=== PATIENT | male | born 1945 | race Caucasian/White ===

== ENCOUNTER → 2016-05-17 | Outpatient (CLI) | payer BC ==
[~2016-05-17] MED LIST: ADVIN25/60 INH; ALBUAER19 INH; ATOR10TA88 PO; COQ10 PO; FRS/40 PO; GLIM1TAB PO; METO1TAB69 PO; MODA1TAB PO; MOME50SP5; MULT-506 PO; OMEG10007 PO; PRD75 PO; PRLSR20 PO; SILO8CAP PO; SPIR50TA PO; VITA400C15 PO; VSC/10 PO
[2016-05-17 11:01] LABS: BASO % 0.3 %; BASO ABS # 0.02 K/uL (0-0.2); COMPLETE YES; EOS % 2.2 %; HEMATOCRIT 42.5 % (42-52); IG% 0.2 %; LYMPH ABS # 1.31 K/uL (1.2-3.4); MEAN CELL VOLUME 91.2 fL (80-100); MEAN CORPUSCULAR HEMOGLOBIN 31.1 pg (25-34); MEAN CORPUSCULAR HGB CONC 34.1 g/dl (32-36); MEAN PLATELET VOLUME 10.8 fL (7.4-10.4); NEUT % 67.3 %; PLATELET COUNT 212 K/uL (130-400); RED BLOOD COUNT 4.66 M/uL (4.7-6.1); WHITE BLOOD COUNT 6.25 K/uL (4.8-10.8)
[2016-05-17 11:17] LABS: ESTIMATED AVERAGE GLUCOSE 117 mg/dl; HA1C FLAG Normal (Normal)
[2016-05-17 11:18] LABS: BLOOD UREA NITROGEN 26 mg/dl (7-18); BUN/CREATININE RATIO 18.4 (10-20); CALCIUM 9.1 mg/dl (8.5-10.1); CARBON DIOXIDE 30 mmol/L (21-32); CHLORIDE 99 mmol/L (98-107); CHOLESTEROL 124 mg/dl (0-200); GLUCOSE 102 mg/dl (70-99); POTASSIUM 3.6 mmol/L (3.5-5.1); SODIUM 138 mmol/L (136-145)
[2016-05-17 11:24] LABS: CHOLESTEROL/HDL RATIO 3.5; HDL CHOLESTEROL 35 mg/dl; LDL CHOLESTEROL CALCULATED 73 mg/dl; TRIGLYCERIDES 82 mg/dl (0-150); VERY LOW DENSITY LIPOPROT CALC 16 mg/dl
== END | disposition home or self-care (01) ==
LOC: C.LABBC 09:05
PROVIDERS: ATTEND Family Medicine
DX: E11.40 Type 2 diabetes mellitus with diabetic neuropathy, unspecified (principal); E78.5 Hyperlipidemia, unspecified; D64.9 Anemia, unspecified; E11.22 Type 2 diabetes mellitus with diabetic chronic kidney disease; N18.3 Chronic kidney disease, stage 3 (moderate); Z11.59 Encounter for screening for other viral diseases

== ENCOUNTER → 2016-12-13 | Outpatient (CLI) | payer BC ==
[2016-12-13 10:22] LABS: URINE PROTIEN/CREAT RATIO 0.2 (0-0.2); URINE TOTAL PROTEIN 13.4 mg/dl (0-11.9)
[2016-12-13 10:29] LABS: ALT/SGPT 25 U/L (12-78); BLOOD UREA NITROGEN 32 mg/dl (7-18); BUN/CREATININE RATIO 24.3 (10-20); CALCIUM 9.1 mg/dl (8.5-10.1); CARBON DIOXIDE 32 mmol/L (21-32); CHLORIDE 102 mmol/L (98-107); CHOLESTEROL 97 mg/dl (0-200); GLUCOSE 83 mg/dl (70-99); POTASSIUM 3.4 mmol/L (3.5-5.1); SODIUM 139 mmol/L (136-145)
[2016-12-13 10:32] LABS: ALKALINE PHOSPHATASE 82 U/L (45-117); AST/SGOT 24 U/L (15-37); CHOLESTEROL/HDL RATIO 2.8; HDL CHOLESTEROL 35 mg/dl; LDL CHOLESTEROL CALCULATED 48 mg/dl; TRIGLYCERIDES 71 mg/dl (0-150); VERY LOW DENSITY LIPOPROT CALC 14 mg/dl
[2016-12-13 10:38] LABS: ESTIMATED AVERAGE GLUCOSE 114 mg/dl; HA1C FLAG Normal (Normal)
== END | disposition home or self-care (01) ==
LOC: C.LAB 09:09
PROVIDERS: ATTEND Physician Assistant Medical
DX: Z00.00 Encounter for general adult medical examination without abnormal findings (principal); E11.40 Type 2 diabetes mellitus with diabetic neuropathy, unspecified; E11.21 Type 2 diabetes mellitus with diabetic nephropathy

== ENCOUNTER → 2017-01-12 | Outpatient (CLI) | payer BC ==
[~2017-01-12] MED LIST changes: +ATOR10TA82 PO; -ATOR10TA88 PO; +METO100T44 PO; -METO1TAB69 PO
--- NOTE | 2017-01-13 10:13 | PAP/PSG TECHNICIAN REPORT ---
[facility] Hyster Driver Polysomnogram Report Study name: None Report date: 01/13/2017 Study date: 01/12/2017 Referring Physician: Marcial Goodwin M.D. Name: ESTHER MCDONNELL Interpreting Physician: Marcial Goodwin M.D. Date of : 1945 Hyster Driver: Aranza Elizondo RPSGT. Sex: Male Age: 71 StudyType: PSG PAP Weight: 293 lbs Height: 71 years, Height 6' 4.5" Neck Circum: 19 inches BMI: 35.2 Medications: Atorvastatin 20 mg, CoQ10 200 mg, Furosemide 40 mg, Glimepiride 2 mg, Metoprolol 100 mg, Modafinil 200 mg, MultiVitamins, Mytbetriq 50 mg, [place] 3-6-9 oral, Pantoprazole 40 mg, Potassium [id number] MEQ, Pradaxa 150 mg, Ranitidine 300 mg, Rapaflo 4 mg, Spironolactone-HCTZ 25-25 mg, Ventolin HFA 108 ( 90 Base) Patient History 71 yr. old male here tonight for an updated Bi-PAP titration study. Patient is sleeping in a recliner. Patient is complaining of morning headaches. Parameters Monitored NPSG: E1-M2, E2-M1, Fp1-M2, Fp2-M1, F3-M2, F4-M2, F4-M1, C3-M2, C4-M2, C4-M1, O1-M2, O2-M2, O2-M1, T3-M2, T4-M1, P3-M2, P4-M1, CHIN1, CHIN2, HR, EKG, Legs, PFLOW, SNOR, FLOW, CFLOW, Tidal Volume, THOR, ABDO, SpO2, PLTH, CPRESS, ETCO2 Wave, ETCO2, pH Sleep Architecture Sleep Stages Time at Lights Off 10:57:13 PM STAGES Time (min.) TST (%) Time at Lights On 5:02:43 AM Wake 105.5 -- Total Recording Time (TRT) 353.50 min. N1 25.0 10 Total Sleep Period (TSP) 277.5 min. N2 177.0 71 Total Sleep Time (TST) 248.0min. N3 17.5 7 Awake Time 105.5 min. REM 28.5 11 Wake after Sleep Onset 100.0 min. Sleep Efficiency (SE) 70 % Sleep Onset Latency (STEPHAN) 17.5 min. Number of Stage 1 Shifts None Awakenings 14 Stage Changes 82 Number of REM periods 10 REM 28.5 11 REM Latency 89.5 min. NREM 219.5 89 Body Position Analysis Supine Right Left Side Prone Vertical Total Sleep Time (min.) 0.0 0.0 0.0 0.00 0.0 353.5 Total Sleep Time (%) 0% 0% 0% 0 0% 100% Total Sleep Time REM (min.) 0.0 0.0 0.0 None 0.0 28.5 Total Sleep Time NREM (min.) 0.0 0.0 0.0 None 0.0 219.5 Intermittent Wake (min.) 0.0 0.0 0.0 None 0.0 105.5 Total Sleep Period (%) 0% None None None None None Arousals Myoclonus (PLM) * Events Count Index Events Count Index Spontaneous 5 1 Events Awake (PLMW) 139 79.1 Respiratory 10 4.4 Events Asleep w/ Arousal (PLMA) 13 3.1 PLM 13 3 Events Asleep w/o Arousal (PLMS) 194 46.9 Snoring 4 1 Total Asleep 207 50.1 Total 32 8 Total 346 59 Respiratory Analysis * CA OA MA CH H RERA Total Count 13 6 5 0 69 0 93 Index 3.1 1.5 1.2 0 16.7 0 22.5 Mean Duration 19.8 30.1 72.8 0.00 38.4 0.0 37.1 Longest Duration 40.3 48.1 84.9 0.00 84.9 0.0 116.8 Respiratory Event Summary Total Supine ~Supine Right Left Prone REM NREM Apneas Count 24 N/A 24 N/A N/A N/A 11 13 Index 5.8 N/A 6 N/A N/A N/A 23 4 Hypopneas (4% Desat) Count 69 N/A 69 N/A N/A N/A 9 60 Index 16.7 N/A 17 N/A N/A N/A 18.9 16.4 Apneas & All Hypopneas Count 93 N/A 93 N/A N/A N/A 20 73 Index 22.5 N/A 23 N/A N/A N/A 42.1 20.0 Respiratory Events (Bulb Planter+All Hyp+RERA) Count 93 N/A 93 N/A N/A N/A 20 73 Index 22.5 N/A 23 N/A N/A N/A 42.1 20.0 Respiratory Related Arousal Count 10 N/A 18 N/A N/A N/A 7 11 Index 4.4 N/A 4 N/A N/A N/A 15 3 Snoring Analysis Supine Right Left Prone REM NREM Total Snore duration 3.5 min Snores count N/A N/A N/A N/A 9 127 136 Snore mean duration 1.5 Sec Snores index N/A N/A N/A N/A 18.9 34.7 32.9 TST with snoring (%) 1.4% Desaturation Event Summary: Minimum %SpO2 Event Count Mean/Min/Max Duration(sec.) Desaturation Index % Time In Bed > 90 67 38.3 / 16.5 / 59.8 12.5 92.3 86 - 90 3 37.9 / 34.5 / 42.3 9.9 5.2 81 - 85 2 25.5 / 19.3 / 31.8 22.3 1.6 76 - 80 0 N/A 0.0 0.8 71 - 75 0 N/A 0.0 0.1 66 - 70 0 N/A 0.0 0.0 61 - 65 0 N/A 0.0 0.0 56 - 60 0 N/A 0.0 0.0 51 - 55 0 N/A 0.0 0.0 < 50 0 N/A 0.0 0.0 Total REM NREM Awake <50% 0.0 min. 0.0 min. 0.0 min. 0.0 min. 51 - 60% 0.0 min. 0.0 min. 0.0 min. 0.0 min. 61 - 70% 0.0 min. 0.0 min. 0.0 min. 0.0 min. 71 - 80% 3.3 min. 1.2 min. 0.9 min. 1.1 min. 81 - 90% 23.5 min. 4.9 min. 16.5 min. 2.2 min. 91 - 100% 320.4 min. 22.4 min. 201.9 min. 96.1 min. Average 94 93 93 95 Minimum SpO2 72 76 74 72 Desaturation Event Index 11.7 21.1 12.8 6.8 # Desat. Events below 89% 23 6 12 5 Time(%) with Saturation below 89% 4.6 1.3 2.6 0.7 Time(min.) with Saturation below 89% 15.8 4.4 9.0 2.4 Time (mins) REM (mins) NREM (mins) % of TST SpO2 Below 90% 31 7 N24 6.8 SpO2 Below 88% 13 0 0 4 Heart Rate Analysis Min (bpm) Max (bpm) Average (bpm) Awake 47 79 61 NREM 43 84 60 REM 48 83 60 Overall 43 84 60 Supplemental O2 Values Minimum O2 level: None Value Start Time End Time Hyster Driver Comments slept upright in the recline, at 2:50 am he reclined back more than he was first half of the study. Frequent cardiac arrhythmia noted. PLMs noted. No bruxism noted. PAP initiated at an IPAP of +8 CMH2O and an EPAP of +4 CMH2O up-titrated to a level of: IPAP +16 CMH2O, EPAP 8 CMH20 BiFlex with a rate of 11BPM, which nearly eliminated all respiratory events and snoring. Patient brought his own medium Quattro air full face mask, however the leak was high and a medium Simplus was used during titration. awoke to use the restroom once during the night. stated, that was a normal night, he was belching more than normal and was cold. Therapy Event: Therapy (cm H20) 10/045 5 /5 13/5 14/5 15/6 15/7 16/8 Total Time at Pressure (min.) 27.2 15.5 46.9 51.7 68.5 43.1 11.4 17.5 20.5 51.2 TST at Pressure (min.) 9.8 15.0 46.4 43.2 68.0 26.6 10.4 16.5 12.2 0.0 # Periods 1 1 1 1 1 1 1 1 1 1 Sleep Onset (min.) 17.4 0.0 0.0 0.0 0.0 0.0 0.0 0.0 0.0 N/A REM Onset (min.) N/A N/A N/A 17.3 N/A N/A N/A 9.6 0.2 N/A Sleep Efficiency % 36 96 98 83 99 61 91 94 59 0 Wakefulness (%) 63.9 3.2 1.1 16.4 0.7 38.3 8.8 5.7 40.5 100.0 Wakefulness (min.) 17.4 0.5 0.5 8.5 0.5 16.5 1.0 1.0 8.3 51.2 NREM 1 (%) 9.2 9.7 2.6 11.1 3.7 11.6 13.2 10.5 15.5 0.0 NREM 1 (min.) 2.5 1.5 1.2 5.7 2.5 5.0 1.5 1.8 3.2 0.0 NREM 2 (%) 26.9 87.1 59.0 45.4 95.6 50.1 78.0 52.3 0.0 0.0 NREM 2 (min.) 7.3 13.5 27.7 23.5 65.4 21.6 8.9 9.1 0.0 0.0 NREM 3 (%) 0.0 0.0 37.3 0.0 0.0 0.0 0.0 0.0 0.0 0.0 NREM 3 (min.) 0.0 0.0 17.5 0.0 0.0 0.0 0.0 0.0 0.0 0.0 REM (%) 0.0 0.0 0.0 27.1 0.0 0.0 0.0 31.5 44.0 0.0 REM (min.) 0.0 0.0 0.0 14.0 0.0 0.0 0.0 5.5 9.0 0.0 # Arousals 0 2 4 9 8 2 0 2 5 N/A Arousal Index 0.0 8.0 5.2 12.5 7.1 4.5 0.0 7.3 24.7 N/A # Snore 3 5 6 17 19 49 4 29 4 N/A Snore Index 18.3 20.0 7.8 23.6 16.8 110.7 23.1 105.6 19.7 N/A AHI 24.4 32.0 9.1 41.6 8.8 18.1 46.3 40.1 34.5 N/A AHI Supine N/A N/A N/A N/A N/A N/A N/A N/A N/A N/A AHI Non-Supine 24.4 32.0 9.1 41.6 8.8 18.1 46.3 40.1 34.5 N/A NREM AHI 24.4 32.0 9.1 39.0 8.8 18.1 46.3 38.3 37.9 N/A REM AHI N/A N/A N/A 47.1 N/A N/A N/A 43.6 33.3 N/A RDI 24.4 32.0 9.1 41.6 8.8 18.1 46.3 40.1 34.5 N/A # Obstructive 2 1 1 1 0 0 0 1 0 N/A # Central Ap 0 0 0 10 0 0 0 3 0 N/A # Mixed 0 0 0 0 0 0 0 1 4 N/A # Hypopneas 2 7 6 19 10 8 8 6 3 N/A RERAS 0 0 0 0 0 0 0 0 0 N/A Total Respiratory Events 4 8 7 30 10 8 8 11 7 N/A Time Below SpO2 89.00% (min.) 0.2 1.0 2.0 3.1 2.5 0.0 0.1 2.6 2.0 0.0 Mean NREM SpO2 (%) 93 92 93 93 93 94 95 94 91 N/A Mean REM SpO2 (%) N/A N/A N/A 92 N/A N/A N/A 92 95 N/A Mean Sleep SpO2 (%) 93 92 93 93 93 94 95 93 94 N/A Min NREM SpO2 (%) 88 81 78 84 80 89 87 74 77 N/A Min REM SpO2 (%) N/A N/A N/A 76 N/A N/A N/A 76 79 N/A Position Supine (min.) 0.0 0.0 0.0 0.0 0.0 0.0 0.0 0.0 0.0 0.0 Position Non-supine (min.) 9.8 15.0 46.4 43.2 68.0 26.6 10.4 16.5 12.2 0.0 LM Index Sleep 110.0 60.0 80.2 52.7 52.1 22.6 5.8 0.0 19.7 N/A LM Index NREM 110.0 60.0 80.2 71.9 52.1 22.6 5.8 0.0 19.0 N/A LM Index REM N/A N/A N/A 12.9 N/A N/A N/A 0.0 20.0 N/A Mean Heart Rate (bpm) 64 65 62 61 58 58 58 58 58 N/A Min Heart Rate (bpm) 50 48 47 47 43 45 44 48 48 N/A
--- NOTE | 2017-01-17 13:38 | POLYSOMNOGRAPH REPORT ---
CLINICAL DATA: A 71-year-old male with BMI of 35.2 referred by myself for an updated BiPAP titration study. The patient has morning headaches and fatigue. SLEEP ARCHITECTURE: Total recording time was 353.5 minutes. Total sleep period was 277.5 minutes. Total sleep time was 248 minutes divided between 219.5 minutes of non-REM sleep and 28.5 minutes of REM sleep. Sleep onset latency was 17.5 minutes. REM latency was 89.5 minutes. Sleep efficiency was 70%. Wake after sleep onset was 100 minutes. Sleep consisted of stage N1 10%, stage N2 71%, stage N3 7%, and REM 11%. AROUSAL DATA: Thirty-two arousals were recorded for an index of 8 per hour. PLM DATA: Moderate PLMD was seen. There were 207 limb movements during sleep noted for an index of 50.1 per hour with arousal index of 3.1 per hour. RESPIRATORY DATA: The AHI was 22.5. There were 13 central, 6 obstructive and 5 mixed apneic episodes. The longest apneic episode was 84.9 seconds. There were 16 hypopneic episodes,with a mean duration of 38.4 seconds. OXIMETRY DATA: Nocturnal hypoxemia was seen. Oxygen isabel of 74% during non-REM sleep. The mean saturation was 94%. Time below 88% was 13 minutes. HEART RATE DATA: Heart rates ranged from 43-84 beats per minute. Atrial fibrillation was seen intermittently throughout the night. MANUFACTURING SCHEDULER'S COMMENTS: The patient slept upright in the recliner for the beginning of the study and then at 2:50 a.m. reclined back more than he was during the first half of the study. BiPAP was started at 8/4 and was titrated up to a final pressure setting of 15/7 with a backup rate 11 breaths per minute. At that pressure setting, he had an AHI of 34.5. At 16/8 with a Bi-Flex level of 2 and rate of 11 breaths per minute, the patient had an AHI of 0, but did not sleep at all during that time. IMPRESSION: Complex sleep apnea with incomplete BiPAP titration study. The final pressure setting of 16/8 with backup rate of 11 appeared to be effective, although the patient did not sleep at all with that pressure setting. At 15/7 with a backup rate of 11, the patient had an AHI of 34.5. IMPRESSION: Severe sleep apnea/hypopnea complex in nature with incomplete BiPAP titration study. RECOMMENDATIONS: The patient could be started on BiPAP 16/8 with a backup rate of 11. However, he may eventually need ASV titration to correct his complex sleep apnea. Clinical correlation is needed. MTDD
== END | disposition home or self-care (01) ==
LOC: C.NEUR 21:00
PROVIDERS: ATTEND Internal Medicine Pulmonary Disease
DX: G47.33 Obstructive sleep apnea (adult) (pediatric) (principal)

== ENCOUNTER → 2017-03-31 | Outpatient (CLI) | payer BC ==
[2017-03-31 14:26] LABS: BLOOD UREA NITROGEN 32 mg/dl (7-18); CALCIUM 9.4 mg/dl (8.5-10.1); CARBON DIOXIDE 32 mmol/L (21-32); CREATININE 1.31 mg/dl (0.60-1.40); GLUCOSE 93 mg/dl (70-99); POTASSIUM 3.7 mmol/L (3.5-5.1); SODIUM 137 mmol/L (136-145)
== END | disposition home or self-care (01) ==
LOC: C.LABBC 10:27
PROVIDERS: ATTEND Physician Assistant Medical
DX: R60.9 Edema, unspecified (principal)

== ENCOUNTER 2017-06-17 06:11 | Inpatient (IN) | payer BC, OTHER ==
[2017-05-21 08:30] VITALS: BMI 35.0
--- NOTE | 2017-05-21 09:07 | PAT Medication Instructions ---
Service Date May 21, 2017. Current Home Medication List Albuterol Sulfate (Proair Respiclick), 2 PUFFS INH PRN Atorvastatin (Lipitor), 20 MG PO QPM Dabigatran Etexilate Mesylate (Pradaxa), 150 MG PO BID Fish Oil ([place]-3), 1 CAP PO QPM Fluticasone Prop/Salmeterol (Advair Diskus 250/50 60 Dose), 1 PUFF INH BID PRN for PRN Furosemide (Lasix), 40 MG PO NOON Glimepiride (Amaryl), 2 MG PO QAM Hctz/Spironolactone 25MG/25MG (Aldactazide 25MG/25MG), 1 TAB PO QAM Metoprolol Succ (Toprol Xl) (Toprol-Xl ), 100 MG PO QPM Mirabegron (Myrbetriq Er), 50 MG PO QAM Modafinil (Provigil), 200 MG PO QAM Multivitamin (Multivitamin), 1 TAB PO QAM Pantoprazole (Protonix), 40 MG PO QPM Potassium Ext Rel (Klor-Con), 20 MEQ PO QAM Ranitidine (Zantac), 300 MG PO QPM Silodosin (Rapaflo), 4 MG PO HS [Coq10], 1 TAB PO QAM [Nasonex], 2 SPRAYS INTNAS QPM Medication Instructions For Your Scheduled Surgery -Contact your analyst food and beverage for instructions for: Dabigatran Etexilate Mesylate (Pradaxa), 150 MG PO BID - Hold the following medications 2 weeks prior to surgery: Fish Oil ([place]-3), 1 CAP PO QPM [Coq10], 1 TAB PO QAM - Hold the following medications 24 hours prior to surgery: Furosemide (Lasix), 40 MG PO NOON - Hold the following medications the morning of surgery: Glimepiride (Amaryl), 2 MG PO QAM Hctz/Spironolactone 25MG/25MG (Aldactazide 25MG/25MG), 1 TAB PO QAM Mirabegron (Myrbetriq Er), 50 MG PO QAM Modafinil (Provigil), 200 MG PO QAM Multivitamin (Multivitamin), 1 TAB PO QAM Potassium Ext Rel (Klor-Con), 20 MEQ PO QAM - Take the following medications the morning of surgery: Albuterol Sulfate (Proair Respiclick), 2 PUFFS INH PRN (if needed, and bring it with you to the hospital) Fluticasone Prop/Salmeterol (Advair Diskus 250/50 60 Dose), 1 PUFF INH BID PRN for PRN (if needed) - Take the following medications as scheduled the night before surgery: Albuterol Sulfate (Proair Respiclick), 2 PUFFS INH PRN (if needed) Atorvastatin (Lipitor), 20 MG PO QPM Fluticasone Prop/Salmeterol (Advair Diskus 250/50 60 Dose), 1 PUFF INH BID PRN for PRN (if needed) Metoprolol Succ (Toprol Xl) (Toprol-Xl ), 100 MG PO QPM Pantoprazole (Protonix), 40 MG PO QPM Ranitidine (Zantac), 300 MG PO QPM Silodosin (Rapaflo), 4 MG PO HS [Nasonex], 2 SPRAYS INTNAS QPM If you have any questions please call us at [phone] or [phone] or [phone]
--- NOTE | 2017-05-21 09:54 | DIAGNOSTIC IMAGING REPORT ---
CHEST 2 VIEWS ROUTINE CLINICAL HISTORY: PAT preoperative evaluation COMPARISON STUDY: No previous studies for comparison. FINDINGS: The bones soft tissues and hemidiaphragms are normal. The cardiomediastinal silhouette is normal. The lungs are clear. The pulmonary vasculature is normal. IMPRESSION: Negative chest. The above report was generated using voice recognition software. It may contain grammatical, syntax or spelling errors. Electronically signed by: Luciano Arrieta M.D. 05/21/2017 9:53 AM Dictated Date/Time: 05/21/2017 9:52 AM
[2017-05-21 10:21] LABS: BASO % 0.2 %; BASO ABS # 0.01 K/uL (0-0.2); EOS % 2.4 %; EOS ABS # 0.15 K/uL (0-0.5); HEMATOCRIT 40.7 % (42-52); HEMOGLOBIN 13.4 g/dL (14.0-18.0); IG# 0.01 K/uL (0.00-0.02); LYMPH % 16.9 %; LYMPH ABS # 1.06 K/uL (1.2-3.4); MEAN CELL VOLUME 90.8 fL (80-100); MEAN CORPUSCULAR HEMOGLOBIN 29.9 pg (25-34); MEAN CORPUSCULAR HGB CONC 32.9 g/dl (32-36); MEAN PLATELET VOLUME 10.7 fL (7.4-10.4); MONO ABS # 0.75 K/uL (0.11-0.59); NEUT % 68.3 %; NEUT ABS # 4.28 K/uL (1.4-6.5); PLATELET COUNT 167 K/uL (130-400); RED CELL DISTRIBUTION WIDTH CV 13.3 % (11.5-14.5); RED CELL DISTRIBUTION WIDTH SD 44.2 fL (36.4-46.3); WHITE BLOOD COUNT 6.26 K/uL (4.8-10.8)
[2017-05-21 11:07] LABS: HEMOGLOBIN A1C 5.7 % (4.5-5.6)
[2017-05-21 11:32] LABS: CALCIUM 9.4 mg/dl (8.5-10.1); CREATININE 1.29 mg/dl (0.60-1.40)
[2017-06-17] VITALS (15 sets, daily range): BP systolic 102–137; BP diastolic 63–85; PULSE 62–144; TEMP 36.3–36.5; O2SAT 95–98; Ht 193 cm; Wt 134.0 kg
[~2017-06-17] VITALS: Ht 193 cm; Wt 134.0 kg
[~2017-06-17 06:11] MED LIST changes: +ACETAMINOPHEN 500 MG TAB PO SCH; +ALBU18002 INH; -ALBUAER19 INH; +CEFAZOLIN 3000MG IV PUSH 22.5 ML IV SCH; +CeleBREX 200 MG CAP PO SCH; +DABI150C PO; +GABAPENTIN 300 MG CAP PO SCH; +LACTATED RINGER'S 1000ML 1,000 ML IV SCH; +MIRA1TAB3 PO; -MOME50SP5; +NASONEX INTNAS; +PANT40TA PO; +POTA-639 PO; -PRD75 PO; -PRLSR20 PO; +RANI150T85 PO; -VITA400C15 PO; -VSC/10 PO
[2017-06-17] MEDS ORDERED: FENTANYL CITRATE INJ 50 MCG/1 ML 2 ML VIAL ONE ×3 (06:39→09:36)
[2017-06-17] MEDS ORDERED: MIDAZOLAM HCL 1 MG/ML 2ML VIAL ONE (06:39)
[2017-06-17] MEDS ORDERED: FLUT0.15 NAE (06:41)
[2017-06-17] MEDS ORDERED: COEN75CA PO (06:41)
[2017-06-17] MEDS ORDERED: BACITRACIN 50000 UNIT VIAL ONE (06:56)
[2017-06-17] MEDS ORDERED: ATROPINE SULFATE 0.1 MG/ML 5ML SYR IV PRN (07:15)
[2017-06-17] MEDS ORDERED: LABETALOL HCL IV 5 MG/ML 20ML IV PRN (07:15)
[2017-06-17] MEDS ORDERED: ONDANSETRON INJ 2 MG/ML 2 ML VIAL IV PRN ×2 (07:15→10:00)
--- NOTE | 2017-06-17 07:22 | History & Physical Bridge Note ---
H&P Re-Evaluation Bridge Note: I have examined the patient, reviewed the History & Physical and in the interval since the performance of the History & Physical I have noted the following changes of clinical significance: No changes noted
--- NOTE | 2017-06-17 07:24 | History and Physical ---
History & Physical Date Jun 17, 2017. Chief Complaint Neck and arm pain History of Present Illness The patient is a 72 year old male with complaints of neck and arm pain Additional History Hepatic Disease: No Endocrine Disorder: No Kidney Disease: No Hypertension: Yes Heart Disease: No Bleeding Tendencies: No Infectious Diseases: No Other: Diabetes Allergies Coded Allergies: Clindamycin (Verified Allergy, Unknown, RASH, 06/17/17) Iodine (Verified Allergy, Unknown, TOPICAL IODINE SWELLING AT SITE-SOB, ) Home Medications Scheduled Albuterol Sulfate (Proair Respiclick), 2 PUFFS INH PRN Atorvastatin (Lipitor), 20 MG PO QPM Coenzyme Q10 (Ubidecarenone) (Co Q-10), 1 CAP PO DAILY Dabigatran Etexilate Mesylate (Pradaxa), 150 MG PO BID Fish Oil ([place]-3), 1 CAP PO QPM Fluticasone Propionate (Nasal) (Flonase Allergy Relief), 2 SPRAY [place] DAILY Furosemide (Lasix), 40 MG PO NOON Glimepiride (Amaryl), 2 MG PO QAM Hctz/Spironolactone 25MG/25MG (Aldactazide 25MG/25MG), 1 TAB PO QAM Metoprolol Succ (Toprol Xl) (Toprol-Xl ), 100 MG PO QPM Mirabegron (Myrbetriq Er), 50 MG PO QAM Modafinil (Provigil), 200 MG PO QAM Multivitamin (Multivitamin), 1 TAB PO QAM Pantoprazole (Protonix), 40 MG PO QPM Potassium Ext Rel (Klor-Con), 20 MEQ PO QAM Ranitidine (Zantac), 300 MG PO QPM Silodosin (Rapaflo), 4 MG PO HS Scheduled PRN Fluticasone Prop/Salmeterol (Advair Diskus 250/50 60 Dose), 1 PUFF INH BID PRN for PRN Physical Examination Skin: warm/dry, no rash Eyes: normal inspection, EOMI, sclerae normal ENT: normal ENT inspection, pharynx normal Head: normocephalic, atraumatic Neck: supple, no adenopathy, trachea midline Respiratory/Chest: lungs clear, normal breath sounds, no respiratory distress Cardiovascular: regular rate, rhythm, no edema, no murmur Abdomen / GI: normal bowel sounds, non tender Back: normal inspection Extremities: normal inspection, normal range of motion Neurologic/Psych: no motor/sensory deficits, alert, normal reflexes, oriented x 3 Diagnosis Cervical spinal stenosis Plan of Treatment Hardware removal C4-C6 ACDF C3-4 and C6-7 with re-instrumentation
[2017-06-17] MEDS ORDERED: HYDROmorphone INJ 2 MG/ML SYR/VIAL ONE ×2 (08:08→09:52)
[2017-06-17] MEDS ORDERED: EpHEDrine SULFATE 50MG/5ML SYR ONE (09:39)
[2017-06-17] MEDS ORDERED: ONDANSETRON INJ 2 MG/ML 2 ML VIAL ONE ×2 (09:39→09:57)
[2017-06-17] MEDS ORDERED: LIDOCAINE HCL 2% 2 ML VIAL (20MG/ML) ONE (09:39)
[2017-06-17] MEDS ORDERED: ROCURONIUM BROMIDE 10 MG/ML 5 ML VIAL IV ONE (09:39)
[2017-06-17] MEDS ORDERED: DEXAMETHASONE SOD INJ 4 MG/ML VIAL ONE (09:39)
[2017-06-17] MEDS ORDERED: PROPOFOL IV EMULSION 10 MG/ML 20 ML VIAL IV ONE (09:39)
[2017-06-17] MEDS ORDERED: FLOSEAL HEMOSTATIC MATRIX 10ML TOP ONE (09:50)
[2017-06-17] MEDS ORDERED: GLYCOPYRROLATE INJ 0.2 MG/ML VIAL ONE (09:57)
[2017-06-17] MEDS ORDERED: NEOSTIGMINE METHYLSULFATE 1 MG/ML 10ML VIAL ONE (09:57)
[2017-06-17] MEDS ORDERED: FLUTICASONE/SALMETEROL 250/50 (ADVAIR) 14 PUFF/1 INHALER INH PRN (10:00)
[2017-06-17] MEDS ORDERED: LORAZEPAM 0.5 MG TAB PO PRN (10:00)
[2017-06-17] MEDS ORDERED: DO NOT ADMINISTER FLU VACCINE PRN (10:00)
[2017-06-17] MEDS ORDERED: ACETAMINOPHEN IV 1,000 MG in EMPTY BAG 0 ML IV PRN (10:00)
[2017-06-17] MEDS ORDERED: OXYCODONE HCL IR 5 MG TAB (IMMEDIATE RELEASE) PO PRN (10:00)
[2017-06-17] MEDS ORDERED: HYDROmorphone INJ 0.5 MG/0.5 ML SYR IV PRN (10:00)
[2017-06-17] MEDS ORDERED: NALOXONE HCL 0.4 MG/1 ML VIAL/CARP IV PRN (10:00)
[2017-06-17] MEDS ORDERED: LORAZEPAM INJ 0.5 MG in SYRINGE 0.75 ML IV PRN (10:00)
[2017-06-17] MEDS ORDERED: RACEPINEPHRINE 2.25% NEBU SOLN 0.5 ML VIAL INH PRN (10:00)
[2017-06-17] MEDS ORDERED: MAGNESIUM HYDROXIDE SUSP 30 ML UDC PO PRN (10:00)
[2017-06-17] MEDS ORDERED: DO NOT ADMINISTER PNEUMOCOCCAL VACCINE PRN (10:00)
[2017-06-17] MEDS ORDERED: DEXAMETHASONE INJ 8 MG in SYRINGE 0 ML IV PRN (10:00)
[2017-06-17] MEDS ORDERED: DiphenhydrAMINE HCL 50 MG/ML VIAL IV PRN (10:00)
--- NOTE | 2017-06-17 10:00 | [facility] Operative Report ---
Operative Report Operative Date Jun 17, 2017. Pre-Operative Diagnosis Cervical spinal stenosis Post-Operative Diagnosis Cervical spinal stenosis Procedure(s) Performed 1. Removal instrumentation C4-5 C5-6. #2 expiration of fusion C4-5 C5-6. #3 anterior cervical discectomy bilateral foraminotomies C3-4 C6-7. #4 anterior cervical arthrodesis C3 Serge. #5 placement of 9 mm cortical allograft filled with DBM at C3-4 and a 10 mm allograft at C6-7. #6 application of 5 complete and screws from C3 to see 7. Surgeon Dr. Elgin Baxter Green Feed Attendant Surgeon(s) Johana Lui PA-C Estimated Blood Loss 20 mL Specimens Permanent specimens A: Explanted hardware; cervical spine Anesthesia Type General Description of Procedure Patient was met with preoperatively case discussed all questions addressed. The point patient was taken back to the operative suite underwent intubation and placed in supine position the Ray table to head Henning headholder. All bony prominences were well-padded eyes inspected to ensure no external pressure placed upon the. This point the anterior cervical spine was prepped and draped in normal sterile fashion. I placed a longitudinal incision along the right anterior aspect of the cervical spine sharp dissection with the assistance of bipolar electrocautery was performed down to and exposing the anterior cervical spine from C3-C7 exposing the anterior instrumentation. I then proceeded remove the hardware at C4-C5 and C6 I explored the fusion mass noted to be intact. Then performed a complete discectomy of C3-4 out to the uncovertebral joints bilaterally. Ada distracting pins were utilized to assist in visualization. I removed all posterior annular fibers performed bilateral foraminotomies. Endplates burred to subcortical bleeding bone and a 9 mm cortical allograft filled with DBM tapped in position. Distracting apparatus was removed and I proceeded to C6-7. Again a complete discectomy was performed up to the uncovertebral joints bilaterally. All posterior annular fibers and longitudinal ligament removed bilateral foraminotomies performed. Endplates burred to subcortical bleeding bone and a 10 mm cortical allograft filled DBM tapped in position. Distracting apparatus was removed all anterior osteophytes burred to a smooth cortical surface and a cline plate and screws applied from C3-C7 with the assistance of fluoroscopy. Incision was copiously irrigated explored to ensure there is no damage to surrounding structures or remaining bleeding and a 10 round FAHEEM drain inserted. Was then closed with 2 Vicryl in a fashion of 4 Monocryl for fashion closure Steri-Strips sterile dressings placed. Patient will continue to PACU stable condition. Please note Johana Lui participate in patient positioning complex portions of the surgery and final skin closure. I attest to the content of the Intraoperative Record and any orders documented therein. Any exceptions are noted below.
--- NOTE | 2017-06-17 10:15 | DIAGNOSTIC IMAGING REPORT ---
CERVICAL 2 OR 3 VIEWS CLINICAL HISTORY: 72 years-old Male presenting with REMOVAL OF HARDWARE C4-C6 C3-C4 DECOMP/ACDF C3-C7. TECHNIQUE: 3 fluoroscopic image(s) recorded as part of an intraoperative procedure. COMPARISON: None. FINDINGS/IMPRESSION: Anterior cervical discectomy and fusion from C3 through C7 with interbody spacers. Grossly normal anatomic alignment. An endotracheal tube is noted. Please see surgical report for further details. Fluoroscopy dosage (mGy): 2.8. Fluoroscopy time: 17.9 seconds. Number of fluoroscopic spot images: 0. Electronically signed by: Hitesh Ash M.D. 06/17/2017 10:14 AM Dictated Date/Time: 06/17/2017 10:13 AM
[2017-06-17] MEDS: HYDROmorphone INJ 2 MG/ML SYR/VIAL IV PRN ×3 (10:45→10:58)
--- NOTE | 2017-06-17 10:52 | Anesthesiology Progress Note ---
Anesthesia Post Op Note Date & Time Jun 17, 2017 at 10:52 Vital Signs Pain Intensity: 4.0 Vital Signs Past 12 Hours Date Time Temp Pulse Resp B/P (MAP) Pulse Ox O2 Delivery O2 Flow Rate FiO2 06/17/17 10:40 63 12 114/58 96 Nasal Cannula 4 06/17/17 10:30 62 10 113/63 99 Oxymask 10 06/17/17 10:20 63 11 109/60 98 Oxymask 10 06/17/17 10:13 36.2 67 16 111/56 100 Oxymask 10 06/17/17 06:45 36.5 65 20 121/71 97 Room Air Notes Mental Status: alert / awake / arousable, participated in evaluation Pt Amnestic to Procedure: Yes Nausea / Vomiting: adequately controlled Pain: adequately controlled Airway Patency, RR, SpO2: stable & adequate BP & HR: stable & adequate Hydration State: stable & adequate Anesthetic Complications: no major complications apparent
[2017-06-17] MEDS ORDERED: SODIUM CHLORIDE 0.9% 500ML 500 ML IV SCH (12:15)
[2017-06-17] MEDS ORDERED: ENALAPRILAT IV 2.5 MG in DEXTROSE 5% 25ML 25 ML IV ONE (12:22)
[2017-06-17] MEDS ORDERED: FUROSEMIDE 40 MG TAB PO ONE (12:33)
[2017-06-17] MEDS ORDERED: SODIUM CHLORIDE 0.9% 500ML 250 ML IV ONE (12:45)
[2017-06-17 12:50] LABS: HEMATOCRIT 38.5 % (42-52); HEMOGLOBIN 13.1 g/dL (14.0-18.0); MEAN CELL VOLUME 89.1 fL (80-100); MEAN CORPUSCULAR HEMOGLOBIN 30.3 pg (25-34); MEAN PLATELET VOLUME 10.3 fL (7.4-10.4); PLATELET COUNT 164 K/uL (130-400); RED CELL DISTRIBUTION WIDTH CV 13.1 % (11.5-14.5); RED CELL DISTRIBUTION WIDTH SD 42.9 fL (36.4-46.3); WHITE BLOOD COUNT 7.36 K/uL (4.8-10.8)
[2017-06-17] MEDS ORDERED: SCOPOLAMINE 1.5 MG TDSY TD SCH (13:00)
[2017-06-17 13:08] LABS: BLOOD UREA NITROGEN 32 mg/dl (7-18); CARBON DIOXIDE 29 mmol/L (21-32); CREATININE 1.42 mg/dl (0.60-1.40); GLUCOSE 120 mg/dl (70-99); POTASSIUM 3.5 mmol/L (3.5-5.1); SODIUM 137 mmol/L (136-145)
[2017-06-17] MEDS ORDERED: RXC5 PO (13:28)
--- NOTE | 2017-06-17 13:28 | Discharge Instructions ---
Discharge Instructions Date of Service Jun 17, 2017. Admission Reason for Admission: Spinal Stenosis Discharge Discharge Diagnosis / Problem: cervical stenosis Discharge Goals Goal(s): Improve function Activity Recommendations Activity Limitations: per Instructions/Follow-up section . Instructions / Follow-Up Instructions / Follow-Up ACTIVITY RECOMMENDATIONS: SELF CARE INSTRUCTIONS AFTER CERVICAL FUSIONS 1. No smoking. Smoking drastically decreases the chance of a solid fusion. 2. No bending, lifting more than 5 pounds, or twisting (roll like a log when turning in bed). 3. You may shower 3 days after surgery. Thoroughly dry wound. Do not soak in the tub. 4. Cervical collar: Must be worn at all times including sleeping. You may remove the brace only to bath, eat and if you are sitting in a recliner. 5. Please walk as much as you can for exercise. Gradually increase the distance that you walk as your endurance increases. SPECIAL CARE INSTRUCTIONS: VERY IMPORTANT TO READ AND REVIEW A. Do not take any anti-inflammatory medications (i.e. Indocin, Advil, Aspirin, Naprosyn, Aleve, Motrin, etc.) as these may inhibit the chance of a solid fusion. Tylenol is okay to take. B. Your surgical incision has been closed with a cosmetic suture under the skin that will dissolve in about 6 weeks. In 14 days, you can use a pair of clean scissors and cut the suture that is left outside of the skin at the ends of your incision. C. Complications are uncommon, but please contact us if you have any signs or symptoms of: 1. wound infection (fever higher than 102.5 degrees F, redness, separation of wound, drainage, or increasing pain from the incision) 2. blood clots in legs (pain, swelling, redness and warmth in legs) 3. urinary tract infection (fever higher than 102.5 degrees, burning upon urination or increased frequency of urination) 4. nerve problems (inability to walk on your toes or heels, numbness, loss of bowel or bladder control) 5. any other symptoms that concern you. D. Please call the office at if you have any concerns or questions about your operation or recovery. MANAGING PAIN AFTER SPINAL SURGERY 1. Narcotic medication is intended for short-term use and will be provided for surgical pain. Surgical pain usually lasts for a period of 4-6 weeks. Narcotic medication includes Percocet, Vicodin, Darvocet, Tylenol #3 or Lortab. 2. Longer-term pain is more appropriately treated with non-narcotic medication such as Tylenol ES. 3. Muscle spasm is not appropriately treated with narcotics. Muscle relaxers such as Soma, Flexeril or Skelaxin can be used along with Tylenol ES. 4. Remember that we all live with some "aches and pains". This is not unusual or uncommon after an injury or as we get older. 5. We will provide appropriate medication within the normal guidelines of their prescribed use. We will also be very cautious and aware of potential abuse and extended duration of patients' medication needs. 6. Please allow 2-3 days to process refills. Prescriptions will not be mailed but must be picked up at the office. FOLLOW UP VISIT: Keep your scheduled follow-up appointment. Any questions, please call the office at . Current Hospital Diet Patient's current hospital diet: Clear Liquid Diet, Diabetes Type 2 Diet Discharge Diet Recommended Diet: Regular Diet Procedures Procedures Performed: 1. Removal instrumentation C4-5 C5-6. #2 expiration of fusion C4-5 C5-6. #3 anterior cervical discectomy bilateral foraminotomies C3-4 C6-7. #4 anterior cervical arthrodesis C3 Serge. #5 placement of 9 mm cortical allograft filled with DBM at C3-4 and a 10 mm allograft at C6-7. #6 application of 5 complete and screws from C3 to see 7. Pending Studies Studies pending at discharge: no Laboratory Results Hemoglobin A1c Test 05/21/17 09:20 Range/Units Estimated Average Glucose 117 mg/dl Hemoglobin A1c 5.7 H 4.5-5.6 % Medical Emergencies . Who to Call and When: Medical Emergencies: If at any time you feel your situation is an emergency, please call 911 immediately. . Non-Emergent Contact Non-Emergency issues call your: Primary Care Provider . "Provider Documentation" section prepared by Elgin Baxter. .
--- NOTE | 2017-06-17 13:37 | Medical Consult ---
Consultation Date of Consultation: Jun 17, 2017. Attending Physician: Elgin Baxter D.O. Reason for Consultation: Medical management History of Present Illness 72 y/o M who was admitted on 06/17 s/p cervical hardware and replacement with Dr. Baxter. Pt was doing well post-op initially, however after being situated on the floor he had sudden onset of chest pain and it was noted that his HR was in the 200s. He was not SOB and his O2 sats were stable. BP was stable. I was called by nursing when this happened, however this issue was resolved upon arrival to the pt. HR was in the 90s. He states that initially his chest pain was substernal , however now it is more in his L axillary area and by the time his EKG was done , it had resolved. Pt takes metoprolol HS and did get this dose last night. He also took his DM meds this AM. He takes pradaxa, but this was on hold for the procedure. He has not been given food yet, but he has been tolerating water without issue. Pt denies current fever, SOB, chest pain, abd pain, n/v/c/d, LE swelling. Past Medical/Surgical History DM Hyperlipidemia HTN GERD COPD Afib JERAD, compliant with CPAP Narcolepsy CKD III Hx of cath 2002 that showed some narrowing, but nothing that required stents at that time Social History Smoking Status: Never Smoker Alcohol Use: none Drug Use: none Allergies Coded Allergies: Clindamycin (Verified Allergy, Unknown, RASH, 06/17/17) Iodine (Verified Allergy, Unknown, TOPICAL IODINE SWELLING AT SITE-SOB, ) Current Inpatient Medications Current Inpatient Medications Medications (Trade) Dose Ordered Sig/Svitlana Route Start Time Stop Time Status Last Admin Dose Admin Cefazolin Sodium 22.5 ml @ 4.5 mls/min PREOP IV 06/17/17 06:00 06/17/17 18:00 06/17/17 07:39 4.5 MLS/MIN Acetaminophen (Tylenol Tab) 1,000 mg PREOP PO 06/17/17 06:00 06/17/17 18:00 06/17/17 07:04 1,000 MG Celecoxib (CeleBREX CAP) 200 mg PREOP PO 06/17/17 06:00 06/17/17 18:00 06/17/17 07:04 200 MG Gabapentin (Neurontin Cap) 300 mg PREOP PO 06/17/17 06:00 06/17/17 18:00 06/17/17 07:04 300 MG Lactated Ringer's 1,000 ml @ 15 mls/hr Q24H IV 06/17/17 06:00 06/18/17 05:59 06/17/17 07:04 15 MLS/HR Racepinephrine (Raccemic Epinephrine 2.25% 0.5ML Neb) 0.5 ml ONE PRN INH 06/17/17 10:00 Acetaminophen 1000 mg/Empty Bag 100 ml @ 400 mls/hr Q8H PRN IV 06/17/17 10:00 07/17/17 09:59 Hydromorphone HCl (Dilaudid Inj) 0.5mg IV for moder... Q3H PRN IV 06/17/17 10:00 07/01/17 09:59 Magnesium Hydroxide (Milk Of Magnesia Susp) 30 ml DAILY PRN PO 06/17/17 10:00 07/17/17 09:59 Docusate Sodium (coLACE CAP) 100 mg BID PO 06/17/17 21:00 07/17/17 20:59 Ondansetron HCl (Zofran Inj) 4 mg Q6 PRN IV 06/17/17 10:00 07/17/17 09:59 Scopolamine (Transderm-Scop Patch) 1.5 mg Q72H TD 06/17/17 13:00 07/17/17 12:59 06/17/17 12:56 1.5 MG Cefazolin Sodium 2000 mg/Syringe 15 ml @ 3.75 mls/ min Q8H IV 06/17/17 16:00 06/18/17 15:59 Lorazepam (Ativan Tab) 0.5 mg Q8H PRN PO 06/17/17 10:00 07/17/17 09:59 Lorazepam 0.5 mg/ Syringe 1 ml @ 1 mls/min Q8H PRN IV 06/17/17 10:00 07/17/17 09:59 Diphenhydramine HCl (Benadryl Inj) 25 mg Q6H PRN IV 06/17/17 10:00 07/17/17 09:59 Pneumococcal Polysaccharide Vaccine 1 ea PRN PRN N/A 06/17/17 10:00 07/17/17 09:59 Influenza Virus Vacc Triv Types A&B 1 ea PRN PRN N/A 06/17/17 10:00 07/17/17 09:59 Sodium Chloride 1,000 ml @ 80 mls/hr [id number] IV 06/17/17 12:00 06/18/17 11:59 Oxycodone HCl (Roxicodone Immediate Rel Tab) 5mg for pain scale 4-6 1... Q4H PRN PO 06/17/17 10:00 07/01/17 09:59 Polyethylene (Miralax Powder Packet) 17 gm DAILY PO 06/20/17 09:00 07/20/17 08:59 Bisacodyl (Dulcolax Tab) 5 mg DAILY PRN PO 06/19/17 06:00 07/19/17 05:59 Bisacodyl (Dulcolax Supp) 10 mg DAILY PRN [place] 06/19/17 06:00 07/19/17 05:59 Dexamethasone Sodium Phosphate 8 mg/Syringe 2 ml @ 1 mls/min ONE PRN IV 06/17/17 10:00 Naloxone HCl (Narcan Inj) 0.1 mg Q5M PRN IV 06/17/17 10:00 07/17/17 09:59 Miscellaneous (Remove Transderm-Scop Patch) 1 ea Q72H N/A 06/20/17 13:00 07/20/17 12:59 Miscellaneous Information (Check Scopolamine Patch Placement) 1 ea QS N/A 06/17/17 16:00 07/17/17 15:59 Atorvastatin Calcium (Lipitor Tab) 20 mg QPM PO 06/17/17 21:00 07/17/17 20:59 Salmeterol Xinafoate/ Fluticasone (Advair Diskus 250/50 Inh) 1 puff BID PRN INH 06/17/17 10:00 07/17/17 09:59 Furosemide (Lasix Tab) 40 mg DAILY PO 06/18/17 09:00 07/18/17 08:59 Glimepiride (Amaryl Tab) 2 mg QDB PO 06/18/17 08:30 07/18/17 08:29 HCTZ/ Spironolactone (Aldactazide 25/ 25 Tab) 1 tab QAM PO 06/18/17 09:00 07/18/17 08:59 Metoprolol Succinate (Toprol Xl Tab) 100 mg QPM PO 06/17/17 21:00 07/17/17 20:59 Mirabegron (Myrbetriq Er) 50 mg QAM PO 06/18/17 09:00 07/18/17 08:59 Modafinil (proVIGIL TAB) 200 mg QAM PO 06/18/17 09:00 07/18/17 08:59 Pantoprazole Sodium (Protonix Tab) 40 mg QPM PO 06/17/17 21:00 07/17/17 20:59 Potassium Chloride (Klor-Con Tab) 20 meq QAM PO 06/18/17 09:00 07/18/17 08:59 Ranitidine HCl (zANTac TAB) 300 mg QPM PO 06/17/17 21:00 07/17/17 20:59 Miscellaneous Information (Order Awaiting Action) 1 ea QS N/A 06/17/17 16:00 07/17/17 15:59 Review of Systems Pertinent positives and negatives reviewed in HPI--all others negative Physical Exam Date Time Temp Pulse Resp B/P (MAP) Pulse Ox O2 Delivery O2 Flow Rate FiO2 06/17/17 12:40 36.4 73 16 112/73 97 Nasal Cannula 4.0 Humidified Oxygen 06/17/17 12:10 36.4 144 16 111/67 96 Nasal Cannula 4.0 Humidified Oxygen 06/17/17 12:10 62 06/17/17 11:55 66 16 97 Nasal Cannula 4.0 06/17/17 11:40 97 Nasal Cannula 4.0 Humidified Oxygen 06/17/17 11:40 36.4 62 16 123/70 97 Nasal Cannula 4.0 Humidified Oxygen 06/17/17 11:20 36.0 61 16 119/53 97 Nasal Cannula 4 06/17/17 11:10 60 14 120/59 96 Nasal Cannula 4 06/17/17 11:00 56 16 108/66 98 Nasal Cannula 4 06/17/17 10:50 64 13 117/62 98 Nasal Cannula 4 06/17/17 10:40 63 12 114/58 96 Nasal Cannula 4 06/17/17 10:30 62 10 113/63 99 Oxymask 10 06/17/17 10:20 63 11 109/60 98 Oxymask 10 06/17/17 10:13 36.2 67 16 111/56 100 Oxymask 10 06/17/17 06:45 36.5 65 20 121/71 97 Room Air General Appearance: WD/WN, no apparent distress Head: normocephalic, atraumatic Eyes: normal inspection, sclerae normal Respiratory/Chest: normal breath sounds, no respiratory distress Cardiovascular: regular rate, rhythm, no edema Abdomen/GI: non tender, soft Extremities/Musculoskelatal: no calf tenderness, no pedal edema Neurologic/Psych: alert, oriented x 3 Skin: normal color, warm/dry Laboratory Results Last 24 Hours Test 06/17/17 06:36 06/17/17 10:23 06/17/17 12:05 06/17/17 12:30 Bedside Glucose 102 mg/dl 104 mg/dl 123 mg/dl White Blood Count 7.36 K/uL Red Blood Count 4.32 M/uL Hemoglobin 13.1 g/dL Hematocrit 38.5 % Mean Corpuscular Volume 89.1 fL Mean Corpuscular Hemoglobin 30.3 pg Mean Corpuscular Hemoglobin Concent 34.0 g/dl RDW Standard Deviation 42.9 fL RDW Coefficient of Variation 13.1 % Platelet Count 164 K/uL Mean Platelet Volume 10.3 fL Assessment & Plan 72 y/o M who was admitted on 06/17 s/p cervical hardware and replacement removal with Dr. Baxter. Tachycardia/chest pain: uncertain etiology but resolved quickly and spontaneously Reported that pt had no issues on the monitor during or after surgery Will give NS bolus 250 with usual mid-day lasix dose and monitor CBC WNL PRP neg for electrolyte issues Trop neg x1, will repeat x1 EKG with afib and undetermined rhythm and normal rate BS taken just prior to floor was WNL T/C transfer to tele if recurrence CKD III: cr is 1.4 today and was 1.3 pre-op Baseline is 1.3-1.5 Monitor with IVF neck pain: s/p fusion DVT proph and diet as per ortho Pre-op Hb HTN/afib: stable. continue home meds Resume pradaxa at discretion of ortho Continue lasix DM: continue home meds Pre-op A1c 5.7 COPD: continue home meds JERAD: has home BIPAP and can use Narcolepsy: continue home meds
[2017-06-17] MEDS ORDERED: NURSING DECISION MEDICATION ORDER SCH (15:15)
[2017-06-17] MEDS ORDERED: COUGH DROP (SUGAR FREE) LOZ 24 LOZ/1 BOX LOZ PRN (15:30)
[2017-06-17] MEDS: [UNRECOGNIZED DRUG - REMARK] SCH ×2 (15:32→23:58)
[2017-06-17] MEDS: CHECK SCOPOLAMINE PATCH PLACEMENT SCH ×2 (15:32→23:58)
[2017-06-17] MEDS: CEFAZOLIN IV 2,000 MG in SYRINGE 0 ML IV SCH ×2 (15:35→23:57)
[2017-06-17] MEDS ORDERED: NURSING VERBAL MED ORDER ONE ×2 (16:00→21:00)
[2017-06-17] MEDS: HYDROCODONE/ACETAMIN 5/325MG TAB PO PRN (16:09)
[2017-06-17] MEDS: SODIUM CHLORIDE 0.9% 1000ML 1,000 ML IV SCH (20:48)
[2017-06-17] MEDS: DOCUSATE SODIUM 100 MG CAP PO SCH (20:49)
[2017-06-17] MEDS ORDERED: PANTOprazole SOD 40 MG TAB PO SCH (21:00)
[2017-06-17] MEDS ORDERED: METOPROLOL SUCC 50MG EXT REL TAB PO SCH (21:00)
[2017-06-17] MEDS ORDERED: RANITIDINE HCL 150 MG TAB PO SCH (21:00)
[2017-06-17] MEDS ORDERED: ATORVASTATIN 20 MG TAB PO SCH (21:00)
[2017-06-18] VITALS (9 sets, daily range): BP systolic 104–147; BP diastolic 68–85; PULSE 63–75; TEMP 36.2–36.4; O2SAT 94–98
[2017-06-18] MEDS: HYDROCODONE/ACETAMIN 5/325MG TAB PO PRN ×2 (00:13→10:31)
[2017-06-18 07:26] LABS: CALCIUM 9.2 mg/dl (8.5-10.1); CREATININE 1.39 mg/dl (0.60-1.40); POTASSIUM 3.7 mmol/L (3.5-5.1)
[2017-06-18] MEDS: [UNRECOGNIZED DRUG - REMARK] SCH (08:00)
[2017-06-18] MEDS: CEFAZOLIN IV 2,000 MG in SYRINGE 0 ML IV SCH (08:28)
[2017-06-18] MEDS: CHECK SCOPOLAMINE PATCH PLACEMENT SCH (08:28)
[2017-06-18] MEDS: DOCUSATE SODIUM 100 MG CAP PO SCH (08:29)
[2017-06-18] MEDS ORDERED: GLIMEPIRIDE 2 MG TAB PO SCH (08:30)
[2017-06-18] MEDS: SODIUM CHLORIDE 0.9% 1000ML 1,000 ML IV SCH (08:30)
[2017-06-18] MEDS ORDERED: FUROSEMIDE 40 MG TAB PO SCH (09:00)
[2017-06-18] MEDS: MODAFINIL 100 MG TAB PO SCH ×2 (09:00→10:30)
[2017-06-18] MEDS ORDERED: POTASSIUM CHLORIDE 20 MEQ TABCR PO SCH (09:00)
[2017-06-18] MEDS ORDERED: MIRABEGRON ER 25 MG TAB PO SCH (09:00)
[2017-06-18] MEDS ORDERED: SPIRONOLACTONE/HCTZ 25-25 PO SCH (09:00)
--- NOTE | 2017-06-18 09:25 | Hospitalist Progress Note ---
Hospitalist Progress Note Date of Service Jun 18, 2017. Subjective Pt evaluation today including: conversation w/ patient, physical exam, lab review, review of studies, review of inpatient medication list Voiding: no voiding problems Patient resting in bed. Feeling well this AM. No more episodes of tachycardia/chest pain. On liquid diet, tolerating well. Pain is well controlled- currently at 5/10. +flatus postop. No BM. Patient denies any fever, chills, sweats, lightheadedness, dizziness, vision changes, CP, palpitations, edema, SOB, wheezing, cough, abdominal pain, nausea, vomiting, diarrhea, urinary symptoms, melena, numbness/tingling, weakness, anxiety/depression, active bleeding, or new skin discoloration/changes. Medications Current Inpatient Medications Medications (Trade) Dose Ordered Sig/Svitlana Route Start Time Stop Time Status Last Admin Dose Admin Racepinephrine (Raccemic Epinephrine 2.25% 0.5ML Neb) 0.5 ml ONE PRN INH 06/17/17 10:00 Acetaminophen 1000 mg/Empty Bag 100 ml @ 400 mls/hr Q8H PRN IV 06/17/17 10:00 07/17/17 09:59 Hydromorphone HCl (Dilaudid Inj) 0.5mg IV for moder... Q3H PRN IV 06/17/17 10:00 07/01/17 09:59 Magnesium Hydroxide (Milk Of Magnesia Susp) 30 ml DAILY PRN PO 06/17/17 10:00 07/17/17 09:59 Docusate Sodium (coLACE CAP) 100 mg BID PO 06/17/17 21:00 07/17/17 20:59 06/18/17 08:29 100 MG Ondansetron HCl (Zofran Inj) 4 mg Q6 PRN IV 06/17/17 10:00 07/17/17 09:59 Scopolamine (Transderm-Scop Patch) 1.5 mg Q72H TD 06/17/17 13:00 07/17/17 12:59 06/17/17 12:56 1.5 MG Cefazolin Sodium 2000 mg/Syringe 15 ml @ 3.75 mls/ min Q8H IV 06/17/17 16:00 06/18/17 15:59 06/18/17 08:28 3.75 MLS/MIN Lorazepam (Ativan Tab) 0.5 mg Q8H PRN PO 06/17/17 10:00 07/17/17 09:59 Lorazepam 0.5 mg/ Syringe 1 ml @ 1 mls/min Q8H PRN IV 06/17/17 10:00 07/17/17 09:59 Diphenhydramine HCl (Benadryl Inj) 25 mg Q6H PRN IV 06/17/17 10:00 07/17/17 09:59 Pneumococcal Polysaccharide Vaccine 1 ea PRN PRN N/A 06/17/17 10:00 07/17/17 09:59 Influenza Virus Vacc Triv Types A&B 1 ea PRN PRN N/A 06/17/17 10:00 07/17/17 09:59 Sodium Chloride 1,000 ml @ 80 mls/hr [id number] IV 06/17/17 12:00 06/18/17 11:59 06/17/17 20:48 80 MLS/HR Oxycodone HCl (Roxicodone Immediate Rel Tab) 5mg for pain scale 4-6 1... Q4H PRN PO 06/17/17 10:00 07/01/17 09:59 Polyethylene (Miralax Powder Packet) 17 gm DAILY PO 06/20/17 09:00 07/20/17 08:59 Bisacodyl (Dulcolax Tab) 5 mg DAILY PRN PO 06/19/17 06:00 07/19/17 05:59 Bisacodyl (Dulcolax Supp) 10 mg DAILY PRN [place] 06/19/17 06:00 07/19/17 05:59 Dexamethasone Sodium Phosphate 8 mg/Syringe 2 ml @ 1 mls/min ONE PRN IV 06/17/17 10:00 Naloxone HCl (Narcan Inj) 0.1 mg Q5M PRN IV 06/17/17 10:00 07/17/17 09:59 Miscellaneous (Remove Transderm-Scop Patch) 1 ea Q72H N/A 06/20/17 13:00 07/20/17 12:59 Miscellaneous Information (Check Scopolamine Patch Placement) 1 ea QS N/A 06/17/17 16:00 07/17/17 15:59 06/18/17 08:28 1 EA Atorvastatin Calcium (Lipitor Tab) 20 mg QPM PO 06/17/17 21:00 07/17/17 20:59 06/17/17 20:49 20 MG Salmeterol Xinafoate/ Fluticasone (Advair Diskus 250/50 Inh) 1 puff BID PRN INH 06/17/17 10:00 07/17/17 09:59 Furosemide (Lasix Tab) 40 mg DAILY PO 06/18/17 09:00 07/18/17 08:59 06/18/17 08:30 40 MG Glimepiride (Amaryl Tab) 2 mg QDB PO 06/18/17 08:30 07/18/17 08:29 06/18/17 08:29 2 MG HCTZ/ Spironolactone (Aldactazide 25/ 25 Tab) 1 tab QAM PO 06/18/17 09:00 07/18/17 08:59 06/18/17 08:46 1 TAB Metoprolol Succinate (Toprol Xl Tab) 100 mg QPM PO 06/17/17 21:00 07/17/17 20:59 06/17/17 20:49 100 MG Mirabegron (Myrbetriq Er) 50 mg QAM PO 06/18/17 09:00 07/18/17 08:59 06/18/17 08:31 50 MG Modafinil (proVIGIL TAB) 200 mg QAM PO 06/18/17 09:00 07/18/17 08:59 Pantoprazole Sodium (Protonix Tab) 40 mg QPM PO 06/17/17 21:00 07/17/17 20:59 06/17/17 20:49 40 MG Potassium Chloride (Klor-Con Tab) 20 meq QAM PO 06/18/17 09:00 07/18/17 08:59 06/18/17 08:30 20 MEQ Ranitidine HCl (zANTac TAB) 300 mg QPM PO 06/17/17 21:00 07/17/17 20:59 06/17/17 20:49 300 MG Miscellaneous Information (Order Awaiting Action) 1 ea QS N/A 06/17/17 16:00 07/17/17 15:59 Menthol (Nice Danae) 1 danae PRN PRN DANAE 06/17/17 15:30 07/17/17 15:29 4/17/18 15:35 1 DANAE Acetaminophen/ Hydrocodone Bitart ([place] 5/325 Tab) 1 tab for pain 4-6, 2 tabs ... Q4H PRN PO 06/17/17 16:15 07/01/17 16:14 06/18/17 00:13 2 TAB Objective Vital Signs Date Time Temp Pulse Resp B/P (MAP) Pulse Ox O2 Delivery O2 Flow Rate FiO2 06/18/17 08:40 36.2 71 16 113/68 96 Room Air 06/18/17 07:02 66 16 96 Room Air 06/18/17 06:46 36.4 63 17 126/76 (93) 97 Humidified Oxygen 2.0 06/18/17 06:35 36.3 65 16 111/72 98 Nasal Cannula 2.0 Humidified Oxygen 06/18/17 04:40 36.4 64 16 104/70 95 Room Air 06/18/17 03:41 64 16 95 Room Air 06/18/17 02:40 36.3 75 20 121/74 94 Room Air 06/18/17 00:40 36.3 73 20 147/85 96 Room Air 06/18/17 00:05 Room Air 06/17/17 23:29 74 16 95 Room Air 06/17/17 22:40 36.3 65 15 131/81 95 Room Air 06/17/17 22:40 36.3 65 15 131/81 (98) 95 Room Air 06/17/17 20:40 36.5 80 15 137/85 (102) 95 Room Air 06/17/17 20:40 36.5 80 15 137/85 95 Room Air 06/17/17 19:35 76 18 97 Nasal Cannula 4.0 06/17/17 18:40 36.3 75 15 115/63 96 Nasal Cannula 2.0 Humidified Oxygen 06/17/17 18:40 36.3 75 15 115/63 (80) 96 Nasal Cannula 2.0 Humidified Oxygen 06/17/17 16:40 64 15 114/74 (87) 97 Nasal Cannula 2.0 Humidified Oxygen 06/17/17 16:40 64 15 114/74 97 Nasal Cannula 2.0 Humidified Oxygen 06/17/17 15:54 65 16 97 Nasal Cannula 4.0 06/17/17 15:40 97 Nasal Cannula 4.0 Humidified Oxygen 06/17/17 14:40 36.3 71 18 102/63 97 Nasal Cannula 4.0 Humidified Oxygen 06/17/17 13:40 76 18 113/69 98 Nasal Cannula 4.0 Humidified Oxygen 06/17/17 12:40 36.4 73 16 112/73 97 Nasal Cannula 4.0 Humidified Oxygen 06/17/17 12:10 36.4 144 16 111/67 96 Nasal Cannula 4.0 Humidified Oxygen 06/17/17 12:10 62 06/17/17 11:55 66 16 97 Nasal Cannula 4.0 06/17/17 11:40 97 Nasal Cannula 4.0 Humidified Oxygen 06/17/17 11:40 Nasal Cannula 4.0 Humidified Oxygen 06/17/17 11:40 36.4 62 16 123/70 97 Nasal Cannula 4.0 Humidified Oxygen 06/17/17 11:20 36.0 61 16 119/53 97 Nasal Cannula 4 06/17/17 11:10 60 14 120/59 96 Nasal Cannula 4 06/17/17 11:00 56 16 108/66 98 Nasal Cannula 4 06/17/17 10:50 64 13 117/62 98 Nasal Cannula 4 06/17/17 10:40 63 12 114/58 96 Nasal Cannula 4 06/17/17 10:30 62 10 113/63 99 Oxymask 10 06/17/17 10:20 63 11 109/60 98 Oxymask 10 06/17/17 10:13 36.2 67 16 111/56 100 Oxymask 10 Physical Exam General Appearance: no apparent distress Eyes: normal inspection, PERRL ENT: hearing grossly normal Neck: supple, + pertinent finding (FAHEEM drain with serosanguineous drainage ) Respiratory/Chest: lungs clear, no respiratory distress, no accessory muscle use Cardiovascular: + irregularly irregular (rate controlled ) Abdomen: normal bowel sounds, non tender, soft Extremities: no pedal edema, no calf tenderness, + pertinent finding (SCDs on ) Neurologic/Psychiatric: alert, normal mood/affect, oriented x 3 Skin: normal color, warm/dry, no rash Laboratory Results Last 24 Hours Test 06/17/17 10:23 06/17/17 12:05 06/17/17 12:30 06/17/17 18:25 Bedside Glucose 104 mg/dl 123 mg/dl White Blood Count 7.36 K/uL Red Blood Count 4.32 M/uL Hemoglobin 13.1 g/dL Hematocrit 38.5 % Mean Corpuscular Volume 89.1 fL Mean Corpuscular Hemoglobin 30.3 pg Mean Corpuscular Hemoglobin Concent 34.0 g/dl RDW Standard Deviation 42.9 fL RDW Coefficient of Variation 13.1 % Platelet Count 164 K/uL Mean Platelet Volume 10.3 fL Sodium Level 137 mmol/L Potassium Level 3.5 mmol/L Chloride Level 102 mmol/L Carbon Dioxide Level 29 mmol/L Anion Gap 7.0 mmol/L Blood Urea Nitrogen 32 mg/dl Creatinine 1.42 mg/dl Est Creatinine Clear Calc Drug Dose 71.3 ml/min Estimated GFR () 57.2 Estimated GFR (Non- 49.3 BUN/Creatinine Ratio 22.3 Random Glucose 120 mg/dl Calcium Level 9.0 mg/dl Troponin I < 0.015 ng/ml < 0.015 ng/ml Test 06/18/17 06:26 Sodium Level 136 mmol/L Potassium Level 3.7 mmol/L Chloride Level 101 mmol/L Carbon Dioxide Level 30 mmol/L Anion Gap 5.0 mmol/L Blood Urea Nitrogen 31 mg/dl Creatinine 1.39 mg/dl Est Creatinine Clear Calc Drug Dose 72.8 ml/min Estimated GFR () 58.7 Estimated GFR (Non- 50.6 BUN/Creatinine Ratio 22.2 Random Glucose 116 mg/dl Calcium Level 9.2 mg/dl Assessment and Plan 72 y/o M who was admitted on 06/17 s/p cervical hardware and replacement removal with Dr. Baxter. s/p cervical hardware replacement by Dr. Baxter on 06/17 - Surgical management, pain management, PT/OT, and DVT prophylaxis as per surgery - Bowel regimen ordered - Encourage incentive spirometer - Advance diet as per surgical team- currently on liquid diet, tolerating well - Postop CBC and PRP- STABLE Tachycardia, chest pain postop- RESOLVED: - EKG w/out acute ischemic changes - Cardiac enzymes negative x2 - IV NSS 250 ml bolus x1 - PRP and CBC- STABLE HTN, a. 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
--- NOTE | 2017-06-18 11:14 | Discharge Summary ---
Orthopedic Discharge Summary Admission Date/Reason Jun 17, 2017 at 07:30 Spinal Stenosis. Discharge Date/Disposition Jun 18, 2017 Home Diagnosis Principal Diagnosis: Cervical spinal stenosis Admission Physical Exam As per Admitting History & Physical. Hospital Course Patient underwent anterior cervical discectomy and fusion tolerated as well as taken to the orthopedic floor postoperatively. Postop day #1 arm symptoms were improved. He was swallowing without difficulty. No hoarseness. Neurologically intact. Subsequently was discharged home. Discharge orders and instructions can be found on the chart for further review. Discharge Instructions Please refer to the electronic Patient Visit Report (Discharge Instructions) for additional information.
[2017-06-19] MEDS ORDERED: BISACODYL 5 MG TABEC PO PRN (06:00)
[2017-06-19] MEDS ORDERED: BISACODYL 10 MG SUPP PR PRN (06:00)
[2017-06-20] MEDS ORDERED: POLYETHYLENE (MIRALAX) 17 GM PACK PO SCH (09:00)
== END 2017-06-18 10:59 | disposition home or self-care (01) | DRG 473 ==
LOC: C.ACU 06:11 → C.3E 07:30 → ENRESERV 10:55
PROVIDERS: ADMIT Orthopaedic Surgery Orthopaedic Surgery of the Spine; ATTEND Orthopaedic Surgery Orthopaedic Surgery of the Spine
PROC: 0RG20A0 Fusion of 2 or more Cervical Vertebral Joints with Interbody Fusion Device, Anterior Approach, Anterior Column, Open Approach (ICD-10-PCS; principal; 2017-06-17 07:45)
PROC: 0RP104Z Removal of Internal Fixation Device from Cervical Vertebral Joint, Open Approach (ICD-10-PCS; principal; 2017-06-17 07:45)
PROC: 0RT30ZZ Resection of Cervical Vertebral Disc, Open Approach (ICD-10-PCS; principal; 2017-06-17 07:45)
DX: M48.02 Spinal stenosis, cervical region (principal); R00.0 Tachycardia, unspecified; R07.9 Chest pain, unspecified; I48.2 Chronic atrial fibrillation; I25.10 Atherosclerotic heart disease of native coronary artery without angina pectoris; J44.9 Chronic obstructive pulmonary disease, unspecified; I12.9 Hypertensive chronic kidney disease with stage 1 through stage 4 chronic kidney disease, or unspecified chronic kidney disease; E11.22 Type 2 diabetes mellitus with diabetic chronic kidney disease; N18.3 Chronic kidney disease, stage 3 (moderate); E11.42 Type 2 diabetes mellitus with diabetic polyneuropathy; K21.9 Gastro-esophageal reflux disease without esophagitis; E78.5 Hyperlipidemia, unspecified; G47.419 Narcolepsy without cataplexy; G47.33 Obstructive sleep apnea (adult) (pediatric); E66.9 Obesity, unspecified; Z68.35 Body mass index [BMI] 35.0-35.9, adult; Z99.89 Dependence on other enabling machines and devices; Z98.1 Arthrodesis status; Z79.01 Long term (current) use of anticoagulants; Z79.84 Long term (current) use of oral hypoglycemic drugs; Z79.899 Other long term (current) drug therapy; Z88.1 Allergy status to other antibiotic agents; Z91.041 Radiographic dye allergy status

== ENCOUNTER → 2017-09-22 | Outpatient (CLI) | payer BC ==
[~2017-09-22] MED LIST changes: -ACETAMINOPHEN 500 MG TAB PO SCH; -CEFAZOLIN 3000MG IV PUSH 22.5 ML IV SCH; +COEN75CA PO; -COQ10 PO; -CeleBREX 200 MG CAP PO SCH; +FLUT0.15 NAE; -GABAPENTIN 300 MG CAP PO SCH; -LACTATED RINGER'S 1000ML 1,000 ML IV SCH; -NASONEX INTNAS; +RXC5 PO
[2017-09-22 12:53] LABS: BLOOD UREA NITROGEN 38 mg/dl (7-18); CARBON DIOXIDE 33 mmol/L (21-32); CREATININE 1.27 mg/dl (0.60-1.40); GLUCOSE 90 mg/dl (70-99); POTASSIUM 3.9 mmol/L (3.5-5.1); SODIUM 139 mmol/L (136-145)
== END | disposition home or self-care (01) ==
LOC: C.LAB 09:53
PROVIDERS: ATTEND Nurse Practitioner Adult Health
DX: N40.1 Benign prostatic hyperplasia with lower urinary tract symptoms (principal); E78.5 Hyperlipidemia, unspecified; E11.40 Type 2 diabetes mellitus with diabetic neuropathy, unspecified; E11.21 Type 2 diabetes mellitus with diabetic nephropathy

== ENCOUNTER 2020-08-22 06:43 | Inpatient (IN) ==
[2020-08-22] MEDS ORDERED: CEFEPIME 2,000 MG/20 ML VIAL IV STA (07:05)
[2020-08-22] MEDS ORDERED: SODIUM CHLORIDE 0.9% 1000ML 1,000 ML IV SCH (07:15)
[2020-08-22] MEDS ORDERED: KETOCONAZOLE 2% CR 15 GM TUBE EXT STA (07:22)
--- NOTE | 2020-08-22 07:33 | Emergency Department Note ---
History of Present Illness General Chief complaint: Back Injury/Pain Stated complaint: FEVER,SHAKING,WEAKNESS - CAN'T STAND VERY LONG Time Seen by Provider: 08/22/20 07:04 Source: patient Mode of arrival: ambulatory Limitations: no limitations History of Present Illness Provider complaint: Generalized weakness/fever Maximum Pain Intensity: 5 This is a 75-year-old male who presents to the ED with a chief complaint of generalized weakness and fever. The patient's symptoms started yesterday. The states that he seemed to be weak and shaky yesterday. He was having some subjective fevers and chills and sweats this morning. He was unable to stand on his own this morning. He normally ambulates without assistance. The patient does report some low back pain but states this is constant and chronic in nature. He states that seems to be a little worse than usual. The patient did have to urinate this morning but the states that he could not. He does have a history of A. fib and diabetes. He is chronically on Eliquis. Denies any upper respiratory symptoms. Denies any shortness of breath. No history of COPD. Does not report any abdominal pain but does have right lower quadrant abdominal tenderness on exam. He does have a rash in his right groin. This is likely intertrigo. Home Medications Medication Instructions Recorded Confirmed Type omega 3,6,9 combination no.7 92 mg 92 mg PO QPM tab 11/14/17 08/22/20 History (43 mg-22 [id number]) chew tablet fluticasone propionate 50 1 sprays INTNAS BID gm 10/06/19 08/22/20 History mcg/actuation nasal spray,suspension pantoprazole [Protonix] 40 mg PO BID 11/18/19 08/22/20 History modafinil 200 mg tablet 400 mg PO QAM #180 tab 02/15/20 08/22/20 Rx apixaban 5 mg tablet 5 mg PO BID #180 tab 03/30/20 08/22/20 Rx silodosin 4 mg capsule 4 mg PO HS #90 cap 04/10/20 08/22/20 Rx albuterol sulfate 90 mcg/actuation 2 puff INH Q4H PRN #3 inhaler 05/08/20 08/22/20 Rx aerosol inhaler mirabegron 50 mg tablet,extended 50 mg PO QAM #90 tab 07/10/20 08/22/20 Rx release 24 hr B6 0.85 mg-folic 200 1 tab PO QAM tab 07/17/20 08/22/20 History [id number] oral chewable tablet coenzyme Q10 100 mg capsule 100 mg PO QAM 07/17/20 08/22/20 History ketoconazole 2 % topical cream 1 applic TOPICAL BID PRN g 07/17/20 08/22/20 History fluocinonide 0.05 % topical cream 1 applic TOPICAL BID #120 g 08/02/20 08/22/20 Rx glimepiride 2 mg tablet 1 mg PO QAM #45 tab 08/03/20 08/22/20 Rx potassium chloride 20 mEq 20 meq PO BID #180 tab 08/03/20 08/22/20 Rx tablet,extended release(part/cryst) atorvastatin 20 mg tablet 20 mg PO HS #90 tab 08/04/20 08/22/20 Rx metoprolol succinate 100 mg 100 mg PO HS #90 tab 08/04/20 08/22/20 Rx tablet,extended release 24 hr spironolactone 25 1 tab PO QAM #90 tab 08/04/20 08/22/20 Rx mg-hydrochlorothiazide 25 mg tablet furosemide [Lasix] 40 mg PO DAILY@1200 08/22/20 08/22/20 History levothyroxine [Synthroid] 25 mcg PO DAILYBB 08/22/20 08/22/20 History multivitamin 1 tab PO QAM 08/22/20 08/22/20 History Allergies Allergy/AdvReac Type Severity Reaction Status Date / Time clindamycin Allergy Intermediate rash Verified 08/22/20 08:13 iodine Allergy Intermediate topical Verified 08/22/20 08:13 iodine- swelling at site trospium AdvReac Intermediate "sick"/head Verified 08/22/20 08:13 ache Past Med/Surg History Medical History (Updated 08/22/20 @ 10:11 by Augustine Keyes MD) Acid reflux disease controlled Arteriosclerotic coronary artery disease Asthma stable Atrial fibrillation Bilateral leg edema BPH with obstruction/lower urinary tract symptoms Cervical radiculopathy Cervical stenosis of spinal canal CKD (chronic kidney disease) stage 3, GFR 30-59 ml/min Cognitive impairment 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 Diverticular disease Dyslipidemia HTN (hypertension) Hypothyroidism Narcolepsy Obesity Obstructive sleep apnea treated with BiPAP Secondary hyperparathyroidism Sensorineural hearing loss of both ears Unable to read or write Urinary incontinence Venous insufficiency Surgical History History of cervical spinal surgery ACDF C3-C7 + hardware removal: 06/17/17: Grade view 1, MAC#3, ETT 8.0 at [facility] History of colonoscopy History of esophagogastroduodenoscopy (EGD) Hx of cervical spine surgery S/P hernia repair S/P knee surgery Family History Mother Coronary heart disease Myocardial infarction Brother Diabetes Other No family history of bleeding disorder Denies family history of Ovarian cancer Prostate cancer Breast cancer Lung cancer Colorectal cancer Social History Smoking Status: Current every day smoker Second Hand Exposure: No; Hx Alcohol Use: Yes Alcohol type: wine Alcohol Intake Frequency: Monthly or Less Hx Substance Use: No Preferred Language: Tanzanian Communication Ability: Impaired Visual Impairment: Limited Hearing Ability: Use of Hearing Aid Philosophy Professor Required: No Beliefs That Will Affect Care: None marital status: Current Living Situation: Spouse current occupational status: retired How many Children do You have: 2 Feels Safe at Home: Yes Childhood Exposure to Second-Hand Smoke: No caffeine: Yes (drinks coffee daily 1 cup) during the past year weight has: decreased > 10 lbs Dental Care, Regularly: No Physical Activity Frequency: Does not Exercise Physical Activity Frequency Comment: does outside work however Seatbelt Use: always Sunscreen Use: No Assistive Devices: Denture - Upper, Denture - Lower, Glasses and Hearing Aid - Bilateral Review of Systems A total of 10 systems reviewed and were otherwise negative Physical Exam Vital Signs Vital Signs - 24 hr 08/22/20 06:49 08/22/20 07:02 08/22/20 07:05 Temperature 37.1 C 38.4 C H Temperature Source Oral Oral Pulse Rate 87 Pulse Rate from SpO2 Sensor Respiratory Rate 20 Respiratory Effort / Characteristics Non-Labored Blood Pressure 130/68 Blood Pressure Mean 88 Pulse Oximetry 91 Oxygen Delivery Method Room Air Room Air Sepsis Recent Fever Within 48 Hours Yes Sepsis New/Unexplained Change in Mental Status N/A Sepsis Action Taken by Nursing No Action Required 08/22/20 07:27 08/22/20 07:31 08/22/20 07:50 Temperature Temperature Source Pulse Rate 86 Pulse Rate from SpO2 Sensor Respiratory Rate Respiratory Effort / Characteristics Blood Pressure 130/67 139/69 Blood Pressure Mean 88 92 Pulse Oximetry Oxygen Delivery Method Sepsis Recent Fever Within 48 Hours Sepsis New/Unexplained Change in Mental Status Sepsis Action Taken by Nursing 08/22/20 08:00 08/22/20 08:01 08/22/20 08:30 Temperature Temperature Source Pulse Rate 94 H 87 86 Pulse Rate from SpO2 Sensor Respiratory Rate 24 Respiratory Effort / Characteristics Blood Pressure 127/54 L 102/49 L Blood Pressure Mean 78 66 Pulse Oximetry Oxygen Delivery Method Sepsis Recent Fever Within 48 Hours Sepsis New/Unexplained Change in Mental Status Sepsis Action Taken by Nursing 08/22/20 09:00 Temperature Temperature Source Pulse Rate 85 Pulse Rate from SpO2 Sensor 88 Respiratory Rate 26 H Respiratory Effort / Characteristics Blood Pressure 131/72 Blood Pressure Mean 91 Pulse Oximetry 97 Oxygen Delivery Method Sepsis Recent Fever Within 48 Hours Sepsis New/Unexplained Change in Mental Status Sepsis Action Taken by Nursing CONSTITUTIONAL/VITAL SIGNS: Reviewed / noted above. GENERAL: Non-toxic in appearance. INTEGUMENTARY: Warm, dry, and [place]. HEAD: Normocephalic. EYES: without scleral icterus or trauma. ENT/OROPHARYNX: clear and moist. LYMPHADENOPATHY/NECK: Is supple without lymphadenopathy or meningismus. RESPIRATORY: Lungs clear and equal. CARDIOVASCULAR: Regular rate and rhythm. GI/ABDOMEN: Soft and tender in the right lower quadrant. No organomegaly or pulsatile mass. No rebound or guarding. Normal bowel sounds. EXTREMITIES: Warm and well perfused. Right groin intertrigo. BACK: No CVA tenderness. NEUROLOGICAL: Intact without focal deficits. PSYCHIATRIC: normal affect. MUSCULOSKELETAL: Normally developed with good muscle tone. TRIAGE NURSING DOCUMENTATION REVIEWED. Course Administered Medications Discontinued Medications Diphenhydramine HCl (Diphenhydramine 50 Mg/Ml Vial) 50 mg IV NOW STA Stop: 08/22/20 08:46 Last Admin: 08/22/20 08:50 Dose: 50 mg Documented by: [id number] Sodium Chloride (Nss 1000ml) 1,000 mls @ 999 mls/hr IV .Q1H1M JOSE A Stop: 08/22/20 08:06 Last Infusion: 08/22/20 08:51 Dose: 0 mls/hr Documented by: [id number] Admin: 08/22/20 07:47 Dose: 999 mls/hr Documented by: [id number] Cefepime HCl (Maxipime) 2,000 mg in 20 mls @ 5 mls/min IV NOW STA; Protocol Stop: 08/22/20 07:08 Last Admin: 08/22/20 07:47 Dose: 5 mls/min Documented by: [id number] Ioversol (Optiray 320 125ml) 120 ml IV ONCE ONE Stop: 08/22/20 08:50 Last Admin: 08/22/20 08:49 Dose: 120 ml Documented by: [id number] Ketoconazole (Ketoconazole 2% Cr 15 Gm Tube) 1 appln EXT NOW STA Stop: 08/22/20 07:23 Last Admin: 08/22/20 07:47 Dose: 1 appln Documented by: [id number] Medical Decision Making Differential Diagnosis Differential includes viral illness, influenza, streptococcal pharyngitis, meningitis, pneumonia, sinusitis, UTI, pyelonephritis, otitis media. Medical Records Attestation: I reviewed the patient's medical records. Home Medications Current Medication List: was personally reviewed by me Laboratory Data Attestation: I reviewed the patient's lab results. Result diagrams: 08/22/20 07:30 08/22/20 07:30 Lab Results 08/22/20 08/22/20 08/22/20 Range/Units 07:30 07:30 07:30 WBC 4.86 (4.8-10.8) K/uL RBC 4.53 L (4.7-6.1) M/uL Hgb 14.0 (14.0-18.0) g/dL Hct 41.9 L (42-52) % MCV 92.5 (80-100) fL MCH 30.9 (25-34) pg MCHC 33.4 (32-36) g/dL RDW Std Deviation 46.8 H (36.4-46.3) fL RDW Coeff of Magan 13.8 (11.5-14.5) % Plt Count 125 L (130-400) K/uL MPV 10.3 (7.4-10.4) fL Immature Gran % (Auto) 0.2 % Neut % (Auto) 91.0 % Lymph % (Auto) 4.7 % [place] % (Auto) 3.9 % Eos % (Auto) 0.0 % Baso % (Auto) 0.2 % Neut # (Auto) 4.42 (1.4-6.5) K/uL Lymph # (Auto) 0.23 L (1.2-3.4) K/uL [place] # (Auto) 0.19 (0.11-0.59) K/uL Eos # (Auto) 0.00 (0-0.5) K/uL Baso # (Auto) 0.01 (0-0.2) K/uL Immature Gran # (Auto) 0.01 (0.00-0.02) K/uL PT 13.0 H (9.0-12.0) Seconds INR 1.3 H (0.9-1.1) APTT 38.7 H (21.0-31.0) Seconds PTT Ratio 1.5 Sodium 135 L (136-145) mmol/L Potassium 3.4 L (3.5-5.1) mmol/L Chloride 99 (98-107) mmol/L Carbon Dioxide 30 (21-32) mmol/L Anion Gap 6.0 (3-11) BUN 35 H (7-18) mg/dl Creatinine 1.86 H (0.6-1.4) mg/dl Est Cr Clr Drug Dosing 52.5 ml/min Est GFR ( Amer) 40.4 ml/min Est GFR (Non-Af Amer) 34.9 ml/min BUN/Creatinine Ratio 19.0 (10-20) Glucose 93 (70-99) mg/dl Lactate (0.4-2.0) mmol/L Calcium 9.1 (8.5-10.1) mg/dl Magnesium 2.3 (1.8-2.4) mg/dl Total Bilirubin 1.3 H (0.2-1) mg/dl AST 39 H (15-37) U/L ALT 24 (12-78) U/L Alkaline Phosphatase 89 (45-117) U/L Troponin I 0.032 (0-0.045) ng/ml Total Protein 8.0 (6.4-8.2) gm/dl Albumin 3.8 (3.4-5.0) gm/dl Globulin 4.2 H (2.5-4.0) gm/dl Albumin/Globulin Ratio 0.9 (0.9-2) Procalcitonin (0-0.5) ng/ml Urine Color Urine Appearance (Clear) Urine pH (4.5-7.5) Ur Specific [place] (1.000-1.030) Urine Protein (Negative) Urine Glucose (UA) (Negative) Urine Ketones (Negative) Urine Blood (Negative) Urine Nitrite (Negative) Urine Bilirubin (Negative) Urine Urobilinogen (Negative) Ur Leukocyte Esterase (Negative) Urine WBC (Auto) (0-5) /hpf Urine RBC (Auto) (0-4) /hpf U Hyaline Cast (Auto) (0-5) /lpf U Epithel Cells (Auto) (0-5) /lpf Urine Bacteria (Auto) (Negative) COVID-19 Eval Order SARS-CoV-2 (PCR) (Negative) 08/22/20 08/22/20 08/22/20 Range/Units 07:30 07:30 07:35 WBC (4.8-10.8) K/uL RBC (4.7-6.1) M/uL Hgb (14.0-18.0) g/dL Hct (42-52) % MCV (80-100) fL MCH (25-34) pg MCHC (32-36) g/dL RDW Std Deviation (36.4-46.3) fL RDW Coeff of Magan (11.5-14.5) % Plt Count (130-400) K/uL MPV (7.4-10.4) fL Immature Gran % (Auto) % Neut % (Auto) % Lymph % (Auto) % [place] % (Auto) % Eos % (Auto) % Baso % (Auto) % Neut # (Auto) (1.4-6.5) K/uL Lymph # (Auto) (1.2-3.4) K/uL [place] # (Auto) (0.11-0.59) K/uL Eos # (Auto) (0-0.5) K/uL Baso # (Auto) (0-0.2) K/uL Immature Gran # (Auto) (0.00-0.02) K/uL PT (9.0-12.0) Seconds INR (0.9-1.1) APTT (21.0-31.0) Seconds PTT Ratio Sodium (136-145) mmol/L Potassium (3.5-5.1) mmol/L Chloride (98-107) mmol/L Carbon Dioxide (21-32) mmol/L Anion Gap (3-11) BUN (7-18) mg/dl Creatinine (0.6-1.4) mg/dl Est Cr Clr Drug Dosing ml/min Est GFR ( Amer) ml/min Est GFR (Non-Af Amer) ml/min BUN/Creatinine Ratio (10-20) Glucose (70-99) mg/dl Lactate 1.3 (0.4-2.0) mmol/L Calcium (8.5-10.1) mg/dl Magnesium (1.8-2.4) mg/dl Total Bilirubin (0.2-1) mg/dl AST (15-37) U/L ALT (12-78) U/L Alkaline Phosphatase (45-117) U/L Troponin I (0-0.045) ng/ml Total Protein (6.4-8.2) gm/dl Albumin (3.4-5.0) gm/dl Globulin (2.5-4.0) gm/dl Albumin/Globulin Ratio (0.9-2) Procalcitonin 1.37 H (0-0.5) ng/ml Urine Color Urine Appearance (Clear) Urine pH (4.5-7.5) Ur Specific [place] (1.000-1.030) Urine Protein (Negative) Urine Glucose (UA) (Negative) Urine Ketones (Negative) Urine Blood (Negative) Urine Nitrite (Negative) Urine Bilirubin (Negative) Urine Urobilinogen (Negative) Ur Leukocyte Esterase (Negative) Urine WBC (Auto) (0-5) /hpf Urine RBC (Auto) (0-4) /hpf U Hyaline Cast (Auto) (0-5) /lpf U Epithel Cells (Auto) (0-5) /lpf Urine Bacteria (Auto) (Negative) COVID-19 Eval Order Covid19 at [facility] SARS-CoV-2 (PCR) (Negative) 08/22/20 08/22/20 Range/Units 07:35 09:15 WBC (4.8-10.8) K/uL RBC (4.7-6.1) M/uL Hgb (14.0-18.0) g/dL Hct (42-52) % MCV (80-100) fL MCH (25-34) pg MCHC (32-36) g/dL RDW Std Deviation (36.4-46.3) fL RDW Coeff of Magan (11.5-14.5) % Plt Count (130-400) K/uL MPV (7.4-10.4) fL Immature Gran % (Auto) % Neut % (Auto) % Lymph % (Auto) % [place] % (Auto) % Eos % (Auto) % Baso % (Auto) % Neut # (Auto) (1.4-6.5) K/uL Lymph # (Auto) (1.2-3.4) K/uL [place] # (Auto) (0.11-0.59) K/uL Eos # (Auto) (0-0.5) K/uL Baso # (Auto) (0-0.2) K/uL Immature Gran # (Auto) (0.00-0.02) K/uL PT (9.0-12.0) Seconds INR (0.9-1.1) APTT (21.0-31.0) Seconds PTT Ratio Sodium (136-145) mmol/L Potassium (3.5-5.1) mmol/L Chloride (98-107) mmol/L Carbon Dioxide (21-32) mmol/L Anion Gap (3-11) BUN (7-18) mg/dl Creatinine (0.6-1.4) mg/dl Est Cr Clr Drug Dosing ml/min Est GFR ( Amer) ml/min Est GFR (Non-Af Amer) ml/min BUN/Creatinine Ratio (10-20) Glucose (70-99) mg/dl Lactate (0.4-2.0) mmol/L Calcium (8.5-10.1) mg/dl Magnesium (1.8-2.4) mg/dl Total Bilirubin (0.2-1) mg/dl AST (15-37) U/L ALT (12-78) U/L Alkaline Phosphatase (45-117) U/L Troponin I (0-0.045) ng/ml Total Protein (6.4-8.2) gm/dl Albumin (3.4-5.0) gm/dl Globulin (2.5-4.0) gm/dl Albumin/Globulin Ratio (0.9-2) Procalcitonin (0-0.5) ng/ml Urine Color Dark Yellow Urine Appearance Clear (Clear) Urine pH 5.0 (4.5-7.5) Ur Specific [place] 1.030 (1.000-1.030) Urine Protein Trace H (Negative) Urine Glucose (UA) Negative (Negative) Urine Ketones Negative (Negative) Urine Blood 1+ H (Negative) Urine Nitrite Negative (Negative) Urine Bilirubin Negative (Negative) Urine Urobilinogen Negative (Negative) Ur Leukocyte Esterase Negative (Negative) Urine WBC (Auto) 1-5 (0-5) /hpf Urine RBC (Auto) 0-4 (0-4) /hpf U Hyaline Cast (Auto) 1-5 (0-5) /lpf U Epithel Cells (Auto) 5-10 H (0-5) /lpf Urine Bacteria (Auto) Negative (Negative) COVID-19 Eval Order SARS-CoV-2 (PCR) NEGATIVE (Negative) Imaging Data Radiologist's Impression: Chest X-Ray 08/22/20 07:05 XR chest 1V portable CLINICAL HISTORY: SEPSIS COMPARISON STUDY: November 11, 2019 FINDINGS: No pneumothorax. No pleural effusion. No large infiltrates or consolidative lesions are seen. Mild reticular nodular prominence of pulmonary interstitium is seen at bilateral bases, slightly worsened since prior. Cardiac silhouette is mildly enlarged. No significant pulmonary vascular congestion.. Osseous structures: Degenerative changes of the spine. Partially visualized or thopedic hardware is seen projecting to the lower cervical spine region. IMPRESSION: 1. Mild cardiomegaly associated with slightly worsened reticular nodular prominence of pulmonary interstitium which might represent pulmonary edema; infectious process such as pneumonia could also be included in differential diagnosis. ACT 112: Negative or not required by law. The above report was generated using voice recognition software. It may contain grammatical, syntax or spelling errors. Electronically signed by: Diann Youssef DO 08/22/2020 9:54 AM Abdomen/Pelvis CT 08/22/20 07:24 CT SCAN OF THE ABDOMEN AND PELVIS WITH IV CONTRAST CLINICAL HISTORY: Right lower quadrant abdominal pain. Fever. Generalized weakness. COMPARISON STUDY: Abdominal CT dated 03/06/2020. TECHNIQUE: Following the IV administration of 120 cc of Optiray 320, CT scan of the abdomen and pelvis is performed from the lung bases to the proximal femora. Images are reviewed in the axial, sagittal, and coronal planes. IV contrast was administered without complication. A dose lowering technique was utilized adhering to the principles of ALARA. CT DOSE: 1738.28 mGy.cm FINDINGS: Lung bases: The heart is mildly enlarged and without pericardial effusion. The lung bases are clear noting bibasilar scarring/atelectasis. There is a small hiatal hernia. Liver: The contrast-enhanced liver is normal in size, contour, and attenuation. There is no intrahepatic biliary ductal dilatation. The hepatic veins and portal veins are patent. Gallbladder: Unremarkable. Spleen: Normal in size and attenuation. There are scattered calcified splenic granulomas. Pancreas: Moderately atrophic and grossly unremarkable. Adrenal glands: Unremarkable. Kidneys: The contrast enhanced kidneys are normal in size and without hydronephrosis. The kidneys enhance symmetrically. Abdominal vasculature: The abdominal aorta is normal in course and caliber noting mild atherosclerotic calcification. Bowel: There is mild colonic diverticulosis without CT evidence of acute diverticulitis. No bowel obstruction is seen. There is a tiny duodenal diverticulum. The appendix is well-visualized and normal. Peritoneum: There is no intraperitoneal free air or abdominal ascites. Lymphadenopathy: None. Pelvic viscera: The prostate gland is diminutive and heterogeneous. The bladder is normal as visualized. Skeletal structures: The skeletal structures are osteopenic. There is mild lumbosacral spondylosis. No lytic or blastic lesions are seen. IMPRESSION: 1. There are no acute infectious or inflammatory findings in the abdomen or pelvis. 2. Mild colonic diverticulosis without CT evidence of acute diverticulitis. 3. Mild cardiomegaly. 4. Additional findings as above. ACT 112: Negative or not required by law. Electronically signed by: Robles Diez M.D. 08/22/2020 9:04 AM MDM Narrative Patient presents today with fever and weakness. Exam reveals right lower quadr ant tenderness. He still has his appendix and gallbladder. His temperature today was 38.4. Room air oxygen saturations was 91%. Denies upper respiratory symptoms. Does have history of A. fib is on Eliquis. Also diabetes. The patient's chest x-ray may show a small pneumonia. A CT scan of the abdomen pelvis did not show acute process. The patient's EKG shows chronic A. fib at a rate of 80 without acute injury. CBC is normal. INR is 1.3. BUN is 35 and creatinine is 1.8. Baseline is around 1.6. Procalcitonin is 1.3. Urine did not show obvious infection. Covid test was negative. The patient's temperature is 38.4 and his oxygen saturations were 91% on room air. He has no history of COPD. Pneumonia is a possibility as a cause for the patient's symptoms. The patient is very weak and unable to ambulate. He will be seen by the hospitalist for further inpatient evaluation and care. The patient was treated with IV cefepime. He was given IV Benadryl for his CT scan with contrast. He was given some ketoconazole for the rash in his right groin. He was also given IV fluids. Impression & Plan Fever, Pneumonia, Generalized weakness, Intertrigo Discharge Plan Visit Data Chief Complaint: Back Injury/Pain Stated Complaint: FEVER,SHAKING,WEAKNESS - CAN'T STAND VERY LONG ED Provider: Andre Blake Discharge Problem: Fever, Pneumonia, Generalized weakness, Intertrigo Patient Disposition: Being Evaluated by Hospitalist Forms Stand Alone Forms: [facility] Prescriptions Prescriptions: No Action [place] DHA 92 mg (43 mg-22 [id number]) tablet,chewable 92 mg PO QPM RF: 0 fluticasone propionate 50 mcg/actuation spray,suspension 1 sprays INTNAS BID RF: 0 modafinil [Provigil] 200 mg tablet 400 mg PO QAM Qty: 180 RF: 3 silodosin [Rapaflo] 4 mg capsule 4 mg PO HS Qty: 90 RF: 3 Myrbetriq 50 mg tablet extended release 24 hr 50 mg PO QAM Qty: 90 RF: 3 atorvastatin 20 mg tablet 20 mg PO HS Qty: 90 RF: 3 metoprolol succinate [Toprol XL] 100 mg tablet extended release 24 hr 100 mg PO HS Qty: 90 RF: 3 spironolacton-hydrochlorothiaz [Aldactazide] 25-25 mg tablet 1 tab PO QAM Qty: 90 RF: 3 apixaban 5 mg tablet 5 mg PO BID Qty: 180 RF: 3 albuterol sulfate [Ventolin HFA] 90 mcg/actuation HFA aerosol inhaler 2 puff INH Q4H PRN (Reason: shortness of breath) Qty: 3 RF: 3 fluocinonide 0.05 % cream 1 applic topical BID Qty: 120 RF: 0 ketoconazole 2 % cream 1 applic topical BID PRN (Reason: .) RF: 0 Neuriva Plus 0.85 mg-200 mcg-1.2 mcg tablet,chewable 1 tab PO QAM RF: 0 coenzyme Q10 [CoQ-10] 100 mg capsule 100 mg PO QAM RF: 0 glimepiride 2 mg tablet 1 mg PO QAM Qty: 45 RF: 1 potassium chloride 20 mEq tablet,ER particles/crystals 20 meq PO BID Qty: 180 RF: 3 pantoprazole [Protonix] 40 mg tablet,delayed release (DR/EC) 40 mg PO BID RF: 0 multivitamin Tablet 1 tab PO QAM RF: 0 levothyroxine [Synthroid] 25 mcg tablet 25 mcg PO DAILYBB RF: 0 furosemide [Lasix] 40 mg tablet 40 mg PO DAILY@1200 RF: 0 Referrals Referrals: Ervin Bobby DO [Primary Care Provider] -
[2020-08-22 07:51] LABS: Basophils # (auto) 0.01 K/uL (0-0.2); Basophils % (auto) 0.2 %; Hematocrit (blood only) 41.9 % (42-52); Immature Granulocytes # (auto) 0.01 K/uL (0.00-0.02); Immature Granulocytes % (auto) 0.2 %; Lymphocytes # (auto) 0.23 K/uL (1.2-3.4); Lymphocytes % (auto) 4.7 %; Mean Corpuscular Hemoglobin 30.9 pg (25-34); Mean Corpuscular Hgb Conc 33.4 g/dL (32-36); Mean Corpuscular Volume 92.5 fL (80-100); Mean Platelet Volume 10.3 fL (7.4-10.4); Monocytes # (auto) 0.19 K/uL (0.11-0.59); Monocytes % (auto) 3.9 %; Neutrophils # (auto) 4.42 K/uL (1.4-6.5); Platelet Count 125 K/uL (130-400); RDW Coefficient of Variation 13.8 % (11.5-14.5); RDW Standard Deviation 46.8 fL (36.4-46.3); Red Blood Count 4.53 M/uL (4.7-6.1); White Blood Count 4.86 K/uL (4.8-10.8)
[2020-08-22 08:00] LABS: INR 1.3 (0.9-1.1); Partial Thromboplastin Ratio 1.5; Partial Thromboplastin Time 38.7 Seconds (21.0-31.0)
[2020-08-22 08:07] LABS: Albumin Level 3.8 gm/dl (3.4-5.0); Calcium 9.1 mg/dl (8.5-10.1); Creatinine Clr Calc Pharmacy 52.5 ml/min; Est GFR (African American) 40.4 ml/min; Est GFR (Non-African American) 34.9 ml/min; Magnesium 2.3 mg/dl (1.8-2.4); Potassium 3.4 mmol/L (3.5-5.1)
[2020-08-22 08:12] LABS: Albumin Globulin Ratio 0.9 (0.9-2); Bilirubin,Total 1.3 mg/dl (0.2-1); Globulin 4.2 gm/dl (2.5-4.0); Troponin I 0.032 ng/ml (0-0.045)
[2020-08-22] MEDS ORDERED: diphenhydrAMINE 50 MG/ML VIAL IV STA (08:45)
[2020-08-22] MEDS ORDERED: OPTIRAY 320 125ml IV ONE (08:49)
--- NOTE | 2020-08-22 09:05 | CT Scan Report ---
CT SCAN OF THE ABDOMEN AND PELVIS WITH IV CONTRAST CLINICAL HISTORY: Right lower quadrant abdominal pain. Fever. Generalized weakness. COMPARISON STUDY: Abdominal CT dated 03/06/2020. TECHNIQUE: Following the IV administration of 120 cc of Optiray 320, CT scan of the abdomen and pelv is is performed from the lung bases to the proximal femora. Images are reviewed in the axial, sagitta l, and coronal planes. IV contrast was administered without complication. A dose lowering technique w as utilized adhering to the principles of ALARA. CT DOSE: 1738.28 mGy.cm FINDINGS: Lung bases: The heart is mildly enlarged and without pericardial effusion. The lung bases are clear n oting bibasilar scarring/atelectasis. There is a small hiatal hernia. Liver: The contrast-enhanced liver is normal in size, contour, and attenuation. There is no intrahepa tic biliary ductal dilatation. The hepatic veins and portal veins are patent. Gallbladder: Unremarkable. Spleen: Normal in size and attenuation. There are scattered calcified splenic granulomas. Pancreas: Moderately atrophic and grossly unremarkable. Adrenal glands: Unremarkable. Kidneys: The contrast enhanced kidneys are normal in size and without hydronephrosis. The kidneys enh ance symmetrically. Abdominal vasculature: The abdominal aorta is normal in course and caliber noting mild atheroscleroti c calcification. Bowel: There is mild colonic diverticulosis without CT evidence of acute diverticulitis. No bowel obs truction is seen. There is a tiny duodenal diverticulum. The appendix is well-visualized and normal. Peritoneum: There is no intraperitoneal free air or abdominal ascites. Lymphadenopathy: None. Pelvic viscera: The prostate gland is diminutive and heterogeneous. The bladder is normal as visualiz ed. Skeletal structures: The skeletal structures are osteopenic. There is mild lumbosacral spondylosis. N o lytic or blastic lesions are seen. IMPRESSION: 1. There are no acute infectious or inflammatory findings in the abdomen or pelvis. 2. Mild colonic diverticulosis without CT evidence of acute diverticulitis. 3. Mild cardiomegaly. 4. Additional findings as above. ACT 112: Negative or not required by law. Electronically signed by: Robles Diez M.D. 08/22/2020 9:04 AM
[2020-08-22 09:28] LABS: Appearance Urine Clear (Clear); Bacteria Urine Automated Negative (Negative); Bilirubin Urine Negative (Negative); Blood Urine 1+ (Negative); Color Urine Dark Yellow; Glucose Urine UA Negative (Negative); Ketones Urine Negative (Negative); Leukocyte Esterase Urine Negative (Negative); Nitrite Urine Negative (Negative); Protein Urine Trace (Negative); RBC Urine Automated 0-4 /hpf (0-4); Urobilinogen Urine Negative (Negative)
--- NOTE | 2020-08-22 09:55 | XRay Report ---
XR chest 1V portable CLINICAL HISTORY: SEPSIS COMPARISON STUDY: November 11, 2019 FINDINGS: No pneumothorax. No pleural effusion. No large infiltrates or consolidative lesions are seen. Mild reticular nodular prominence of pulmonar y interstitium is seen at bilateral bases, slightly worsened since prior. Cardiac silhouette is mildly enlarged. No significant pulmonary vascular congestion.. Osseous structures: Degenerative changes of the spine. Partially visualized orthopedic hardware is s een projecting to the lower cervical spine region. IMPRESSION: 1. Mild cardiomegaly associated with slightly worsened reticular nodular prominence of pulmonary int erstitium which might represent pulmonary edema; infectious process such as pneumonia could also be i ncluded in differential diagnosis. ACT 112: Negative or not required by law. The above report was generated using voice recognition software. It may contain grammatical, syntax o r spelling errors. Electronically signed by: Diann Youssef DO 08/22/2020 9:54 AM
[2020-08-22] MEDS ORDERED: AMPICILLIN/SULBACTAM SOD 3,000 MG in 0.9 % SODIUM CHLORIDE 100 ML IV STA (10:00)
--- NOTE | 2020-08-22 10:11 | History & Physical Report ---
Date of Service August 22, 2020 Assessment & Plan (1) Sepsis: Lactate WNL. Hold off further fluid resuscitation Suspected source PNA +/- sinusitis Lyme and anaplasmosis testing added but less likely diagnosis Follow up blood cultures (2) Pneumonia: Based on CXR. No significant hypoxia. Procalcitonin positive Unasyn + doxycycline (3) Acute sinusitis: Symptom based Switch cefepime to Unasyn Consider adding prednisone if no significant improvement overnight (4) Obstructive sleep apnea treated with BiPAP: BiPAP while napping and sleeping 16/10 outpatient settings (5) Diabetes mellitus with diabetic nephropathy: HbA1C 5.9 in August suggests overtreatment with glimepiride. Hold glimepiride and consult pharmacy for glycemic control while inpatient with insulin as required. (6) Tinea cruris: Miconazole powder to right groin (7) Back pain: Suspect chronic back pain exacerbated by current illness Low suspicion of discitis unless blood cultures are positive or not resolving PT/OT once more stable. (8) CKD (chronic kidney disease) stage 3, GFR 30-59 ml/min: Close to baseline. Monitor with BMP in AM while on diuretics spironolactone + ?furosemide and HCTZ (9) Hypothyroidism: TSH 2.91 in August Continue levothyroxine 25 mcg PO daily (10) HTN (hypertension): BP currently normal. Continue on his usual anti-hypertensives but monitor BP closely as on multiple diuretics. Continue HCTZ 25mg PO daily, spironolactone 25mg PO daily, furosemide 40mg PO daily. (11) Narcolepsy: Continue modafinil 400mg PO QAM (12) Unable to read or write: Noted on history (13) Atrial fibrillation: Chronic. Rate controlled on metoprolol succinate 100mg PO HS, continue this. Anticoagulation with apixaban 5mg PO BID (14) Arteriosclerotic coronary artery disease: Cardiac catheterization 2002 with mild coronary disease. Echocardiography at that time with normal LV systolic function. Continue apixaban, metoprolol, atorvastatin (15) Acid reflux disease: Continue pantoprazole 40mg PO daily (16) DVT prophylaxis: Apixaban as above History of Present Illness Chief Complaint: Fever, generalized weakness Primary Care Provider: Ervin Bobby DO Daniel oLpez is a 75 year old male who presents to the ER with fever and generalized weakness. He reports feeling generally unwell over the last 1-2 days getting progressively worse. Fevers started today. Increased nasal drainage and bilateral frontal sinus pain starting last week. No chest pain, shortness of breath or cough. He also notes significant back pain although pain in this area is not unusual for him and he puts it down to the bed he is currently in as he usually sleeps better in a recliner. Pain does not radiate down legs. Generalized weakness bilateral in all four extremities. No areas of cellulitis but has repeated tinea infections in his groin. No abdominal pain, nausea, vomiting, diarrhea or constipation. [place] get [place] and has had lyme disease in the past which has felt similar to this. In the ER he was treated for a non-specific infection with IV cefepime. CT A/P was unremarkable for acute infectious process. CXR showed possible pulmonary edema vs pneumonia. He was referred to medicine for admission and ongoing management of weakness and fever. Allergies Allergy/AdvReac Type Severity Reaction Status Date / Time clindamycin Allergy Intermediate rash Verified 08/22/20 08:13 iodine Allergy Intermediate topical Verified 08/22/20 08:13 iodine- swelling at site trospium AdvReac Intermediate "sick"/head Verified 08/22/20 08:13 ache Home Medications Medication Instructions Recorded Confirmed Type omega 3,6,9 combination no.7 92 mg 92 mg PO QPM tab 11/14/17 08/22/20 History (43 mg-22 [id number]) chew tablet fluticasone propionate 50 1 sprays INTNAS BID gm 10/06/19 08/22/20 History mcg/actuation nasal spray,suspension pantoprazole [Protonix] 40 mg PO BID 11/18/19 08/22/20 History modafinil 200 mg tablet 400 mg PO QAM #180 tab 02/15/20 08/22/20 Rx apixaban 5 mg tablet 5 mg PO BID #180 tab 03/30/20 08/22/20 Rx silodosin 4 mg capsule 4 mg PO HS #90 cap 04/10/20 08/22/20 Rx albuterol sulfate 90 mcg/actuation 2 puff INH Q4H PRN #3 inhaler 05/08/20 08/22/20 Rx aerosol inhaler mirabegron 50 mg tablet,extended 50 mg PO QAM #90 tab 07/10/20 08/22/20 Rx release 24 hr B6 0.85 mg-folic 200 1 tab PO QAM tab 07/17/20 08/22/20 History [id number] oral chewable tablet coenzyme Q10 100 mg capsule 100 mg PO QAM 07/17/20 08/22/20 History ketoconazole 2 % topical cream 1 applic TOPICAL BID PRN g 07/17/20 08/22/20 History fluocinonide 0.05 % topical cream 1 applic TOPICAL BID #120 g 08/02/20 08/22/20 Rx glimepiride 2 mg tablet 1 mg PO QAM #45 tab 08/03/20 08/22/20 Rx potassium chloride 20 mEq 20 meq PO BID #180 tab 08/03/20 08/22/20 Rx tablet,extended release(part/cryst) atorvastatin 20 mg tablet 20 mg PO HS #90 tab 08/04/20 08/22/20 Rx metoprolol succinate 100 mg 100 mg PO HS #90 tab 08/04/20 08/22/20 Rx tablet,extended release 24 hr spironolactone 25 1 tab PO QAM #90 tab 08/04/20 08/22/20 Rx mg-hydrochlorothiazide 25 mg tablet furosemide [Lasix] 40 mg PO DAILY@1200 08/22/20 08/22/20 History levothyroxine [Synthroid] 25 mcg PO DAILYBB 08/22/20 08/22/20 History multivitamin 1 tab PO QAM 08/22/20 08/22/20 History Past Med/Surg History Medical History (Updated 08/23/20 @ 10:03 by Augustine Keyes MD) Acid reflux disease controlled Arteriosclerotic coronary artery disease Asthma stable Atrial fibrillation Bilateral leg edema BPH with obstruction/lower urinary tract symptoms Cervical radiculopathy Cervical stenosis of spinal canal CKD (chronic kidney disease) stage 3, GFR 30-59 ml/min Cognitive impairment 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 Diverticular disease Dyslipidemia HTN (hypertension) Hypothyroidism Narcolepsy Obesity Obstructive sleep apnea treated with BiPAP Secondary hyperparathyroidism Sensorineural hearing loss of both ears Unable to read or write Urinary incontinence Venous insufficiency Surgical History History of cervical spinal surgery ACDF C3-C7 + hardware removal: 4/17/18: Grade view 1, MAC#3, ETT 8.0 at [facility] History of colonoscopy History of esophagogastroduodenoscopy (EGD) Hx of cervical spine surgery S/P hernia repair S/P knee surgery Family History Mother Coronary heart disease Myocardial infarction Brother Diabetes Other No family history of bleeding disorder Denies family history of Ovarian cancer Prostate cancer Breast cancer Lung cancer Colorectal cancer Social History Smoking Status: Never smoker Second Hand Exposure: No; Hx Alcohol Use: No Hx Substance Use: No Preferred Language: [place]an Communication Ability: Effective Visual Impairment: Limited Hearing Ability: Use of Hearing Aid Continuity Writer Required: No Beliefs That Will Affect Care: None marital status: Current Living Situation: Spouse current occupational status: retired How many Children do You have: 2 Other Information That Helps Us Care for You: No Feels Safe at Home: Yes Childhood Exposure to Second-Hand Smoke: No caffeine: Yes (drinks coffee daily 1 cup) during the past year weight has: decreased > 10 lbs Dental Care, Regularly: No Physical Activity Frequency: Does not Exercise Physical Activity Frequency Comment: does outside work however Seatbelt Use: always Sunscreen Use: No Assistive Devices: Denture - Upper, Denture - Lower, Glasses and Hearing Aid - Bilateral Review of Systems Review of Systems: All systems reviewed & are unremarkable except as noted in HPI & below Physical Exam Constitutional: well developed and + acute distress (back pain); + not well nourished Respiratory: + respiratory distress, + labored breathing, + retractions, + uses accessory muscles and + grunting Auscultation: + diminished lung sounds (bibasal); no rales and no wheezes Cardiovascular: Rate/Rhythm: regular rate and + irregularly irregular Heart Sounds: no murmur Vessels: no JVD (difficult to assess given neck size) Extremities: normal capillary refill and + pedal edema (1+ pre-tibial, equal); no calf tenderness Gastrointestinal (Abdomen): normal bowel sounds, soft, nontender, no hepatosplenomegaly Musculoskeletal: no cyanosis or clubbing, extremities motor strength 5/5 Spine: + lumbar spinal tenderness (central and paraspinal L1-5) Skin: no rashes, warm and dry Varicose veins present on b/l feet Neurologic: moves all extremities and awake; no focal motor deficits and not confused Speech / Cognition: normal speech Motor/Sensory: no tremor and no pronator drift Psychiatric: A+Ox3, euthymic affect Genitourinary: no CVA tenderness Results & Data Results & Data ([facility]) Vital Signs (Past 12 Hours) Vital Signs Temp Pulse Resp BP Pulse Ox 08/22/20 09:00 85 26 H 131/72 97 08/22/20 08:30 86 24 102/49 L 08/22/20 08:01 87 127/54 L 08/22/20 08:00 94 H 08/22/20 07:50 86 08/22/20 07:31 139/69 08/22/20 07:27 130/67 08/22/20 07:02 38.4 C H 08/22/20 06:49 37.1 C 87 20 130/[address] SCAN OF THE ABDOMEN AND PELVIS WITH IV CONTRAST IMPRESSION: 1. There are no acute infectious or inflammatory findings in the abdomen or pelvis. 2. Mild colonic diverticulosis without CT evidence of acute diverticulitis. 3. Mild cardiomegaly. 4. Additional findings as above. Medications Administered ER Medications given: Cefepime 2g IV NSS 1L bolus ECG Indication: other (sepsis) Rate (beats per minute): 81 Rhythm: atrial fibrillation Findings: no acute ischemic change Comparison ECG Date: from (Nov 11, 2019) Change: the following changes noted (TW amptitude decreased in anterior leads) Code Status & VTE Plan Code Status Full VTE Prophylaxis Plan VTE Prophylaxis will be ordered: Yes PG Care Time/CCT Total # of Minutes Spent Total Time Spent with Patient: Total time spent is greater than 50% in coordination of care (as documented) at patient's floor/unit and/or counseling patient: Coding Level of Care Code 63598 Initial Inpt Care Lvl 3 Diagnoses Sepsis A41.9 Sepsis type: sepsis due to unspecified organism Sepsis acute organ dysfunction status: without acute organ dysfunction Pneumonia J18.9 Pneumonia type: due to unspecified organism Acute sinusitis J01.90 Obstructive sleep apnea treated with BiPAP G47.33 Diabetes mellitus with diabetic nephropathy E11.21 Tinea cruris B35.6 Back pain M54.9 CKD (chronic kidney disease) stage 3, GFR 30-59 ml/min N18.3 Hypothyroidism E03.9 HTN (hypertension) I10 Narcolepsy G47.419 Unable to read or write Z55.0 Atrial fibrillation I48.91 Arteriosclerotic coronary artery disease I25.10 Acid reflux disease K21.9 DVT prophylaxis Z29.9 (1) Sepsis Sepsis type: sepsis due to unspecified organism Sepsis acute organ dysfunction status: without acute organ dysfunction Qualified Code(s): A41.9 - Sepsis, unspecified organism (2) Pneumonia Pneumonia type: due to unspecified organism
[2020-08-22 10:48] LABS: Lyme Ab IgG w/WB Rflx Positive (Negative); Lyme Ab IgM w/WB Rflx Positive (Negative)
[2020-08-22] MEDS ORDERED: DOXYCYCLINE HYCLATE 100 MG in DEXTROSE 5% 100 ML IV STA (13:42)
[2020-08-22] MEDS ORDERED: ALBUTEROL HFA 8 GM INHALER INH PRN (14:24)
[2020-08-22] MEDS ORDERED: ONDANSETRON INJ 2 MG/ML 2 ML VIAL IV PRN (14:24)
[2020-08-22] MEDS ORDERED: POLYETHYLENE (MIRALAX) 17 GM PACK PO PRN (14:24)
[2020-08-22] MEDS ORDERED: ALUMINUM/MAGNESIUM SUSP 30 ML UDC PO PRN (14:24)
[2020-08-22] MEDS ORDERED: PHARMACY GLYCEMIC MGMT CONSULT PRN (14:50)
[2020-08-22] MEDS ORDERED: DEXTROSE 50% 50 ML SYRINGE IV PRN (15:00)
[2020-08-22] MEDS ORDERED: GLUCAGON FOR INJ 1 MG VIAL IM PRN (15:00)
[2020-08-22] MEDS ORDERED: FUROSEMIDE 40 MG TAB PO SCH (15:00)
[2020-08-22] MEDS ORDERED: GLUCOSE 40% GEL 15 GM TUBE PO PRN (15:00)
[2020-08-22] MEDS ORDERED: GLUCOSE 10 TABS/TUBE PO PRN (15:00)
[2020-08-22] MEDS ORDERED: CARBOHYDRATES FOR HYPOGLYCEMIA PO PRN (15:00)
--- NOTE | 2020-08-22 15:01 | Pharmacy Report ---
Pharmacy Glycemic Short Note 2 - Date of Service August 22, 2020 - Glycemic Short BSG Results (Last 24 hours): 08/22/20 08/22/20 07:30 14:51 Glucose 93 POC Glucose 85 OUTPATIENT ANTIDIABETIC REGIMEN: * glimepiride 1mg PO qam * A1c: 5.9% 08/03/20 ASSESSMENT: * BSGs today 93 mg/dL this morning and 85 mg/dL this afternoon. * No steroids ordered, but patient is ordered a diet, likely will not eat until dinner. * Will proceed with a conservative NovoLog scale only. PLAN FOR INPATIENT GLYCEMIC CONTROL: * Hold outpatient oral diabetes medications * Basal insulin * Hold at this time * Bolus insulin * NovoLog per scale ACHS or Q6hrs while NPO + additional overnight checks * Goal Range: Low 120 mg/dL - High 150 mg/dL * Correction Factor: 25 mg/dL/unit * Nutritional / Prandial insulin per carb ratio of 1 unit per 11 grams CHO consumed
--- NOTE | 2020-08-22 15:22 | Electrocardiogram Report ---
Test Reason : Blood Pressure : / mmHG Vent. Rate : 081 BPM Atrial Rate : 079 BPM P-R Int : 000 ms QRS Dur : 102 ms QT Int : 378 ms P-R-T Axes : 000 064 027 degrees QTc Int : 439 ms Atrial fibrillation Abnormal ECG When compared with ECG of 11-NOV-2019 08:43, T wave amplitude has decreased in Anterior leads Confirmed by Mamadou Quiñonez ([id number]) on 08/22/2020 3:22:23 PM Referred By: REFERRED SELF Confirmed By:Mamadou Quiñonez
[2020-08-22] MEDS: AMPICILLIN/SULBACTAM SOD 3,000 MG in 0.9 % SODIUM CHLORIDE 100 ML IV SCH ×2 (17:29→21:09)
[2020-08-22] MEDS: INSULIN ASPART 100 UNITS/ML 3 ML PEN SC SCH ×2 (18:05→21:47)
[2020-08-22] MEDS ORDERED: MICONAZOLE NITRATE POWDER 43 GM EXT PRN (18:17)
[2020-08-22] MEDS: FLUOCINONIDE 0.05% CR 15 GM TUBE EXT SCH (21:00)
[2020-08-22] MEDS ORDERED: POTASSIUM CHLORIDE CRTAB 20 MEQ TABCR PO SCH (21:00)
[2020-08-22] MEDS: METOPROLOL SUCC 50MG EXT REL TAB PO SCH (21:01)
[2020-08-22] MEDS: ATORVASTATIN 20 MG TAB PO SCH (21:01)
[2020-08-22] MEDS: APIXABAN 5 MG TABLET PO SCH (21:01)
[2020-08-22] MEDS: OMEGA-3 (PURIFIED FISH OIL) 1 GM CAP PO SCH (21:02)
[2020-08-22] MEDS: PANTOprazole 40 MG TAB PO SCH (21:02)
[2020-08-22] MEDS: FLUTICASONE PROPIONATE NA SPR 16 GM BTL NAE SCH (21:02)
[2020-08-23] MEDS: INSULIN ASPART 100 UNITS/ML 3 ML PEN SC SCH ×6 (00:16→20:15)
[2020-08-23] MEDS: ACETAMINOPHEN 325 MG TAB PO PRN ×2 (02:16→13:54)
[2020-08-23] MEDS: AMPICILLIN/SULBACTAM SOD 3,000 MG in 0.9 % SODIUM CHLORIDE 100 ML IV SCH ×4 (03:33→21:33)
[2020-08-23] MEDS: LEVOTHYROXINE SODIUM 25 MCG TABLET PO SCH (05:55)
[2020-08-23] MEDS: DOXYCYCLINE HYCLATE 100 MG in DEXTROSE 5% 100 ML IV SCH ×2 (05:55→18:21)
[2020-08-23 07:39] LABS: Hematocrit (blood only) 42.5 % (42-52); Hemoglobin 14.3 g/dL (14.0-18.0); Mean Corpuscular Hemoglobin 30.8 pg (25-34); Mean Corpuscular Hgb Conc 33.6 g/dL (32-36); Mean Corpuscular Volume 91.4 fL (80-100); RDW Standard Deviation 46.7 fL (36.4-46.3); Red Blood Count 4.65 M/uL (4.7-6.1)
[2020-08-23 07:59] LABS: Immature Granulocytes # (auto) 0.01 K/uL (0.00-0.02); Immature Granulocytes % (auto) 0.3 %; Lymphocytes # (auto) 0.44 K/uL (1.2-3.4); Lymphocytes % (auto) 14.2 %; Mean Platelet Volume 10.7 fL (7.4-10.4); Monocytes # (auto) 0.15 K/uL (0.11-0.59); Monocytes % (auto) 4.8 %; Neutrophils % (auto) 80.7 %; Platelet Count 83 K/uL (130-400); Platelet Estimate Decreased (Normal)
[2020-08-23 08:13] LABS: Albumin Level 3.3 gm/dl (3.4-5.0); BUN Creatinine Ratio 18.4 (10-20); Calcium 9.1 mg/dl (8.5-10.1); Creatinine Clr Calc Pharmacy 54.4 ml/min; Est GFR (Non-African American) 36.3 ml/min; Potassium 2.8 mmol/L (3.5-5.1)
[2020-08-23 08:26] LABS: Albumin Globulin Ratio 0.7 (0.9-2); Bilirubin,Total 1.4 mg/dl (0.2-1); Globulin 4.5 gm/dl (2.5-4.0); Total Protein 7.8 gm/dl (6.4-8.2)
[2020-08-23] MEDS ORDERED: SPIRONOLACTONE/HCTZ 25-25 PO SCH (09:00)
[2020-08-23] MEDS ORDERED: [UNRECOGNIZED DRUG - OTHER] PO SCH (09:00)
[2020-08-23] MEDS: APIXABAN 5 MG TABLET PO SCH ×2 (09:07→20:14)
[2020-08-23] MEDS: MIRABEGRON ER 25 MG TAB PO SCH (09:07)
[2020-08-23] MEDS: MULTIVITAMIN TAB PO SCH (09:07)
[2020-08-23] MEDS: PANTOprazole 40 MG TAB PO SCH ×2 (09:07→20:13)
[2020-08-23] MEDS: FLUTICASONE PROPIONATE NA SPR 16 GM BTL NAE SCH ×2 (09:07→20:14)
[2020-08-23] MEDS: FLUOCINONIDE 0.05% CR 15 GM TUBE EXT SCH ×2 (09:08→20:15)
[2020-08-23] MEDS: modafiniL 100 MG TAB PO SCH (09:11)
[2020-08-23] MEDS: POTASSIUM CHLORIDE CRTAB 20 MEQ TABCR PO SCH ×2 (10:36→18:26)
[2020-08-23] MEDS: MICONAZOLE NITRATE POWDER 43 GM EXT SCH ×2 (10:37→20:14)
--- NOTE | 2020-08-23 15:57 | Hospitalist Progress Note ---
Date of Service August 23, 2020 Assessment & Plan (1) Sepsis: Lactate WNL. Suspected source PNA +/- sinusitis +/- lyme disease Anaplasmosis smear negative, DNA PCR pending Follow up blood cultures (2) Pneumonia: Based on CXR. No significant hypoxia. Procalcitonin positive Continue Unasyn + doxycycline (3) Acute sinusitis: Symptom based Continue Unasyn No need for prednisone at current time (4) Obstructive sleep apnea treated with BiPAP: BiPAP while napping and sleeping 16/10 outpatient settings (5) Diabetes mellitus with diabetic nephropathy: HbA1C 5.9 in August suggests overtreatment with glimepiride. Hold glimepiride and consult pharmacy for glycemic control while inpatient with insulin as required. (6) Tinea cruris: Miconazole powder to right groin (7) Back pain: Suspect chronic back pain exacerbated by current illness Low suspicion of discitis PT/OT (8) CKD (chronic kidney disease) stage 3, GFR 30-59 ml/min: Close to baseline. Continue to monitor daily while off diuretics. (9) Hypothyroidism: TSH 2.91 in August Continue levothyroxine 25 mcg PO daily (10) HTN (hypertension): BP low normal. Hypokalemia likely from lasix given yesterday. Will hold his diuretics for now including spironolactone, lasix and HCTZ. Continue on metoprolol for rate control. (11) Narcolepsy: Continue modafinil 400mg PO QAM (12) Unable to read or write: Noted on history (13) Atrial fibrillation: Chronic. Rate controlled on metoprolol succinate 100mg PO HS, continue this. Anticoagulation with apixaban 5mg PO BID (14) Arteriosclerotic coronary artery disease: Cardiac catheterization 2002 with mild coronary disease. Echocardiography at that time with normal LV systolic function. Continue apixaban, metoprolol, atorvastatin (15) Acid reflux disease: Continue pantoprazole 40mg PO daily (16) DVT prophylaxis: Apixaban as above Admission and Anticipated Discharge Date Admission Date: August 22, 2020 Subjective Appears much improved today. More alert. Low grade fever 37.9 @ 4am with associated chills. Not yet out of bed today therefore unknown about his weakness but reports his back pain has resolved. Condom catheter in place with dark urine. Review of Systems Review of Systems: All systems reviewed & are unremarkable except as noted in HPI & below Physical Exam Constitutional: well developed; + not well nourished and no acute distress Respiratory: normal respiratory effort; no labored breathing, no retractions, does not use accessory muscles and no grunting Auscultation: + diminished lung sounds (bibasal); no rales and no wheezes Cardiovascular: Rate/Rhythm: regular rate and + irregularly irregular Heart Sounds: no murmur Extremities: normal capillary refill and + pedal edema (1+ pre-tibial, equal); no calf tenderness Gastrointestinal (Abdomen): normal bowel sounds, soft, nontender, no hepatosplenomegaly Musculoskeletal: no cyanosis or clubbing, extremities motor strength 5/5 Spine: no lumbar spinal tenderness Skin: no rashes, warm and dry Neurologic: moves all extremities and awake; no focal motor deficits and not confused Psychiatric: A+Ox3, euthymic affect Genitourinary: no CVA tenderness Results & Data Results & Data ([facility]) Vital Signs (Past 12 Hours) Vital Signs Temp Pulse Pulse Pulse Resp BP BP 08/23/20 15:05 36.8 C 85 18 101/64 08/23/20 11:36 37.9 C H 80 16 111/64 08/23/20 08:00 78 08/23/20 07:30 36.9 C 81 20 110/65 08/23/20 04:03 37.9 C H 90 20 117/65 Pulse Ox 08/23/20 15:05 94 08/23/20 11:36 95 08/23/20 08:00 08/23/20 07:30 95 08/23/20 04:03 93 PG Care Time/CCT Total # of Minutes Spent Total Time Spent with Patient: Total time spent is greater than 50% in coordination of care (as documented) at patient's floor/unit and/or counseling patient: Coding Level of Care Code 88627 Subseq Hosp Care Lvl 2 Diagnoses Sepsis A41.9 Sepsis acute organ dysfunction status: without acute organ dysfunction Sepsis type: sepsis due to unspecified organism Pneumonia J18.9 Pneumonia type: due to unspecified organism Acute sinusitis J01.90 Obstructive sleep apnea treated with BiPAP G47.33 Diabetes mellitus with diabetic nephropathy E11.21 Tinea cruris B35.6 Back pain M54.9 CKD (chronic kidney disease) stage 3, GFR 30-59 ml/min N18.3 Hypothyroidism E03.9 HTN (hypertension) I10 Narcolepsy G47.419 Unable to read or write Z55.0 Atrial fibrillation I48.91 Arteriosclerotic coronary artery disease I25.10 Acid reflux disease K21.9 DVT prophylaxis Z29.9 (1) Sepsis Sepsis acute organ dysfunction status: without acute organ dysfunction Sepsis type: sepsis due to unspecified organism Qualified Code(s): A41.9 - Sepsis, unspecified organism (2) Pneumonia Pneumonia type: due to unspecified organism
[2020-08-23] MEDS: METOPROLOL SUCC 50MG EXT REL TAB PO SCH (20:13)
[2020-08-23] MEDS: ATORVASTATIN 20 MG TAB PO SCH (20:14)
[2020-08-23] MEDS: OMEGA-3 (PURIFIED FISH OIL) 1 GM CAP PO SCH (20:14)
[2020-08-24] MEDS: AMPICILLIN/SULBACTAM SOD 3,000 MG in 0.9 % SODIUM CHLORIDE 100 ML IV SCH ×4 (04:20→22:17)
[2020-08-24] MEDS: DOXYCYCLINE HYCLATE 100 MG in DEXTROSE 5% 100 ML IV SCH (05:28)
[2020-08-24] MEDS: LEVOTHYROXINE SODIUM 25 MCG TABLET PO SCH (05:30)
[2020-08-24] MEDS: MULTIVITAMIN TAB PO SCH (07:53)
[2020-08-24] MEDS: PANTOprazole 40 MG TAB PO SCH ×2 (07:53→19:47)
[2020-08-24] MEDS: MICONAZOLE NITRATE POWDER 43 GM EXT SCH ×2 (07:53→19:53)
[2020-08-24] MEDS: FLUTICASONE PROPIONATE NA SPR 16 GM BTL NAE SCH ×2 (07:53→19:52)
[2020-08-24] MEDS: FLUOCINONIDE 0.05% CR 15 GM TUBE EXT SCH ×2 (07:53→19:55)
[2020-08-24] MEDS: MIRABEGRON ER 25 MG TAB PO SCH (07:54)
[2020-08-24] MEDS: POTASSIUM CHLORIDE CRTAB 20 MEQ TABCR PO SCH ×2 (07:54→16:12)
[2020-08-24] MEDS: APIXABAN 5 MG TABLET PO SCH ×2 (07:54→19:50)
[2020-08-24 08:15] LABS: Hematocrit (blood only) 37.2 % (42-52); Hemoglobin 12.5 g/dL (14.0-18.0); Mean Corpuscular Hemoglobin 30.2 pg (25-34); Mean Corpuscular Hgb Conc 33.6 g/dL (32-36); Mean Corpuscular Volume 89.9 fL (80-100); RDW Coefficient of Variation 13.9 % (11.5-14.5); Red Blood Count 4.14 M/uL (4.7-6.1)
[2020-08-24] MEDS: modafiniL 100 MG TAB PO SCH (08:29)
[2020-08-24] MEDS: INSULIN ASPART 100 UNITS/ML 3 ML PEN SC SCH ×4 (08:29→21:35)
[2020-08-24 08:57] LABS: Albumin Globulin Ratio 0.7 (0.9-2); Albumin Level 2.8 gm/dl (3.4-5.0); BUN Creatinine Ratio 21.2 (10-20); Bilirubin,Total 0.9 mg/dl (0.2-1); Calcium 8.3 mg/dl (8.5-10.1); Creatinine Clr Calc Pharmacy 59.3 ml/min; Est GFR (Non-African American) 40.6 ml/min; Potassium 3.4 mmol/L (3.5-5.1); Total Protein 6.8 gm/dl (6.4-8.2)
[2020-08-24 09:06] LABS: Mean Platelet Volume 10.7 fL (7.4-10.4); Platelet Count 71 K/uL (130-400)
[2020-08-24 09:07] LABS: Basophils # (auto) 0.02 K/uL (0-0.2); Lymphocytes # (auto) 0.63 K/uL (1.2-3.4); Lymphocytes % (auto) 31.5 %; Monocytes # (auto) 0.26 K/uL (0.11-0.59); Neutrophils # (auto) 1.09 K/uL (1.4-6.5); Neutrophils % (auto) 54.5 %; RBC Morphology Unremarkable
--- NOTE | 2020-08-24 10:21 | Hospitalist Progress Note ---
Date of Service August 24, 2020 Assessment & Plan (1) Sepsis: Lactate WNL. Suspected source PNA +/- sinusitis +/- lyme disease Anaplasmosis smear negative, DNA PCR pending Follow up blood cultures (2) Lyme disease: Continue on doxycycline (switch IV to PO) (3) Pancytopenia: Makes tick-borne illness more likely especially in setting of relatively non-specific symptoms other than generalized weakness. (4) Pneumonia: Based on CXR. No significant hypoxia. Procalcitonin positive Continue Unasyn + doxycycline (switch IV to PO) (5) Acute sinusitis: Symptom based Continue Unasyn No need for prednisone at current time (6) Obstructive sleep apnea treated with BiPAP: BiPAP while napping and sleeping 16/10 outpatient settings (7) Diabetes mellitus with diabetic nephropathy: HbA1C 5.9 in August suggests overtreatment with glimepiride. Hold glimepiride and consult pharmacy for glycemic control while inpatient with insulin as required. Suspect glimepiride can be discontinued on discharge. (8) Tinea cruris: Miconazole powder to right groin (9) Back pain: Suspect chronic back pain exacerbated by current illness Low suspicion of discitis PT/OT (10) CKD (chronic kidney disease) stage 3, GFR 30-59 ml/min: Close to baseline. Continue to monitor daily while off diuretics. (11) Hypothyroidism: TSH 2.91 in August Continue levothyroxine 25 mcg PO daily (12) HTN (hypertension): BP low normal. Hypokalemia likely from lasix given yesterday. Will hold his diuretics for now including spironolactone, lasix and HCTZ. Continue on metoprolol for rate control. 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 Rate controlled on metoprolol succinate 100mg PO HS, continue this. Anticoagulation with apixaban 5mg PO BID (16) Arteriosclerotic coronary artery disease: Cardiac catheterization 2002 with mild coronary disease. Echocardiography at that time with normal LV systolic function. Continue apixaban, metoprolol, atorvastatin (17) Acid reflux disease: Continue pantoprazole 40mg PO daily (18) DVT prophylaxis: Apixaban as above Awaiting PT/OT evals. Suspect home tomorrow if Plt/WBC trending in the right direction. Continued admission due to pancytopenia however patient can be transferred to med/surg. Admission and Anticipated Discharge Date Admission Date: August 22, 2020 Anticipated date of discharge: 08/25/20 Subjective No acute events overnight. Sinus pain and back pain resolved. No chest pain, shortness of breath or cough. No worsening leg swelling off of diuretics. Review of Systems Review of Systems: All systems reviewed & are unremarkable except as noted in HPI & below Physical Exam Constitutional: well developed; + not well nourished and no acute distress Respiratory: normal respiratory effort; no labored breathing, no retractions, does not use accessory muscles and no grunting Auscultation: lungs clear to auscultation bilaterally; no diminished lung sounds, no rales and no wheezes Cardiovascular: Rate/Rhythm: regular rate and + irregularly irregular Heart Sounds: no murmur Vessels: no JVD (difficult to assess given neck size) Extremities: normal capillary refill and + pedal edema (1+ pre-tibial, equal); no calf tenderness Gastrointestinal (Abdomen): normal bowel sounds, soft, nontender, no hepatosplenomegaly Musculoskeletal: no cyanosis or clubbing, extremities motor strength 5/5 Spine: no lumbar spinal tenderness Skin: no rashes, warm and dry Neurologic: moves all extremities and awake; no focal motor deficits and not confused Speech / Cognition: normal speech Motor/Sensory: no tremor and no pronator drift Psychiatric: A+Ox3, euthymic affect Genitourinary: no CVA tenderness Results & Data Results & Data ([facility]) Vital Signs (Past 12 Hours) Vital Signs Temp Pulse Pulse Resp BP Pulse Ox 08/24/20 07:33 37.0 C 87 20 125/68 97 08/24/20 05:08 37.1 C 89 18 124/72 94 08/23/20 23:51 37.3 C 86 18 128/66 97 08/23/20 22:30 88 16 93 PG Care Time/CCT Total # of Minutes Spent Total Time Spent with Patient: Total time spent is greater than 50% in coordination of care (as documented) at patient's floor/unit and/or counseling patient: Coding Level of Care Code 16006 Subseq Hosp Care Lvl 2 Diagnoses Sepsis A41.9 Sepsis acute organ dysfunction status: without acute organ dysfunction Sepsis type: sepsis due to unspecified organism Lyme disease A69.20 Pancytopenia D61.818 Pneumonia J18.9 Pneumonia type: due to unspecified organism Laterality: bilateral Lung location: unspecified part of lung Acute sinusitis J01.11 Sinusitis location: frontal Recurrence: recurrent Obstructive sleep apnea treated with BiPAP G47.33 Diabetes mellitus with diabetic nephropathy E11.21 Tinea cruris B35.6 Back pain M54.9 CKD (chronic kidney disease) stage 3, GFR 30-59 ml/min N18.3 Hypothyroidism E03.9 HTN (hypertension) I10 Narcolepsy G47.419 Unable to read or write Z55.0 Atrial fibrillation I48.91 Arteriosclerotic coronary artery disease I25.10 Acid reflux disease K21.9 DVT prophylaxis Z29.9 (1) Acute sinusitis Sinusitis location: frontal Recurrence: recurrent Qualified Code(s): J01.11 - Acute recurrent frontal sinusitis (2) Sepsis Sepsis acute organ dysfunction status: without acute organ dysfunction Sepsis type: sepsis due to unspecified organism Qualified Code(s): A41.9 - Sepsis, unspecified organism (3) Pneumonia Pneumonia type: due to unspecified organism Laterality: bilateral Lung location: unspecified part of lung Qualified Code(s): J18.9 - Pneumonia, unspecified organism
[2020-08-24] MEDS: OMEGA-3 (PURIFIED FISH OIL) 1 GM CAP PO SCH (19:48)
[2020-08-24] MEDS: METOPROLOL SUCC 50MG EXT REL TAB PO SCH (19:48)
[2020-08-24] MEDS: DOXYCYCLINE HYCLATE 100 MG CAP PO SCH (19:49)
[2020-08-24] MEDS: ATORVASTATIN 20 MG TAB PO SCH (19:51)
[2020-08-25 00:51] LABS: 18KDIGG Band REACTIVE; 23KDIGG Band REACTIVE; 23KDIGM Band REACTIVE; 28KDIGG Band NON-REACTIVE; 30KDIGG Band NON-REACTIVE; 39KDIGG Band REACTIVE; 39KDIGM Band REACTIVE; 41KDIGG Band NON-REACTIVE; 41KDIGM Band NON-REACTIVE; 45KDIGG Band NON-REACTIVE; 58KDIGG Band NON-REACTIVE; 66KDIGG Band NON-REACTIVE; 93KDIGG Band NON-REACTIVE; Lyme Antibodies, WB IgG NEGATIVE (NEGATIVE); Lyme Antibodies, WB IgM POSITIVE (NEGATIVE)
[2020-08-25] MEDS: AMPICILLIN/SULBACTAM SOD 3,000 MG in 0.9 % SODIUM CHLORIDE 100 ML IV SCH ×2 (04:17→09:17)
[2020-08-25 05:51] LABS: Hematocrit (blood only) 36.4 % (42-52); Hemoglobin 12.2 g/dL (14.0-18.0); Mean Corpuscular Hemoglobin 29.9 pg (25-34); Mean Corpuscular Hgb Conc 33.5 g/dL (32-36); Mean Corpuscular Volume 89.2 fL (80-100); RDW Coefficient of Variation 13.8 % (11.5-14.5); RDW Standard Deviation 45.6 fL (36.4-46.3); Red Blood Count 4.08 M/uL (4.7-6.1); White Blood Count 2.27 K/uL (4.8-10.8)
[2020-08-25] MEDS: LEVOTHYROXINE SODIUM 25 MCG TABLET PO SCH (05:59)
[2020-08-25 06:14] LABS: Mean Platelet Volume 10.9 fL (7.4-10.4); Platelet Count 71 K/uL (130-400)
[2020-08-25 06:19] LABS: Albumin Level 2.8 gm/dl (3.4-5.0); BUN Creatinine Ratio 24.4 (10-20); Calcium 8.5 mg/dl (8.5-10.1); Est GFR (African American) 55.5 ml/min; Est GFR (Non-African American) 47.9 ml/min; Potassium 3.5 mmol/L (3.5-5.1)
[2020-08-25 06:22] LABS: Albumin Globulin Ratio 0.8 (0.9-2); Bilirubin,Total 0.7 mg/dl (0.2-1); Globulin 3.7 gm/dl (2.5-4.0); Total Protein 6.5 gm/dl (6.4-8.2)
[2020-08-25 06:52] LABS: Basophils # (auto) 0.03 K/uL (0-0.2); Basophils % (auto) 1.3 %; Eosinophils # (auto) 0.01 K/uL (0-0.5); Eosinophils % (auto) 0.4 %; Giant Platelets 1+; Immature Granulocytes # (auto) 0.01 K/uL (0.00-0.02); Immature Granulocytes % (auto) 0.4 %; Lymphocytes # (auto) 0.91 K/uL (1.2-3.4); Lymphocytes % (auto) 40.1 %; Monocytes # (auto) 0.29 K/uL (0.11-0.59); Monocytes % (auto) 12.8 %; Neutrophils # (auto) 1.02 K/uL (1.4-6.5)
[2020-08-25] MEDS: APIXABAN 5 MG TABLET PO SCH (08:17)
[2020-08-25] MEDS: FLUOCINONIDE 0.05% CR 15 GM TUBE EXT SCH (08:17)
[2020-08-25] MEDS: DOXYCYCLINE HYCLATE 100 MG CAP PO SCH (08:17)
[2020-08-25] MEDS: FLUTICASONE PROPIONATE NA SPR 16 GM BTL NAE SCH (08:17)
[2020-08-25] MEDS: MULTIVITAMIN TAB PO SCH (08:18)
[2020-08-25] MEDS: MIRABEGRON ER 25 MG TAB PO SCH (08:18)
[2020-08-25] MEDS: MICONAZOLE NITRATE POWDER 43 GM EXT SCH (08:18)
[2020-08-25] MEDS: POTASSIUM CHLORIDE CRTAB 20 MEQ TABCR PO SCH (08:19)
[2020-08-25] MEDS: PANTOprazole 40 MG TAB PO SCH (08:19)
[2020-08-25] MEDS: INSULIN ASPART 100 UNITS/ML 3 ML PEN SC SCH ×2 (08:19→12:44)
[2020-08-25] MEDS: modafiniL 100 MG TAB PO SCH (09:06)
--- NOTE | 2020-08-25 16:54 | Discharge Summary ---
Date of Service August 25, 2020 Admission HPI Per Admitting Provider Daniel Lopez is a 75 year old male who presents to the ER with fever and generalized weakness. He reports feeling generally unwell over the last 1-2 days getting progressively worse. Fevers started today. Increased nasal drainage and bilateral frontal sinus pain starting last week. No chest pain, shortness of breath or cough. He also notes significant back pain although pain in this area is not unusual for him and he puts it down to the bed he is currently in as he usually sleeps better in a recliner. Pain does not radiate down legs. Generalized weakness bilateral in all four extremities. No areas of cellulitis but has repeated tinea infections in his groin. No abdominal pain, nausea, vomiting, diarrhea or constipation. [place] has had lyme disease in the past which has felt similar to this. In the ER he was treated for a non-specific infection with IV cefepime. CT A/P was unremarkable for acute infectious process. CXR showed possible pulmonary edema vs pneumonia. He was referred to medicine for admission and ongoing management of weakness and fever. Principal Diagnosis Lyme disease Sinusitis Discharge Exam Constitutional WD/WN, vitals as above Eyes EOM intact bilaterally; no conjunctival abnormality ENMT external ear and nose normal, oropharynx normal Neck trachea midline, no thyromegaly normal visual inspection Respiratory normal respiratory effort, lungs clear to auscultation no respiratory distress Cardiovascular RRR, no murmur, no edema Gastrointestinal (Abdomen) Inspection/Auscultation: abdomen normal to inspection; abdomen not distended Musculoskeletal no cyanosis or clubbing, extremities motor strength 5/5 Skin no rashes, warm and dry Neurologic moves all extremities and awake Psychiatric Orientation: alert, oriented to person and cooperative Discharge Data Allergies Allergy/AdvReac Type Severity Reaction Status Date / Time clindamycin Allergy Intermediate rash Verified 08/22/20 08:13 iodine Allergy Intermediate topical Verified 08/22/20 08:13 iodine- swelling at site trospium AdvReac Intermediate "sick"/head Verified 08/22/20 08:13 ache Consultations 08/22/20 10:18 ED Decision to Admit Stat Ordered Studies 08/22/20 07:24 CT abd pelvis IV con only Stat Hospital Course (1) Lyme disease: Continue on doxycycline (switch IV to PO) -> Discharged to finish 2 week course. (2) Acute sinusitis: Symptom based Continued Unasyn -> Discharged to finish on Augmentin which will cover pneumonia as well. (3) Pancytopenia: Makes tick-borne illness more likely especially in setting of relatively non-specific symptoms other than generalized weakness. - Stable on discharge. Can get CBC in 1-2 weeks to ensure improvement. (4) Sepsis: Lactate WNL. Suspected source PNA +/- sinusitis +/- lyme disease Anaplasmosis smear negative, DNA PCR pending Follow up blood cultures (5) Pneumonia: Based on CXR. No significant hypoxia. Procalcitonin positive Continue Unasyn + doxycycline (switch IV to PO) (6) Obstructive sleep apnea treated with BiPAP: BiPAP while napping and sleeping 16/10 outpatient settings (7) Diabetes mellitus with diabetic nephropathy: HbA1C 5.9 in August suggests overtreatment with glimepiride. Hold glimepiride and consult pharmacy for glycemic control while inpatient with insulin as required. Suspect glimepiride can be discontinued on discharge. (8) Tinea cruris: Miconazole powder to right groin (9) Back pain: Suspect chronic back pain exacerbated by current illness Low suspicion of discitis PT/OT (10) CKD (chronic kidney disease) stage 3, GFR 30-59 ml/min: Close to baseline. Continue to monitor daily while off diuretics. (11) Hypothyroidism: TSH 2.91 in August Continue levothyroxine 25 mcg PO daily (12) HTN (hypertension): BP low normal. Hypokalemia likely from lasix given yesterday. Will hold his diuretics for now including spironolactone, lasix and HCTZ. Continue on metoprolol for rate control. 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 Rate controlled on metoprolol succinate 100mg PO HS, continue this. Anticoagulation with apixaban 5mg PO BID (16) Arteriosclerotic coronary artery disease: Cardiac catheterization 2002 with mild coronary disease. Echocardiography at that time with normal LV systolic function. Continue apixaban, metoprolol, atorvastatin (17) Acid reflux disease: Continue pantoprazole 40mg PO daily (18) DVT prophylaxis: Apixaban as above Awaiting PT/OT evals. Suspect home tomorrow if Plt/WBC trending in the right direction. Continued admission due to pancytopenia however patient can be transferred to med/surg. Total Time Total Time Spent Total Time Spent (In Minutes): 35 Discharge Plan Discharge Items Patient Disposition: Home - Home Health Services Reason For Visit: sepsis,pna,sinusitis Discharge Diagnosis: Pneumonia, Lyme disease Activity: Resume your previous activity Non-emergency contact: Primary Care Provider Call non-emergency contact if: your symptoms worsen and your temperature is above 101 Follow-up/Referrals: Ervin Bobby, [Primary Care Provider] - 09/04/20 11:30 am Diet: Carb Consistent or DM2 and Heart Healthy Addtl Attending Provider Instructions: Mr. Jonesin, You were admitted to the hospital for pneumonia and Lyme disease. We are sending you out on two antibiotics which should help you feel better. 1) Augmentin - You will take this for one week and it should help your pneumonia and some sinus issues. 2) Doxycycline - This is for the Lyme disease and is taken for two weeks. Take your first dose of both tonight before bedtime. Please see Dr. Bobby next week to check in and be sure you are feeling better. Pending Studies at Discharge: Yes Studies:: One final tick-borne test Stand-Alone Forms: [facility] Listen Edition, Smoking Cessation Medications and DC Order Prescriptions: New doxycycline hyclate 100 mg Capsule 100 mg PO BID Qty: 28 RF: 0 amoxicillin-pot clavulanate [Augmentin] 875-125 mg tablet 1 tab PO BID Qty: 14 RF: 0 Continued [place] DHA 92 mg (43 mg-22 qa-45lb-25rq) tablet,chewable 92 mg PO QPM RF: 0 fluticasone propionate 50 mcg/actuation spray,suspension 1 sprays INTNAS BID RF: 0 modafinil [Provigil] 200 mg tablet 400 mg PO QAM Qty: 180 RF: 3 silodosin [Rapaflo] 4 mg capsule 4 mg PO HS Qty: 90 RF: 3 Myrbetriq 50 mg tablet extended release 24 hr 50 mg PO QAM Qty: 90 RF: 3 atorvastatin 20 mg tablet 20 mg PO HS Qty: 90 RF: 3 metoprolol succinate [Toprol XL] 100 mg tablet extended release 24 hr 100 mg PO HS Qty: 90 RF: 3 spironolacton-hydrochlorothiaz [Aldactazide] 25-25 mg tablet 1 tab PO QAM Qty: 90 RF: 3 apixaban 5 mg tablet 5 mg PO BID Qty: 180 RF: 3 albuterol sulfate [Ventolin HFA] 90 mcg/actuation HFA aerosol inhaler 2 puff INH Q4H PRN (Reason: shortness of breath) Qty: 3 RF: 3 fluocinonide 0.05 % cream 1 applic topical BID Qty: 120 RF: 0 ketoconazole 2 % cream 1 applic topical BID PRN (Reason: .) RF: 0 Neuriva Plus 0.85 mg-200 mcg-1.2 mcg tablet,chewable 1 tab PO QAM RF: 0 coenzyme Q10 [CoQ-10] 100 mg capsule 100 mg PO QAM RF: 0 glimepiride 2 mg tablet 1 mg PO QAM Qty: 45 RF: 1 potassium chloride 20 mEq tablet,ER particles/crystals 20 meq PO BID Qty: 180 RF: 3 pantoprazole [Protonix] 40 mg tablet,delayed release (DR/EC) 40 mg PO BID RF: 0 multivitamin Tablet 1 tab PO QAM RF: 0 levothyroxine [Synthroid] 25 mcg tablet 25 mcg PO DAILYBB RF: 0 furosemide [Lasix] 40 mg tablet 40 mg PO DAILY@1200 RF: 0 Discharge Orders: Discharge Order (Routine); Ordered 08/25/20 Ordered By: Braulio Elias/Other Patient Handouts: Managing Type 2 Diabetes Admission Data Admit Date/Time: 08/22/20 10:09 Attending Provider: Braulio Mishra Admit Provider: Augustine Keyes Primary Care Provider: Ervin Bobby Other Providers: Braulio Mishra ; [facility], [facility],Home Health ; [facility] Other Interventions: Discharge Summary Assessment (RN) Last Done: 08/25/20 12:55 Coding Level of Care Code D/C Day Management >30 mins Diagnoses Lyme disease A69.20 Acute sinusitis J01.11 Sinusitis location: frontal Recurrence: recurrent Pancytopenia D61.818 Sepsis A41.9 Sepsis type: sepsis due to unspecified organism Sepsis acute organ dysfunction status: without acute organ dysfunction Pneumonia J18.9 Pneumonia type: due to unspecified organism Laterality: bilateral Lung location: unspecified part of lung Obstructive sleep apnea treated with BiPAP G47.33 Diabetes mellitus with diabetic nephropathy E11.21 Tinea cruris B35.6 Back pain M54.9 CKD (chronic kidney disease) stage 3, GFR 30-59 ml/min N18.3 Hypothyroidism E03.9 HTN (hypertension) I10 Narcolepsy G47.419 Unable to read or write Z55.0 Atrial fibrillation I48.91 Arteriosclerotic coronary artery disease I25.10 Acid reflux disease K21.9 DVT prophylaxis Z29.9
== END 2020-08-25 13:41 | disposition home health service (06) | DRG 871 ==
LOC: ED 06:43 → 2N 10:09 → SUATTDRO 10:09 → 2N 13:20
DX: A69.20 Lyme disease, unspecified; E11.21 Type 2 diabetes mellitus with diabetic nephropathy; I48.20 Chronic atrial fibrillation, unspecified; G47.419 Narcolepsy without cataplexy; Z82.49 Family history of ischemic heart disease and other diseases of the circulatory system; E03.9 Hypothyroidism, unspecified; N18.30 Chronic kidney disease, stage 3 unspecified; A41.9 Sepsis, unspecified organism; D61.818 Other pancytopenia; I12.9 Hypertensive chronic kidney disease with stage 1 through stage 4 chronic kidney disease, or unspecified chronic kidney disease; G47.33 Obstructive sleep apnea (adult) (pediatric); Z55.0 Illiteracy and low-level literacy; J18.9 Pneumonia, unspecified organism; B35.6 Tinea cruris; J01.90 Acute sinusitis, unspecified; Z79.01 Long term (current) use of anticoagulants; I25.10 Atherosclerotic heart disease of native coronary artery without angina pectoris

== ENCOUNTER 2021-12-17 15:53 | Observation (INO) ==
--- NOTE | 2021-12-17 16:05 | ED Triage Note ---
Date of Service December 17, 2021 History of Present Illness This patient was briefly evaluated while in triage. An abbreviated physical exam was performed. This patient is a 76-year-old Male with past medical history of cervical fusion who presents to the ED for evaluation of head and neck pain after a fall into a ditch. Pt. was outside sawing wood when he stumbled and fell, striking the head. Pt. is on Eliquis. Physical Exam VITALS: Vitals are noted on the nurse's note and reviewed by myself. GENERAL: This is a 76 year old white male, in no acute distress, nondiaphoretic, well-developed well-nourished. SKIN: No obvious rashes, edema, erythema HEAD: Normocephalic atraumatic. EYES: Conjunctivae without injection, sclerae without icterus. NECK: No JVD. LUNGS: No retractions or accessory muscle use. MUSCULOSKELETAL: Normal gait. NEURO: Patient was alert and oriented to person place and time. No focal neurological deficits. Initial orders for labs and / or imaging were placed and patient was placed in the waiting area until a bed is available. Please see further documentation for the full ED course.
[2021-12-17] MEDS ORDERED: DIPHTHERIA/TETANUS/PERTUSSIS 0.5 ML SYR/VIAL IM ONE (16:07)
--- NOTE | 2021-12-17 16:26 | Emergency Department Note ---
ED Visit Note I was consulted by the Advanced Practice Provider Kris Arambula PA-C. I saw the patient personally and performed a substantive portion of the visit. This includes aspects of the HPI, MDM, diagnostic interpretations, and disposition/plan. Patient did have a fall into a ditch. Patient had negative shoulder x-ray and negative CT thoracic spine, facial bones, CT head, and CT cervical spine. .
--- NOTE | 2021-12-17 16:49 | CT Scan Report ---
CT head/brain wo con CLINICAL HISTORY: Fall, head injury, on Eliquis Technique: Contiguous axial CT images of the head were acquired from the base of the skull to the [place] bia without intravenous contrast administration. Images were viewed in brain, subdural and bone windo ws. Automated dose lowering techniques and/or adjustment according to patient size were utilized for this exam. Comparison: Comparison is made to CT head 04/01/2019 Findings: The ventricles, basal cisterns, and cerebral sulci are normal. There is no acute intracranial hemorrh age or evidence of acute territorial infarction. Neither mass effect, shift of the midline structures , nor abnormal extra-axial fluid collections are shown. Imaged portions of the paranasal sinuses and mastoid air cells are clear. The orbits appear normal. There are no acute fractures of the calvaria. Scalp swelling is seen in the right sided soft tissues with some subcutaneous emphysema and a laceration near the vertex. Impression: No acute intracranial hemorrhage or skull fractures. Scalp swelling is seen in the right-sided soft t issues. ACT 112: Negative or not required by law. Electronically signed by: Rajinder Cordero M.D. 12/17/2021 4:47 PM
[2021-12-17] MEDS ORDERED: ONDANSETRON INJ 2 MG/ML 2 ML VIAL IV STA (16:50)
[2021-12-17] MEDS ORDERED: fentaNYL citrate 100 MCG/2 ML VIAL IV STA (16:50)
--- NOTE | 2021-12-17 16:54 | CT Scan Report ---
CT facial bones wo con CLINICAL HISTORY: Fall TECHNIQUE: Multidetector row helical CT of the maxillofacial bones was performed without administrati on of intravenous contrast, and processed with bone and soft tissue algorithms. Coronal and sagittal reformations were obtained. Automated dose lowering techniques and/or adjustment according to patient size were utilized for this exam. Comparison: None available at the time of this dictation. FINDINGS: Nasal bones are normal. The mandible is intact. The temporomandibular joints are anatomically aligned . Pterygoid plates are intact. Zygomatic arches are intact. The globes are normal and symmetric, without proptosis, obvious disruption or lens dislocation. Ther e is no orbital radiopaque foreign body. The orbital cox are intact. The retrobulbar fat is without evidence of disruption. Extraocular muscles are normal and symmetric. Optic nerve sheath complexes are normal in course and caliber. Mucous retention cyst is seen on the right. IMPRESSION: Soft tissue swelling is seen in the right outer. No acute fracture is seen. Sinus disease is noted. ACT 112: Negative or not required by law. Electronically signed by: Rajinder Cordero M.D. 12/17/2021 4:52 PM
--- NOTE | 2021-12-17 16:57 | CT Scan Report ---
CT SCAN OF THE CERVICAL SPINE CLINICAL HISTORY: Fall. Neck pain. COMPARISON STUDY: MRI of the cervical spine dated 05/19/2019. TECHNIQUE: CT scan of the cervical spine is performed from the skull base to the upper thoracic spine . Images are reviewed in the axial, sagittal, and coronal planes. IV contrast was not administered fo r this examination. A dose lowering technique was utilized adhering to the principles of ALARA. FINDINGS: Skeletal structures: The skeletal structures are osteopenic. There is no evidence of fracture or subl uxation involving the cervical spine. Vertebral body height and alignment are maintained. There is po stoperative change from anterior fusion seen from C3-C7. There is straightening of the cervical lordo sis. The odontoid process and lateral masses are intact. The atlantoaxial articulation is preserved n oting mild productive degenerative change. The spinous processes appear intact. Intervertebral discs: There has been discectomy at C4-C5, C5-C6, and C6-C7. There is severe disc spac e narrowing at C3-C4. Central canal: Grossly patent. Soft tissues: The prevertebral and paraspinous soft tissues are within normal limits. Calvarium: The visualized calvarium at the skull base appears intact. Brain parenchyma: Partially visualized brain parenchyma at the skull base is within normal limits. Sinuses and mastoids: The visualized paranasal sinuses are clear. The mastoid air cells are well pneu matized. Lung apices: Clear as visualized. IMPRESSION: 1. There is no evidence of fracture or subluxation involving the cervical spine. 2. Osteopenia with postsurgical and spondylotic change as above. ACT 112: Negative or not required by law. Electronically signed by: Robles Diez M.D. 12/17/2021 4:55 PM
--- NOTE | 2021-12-17 17:17 | XRay Report ---
LEFT SHOULDER 3 VIEWS CLINICAL HISTORY: Fall. Left shoulder pain. FINDINGS: 3 views of the left shoulder are obtained. No prior studies are available for comparison at the time of dictation. The skeletal structures are osteopenic. There is no radiographic evidence of left shoulder fracture or dislocation. Mild degenerative change is seen at the glenohumeral and acrom ioclavicular joints. The overlying soft tissues are within normal limits. Visualized left lung parenc hyma appears clear. Surgical clips project over the lower neck. IMPRESSION: No acute bony abnormality is identified. Electronically signed by: Robles Diez M.D. 12/17/2021 5:15 PM
[2021-12-17 17:19] LABS: Basophils # (auto) 0.03 K/uL (0-0.2); Basophils % (auto) 0.3 %; Eosinophils # (auto) 0.08 K/uL (0-0.50); Eosinophils % (auto) 0.9 %; Hematocrit (blood only) 33.8 % (40.1-51.0); Immature Granulocytes # (auto) 0.04 K/uL (0.00-0.02); Immature Granulocytes % (auto) 0.4 %; Lymphocytes % (auto) 8.8 %; Mean Corpuscular Hemoglobin 31.3 pg (25.0-34.0); Mean Corpuscular Hgb Conc 32.5 g/dL (32.0-36.0); Mean Corpuscular Volume 96.3 fL (80.0-100.0); Mean Platelet Volume 10.3 fL (9.4-12.4); Monocytes # (auto) 0.63 K/uL (0.24-0.82); Monocytes % (auto) 6.9 %; Neutrophils % (auto) 82.7 %; Platelet Count 161 K/uL (130-400); RDW Coefficient of Variation 13.2 % (11.5-14.5); RDW Standard Deviation 46.9 fL (36.4-46.3); Red Blood Count 3.51 M/uL (4.63-6.08); White Blood Count 9.08 K/ul (4.8-10.8)
[2021-12-17 17:35] LABS: INR 1.3 (0.9-1.1); Partial Thromboplastin Ratio 1.3; Partial Thromboplastin Time 36.5 Seconds (21.0-31.0); Prothrombin Time 13.5 Seconds (9.0-12.0)
--- NOTE | 2021-12-17 17:37 | CT Scan Report ---
CT SCAN OF THE THORACIC SPINE WITHOUT IV CONTRAST CLINICAL HISTORY: Fall. Thoracic back pain. COMPARISON STUDY: No priors. TECHNIQUE: CT scan of the thoracic spine is performed from the lower cervical spine to the upper lumb ar spine. Images are reviewed in the axial, sagittal, and coronal planes. IV contrast was not adminis tered for this examination. A dose lowering technique was utilized adhering to the principles of DUSTIN Myers. CT DOSE: 3219.56 mGy.cm FINDINGS: The skeletal structures are osteopenic. There is no evidence of fracture or malalignment in volving the thoracic spine. Vertebral body height and alignment are maintained. Fusion hardware is no [place] in the lower cervical spine. The transverse and spinous processes appear intact. Small anterior o steophytes are seen throughout. There is mild hyperkyphosis of the thoracic spine. No lytic or blasti c lesion is seen. The disc spaces are preserved. The central canal is grossly clear. The paraspinous soft tissues are within normal limits. The visualized posterior ribs appear intact. Imaged lung paren chyma is clear noting foci of parenchymal scarring/atelectasis. Calcified right hilar lymph nodes are incidentally noted. IMPRESSION: There is no evidence of fracture or malalignment involving the thoracic spine. ACT 112: Negative or not required by law. Dictated: 12/17/2021 4:55 PM Transcribed: 12/17/2021 5:22 PM Carola [id number] [email or web address] Electronically signed by: Robles Diez M.D. 12/17/2021 5:36 PM
[2021-12-17 17:40] LABS: Albumin Globulin Ratio 1.6 (0.9-2); Albumin Level 4.4 gm/dl (3.4-5.0); BUN Creatinine Ratio 21.8 (10-20); Calcium 9.3 mg/dl (8.5-10.1); Creatinine Clr Calc Pharmacy 77.3 ml/min; Est GFR (African American) 65.5 ml/min; Est GFR (Non-African American) 56.5 ml/min; Globulin 2.8 gm/dl (2.5-4.0); Potassium 3.6 mmol/L (3.5-5.1); Total Protein 7.2 gm/dl (6.0-8.3)
[2021-12-17] MEDS ORDERED: HYDROmorphone INJ 0.5 MG/0.5 ML SYR IV STA ×3 (18:38→22:17)
--- NOTE | 2021-12-17 22:36 | Emergency Department Note ---
History of Present Illness General Chief complaint: Head Injury, Minor Stated complaint: FALL, POSSIBLE CONCUSSION, NECK PAIN Time Seen by Provider: 12/17/21 16:20 History of Present Illness Maximum Pain Intensity: 9 This is a 76-year-old male that presents to the emergency department via private vehicle accompanied by with complaints of "fall, possible concussion, neck pain". The patient notes that around 2:30 PM today he was outside and tripped on some vegetation causing him to fall. He fell into a ditch like structure which was from a height of about 5 feet. He notes that he struck the right side of the head but also his left shoulder region. He notes pain in the lower neck region. Patient rates his current discomfort as a 9/10. He is unsure of his tetanus status. Patient notes that he is on Eliquis. Patient denies any chest pain or shortness of breath. No abdominal pain. Home Medications Medication Instructions Recorded Confirmed Type omega 3,6,9 combination no.7 92 mg 92 mg PO QAM 11/14/17 12/18/21 History (43 mg-22 [id number]) chew tablet ([place] DHA) fluticasone propionate 50 1 sprays intranasal BID 10/06/19 12/18/21 History mcg/actuation nasal spray,suspension albuterol sulfate 90 mcg/actuation 2 puff inhalation Q4H PRN 05/08/20 12/18/21 Rx aerosol inhaler (Ventolin HFA) shortness of breath #3 Inhalers coenzyme Q10 100 mg capsule 100 mg PO QAM 07/17/20 12/18/21 History (CoQ-10) multivitamin 1 tab PO QAM 08/22/20 12/18/21 History fluocinonide 0.05 % topical cream 1 applic topical BID PRN Rash 09/26/20 12/18/21 History levothyroxine 25 mcg tablet 25 mcg PO DAILYBB #90 tabs 05/03/21 12/18/21 Rx (Synthroid) apixaban 5 mg tablet 5 mg PO BID #180 tabs 05/21/21 12/18/21 Rx modafinil 200 mg tablet (Provigil) 400 mg PO QAM #180 tabs 05/21/21 12/18/21 Rx silodosin 4 mg capsule (Rapaflo) 4 mg PO HS #90 caps 07/18/21 12/18/21 Rx pantoprazole 40 mg tablet,delayed 40 mg PO BID #180 tabs 08/21/21 12/18/21 Rx release (Protonix) metoprolol succinate 100 mg 100 mg PO HS #90 tabs 08/22/21 12/18/21 Rx tablet,extended release 24 hr (Toprol XL) atorvastatin 20 mg tablet 20 mg PO HS #90 tabs 09/18/21 12/18/21 Rx potassium chloride 20 mEq 20 meq PO BID #180 tabs 09/27/21 12/18/21 Rx tablet,extended release(part/cryst) sertraline 50 mg tablet 50 mg PO QAM 10/12/21 12/18/21 History spironolactone 25 mg tablet 25 mg PO QAM 10/12/21 12/18/21 History oxycodone-acetaminophen 5 mg-325 1 - 2 tab PO .Q4h-6h PRN pain #30 10/19/21 12/18/21 Rx mg tablet tabs bumetanide 2 mg tablet 2 mg PO QAM #90 tabs 12/10/21 12/18/21 Rx carboxymethylcellulose sodium 1 % 1 drp OPB DIRECTED PRN Dry Eyes 12/18/21 12/18/21 History eye liquid gel drops Allergies Allergy/AdvReac Type Severity Reaction Status Date / Time clindamycin Allergy Intermediate rash Verified 12/18/21 00:30 iodine Allergy Intermediate topical Verified 12/18/21 00:30 iodine- swelling at site trospium AdvReac Intermediate "sick"/head Verified 12/18/21 00:30 ache Past Med/Surg History Medical History Acid reflux disease controlled Arteriosclerotic coronary artery disease Asthma stable Atrial fibrillation follows with Dr. Atwood; on Eliquis BPH with obstruction/lower urinary tract symptoms Cardiac murmur as a child Cervical radiculopathy Cervical stenosis of spinal canal Chronic rhinitis CKD (chronic kidney disease) stage 3, GFR 30-59 ml/min Cognitive impairment Diabetic peripheral neuropathy associated with type 2 diabetes mellitus Diverticular disease DM type 2 (diabetes mellitus, type 2) Dyslipidemia Dysphagia Hearing deficit HTN (hypertension) Hypothyroidism Narcolepsy Obesity Osteoarthritis Right ventricular systolic dysfunction Rotator cuff arthropathy of left shoulder Secondary hyperparathyroidism Sleep apnea unable to tolerate CPAP Venous insufficiency Venous stasis ulcers of both lower extremities Surgical History History of carpal tunnel release History of cervical spinal surgery ACDF C3-C7 + hardware removal: 06/17/17: Grade view 1, MAC#3, ETT 8.0 at [facility] History of colonoscopy History of esophagogastroduodenoscopy (EGD) S/P hernia repair S/P knee surgery BL Family History Mother Coronary heart disease Myocardial infarction Brother Diabetes Other No family history of adverse response to anesthesia No family history of bleeding disorder Denies family history of Ovarian cancer Prostate cancer Breast cancer Lung cancer Colorectal cancer Social History Smoking Status: Never smoker Second Hand Exposure: No; Hx Alcohol Use: Yes Alcohol type: wine Alcohol Intake Frequency: Monthly or Less Hx Substance Use: No Preferred Language: Monegasque Communication Ability: Effective Visual Impairment: Limited Hearing Ability: Use of Hearing Aid 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 Beliefs That Will Affect Care: None marital status: Current Living Situation: Alone current occupational status: retired How many Children do You have: 2 Feels Safe at Home: Yes Childhood Exposure to Second-Hand Smoke: No caffeine: Yes (drinks coffee daily 1 cup) during the past year weight has: decreased > 10 lbs Dental Care, Regularly: No Physical Activity Frequency: Does not Exercise Physical Activity Frequency Comment: does outside work however Seatbelt Use: always Sunscreen Use: No Do you think of yourself as: straight/heterosexual Gender Identity: Male Assistive Devices: Denture - Upper, Denture - Lower, Glasses and Hearing Aid - Bilateral Review of Systems A total of 10 systems reviewed and were otherwise negative Physical Exam Vital Signs Vital Signs - 24 hr 12/17/21 16:05 12/17/21 17:32 12/17/21 18:35 Temperature 37.1 C Temperature Source Temporal Artery Scan Pulse Rate 66 Pulse Rate [Finger] 67 62 Respiratory Rate 18 18 22 Respiratory Effort / Characteristics Non-Labored Spontaneous Respiratory Depth Normal Respiratory Pattern Regular Blood Pressure 133/72 Blood Pressure [Left Arm] 132/70 155/76 H Blood Pressure Mean 92 Blood Pressure Mean [Left Arm] 90 102 Blood Pressure Position Sitting Pulse Oximetry 96 93 97 Oxygen Delivery Method Room Air Room Air Room Air Sepsis Recent Fever Within 48 Hours No Sepsis New/Unexplained Change in Mental Status N/A Sepsis Action Taken by Nursing No Action Required 12/17/21 22:00 12/17/21 23:21 12/18/21 00:51 Temperature Temperature Source Pulse Rate Pulse Rate [Finger] 62 65 76 Respiratory Rate 18 18 20 Respiratory Effort / Characteristics Respiratory Depth Normal Respiratory Pattern Blood Pressure Blood Pressure [Left Arm] 129/76 138/92 135/68 Blood Pressure Mean Blood Pressure Mean [Left Arm] 93 107 90 Blood Pressure Position Pulse Oximetry 97 96 97 Oxygen Delivery Method Room Air Room Air Room Air Sepsis Recent Fever Within 48 Hours Sepsis New/Unexplained Change in Mental Status Sepsis Action Taken by Nursing VITAL SIGNS - Vital signs and nursing notes were reviewed. Stable and afebrile. GENERAL -76-year-old male appearing his stated age. Communicates well with provider and answers questions appropriately. SKIN - Gross examination of the entire body surface demonstrates superficial laceration to the superior aspect of the scalp with an associated abrasion to the right anterior portion of the scalp superiorly. No repairable lacerations. Left periorbital ecchymosis noted medially. HEAD - Normocephalic, Atraumatic. No Gasca's Sign. No depressed skull fractures palpable. EYES - PERRL with EOMI bilaterally. Left medial subconjunctival hemorrhage noted. No hyphema. Palpebral conjunctiva pink and moist with no injection. EARS - No deformities of external structures noted on gross examination bilaterally. No hemotympanum present. No tympanic perforation noted. Handle of malleus, umbo, cone of light, pars tensa/flaccid all easily visualized. NOSE - Midline and without cyanosis. No epistaxis or clear watery discharge n oted. Septum midline without deviation. No septal hematoma noted. No overlying ecchymosis noted. MOUTH/OROPHARYNX - Without perioral cyanosis. Tongue midline with equal elevation of palate bilaterally. No blood noted in the oropharynx. No tonsillar hypertrophy, erythema, or exudates noted. No dental fractures noted. NECK - Cervical collar in place. There is tenderness to palpation over the inferior cervical spinous processes. No cervical paraspinal muscle tenderness noted. LUNGS - Chest wall symmetric without accessory muscle use, intercostals retractions, or central cyanosis. No flail chest or depressed fractures noted. No paradoxical chest wall movements noted. Normal vesicular breath sounds CTA B/L. No wheezes, rales, or rhonchi appreciated. CARDIAC - RRR ABDOMEN - Abdominal contour normal and without pulsations or visible masses. BS normoactive all four quadrants. No rebound tenderness or guarding noted. Negative Xiang's or Koch Owusu's Signs. No tenderness, palpable masses, h epatosplenomegaly, or ascites noted. EXTREMITIES - No gross deformities noted of the extremities. Left shoulder tenderness noted. FROM with no tremors, fasciculations, or clonus noted on PROM throughout. +5/5 strength noted in UE/LE bilaterally. NEUROLOGIC - Cranial nerves II through XII grossly intact. PSYCH - A&Ox3 and cooperates fully with examiner. Pt is very pleasant and interacts well with examiner. Course Administered Medications Discontinued Medications Diphtheria/Pertussis/Tetanus Vacc (Diphtheria/Tetanus/Pertussis 0.5 Ml Syr/Vial) 0.5 ml IM .ONCE ONE Stop: 12/17/21 16:08 Last Admin: 12/17/21 17:27 Dose: 0.5 ml Documented By: ROHITH Fentanyl Citrate (Fentanyl Citrate 100 Mcg/2 Ml Vial) 50 mcg IV NOW STA Stop: 12/17/21 16:51 Last Admin: 12/17/21 17:28 Dose: 50 mcg Documented By: ROHITH Hydromorphone HCl (Hydromorphone Inj 0.5 Mg/0.5 Ml Syr) 0.5 mg IV NOW STA Stop: 12/17/21 18:39 Last Admin: 12/17/21 18:52 Dose: 0.5 mg Documented By: ROHITH Hydromorphone HCl (Hydromorphone Inj 0.5 Mg/0.5 Ml Syr) 0.5 mg IV NOW STA Stop: 12/17/21 21:07 Last Admin: 12/17/21 21:23 Dose: 0.5 mg Documented By: WESTLEY Hydromorphone HCl (Hydromorphone Inj 0.5 Mg/0.5 Ml Syr) 0.25 mg IV NOW STA Stop: 12/17/21 22:18 Last Admin: 12/17/21 22:34 Dose: 0.25 mg Documented By: WESTLEY Ondansetron HCl (Ondansetron Inj 2 Mg/Ml 2 Ml Vial) 4 mg IV NOW STA Stop: 12/17/21 16:51 Last Admin: 12/17/21 17:28 Dose: 4 mg Documented By: ROHITH Medical Decision Making Laboratory Data Result diagrams: 12/17/21 17:03 12/17/21 17:03 Lab Results 12/17/21 12/17/21 12/17/21 Range/Units 17:03 17:03 17:03 WBC 9.08 (4.8-10.8) K/ul RBC 3.51 L (4.63-6.08) M/uL Hgb 11.0 L (14.0-18.0) g/dl Hct 33.8 L (40.1-51.0) % MCV 96.3 (80.0-100.0) fL MCH 31.3 (25.0-34.0) pg MCHC 32.5 (32.0-36.0) g/dL RDW Std Deviation 46.9 H (36.4-46.3) fL RDW Coeff of Magan 13.2 (11.5-14.5) % Plt Count 161 (130-400) K/uL MPV 10.3 (9.4-12.4) fL Immature Gran % (Auto) 0.4 % Neut % (Auto) 82.7 % Lymph % (Auto) 8.8 % [place] % (Auto) 6.9 % Eos % (Auto) 0.9 % Baso % (Auto) 0.3 % Neut # (Auto) 7.50 H (1.4-6.5) K/uL Lymph # (Auto) 0.80 L (1.2-3.4) K/uL [place] # (Auto) 0.63 (0.24-0.82) K/uL Eos # (Auto) 0.08 (0-0.50) K/uL Baso # (Auto) 0.03 (0-0.2) K/uL Immature Gran # (Auto) 0.04 H (0.00-0.02) K/uL PT 13.5 H (9.0-12.0) Seconds INR 1.3 H (0.9-1.1) APTT 36.5 H (21.0-31.0) Seconds PTT Ratio 1.3 Sodium 139 (136-145) mmol/L Potassium 3.6 (3.5-5.1) mmol/L Chloride 102 (98-107) mmol/L Carbon Dioxide 31 (21-32) mmol/L Anion Gap 6 (3-11) BUN 27 H (6-23) mg/dl Creatinine 1.24 (0.6-1.4) mg/dl Est Cr Clr Drug Dosing 77.3 ml/min Est GFR ( Amer) 65.5 ml/min Est GFR (Non-Af Amer) 56.5 ml/min BUN/Creatinine Ratio 21.8 H (10-20) Glucose 145 H (70-99(Fasting)) mg/dl Calcium 9.3 (8.5-10.1) mg/dl Total Bilirubin 1.0 (0.2-1.0) mg/dl AST 31 (13-39) U/L ALT 17 (7-52) U/L Alkaline Phosphatase 132 H (34-104) U/L Total Protein 7.2 (6.0-8.3) gm/dl Albumin 4.4 (3.4-5.0) gm/dl Globulin 2.8 (2.5-4.0) gm/dl Albumin/Globulin Ratio 1.6 (0.9-2) SARS-CoV-2, RNA, NAAT (NEGATIVE) 12/17/21 Range/Units 22:51 WBC (4.8-10.8) K/ul RBC (4.63-6.08) M/uL Hgb (14.0-18.0) g/dl Hct (40.1-51.0) % MCV (80.0-100.0) fL MCH (25.0-34.0) pg MCHC (32.0-36.0) g/dL RDW Std Deviation (36.4-46.3) fL RDW Coeff of Magan (11.5-14.5) % Plt Count (130-400) K/uL MPV (9.4-12.4) fL Immature Gran % (Auto) % Neut % (Auto) % Lymph % (Auto) % [place] % (Auto) % Eos % (Auto) % Baso % (Auto) % Neut # (Auto) (1.4-6.5) K/uL Lymph # (Auto) (1.2-3.4) K/uL [place] # (Auto) (0.24-0.82) K/uL Eos # (Auto) (0-0.50) K/uL Baso # (Auto) (0-0.2) K/uL Immature Gran # (Auto) (0.00-0.02) K/uL PT (9.0-12.0) Seconds INR (0.9-1.1) APTT (21.0-31.0) Seconds PTT Ratio Sodium (136-145) mmol/L Potassium (3.5-5.1) mmol/L Chloride (98-107) mmol/L Carbon Dioxide (21-32) mmol/L Anion Gap (3-11) BUN (6-23) mg/dl Creatinine (0.6-1.4) mg/dl Est Cr Clr Drug Dosing ml/min Est GFR ( Amer) ml/min Est GFR (Non-Af Amer) ml/min BUN/Creatinine Ratio (10-20) Glucose (70-99(Fasting)) mg/dl Calcium (8.5-10.1) mg/dl Total Bilirubin (0.2-1.0) mg/dl AST (13-39) U/L ALT (7-52) U/L Alkaline Phosphatase (34-104) U/L Total Protein (6.0-8.3) gm/dl Albumin (3.4-5.0) gm/dl Globulin (2.5-4.0) gm/dl Albumin/Globulin Ratio (0.9-2) SARS-CoV-2, RNA, NAAT NEGATIVE (NEGATIVE) Imaging Data Radiologist's Impression: Cervical Spine CT 12/17/21 16:05 CT SCAN OF THE CERVICAL SPINE CLINICAL HISTORY: Fall. Neck pain. COMPARISON STUDY: MRI of the cervical spine dated 05/19/2019. TECHNIQUE: CT scan of the cervical spine is performed from the skull base to the upper thoracic spine. Images are reviewed in the axial, sagittal, and coronal planes. IV contrast was not administered for this examination. A dose lowering technique was utilized adhering to the principles of ALARA. FINDINGS: Skeletal structures: The skeletal structures are osteopenic. There is no ev idence of fracture or subluxation involving the cervical spine. Vertebral body height and alignment are maintained. There is postoperative change from anterior fusion seen from C3-C7. There is straightening of the cervical lordosis. The odontoid process and lateral masses are intact. The atlantoaxial articulation is preserved noting mild productive degenerative change. The spinous processes appear intact. Intervertebral discs: There has been discectomy at C4-C5, C5-C6, and C6-C7. There is severe disc space narrowing at C3-C4. Central canal: Grossly patent. Soft tissues: The prevertebral and paraspinous soft tissues are within normal limits. Calvarium: The visualized calvarium at the skull base appears intact. Brain parenchyma: Partially visualized brain parenchyma at the skull base is within normal limits. Sinuses and mastoids: The visualized paranasal sinuses are clear. The mastoid air cells are well pneumatized. Lung apices: Clear as visualized. IMPRESSION: 1. There is no evidence of fracture or subluxation involving the cervical spine. 2. Osteopenia with postsurgical and spondylotic change as above. ACT 112: Negative or not required by law. Electronically signed by: Robles Diez M.D. 12/17/2021 4:[address] 12/17/21 16:05 CT head/brain wo con CLINICAL HISTORY: Fall, head injury, on Eliquis Technique: Contiguous axial CT images of the head were acquired from the base of the skull to the vertex without intravenous contrast administration. Images were viewed in brain, subdural and bone windows. Automated dose lowering techniques and/or adjustment according to patient size were utilized for this exam. Comparison: Comparison is made to CT head 04/01/2019 Findings: The ventricles, basal cisterns, and cerebral sulci are normal. There is no acute intracranial hemorrhage or evidence of acute territorial infarction. Neither mass effect, shift of the midline structures, nor abnormal extra-axial fluid collections are shown. Imaged portions of the paranasal sinuses and mastoid air cells are clear. The orbits appear normal. There are no acute fractures of the calvaria. Scalp swelling is seen in the right sided soft tissues with some subcutaneous emphysema and a laceration near the vertex. Impression: No acute intracranial hemorrhage or skull fractures. Scalp swelling is seen in the right-sided soft tissues. ACT 112: Negative or not required by law. Electronically signed by: Rajinder Cordero M.D. 12/17/2021 4:[address] 12/17/21 16:21 CT facial bones wo con CLINICAL HISTORY: Fall TECHNIQUE: Multidetector row helical CT of the maxillofacial bones was performed without administration of intravenous contrast, and processed with bone and soft tissue algorithms. Coronal and sagittal reformations were obtained. Automated dose lowering techniques and/or adjustment according to patient size were utilized for this exam. Comparison: None available at the time of this dictation. FINDINGS: Nasal bones are normal. The mandible is intact. The temporomandibular joints are anatomically aligned. Pterygoid plates are intact. Zygomatic arches are intact. The globes are normal and symmetric, without proptosis, obvious disruption or lens dislocation. There is no orbital radiopaque foreign body. The orbital cox are intact. The retrobulbar fat is without evidence of disruption. Extraocular muscles are normal and symmetric. Optic nerve sheath complexes are normal in course and caliber. Mucous retention cyst is seen on the right. IMPRESSION: Soft tissue swelling is seen in the right outer. No acute fracture is seen. Sinus disease is noted. ACT 112: Negative or not required by law. Electronically signed by: Rajinder Cordero M.D. 12/17/2021 4:[address] 12/17/21 16:21 CT SCAN OF THE THORACIC SPINE WITHOUT IV CONTRAST CLINICAL HISTORY: Fall. Thoracic back pain. COMPARISON STUDY: No priors. TECHNIQUE: CT scan of the thoracic spine is performed from the lower cervical spine to the upper lumbar spine. Images are reviewed in the axial, sagittal, and coronal planes. IV contrast was not administered for this examination. A dose lowering technique was utilized adhering to the principles of ALARA. CT DOSE: 3219.56 mGy.cm FINDINGS: The skeletal structures are osteopenic. There is no evidence of fracture or malalignment involving the thoracic spine. Vertebral body height and alignment are maintained. Fusion hardware is noted in the lower cervical spine. The transverse and spinous processes appear intact. Small anterior osteophytes are seen throughout. There is mild hyperkyphosis of the thoracic spine. No lytic or blastic lesion is seen. The disc spaces are preserved. The central canal is grossly clear. The paraspinous soft tissues are within normal limits. The visualized posterior ribs appear intact. Imaged lung parenchyma is clear noting foci of parenchymal scarring/atelectasis. Calcified right hilar lymph nodes are incidentally noted. IMPRESSION: There is no evidence of fracture or malalignment involving the thoracic spine. ACT 112: Negative or not required by law. Dictated: 12/17/2021 4:55 PM Transcribed: 12/17/2021 5:22 PM Carola [id number] [email or web address] Electronically signed by: Robles Diez M.D. 12/17/2021 5:36 PM Shoulder X-Ray 12/17/21 16:50 LEFT SHOULDER 3 VIEWS CLINICAL HISTORY: Fall. Left shoulder pain. FINDINGS: 3 views of the left shoulder are obtained. No prior studies are available for comparison at the time of dictation. The skeletal structures are osteopenic. There is no radiographic evidence of left shoulder fracture or dislocation. Mild degenerative change is seen at the glenohumeral and acromioclavicular joints. The overlying soft tissues are within normal limits. Visualized left lung parenchyma appears clear. Surgical clips project over the lower neck. IMPRESSION: No acute bony abnormality is identified. Electronically signed by: Robles Diez M.D. 12/17/2021 5:15 PM MRI C SPINE : Abnormal bright T2 signal noted involving the anterior aspect of the T1 vertebral body adjacent to the superior endplate (series 11; image 9), consis tent with a subtle compression fracture with no significant loss of height noted. No abnormal signal involving the pedicles or posterior elements of T1 level. No posterior disc protrusion at this level. There is abnormal edema in the dorsal paraspinal musculature. No well-defined hematoma. Anterior fusion noted from C3-C7 levels, as identified on the CT examination performed at 1629 hrs. No epidural hematoma. There is effacement of CSF collar at C2-3 and C3-4 which is presumed related to chronic degenerative changes. The cervical cord demonstrates normal signal characteristics. Radiologist: Ja Gil MD Study ready at 21:47 and initial results transmitted at 22:14 CT CHEST Without Contrast: No acute osseous traumatic injury or significant abnormal alignment. The subtle fracture involving the anterior T1 vertebral body, noted on the CT examination of the cervical spine is not clearly evident by CT evaluation. No significant overlying acute traumatic soft tissue abnormality. Dependent subsegmental changes in the posterior aspect of the lungs. No significant contusive injury. No focal consolidation. No pleural effusion or pneumothorax. The unenhanced thoracic aorta and cardiac chambers are unremarkable. No pericardial effusion. No mediastinal traumatic injury or adenopathy. Radiologist: Ja Gil MD Study ready at 22:56 and initial results transmitted at 23:34 MDM Narrative Patient was seen and evaluated as above in room D04. Review was performed of nursing notes and vital signs. I did review pertinent previous visits and patient history. After obtaining a thorough history and physical examination the above work up was performed. Patient presents to us today for assessment of injury status post fall. He has some abrasions to the scalp region/superficial laceration. He clinically appears well and nontoxic but appears to be in pain. Left medial periorbital ecchymosis noted. Subconjunctival hemorrhage noted medially without hyphema. He has no eye pain. No vision change. He is complaining of inferior neck pain/upper back pain. This seems to be central. Options of care were discussed with the patient. IV access was established. Labs were drawn. Patient was given IV analgesics and IV antiemetic. Tetanus vaccine was also updated here today. CT imaging was obtained of the head, face, C-spine and T-spine. CT images overall negative for any fracture or internal hemorrhage. Patient's pain did not match his negative CT scans and concern was therefore further worked up via MRI of the C-spine. MRI of the C-spine was able to identify the patient's T1 vertebral body subtle compression fracture. This does correlate with the patient's location of discomfort. CT of the chest was also added to rule out any other scapular/similar location injury. Results of this as above. This essentially was negative for any additional fractures beyond the T1 injury. Patient is not have any neurovascular compromise or deficit. With the patient's discomfort level where it is that with movement benefit versus risk of inpatient versus outpatient management discussed. Through shared decision making we elected to proceed with inpatient management. COVID testing was obtained and was negative. Case discussed with hospitalist. This was Dr. Cuellar. Please refer to further documentation regarding his stay. Labs reveal no leukocytosis. Mild anemia noted. INR 1.3. BUN 27. Glucose 145. Case was discussed with the attending physician. GCS: 15 In the evaluation and treatment of this patient the following differential diagnoses were entertained: Fracture, dislocation, subluxation, contusion, sprain, strain, acute hemorrhage, among others. Impression & Plan Fall, Scalp abrasion, Fracture of thoracic spine Discharge Plan Visit Data Chief Complaint: Head Injury, Minor Stated Complaint: FALL, POSSIBLE CONCUSSION, NECK PAIN ED Provider: Negrito Segovia ED Midlevel Provider: Kris Arambula Patient Disposition: Admitted As Inpatient Condition: Good Prescriptions Prescriptions: No Action [place] DHA 92 mg (43 mg-22 [id number]) tablet,chewable 92 mg PO QAM fluticasone propionate 50 mcg/actuation spray,suspension 1 sprays INTNAS BID levothyroxine [Synthroid] 25 mcg tablet 25 mcg PO DAILYBB Qty: 90 3RF apixaban 5 mg tablet 5 mg PO BID Qty: 180 3RF modafinil [Provigil] 200 mg tablet 400 mg PO QAM Qty: 180 3RF pantoprazole [Protonix] 40 mg tablet,delayed release (DR/EC) 40 mg PO BID Qty: 180 3RF metoprolol succinate [Toprol XL] 100 mg tablet extended release 24 hr 100 mg PO HS Qty: 90 3RF atorvastatin 20 mg tablet 20 mg PO HS Qty: 90 3RF potassium chloride 20 mEq tablet,ER particles/crystals 20 meq PO BID Qty: 180 1RF silodosin [Rapaflo] 4 mg capsule 4 mg PO HS Qty: 90 3RF Rx Instructions: Take with food albuterol sulfate [Ventolin HFA] 90 mcg/actuation HFA aerosol inhaler 2 puff INH Q4H PRN (Reason: shortness of breath) Qty: 3 3RF coenzyme Q10 [CoQ-10] 100 mg capsule 100 mg PO QAM bumetanide 2 mg tablet 2 mg PO QAM Qty: 90 3RF fluocinonide 0.05 % cream 1 applic topical BID PRN (Reason: Rash) Rx Instructions: Apply to areas of the trunk and arms twice daily x 2 weeks as directed. multivitamin Tablet 1 tab PO QAM spironolactone 25 mg tablet 25 mg PO QAM sertraline 50 mg tablet 50 mg PO QAM oxycodone-acetaminophen 5-325 mg tablet 1 - 2 tab PO .Q4h-6h MDD 6 PRN (Reason: pain) Qty: 30 0RF Rx Instructions: Ongoing therapy, Dr. Mark supervising carboxymethylcellulose sodium [Refresh] 1 % Drops, Liquid Gel 1 drp OPB DIRECTED PRN (Reason: Dry Eyes)
--- NOTE | 2021-12-18 00:16 | History & Physical Report ---
Date of Service December 18, 2021 Assessment & Plan (1) Fall: Plan: 76yo male with history of atrial fibrillation on apixaban anticoagulation presents after a fall from approximately 4 to 5 foot height with associated head trauma and T1 vertebral compression fracture. Patient is awake alert and oriented x4, GCS = 15. Imaging as above with no acute intracranial process. T1 compression fracture noted on MRI. This corresponds with patient's mid scapular discomfort. Vasculature appears intact on a noncontrast CT image of the chest. No neurological deficits noted. Observation to medical Check total CK We will hold apixaban for now Neurochecks with GCS every 4 hours Pain control with morphine as needed Colace and MiraLAX as needed Zofran as needed Heating pad [facility]ospine consultation appreciated PT/OT evaluation for strength and balance appreciated (2) Head trauma: Plan: Management as above Hold apixaban Neurochecks (3) HTN (hypertension): Plan: Blood pressure adequately controlled. Presently 135/68 Continue metoprolol 100 mg p.o. nightly Continue Bumex and spironolactone at home doses Continue to monitor (4) Atrial fibrillation: Plan: Chronic. Rate controlled. Continue metoprolol 100 mg p.o. nightly We will hold apixaban for now given recent trauma (5) CKD (chronic kidney disease) stage 3, GFR 30-59 ml/min: Plan: BUN and creatinine near baseline. Patient follows with nephrology. Baseline creatinine 1.4-1.6. Avoid nephrotoxic agents Repeat chemistry in a.m. (6) Hypothyroidism: Plan: Chronic. Elevated TSH at last check We will check TSH with a.m. labs Continue Synthroid 25 mcg p.o. daily (7) Dyslipidemia: Plan: Chronic. Continue atorvastatin (8) Acid reflux disease: Plan: Chronic. Stable. Continue Protonix 40 mg p.o. 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 Patient on Rapaflo as an outpatient Monitor urine output (10) Obstructive sleep apnea treated with BiPAP: Plan: Chronic. Patient reports compliance with his home BiPAP. No facial fractures noted on imaging. We will order BiPAP nightly (use may be limited due to facial pain) FENHep-Lock, monitor electrolytes, heart healthy/carb consistent diet as tolerated ProphylaxisSCDs Codef[place] per discussion with patient Dispoobservation to medical History of Present Illness Chief Complaint: fall, head trauma Primary Care Provider: Ervin Bobby DO Daniel Lopez is a 76yo male with history of atrial fibrillation on Apixaban anticoagulation presenting after a fall at home. Patient was doing some yard work - he recently had a tree cut down in his yard and he was walking around the area when his feet became tangled in some felisa and he fell into a ditch. The and patient report that the fall was approximately 4-5 feet height. The ditch was packed dirt. Patient struck the right side of his forehead. He denies LOC. Denies chest pain, SOB, palpitations. No focal numbness/tingling or weakness. He did have immediate discomfort in his back between his shoulder blades. He was unable to get up for a while and crawled through the ditch until he could prop himself up using a stick. His was then able to find him and help him. Patient came to the ER for persistent severe pain between his shoulders. No additional complaints at this time. In the ER patient afebrile, HD stable Received multiple rounds of pain medication ER Course: TDap vaccine, Fentanyl 50mcg, Zofran 4mg, Dilaudid 0.5mg x 3 doses Allergies Allergy/AdvReac Type Severity Reaction Status Date / Time clindamycin Allergy Intermediate rash Verified 12/18/21 00:30 iodine Allergy Intermediate topical Verified 12/18/21 00:30 iodine- swelling at site trospium AdvReac Intermediate "sick"/head Verified 12/18/21 00:30 ache Home Medications Medication Instructions Recorded Confirmed Type omega 3,6,9 combination no.7 92 mg 92 mg PO QAM 11/14/17 12/18/21 History (43 mg-22 [id number]) chew tablet ([place] [facility]) fluticasone propionate 50 1 sprays intranasal BID 10/06/19 12/18/21 History mcg/actuation nasal spray,suspension albuterol sulfate 90 mcg/actuation 2 puff inhalation Q4H PRN 05/08/20 12/18/21 Rx aerosol inhaler (Ventolin HFA) shortness of breath #3 Inhalers coenzyme Q10 100 mg capsule 100 mg PO QAM 07/17/20 12/18/21 History (CoQ-10) multivitamin 1 tab PO QAM 08/22/20 12/18/21 History fluocinonide 0.05 % topical cream 1 applic topical BID PRN Rash 09/26/20 12/18/21 History levothyroxine 25 mcg tablet 25 mcg PO DAILYBB #90 tabs 05/03/21 12/18/21 Rx (Synthroid) apixaban 5 mg tablet 5 mg PO BID #180 tabs 05/21/21 12/18/21 Rx modafinil 200 mg tablet (Provigil) 400 mg PO QAM #180 tabs 05/21/21 12/18/21 Rx silodosin 4 mg capsule (Rapaflo) 4 mg PO HS #90 caps 07/18/21 12/18/21 Rx pantoprazole 40 mg tablet,delayed 40 mg PO BID #180 tabs 08/21/21 12/18/21 Rx release (Protonix) metoprolol succinate 100 mg 100 mg PO HS #90 tabs 08/22/21 12/18/21 Rx tablet,extended release 24 hr (Toprol XL) atorvastatin 20 mg tablet 20 mg PO HS #90 tabs 09/18/21 12/18/21 Rx potassium chloride 20 mEq 20 meq PO BID #180 tabs 09/27/21 12/18/21 Rx tablet,extended release(part/cryst) sertraline 50 mg tablet 50 mg PO QAM 10/12/21 12/18/21 History spironolactone 25 mg tablet 25 mg PO QAM 10/12/21 12/18/21 History oxycodone-acetaminophen 5 mg-325 1 - 2 tab PO .Q4h-6h PRN pain #30 10/19/21 12/18/21 Rx mg tablet tabs bumetanide 2 mg tablet 2 mg PO QAM #90 tabs 12/10/21 12/18/21 Rx carboxymethylcellulose sodium 1 % 1 drp OPB DIRECTED PRN Dry Eyes 12/18/21 12/18/21 History eye liquid gel drops Past Med/Surg History Medical History Acid reflux disease Arteriosclerotic coronary artery disease Asthma Atrial fibrillation BPH with obstruction/lower urinary tract symptoms Cardiac murmur Cervical radiculopathy Cervical stenosis of spinal canal Chronic rhinitis CKD (chronic kidney disease) stage 3, GFR 30-59 ml/min Cognitive impairment Diabetic peripheral neuropathy associated with type 2 diabetes mellitus Diverticular disease DM type 2 (diabetes mellitus, type 2) Dyslipidemia Dysphagia Hearing deficit HTN (hypertension) Hypothyroidism Narcolepsy Obesity Osteoarthritis Right ventricular systolic dysfunction Rotator cuff arthropathy of left shoulder Secondary hyperparathyroidism Sleep apnea Venous insufficiency Venous stasis ulcers of both lower extremities Surgical History History of carpal tunnel release History of cervical spinal surgery History of colonoscopy History of esophagogastroduodenoscopy (EGD) S/P hernia repair S/P knee surgery Family History Mother Coronary heart disease Myocardial infarction Brother Diabetes Other No family history of adverse response to anesthesia No family history of bleeding disorder Denies family history of Ovarian cancer Prostate cancer Breast cancer Lung cancer Colorectal cancer Social History Smoking Status: Never smoker Second Hand Exposure: No; Hx Alcohol Use: Yes Alcohol type: wine Alcohol Intake Frequency: Monthly or Less Hx Substance Use: No Preferred Language: Bengali Communication Ability: Effective Visual Impairment: Limited Hearing Ability: Use of Hearing Aid Dog Barber Required: No Beliefs That Will Affect Care: None marital status: Current Living Situation: Alone current occupational status: retired How many Children do You have: 2 Feels Safe at Home: Yes Childhood Exposure to Second-Hand Smoke: No caffeine: Yes (drinks coffee daily 1 cup) during the past year weight has: decreased > 10 lbs Dental Care, Regularly: No Physical Activity Frequency: Does not Exercise Physical Activity Frequency Comment: does outside work however Seatbelt Use: always Sunscreen Use: No Do you think of yourself as: straight/heterosexual Gender Identity: Male Assistive Devices: Denture - Upper, Denture - Lower, Glasses and Hearing Aid - Bilateral Review of Systems Review of Systems: All systems reviewed & are unremarkable except as noted in HPI & below Physical Exam Physical Exam: General: patient in moderate amount of pain, NAD, non-toxic in appearance, AA&O x 4 Skin: abrasion present right frontal bone with significant swelling HEENT: swelling of right frontal bone, swelling of left eye with subconjunctival hemorrhage, PERRL, EOMI, anicteric sclera, external ear normal to inspection and nontender, nares patent, moist mucus membranes, dentition intact, no oropharyngeal lesions, neck supple, trachea midline, no LAD, no thyromegaly, no JVD Heart: +S1/S2, regular, no m/r/g, no bruising Lungs: equal air entry bilaterally, no rales/rhonchi/wheezes Abd: +BS, soft, NT/ND, no masses/organomegaly/ascites, no bruising, swelling or deformity of anterior abdomen or flanks Ext: warm, 2+ pulses in UE/LE bilaterally, no clubbing/cyanosis or edema, joints nontender, no deformity, full ROM of wrists, elbows, shoulders, hips, knees and ankles Neuro: nonfocal, patient AA&O x 4, speech intact, no facial droop, moving all extremities on command with equal strength 5/5 Results & Data Results & Data ([facility]) Vital Signs (Past 12 Hours) Vital Signs Temp Pulse Pulse Resp BP BP Pulse Ox 12/17/21 23:21 65 18 138/92 96 12/17/21 22:00 62 18 129/76 97 12/17/21 18:35 62 22 155/76 H 97 12/17/21 17:32 67 18 132/70 93 12/17/21 16:05 37.1 C 66 18 133/72 96 O2 Del Method 12/17/21 23:21 Room Air 12/17/21 22:00 Room Air 12/17/21 18:35 Room Air 12/17/21 17:32 Room Air 12/17/21 16:05 Room Air Laboratory Results Laboratory Results WBC 9.08 K/ul (4.8-10.8) 12/17/21 17:03 RBC 3.51 M/uL (4.63-6.08) L 12/17/21 17:03 Hgb 11.0 g/dl (14.0-18.0) L 12/17/21 17:03 Hct 33.8 % (40.1-51.0) L 12/17/21 17:03 MCV 96.3 fL (80.0-100.0) 12/17/21 17:03 MCH 31.3 pg (25.0-34.0) 12/17/21 17:03 MCHC 32.5 g/dL (32.0-36.0) 12/17/21 17:03 RDW Std Deviation 46.9 fL (36.4-46.3) H 12/17/21 17:03 RDW Coeff of Magan 13.2 % (11.5-14.5) 12/17/21 17:03 Plt Count 161 K/uL (130-400) 12/17/21 17:03 MPV 10.3 fL (9.4-12.4) 12/17/21 17:03 Immature Gran % (Auto) 0.4 % 12/17/21 17:03 Neut % (Auto) 82.7 % 12/17/21 17:03 Lymph % (Auto) 8.8 % 12/17/21 17:03 [place] % (Auto) 6.9 % 12/17/21 17:03 Eos % (Auto) 0.9 % 12/17/21 17:03 Baso % (Auto) 0.3 % 12/17/21 17: Neut # (Auto) 7.50 K/uL (1.4-6.5) H 12/17/21 17:03 Lymph # (Auto) 0.80 K/uL (1.2-3.4) L 12/17/21 17:03 [place] # (Auto) 0.63 K/uL (0.24-0.82) 12/17/21 17:03 Eos # (Auto) 0.08 K/uL (0-0.50) 12/17/21 17:03 Baso # (Auto) 0.03 K/uL (0-0.2) 12/17/21 17:03 Immature Gran # (Auto) 0.04 K/uL (0.00-0.02) H 12/17/21 17:03 PT 13.5 Seconds (9.0-12.0) H 12/17/21 17:03 INR 1.3 (0.9-1.1) H 12/17/21 17:03 APTT 36.5 Seconds (21.0-31.0) H 12/17/21 17:03 PTT Ratio 1.3 12/17/21 17:03 Sodium 139 mmol/L (136-145) 12/17/21 17:03 Potassium 3.6 mmol/L (3.5-5.1) 12/17/21 17:03 Chloride 102 mmol/L (98-107) 12/17/21 17:03 Carbon Dioxide 31 mmol/L (21-32) 12/17/21 17:03 Anion Gap 6 (3-11) 12/17/21 17:03 BUN 27 mg/dl (6-23) H 12/17/21 17:03 Creatinine 1.24 mg/dl (0.6-1.4) 12/17/21 17:03 Est Cr Clr Drug Dosing 77.3 ml/min 12/17/21 17:03 Est GFR ( Amer) 65.5 ml/min 12/17/21 17:03 Est GFR (Non-Af Amer) 56.5 ml/min 12/17/21 17:03 BUN/Creatinine Ratio 21.8 (10-20) H 12/17/21 17:03 Glucose 145 mg/dl (70-99(Fasting)) H 12/17/21 17:03 Calcium 9.3 mg/dl (8.5-10.1) 12/17/21 17:03 Total Bilirubin 1.0 mg/dl (0.2-1.0) 12/17/21 17:03 AST 31 U/L (13-39) 12/17/21 17:03 ALT 17 U/L (7-52) 12/17/21 17:03 Alkaline Phosphatase 132 U/L (34-104) H 12/17/21 17:03 Total Protein 7.2 gm/dl (6.0-8.3) 12/17/21 17:03 Albumin 4.4 gm/dl (3.4-5.0) 12/17/21 17:03 Globulin 2.8 gm/dl (2.5-4.0) 12/17/21 17:03 Albumin/Globulin Ratio 1.6 (0.9-2) 12/17/21 17:03 SARS-CoV-2, RNA, NAAT NEGATIVE (NEGATIVE) 12/17/21 22:[address] 12/17/21 16:05 CT SCAN OF THE CERVICAL SPINE CLINICAL HISTORY: Fall. Neck pain. COMPARISON STUDY: MRI of the cervical spine dated 05/19/2019. TECHNIQUE: CT scan of the cervical spine is performed from the skull base to the upper thoracic spine. Images are reviewed in the axial, sagittal, and coronal planes. IV contrast was not administered for this examination. A dose lowering technique was utilized adhering to the principles of ALARA. FINDINGS: Skeletal structures: The skeletal structures are osteopenic. There is no evidence of fracture or subluxation involving the cervical spine. Vertebral body height and alignment are maintained. There is postoperative change from anterior fusion seen from C3-C7. There is straightening of the cervical lordosis. The odontoid process and lateral masses are intact. The atlantoaxial articulation is preserved noting mild productive degenerative change. The spinous processes appear intact. Intervertebral discs: There has been discectomy at C4-C5, C5-C6, and C6-C7. There is severe disc space narrowing at C3-C4. Central canal: Grossly patent. Soft tissues: The prevertebral and paraspinous soft tissues are within normal limits. Calvarium: The visualized calvarium at the skull base appears intact. Brain parenchyma: Partially visualized brain parenchyma at the skull base is within normal limits. Sinuses and mastoids: The visualized paranasal sinuses are clear. The mastoid air cells are well pneumatized. Lung apices: Clear as visualized. IMPRESSION: 1. There is no evidence of fracture or subluxation involving the cervical spine. 2. Osteopenia with postsurgical and spondylotic change as above. ACT 112: Negative or not required by law. Electronically signed by: Robles Diez M.D. 12/17/2021 4:[address] 12/17/21 16:05 CT head/brain wo con CLINICAL HISTORY: Fall, head injury, on Eliquis Technique: Contiguous axial CT images of the head were acquired from the base of the skull to the vertex without intravenous contrast administration. Images were viewed in brain, subdural and bone windows. Automated dose lowering techniques and/or adjustment according to patient size were utilized for this exam. Comparison: Comparison is made to CT head 04/01/2019 Findings: The ventricles, basal cisterns, and cerebral sulci are normal. There is no acute intracranial hemorrhage or evidence of acute territorial infarction. Neither mass effect, shift of the midline structures, nor abnormal extra-axial fluid collections are shown. Imaged portions of the paranasal sinuses and mastoid air cells are clear. The orbits appear normal. There are no acute fractures of the calvaria. Scalp swelling is seen in the right sided soft tissues with some subcutaneous emphysema and a laceration near the vertex. Impression: No acute intracranial hemorrhage or skull fractures. Scalp swelling is seen in the right-sided soft tissues. ACT 112: Negative or not required by law. Electronically signed by: Rajinder Cordero M.D. 12/17/2021 4:[address] 12/17/21 16:21 CT facial bones wo con CLINICAL HISTORY: Fall TECHNIQUE: Multidetector row helical CT of the maxillofacial bones was performed without administration of intravenous contrast, and processed with bone and soft tissue algorithms. Coronal and sagittal reformations were obtained. Automated dose lowering techniques and/or adjustment according to patient size were utilized for this exam. Comparison: None available at the time of this dictation. FINDINGS: Nasal bones are normal. The mandible is intact. The temporomandibular joints are anatomically aligned. Pterygoid plates are intact. Zygomatic arches are intact. The globes are normal and symmetric, without proptosis, obvious disruption or lens dislocation. There is no orbital radiopaque foreign body. The orbital cox are intact. The retrobulbar fat is without evidence of disruption. Extraocular muscles are normal and symmetric. Optic nerve sheath complexes are normal in course and caliber. Mucous retention cyst is seen on the right. IMPRESSION: Soft tissue swelling is seen in the right outer. No acute fracture is seen. Sinus disease is noted. ACT 112: Negative or not required by law. Electronically signed by: Rajinder Cordero M.D. 12/17/2021 4:[address] 12/17/21 16:21 CT SCAN OF THE THORACIC SPINE WITHOUT IV CONTRAST CLINICAL HISTORY: Fall. Thoracic back pain. COMPARISON STUDY: No priors. TECHNIQUE: CT scan of the thoracic spine is performed from the lower cervical spine to the upper lumbar spine. Images are reviewed in the axial, sagittal, and coronal planes. IV contrast was not administered for this examination. A dose lowering technique was utilized adhering to the principles of ALARA. CT DOSE: 3219.56 mGy.cm FINDINGS: The skeletal structures are osteopenic. There is no evidence of fracture or malalignment involving the thoracic spine. Vertebral body height and alignment are maintained. Fusion hardware is noted in the lower cervical spine. The transverse and spinous processes appear intact. Small anterior osteophytes are seen throughout. There is mild hyperkyphosis of the thoracic spine. No lytic or blastic lesion is seen. The disc spaces are preserved. The central canal is grossly clear. The paraspinous soft tissues are within normal limits. The visualized posterior ribs appear intact. Imaged lung parenchyma is clear noting foci of parenchymal scarring/atelectasis. Calcified right hilar lymph nodes are incidentally noted. IMPRESSION: There is no evidence of fracture or malalignment involving the thoracic spine. ACT 112: Negative or not required by law. Dictated: 12/17/2021 4:55 PM Transcribed: 12/17/2021 5:22 PM [place] [id number] [facility] Electronically signed by: Robles Diez M.D. 12/17/2021 5:36 PM Shoulder X-Ray 12/17/21 16:50 LEFT SHOULDER 3 VIEWS CLINICAL HISTORY: Fall. Left shoulder pain. FINDINGS: 3 views of the left shoulder are obtained. No prior studies are available for comparison at the time of dictation. The skeletal structures are osteopenic. There is no radiographic evidence of left shoulder fracture or dislocation. Mild degenerative change is seen at the glenohumeral and acromio clavicular joints. The overlying soft tissues are within normal limits. Visualized left lung parenchyma appears clear. Surgical clips project over the lower neck. IMPRESSION: No acute bony abnormality is identified. Electronically signed by: Robles Diez M.D. 12/17/2021 5:15 PM MRI C spine - per STAT rad - Abnormal bright T2 signal noted involving the anterior aspect of the T1 vertebral body adjacent to the superior endplate (series 11; image 9), consistent with subtle compression fracture with no significant loss of height noted. No abnormal single involving the pedicles or posterior elements of T1 level. No posterior disc protrusion at this level. There is abnormal edema of the dorsal paraspinal musculature. No well defined hematoma. Anterior fusion noted from C3-C7 levels as identified on the CT examination performed at 1629 hrs. No epidural hematoma. There is effacement of the CSF collar at C2-3 and C3-4 which is presumed related to chronic degenerative changes. The cervical cord demonstrates normal signal characteristics. CT chest without contrast: Per stat radno acute osseous traumatic injury or significant abnormal alignment. Subtle fracture involving anterior T1 vertebral body, noted on the CT examination of the cervical spine is not clearly evident by CT evaluation. No significant overlying acute traumatic soft tissue abnormality. Dependent subsegmental changes in the posterior aspect of the lungs. No significant contusion injury. No focal consolidation. No pleural effusion or pneumothorax. The unenhanced thoracic aorta and cardiac chambers are unremarkable. No pericardial effusion. No mediastinal traumatic injury or adenopathy. PG Care Time/CCT Total # of Minutes Spent Total Time Spent with Patient: Total time spent is greater than 50% in coordination of care (as documented) at patient's floor/unit and/or counseling patient: Coding Level of Care Code INT OBSERVATION CARE 70M LVL 3 Diagnoses Fall W19.XXXA Head trauma S09.90XA HTN (hypertension) I10 Atrial fibrillation I48.91 CKD (chronic kidney disease) stage 3, GFR 30-59 ml/min N18.3 Hypothyroidism E03.9 Dyslipidemia E78.5 Acid reflux disease K21.9 BPH with obstruction/lower urinary tract symptoms N40.1; N13.8 Obstructive sleep apnea treated with BiPAP G47.33
[2021-12-18] MEDS ORDERED: ALBUTEROL HFA 8 GM INHALER INH PRN (01:39)
[2021-12-18] MEDS ORDERED: DOCUSATE SODIUM 100 MG CAP PO PRN (01:39)
[2021-12-18] MEDS ORDERED: POLYETHYLENE (MIRALAX) 17 GM PACK PO PRN (01:39)
[2021-12-18] MEDS ORDERED: MoRPHine SULFATE 2 MG/ML CARP IV PRN ×2 (01:39)
[2021-12-18] MEDS ORDERED: ONDANSETRON INJ 2 MG/ML 2 ML VIAL IV PRN (01:39)
[2021-12-18] MEDS: oxyCODONE/ACETAMINOPHEN 5mg/325mg TAB PO PRN ×4 (02:38→17:58)
[2021-12-18] MEDS: BUMETANIDE 1 MG TAB PO SCH (05:38)
[2021-12-18] MEDS: LEVOTHYROXINE SODIUM 25 MCG TABLET PO SCH (05:39)
--- NOTE | 2021-12-18 08:00 | CT Scan Report ---
CT chest diagnostic wo con CT DOSE: 1187.05 mGy.cm CLINICAL HISTORY: 76 years-old Male with fall, upper back pain, scapular region pain. Acute chest an d upper back pain status post fall TECHNIQUE: Multiaxial CT images of the chest were performed without contrast. A dose lowering techni que was utilized adhering to the principles of ALARA. COMPARISON: MRI cervical spine and CT thoracic spine studies of same day FINDINGS: Unremarkable thyroid. Mild nonspecific mediastinal lymphadenopathy includes a 1.3 cm paratr acheal lymph node on image 122. Borderline enlarged hilar lymph nodes. Moderate cardiomegaly without pericardial effusion. Mild coronary artery calcifications. No thoracic aortic aneurysm. There is no pneumothorax, or pleural effusion. Intralobular septal thickening with mild dependent bib asilar groundglass opacities. Bronchial wall thickening. There are no suspicious pulmonary nodules or masses identified. Low suspicion 4 mm solid nodule of the lingula, image 167. Central airways are pa tent. Calcific granulomata of the spleen. Edema within the posterior paraspinal soft tissues of the lower c ervical spine is partially imaged. Partially imaged fusion hardware with discectomy changes of the ce rvical spine. Subtle acute superior endplate compression deformity of the T1 vertebral body resulting in less than 20% vertebral body height loss and no retropulsion. Minimal superior endplate compressi on of the T3 and T4 vertebral bodies without retropulsion. 3 mm anterolisthesis C7 on T1. IMPRESSION: 1. Acute T1 superior endplate compression deformity without retropulsion is redemonstrated. Minimal s uperior endplate compression at T3 and T4 without retropulsion are compatible with age-indeterminate fractures. 2. 3 mm anterolisthesis C7 on T1 is suspicious for an associated acute ligamentous injury. This findi ng was called/faxed to the floor at time of dictation. 3. No pneumothorax. 4. Cardiomegaly with mild pulmonary edema and bibasilar atelectasis. 5. Partially imaged paravertebral edema of the lower cervical spine is better appreciated on the MRI cervical spine study of same day. ACT 112: Negative or not required by law. Electronically signed by: Jasmeet Huertas M.D. 12/18/2021 7:59 AM
--- NOTE | 2021-12-18 08:26 | Magnetic Resonance Report ---
CLINICAL HISTORY: Fall, inferior posterior neck pain TECHNIQUE: MRI of the cervical spine is performed utilizing various T1 and T2 sequences in the axial and sagittal planes. IV contrast was not administered for this examination. Comparison: Comparison is made to CT cervical spine 12/17/2021 FINDINGS: Exam is limited by patient motion. Anterior cervical fixation hardware is seen spanning C3-C7. C2-C3: Posterior disc bulge results in moderate bilateral neural foraminal stenosis. There is mild ca nal stenosis. C3-C4: Posterior disc bulge results in moderate bilateral neural foraminal stenosis. No significant c anal stenosis. C4-C5: Posterior disc bulge results in mild bilateral neuroforaminal stenosis. C5-C6: There is up to moderate to severe neuroforaminal stenosis bilaterally. C6-C7: Moderate bilateral neuroforaminal stenosis. C7-T1: Unremarkable. Edema is noted in the posterior ligaments and musculature of the neck and visualized thoracic spine. The spinal cord is normal in signal intensity and there is no evidence of cord edema. There is no heriberto dence of an extradural, intradural, extramedullary or intramedullary lesion. There is edema in the payan perior aspect of the T1 vertebral body. Visualized brain parenchyma is normal. IMPRESSION: 1. Edema throughout the posterior ligaments and musculature of the spine concerning for acute injury . Edema in the superior aspect of T1 is concerning for subtle compression fracture. 2. Degenerative changes of the spine without evidence of acute injury. ACT 112: Negative or not required by law. Electronically signed by: Rajinder Cordero M.D. 12/18/2021 8:24 AM
[2021-12-18] MEDS: ACETAMINOPHEN 500 MG TAB PO SCH ×3 (08:34→22:28)
[2021-12-18] MEDS ORDERED: BUMETANIDE 1 MG TAB PO SCH (09:00)
--- NOTE | 2021-12-18 09:16 | XRay Report ---
XR cervical spine 2 or 3V CLINICAL HISTORY: neck pain TECHNIQUE: 3 images of the cervical spine were obtained. COMPARISON: None available at the time of this dictation. FINDINGS: No fractures or subluxations are identified. Anterior cervical fusion hardware is seen. The alignment is anatomic. Prevertebral soft tissues are within normal limits. IMPRESSION: No evidence for acute fracture or subluxation. ACT 112: Negative or not required by law. Electronically signed by: Rajinder Cordero M.D. 12/18/2021 9:15 AM
--- NOTE | 2021-12-18 09:53 | Consultation ---
Date of Consultation December 18, 2021 Assessment & Plan (1) Thoracic compression fracture: Dr. Baxter has reviewed imaging. Patient has an acute T1 compression fracture status post fall. Treatment is conservative. He recommendation is to wear [place] J collar at all times with the exception of bathing or eating. No lifting greater than 5 pounds. Ambulate ad norma. Continue with pain control. We will follow him up in 2 weeks in our office for x-rays including flexion-extension films. He is orthopedically stable for discharge. History of Present Illness Reason for Consultation: T1 fracture Attending Physician: Augustine Tapia History of Present Illness This is a pleasant 76-year-old gentleman who sustained a fall on 1016. He was out in the yard clearing up some brush and standing in a ditch and one of the branches caught his foot and he stumbled and fell forward with his head hitting side of the embankment. He denies loss of consciousness. He was able to crawl over to a cart and eventually stand up on his own. He presented to the ER due to upper thoracic pain. He has a history of 2 prior cervical fusions by Dr. Baxter. Last was in 2018 with a fusion from C3-C7. He denies any upper or lower extremity radicular pain, paresthesia, numbness or weakness. He has chronic left elbow pain. 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 Typically he ambulates independently at home. Allergies Allergy/AdvReac Type Severity Reaction Status Date / Time clindamycin Allergy Intermediate rash Verified 12/18/21 00:30 iodine Allergy Intermediate topical Verified 12/18/21 00:30 iodine- swelling at site trospium AdvReac Intermediate "sick"/head Verified 12/18/21 00:30 ache Latex, Natural Rubber AdvReac Swelling Verified 12/18/21 03:00 of Lip/Tongue/Throat Home Medications Medication Instructions Recorded Confirmed Type omega 3,6,9 combination no.7 92 mg 92 mg PO QAM 11/14/17 12/18/21 History (43 mg-22 [id number]) chew tablet ([place] DHA) fluticasone propionate 50 1 sprays intranasal BID 10/06/19 12/18/21 History mcg/actuation nasal spray,suspension albuterol sulfate 90 mcg/actuation 2 puff inhalation Q4H PRN 05/08/20 12/18/21 Rx aerosol inhaler (Ventolin HFA) shortness of breath #3 Inhalers coenzyme Q10 100 mg capsule 100 mg PO QAM 07/17/20 12/18/21 History (CoQ-10) multivitamin 1 tab PO QAM 08/22/20 12/18/21 History fluocinonide 0.05 % topical cream 1 applic topical BID PRN Rash 09/26/20 12/18/21 History levothyroxine 25 mcg tablet 25 mcg PO DAILYBB #90 tabs 05/03/21 12/18/21 Rx (Synthroid) apixaban 5 mg tablet 5 mg PO BID #180 tabs 05/21/21 12/18/21 Rx modafinil 200 mg tablet (Provigil) 400 mg PO QAM #180 tabs 05/21/21 12/18/21 Rx silodosin 4 mg capsule (Rapaflo) 4 mg PO HS #90 caps 07/18/21 12/18/21 Rx pantoprazole 40 mg tablet,delayed 40 mg PO BID #180 tabs 08/21/21 12/18/21 Rx release (Protonix) metoprolol succinate 100 mg 100 mg PO HS #90 tabs 08/22/21 12/18/21 Rx tablet,extended release 24 hr (Toprol XL) atorvastatin 20 mg tablet 20 mg PO HS #90 tabs 09/18/21 12/18/21 Rx potassium chloride 20 mEq 20 meq PO BID #180 tabs 09/27/21 12/18/21 Rx tablet,extended release(part/cryst) sertraline 50 mg tablet 50 mg PO QAM 10/12/21 12/18/21 History spironolactone 25 mg tablet 25 mg PO QAM 10/12/21 12/18/21 History oxycodone-acetaminophen 5 mg-325 1 - 2 tab PO .Q4h-6h PRN pain #30 10/19/21 12/18/21 Rx mg tablet tabs bumetanide 2 mg tablet 2 mg PO QAM #90 tabs 12/10/21 12/18/21 Rx carboxymethylcellulose sodium 1 % 1 drp OPB DIRECTED PRN Dry Eyes 12/18/21 12/18/21 History eye liquid gel drops Patient History Medical History Acid reflux disease controlled Arteriosclerotic coronary artery disease Asthma stable Atrial fibrillation follows with Dr. Atwood; on Eliquis BPH with obstruction/lower urinary tract symptoms Cardiac murmur as a child Cervical radiculopathy Cervical stenosis of spinal canal Chronic rhinitis CKD (chronic kidney disease) stage 3, GFR 30-59 ml/min Cognitive impairment Diabetic peripheral neuropathy associated with type 2 diabetes mellitus Diverticular disease DM type 2 (diabetes mellitus, type 2) Dyslipidemia Dysphagia Hearing deficit HTN (hypertension) Hypothyroidism Narcolepsy Obesity Osteoarthritis Right ventricular systolic dysfunction Rotator cuff arthropathy of left shoulder Secondary hyperparathyroidism Sleep apnea unable to tolerate CPAP Venous insufficiency Venous stasis ulcers of both lower extremities Surgical History History of carpal tunnel release History of cervical spinal surgery ACDF C3-C7 + hardware removal: 06/17/17: Grade view 1, MAC#3, ETT 8.0 at [facility] History of colonoscopy History of esophagogastroduodenoscopy (EGD) S/P hernia repair S/P knee surgery BL Family History Mother Coronary heart disease Myocardial infarction Brother Diabetes Other No family history of adverse response to anesthesia No family history of bleeding disorder Denies family history of Ovarian cancer Prostate cancer Breast cancer Lung cancer Colorectal cancer Social History Smoking Status: Never smoker Second Hand Exposure: No; Hx Alcohol Use: Yes Alcohol type: beer Alcohol Intake Frequency: Monthly or Less Hx Substance Use: No Preferred Language: Thai Communication Ability: FLANDREAU Visual Impairment: Limited Hearing Ability: Use of Hearing Aid 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[place] Required: No Beliefs That Will Affect Care: None marital status: Current Living Situation: Spouse current occupational status: retired How many Children do You have: 2 Feels Safe at Home: Yes Childhood Exposure to Second-Hand Smoke: No caffeine: Yes (drinks coffee daily 1 cup) during the past year weight has: decreased > 10 lbs Dental Care, Regularly: No Physical Activity Frequency: Does not Exercise Physical Activity Frequency Comment: does outside work however Seatbelt Use: always Sunscreen Use: No Do you think of yourself as: straight/heterosexual Gender Identity: Male Assistive Devices: CPAP, Denture - Upper, Denture - Lower and Hearing Aid - Bilateral Review of Systems Review of Systems: All systems reviewed & are unremarkable except as noted in HPI & below Physical Exam Physical Exam: Patient seen in bed 311 in no acute distress He is alert and oriented x3 Rigid cervical collar intact 5/5 bilateral finger intrinsics, wrist flexors, wrist sensors, biceps, triceps, deltoid Strength intact bilateral lower extremities as well No evidence of an clinic No evidence of upper motor neuron signs He is tender to palpation over the midline lower cervical and upper thoracic spine to palpation No palpable step-offs in this region. Ecchymosis noted over the left eye as well as lacerations on the top of the scalp Constitutional: well developed Eyes: Ecchymosis medial left eye ENMT: external ear and nose normal, oropharynx normal Neck: + neck tender Respiratory: normal respiratory effort Cardiovascular: Extremities: normal capillary refill Gastrointestinal (Abdomen): Inspection/Auscultation: abdomen normal to inspection Musculoskeletal: Spine: + limited cervical ROM, + cervical spinal tenderness and + cervical collar present Extremities: strength 5/5 throughout Skin: no rashes, warm and dry Neurologic: normal touch/pain/proprioception and moves all extremities Psychiatric: A+Ox3, euthymic affect Eye Contact: good eye contact Speech: normal rate/rhythm/volume of speech Results & Data ([facility]) Vital Signs (Past 12 Hours) Vital Signs Temp Pulse Pulse Resp BP Pulse Ox O2 Del Method 12/18/21 08:32 37.1 C 77 18 164/74 H 95 Room Air 12/18/21 02:00 Room Air 12/18/21 05:39 74 124/69 12/18/21 03:10 63 15 94 12/18/21 01:39 36.7 C 67 16 152/80 H 96 Room Air 12/18/21 00:51 76 20 135/68 97 Room Air 12/17/21 23:21 65 18 138/92 96 Room Air 12/17/21 22:00 62 18 129/76 97 Room Air O2 Flow Rate FiO2 12/18/21 08:32 12/18/21 02:00 12/18/21 05:39 12/18/21 03:10 0 21 12/18/21 01:39 12/18/21 00:51 12/17/21 23:21 12/17/21 22:00 Diagnostic Findings [place], [place] [phone] Magnetic Resonance Report Patient:ESTHER MCDONNELL Admit Date:12/18/21 MR#:[id number] Address1:[address] [place] [address] Acct ID:[id number] Address2: Date:1945 [facility] Zip:[place] [address] Age:76 Location: Sex: Room/Bed:[facility] Att Phy:Augustine Tapia MD Diagnosis:FALL, T1 FRACTURE Dai Phy:Ervin Bobby DO Service Date:12/17/21 Fam Phy: Interpreting Phy:Rajinder Cordero [facility] Phy:Nae Cuellar D.O. Ordering Phy:Kris Arambula PA-C cc: ~ CLINICAL HISTORY: Fall, inferior posterior neck pain TECHNIQUE: MRI of the cervical spine is performed utilizing various T1 and T2 sequences in the axial and sagittal planes. IV contrast was not administered for this examination. Comparison: Comparison is made to CT cervical spine 12/17/2021 FINDINGS: Exam is limited by patient motion. Anterior cervical fixation hardware is seen spanning C3-C7. C2-C3: Posterior disc bulge results in moderate bilateral neural foraminal stenosis. There is mild canal stenosis. C3-C4: Posterior disc bulge results in moderate bilateral neural foraminal stenosis. No significant canal stenosis. C4-C5: Posterior disc bulge results in mild bilateral neuroforaminal stenosis. C5-C6: There is up to moderate to severe neuroforaminal stenosis bilaterally. C6-C7: Moderate bilateral neuroforaminal stenosis. C7-T1: Unremarkable. Edema is noted in the posterior ligaments and musculature of the neck and visua lized thoracic spine. The spinal cord is normal in signal intensity and there is no evidence of cord edema. There is no evidence of an extradural, intradural, extramedullary or intramedullary lesion. There is edema in the superior aspect of the T1 vertebral body. Visualized brain parenchyma is normal. IMPRESSION: 1. Edema throughout the posterior ligaments and musculature of the spine concerning for acute injury. Edema in the superior aspect of T1 is concerning for subtle compression fracture. 2. Degenerative changes of the spine without evidence of acute injury. ACT 112: Negative or not required by law. Electronically signed by: Rajinder Cordero M.D. 12/18/2021 8:24 AM Dictated:12/18/21811 Transcribed: 12/18/21811 [facility], [place] [phone] XRay Report Patient:ESTHER MCDONNELL Admit Date:12/18/21 MR#:[id number] Address1:[address] [place] [address] Acct ID:[id number] Address2: Date:1945 [facility] Zip:[place] [address] Age:76 Location:3E Sex:M Room/Bed:[facility] Att Phy:Augustine Tapia MD Diagnosis:FALL, T1 FRACTURE Dai Phy:Ervin Bobby, DO Service Date:12/18/21 Fam Phy: Interpreting Phy:Rajinder Cordero MDAdmit Phy:Nae Cuellar D.O. Ordering Phy:Elgin Baxter D.O. cc: ~ XR cervical spine 2 or 3V CLINICAL HISTORY: neck pain TECHNIQUE: 3 images of the cervical spine were obtained. COMPARISON: None available at the time of this dictation. FINDINGS: No fractures or subluxations are identified. Anterior cervical fusion hardware is seen. The alignment is anatomic. Prevertebral soft tissues are within normal limits. IMPRESSION: No evidence for acute fracture or subluxation. ACT 112: Negative or not required by law. Electronically signed by: Rajinder Cordero M.D. 12/18/2021 9:15 AM Dictated:12/18/21913 Transcribed: 12/18/21913 [facility], [place] [phone] CT Scan Report Patient:ESTHER MCDONNELL Admit Date:12/17/21 MR#:[id number] Address1:[address] [place] [address] Acct ID:[id number] Address2: Date:1945 [facility] Zip:[place] [address] Age:76 Location:ED Sex:M Room/Bed: Att Phy: Diagnosis:FALL, POSSIBLE CONCUSSION, NECK PAIN Dai Phy:Ervin Bobby, DO Service Date:12/17/21 Fam Phy: Interpreting Phy:Robles Diez MDAdmit Phy: Ordering Phy:Kris Arambula PA-C cc: ~ CT SCAN OF THE THORACIC SPINE WITHOUT IV CONTRAST CLINICAL HISTORY: Fall. Thoracic back pain. COMPARISON STUDY: No priors. TECHNIQUE: CT scan of the thoracic spine is performed from the lower cervical spine to the upper lumbar spine. Images are reviewed in the axial, sagittal, and coronal planes. IV contrast was not administered for this examination. A dose lowering technique was utilized adhering to the principles of ALARA. CT DOSE: 3219.56 mGy.cm FINDINGS: The skeletal structures are osteopenic. There is no evidence of fracture or malalignment involving the thoracic spine. Vertebral body height and alignment are maintained. Fusion hardware is noted in the lower cervical spine. The transverse and spinous processes appear intact. Small anterior osteophytes are seen throughout. There is mild hyperkyphosis of the thoracic spine. No lytic or blastic lesion is seen. The disc spaces are preserved. The central canal is grossly clear. The paraspinous soft tissues are within normal limits. The visualized posterior ribs appear intact. Imaged lung parenchyma is clear noting foci of parenchymal scarring/atelectasis. Calcified right hilar lymph nodes are incidentally noted. IMPRESSION: There is no evidence of fracture or malalignment involving the thoracic spine. ACT 112: Negative or not required by law. Dictated: 12/17/2021 4:55 PM Transcribed: 12/17/2021 5:22 PM [place] [id number] Electronically signed by: Robles Diez M.D. 12/17/2021 5:36 PM Dictated:12/17/21 1655 Transcribed: 12/17/21 1722 [place], [place] [phone] CT Scan Report Patient:ESTHER MCDONNELL Admit Date:12/18/21 MR#:[id number] Address1:[address] [place] [address] Acct ID:[id number] Address2: Date:1945 [facility] Zip:[place] [address] Age:76 Location: Sex: Room/Bed:[facility] Att Phy:Augustine Tapia MD Diagnosis:FALL, T1 FRACTURE Dai Phy:Ervin Bobby DO Service Date:12/17/21 [facility] Phy: Interpreting Phy:Jasmeet HuertasAdmit Phy:Nae Cuellar D.O. Ordering Phy:Kris Arambula PA-C cc: ~ CT chest diagnostic wo con CT DOSE: 1187.05 mGy.cm CLINICAL HISTORY: 76 years-old Male with fall, upper back pain, scapular region pain. Acute chest and upper back pain status post fall TECHNIQUE: Multiaxial CT images of the chest were performed without contrast. A dose lowering technique was utilized adhering to the principles of ALARA. COMPARISON: MRI cervical spine and CT thoracic spine studies of same day FINDINGS: Unremarkable thyroid. Mild nonspecific mediastinal lymphadenopathy includes a 1.3 cm paratracheal lymph node on image 122. Borderline enlarged hilar lymph nodes. Moderate cardiomegaly without pericardial effusion. Mild coronary artery calcifications. No thoracic aortic aneurysm. There is no pneumothorax, or pleural effusion. Intralobular septal thickening with mild dependent bibasilar groundglass opacities. Bronchial wall thickening. There are no suspicious pulmonary nodules or masses identified. Low suspicion 4 mm solid nodule of the lingula, image 167. Central airways are patent. Calcific granulomata of the spleen. Edema within the posterior paraspinal soft tissues of the lower cervical spine is partially imaged. Partially imaged fusion hardware with discectomy changes of the cervical spine. Subtle acute superior endplate compression deformity of the T1 vertebral body resulting in less than 20% vertebral body height loss and no retropulsion. Minimal superior endplate compression of the T3 and T4 vertebral bodies without retropulsion. 3 mm anterolisthesis C7 on T1. IMPRESSION: 1. Acute T1 superior endplate compression deformity without retropulsion is redemonstrated. Minimal superior endplate compression at T3 and T4 without retropulsion are compatible with age-indeterminate fractures. 2. 3 mm anterolisthesis C7 on T1 is suspicious for an associated acute ligamentous injury. This finding was called/faxed to the floor at time of dictation. 3. No pneumothorax. 4. Cardiomegaly with mild pulmonary edema and bibasilar atelectasis. 5. Partially imaged paravertebral edema of the lower cervical spine is better appreciated on the MRI cervical spine study of same day. ACT 112: Negative or not required by law. Electronically signed by: Jasmeet Huertas M.D. 12/18/2021 7:59 AM Dictated:12/18/2147 Transcribed: 12/18/2147
[2021-12-18] MEDS: SPIRONOLACTONE 25 MG TAB PO SCH (10:39)
[2021-12-18] MEDS: PANTOprazole 40 MG TAB PO SCH ×2 (10:39→21:19)
[2021-12-18] MEDS: SERTRALINE HCL 50 MG TABLET PO SCH (10:40)
[2021-12-18] MEDS: FLUTICASONE PROPIONATE NA SPR 16 GM BTL SCH ×2 (10:41→21:18)
[2021-12-18] MEDS: modafiniL 100 MG TAB PO SCH (10:44)
[2021-12-18 11:31] LABS: Hematocrit (blood only) 32.2 % (40.1-51.0); Hemoglobin 10.6 g/dl (14.0-18.0); Mean Corpuscular Hemoglobin 31.2 pg (25.0-34.0); Mean Corpuscular Hgb Conc 32.9 g/dL (32.0-36.0); Mean Corpuscular Volume 94.7 fL (80.0-100.0); Mean Platelet Volume 10.3 fL (9.4-12.4); Platelet Count 142 K/uL (130-400); RDW Coefficient of Variation 13.2 % (11.5-14.5); RDW Standard Deviation 45.8 fL (36.4-46.3); White Blood Count 5.95 K/ul (4.8-10.8)
[2021-12-18 11:54] LABS: BUN Creatinine Ratio 22.7 (10-20); Calcium 9.2 mg/dl (8.5-10.1); Creatinine Clr Calc Pharmacy 85.6 ml/min; Est GFR (African American) 75.7 ml/min; Est GFR (Non-African American) 65.3 ml/min
[2021-12-18] MEDS: POTASSIUM CHLORIDE CRTAB 20 MEQ TABCR PO SCH ×2 (12:34→21:19)
--- NOTE | 2021-12-18 17:55 | Hospitalist Progress Note ---
Date of Service December 18, 2021 Assessment & Plan (1) Fall: Plan: Fall from approximately 4 to 5 foot height with associated head trauma and T1 vertebral compression fracture, C7-T1 ligamentous injury, etc. Continue to hold apixaban. PT, OT evals. Pain meds. Ortho-spine consult appreciated. (2) Neck injury: Plan: 2nd to fall. Acute T1 compression fracture. T3/T4 compression fractures likely old. Has C7-T1 acute ligamentous injury as well. Seen by Dr Baxter, ortho-spine. Cervical collar immobilization advised due to the acute ligamentous injury. [place] J collar to be worn at all times except for meals and dressing/bathing. Otherwise should wear [id number] including sleep. f/u in [facility] office in 2 weeks for recheck. (3) Head trauma: Plan: 2nd to fall -- he fell about [address] head negative Subconjunctival hemorrhage on left - no Rx, reassurance given Bruise/abrasion right scalp Bruising around left eye Symptomatic care (4) Elevated CPK: Plan: 2nd to fall. Minimal elevation (<1000). Minimal rise overnight. Reasonable to cont statin since the CPK is not that high. (5) Thoracic compression fracture: Plan: T1, T3, T4 T1 is acute; T3, T4 may be chronic Most recent 25-OH vit D level 75 in late November. Cont tylenol 1gm TID scheduled. Cont oxycodone prn. Consider lidoderm patches. Consider calcitonin nasal spray. (6) HTN (hypertension): Plan: Controlled. Continue metoprolol succinate 100 mg p.o. nightly Continue Bumex and spironolactone at home doses (7) Atrial fibrillation: Plan: Permanent. Controlled. Continue metoprolol succinate 100mg p.o. nightly. Hold Eliquis for now given his trauma and injuries. (8) CKD (chronic kidney disease) stage 3, GFR 30-59 ml/min: Plan: Patient follows with nephrology. Baseline creatinine 1.4-1.6. Cr today 1.1. Repeat BMP am. (9) Hypothyroidism: Plan: TSH 4.4 Continue Synthroid 25 mcg p.o. daily (10) Dyslipidemia: Plan: CPK is minimally elevated Reasonable to continue statin (11) Acid reflux disease: Plan: Continue Protonix 40 mg p.o. twice daily (12) BPH with obstruction/lower urinary tract symptoms: Plan: No issues at this time (13) Obstructive sleep apnea treated with BiPAP: Plan: BIPAP (14) Anemia: Plan: top-normal MCV check b12/folate check Fe studies to be complete Plan updated at bedside if he has a good night, pain is controlled, and continues to do well with walking/therapy - can likely d/c home tomorrow again f/u Dr Baxter in 2 weeks cont [place] J collar Admission and Anticipated Discharge Date Admission Date: December 18, 2021 Subjective saw patient twice today during AM rounds patient had just seen Dr Baxter & [place] hCairez moving forward he will need [place] J collar for acute ligamentous injury at C7-T1 he can weight bear as tolerated main complaint is that of lower neck pain/mid-back pain appetite fair no other complaints at bedside Review of Systems Review of Systems: cv - no chest pain pulm - no dyspnea or cough GI - no abd pain, nausea, emesis - no LUTs neuro - no arm or leg weakness; no paresthesias of arms Physical Exam Physical Exam: gen - obese, NAD neck - in c-collar mouth - MMM heart - irregular, s1 s2, no murmur lungs - CTA b/l abd - soft NT ND BS+ ext - no edema, pulses 2+ b/l neuro - strength 5/5 x 4 extremities eyes - subjunctival hemorrhage left eye skin - bruising medial aspect of L eye; large bruise/abrasion right scalp region Results & Data Results & Data ([facility]) Vital Signs (Past 12 Hours) Vital Signs Temp Pulse Resp BP Pulse Ox O2 Del Method 12/18/21 08:32 37.1 C 77 18 164/74 H 95 Room Air Laboratory Results Laboratory Results - last 24 hr 12/17/21 12/17/21 12/17/21 17:03 17:03 22:51 WBC RBC Hgb Hct MCV MCH MCHC RDW Std Deviation RDW Coeff of Magan Plt Count MPV Sodium Potassium Chloride Carbon Dioxide Anion Gap BUN Creatinine Est Cr Clr Drug Dosing Est GFR ( Amer) Est GFR (Non-Af Amer) BUN/Creatinine Ratio Glucose Calcium Magnesium Total Creatine Kinase 551 H TSH 4.450 SARS-CoV-2, RNA, NAAT NEGATIVE 10/18/22 10/18/22 11:19 11:19 WBC 5.95 RBC 3.40 L Hgb 10.6 L Hct 32.2 L MCV 94.7 MCH 31.2 MCHC 32.9 RDW Std Deviation 45.8 RDW Coeff of Magan 13.2 Plt Count 142 MPV 10.3 Sodium 139 Potassium 4.0 Chloride 101 Carbon Dioxide 31 Anion Gap 7 BUN 25 H Creatinine 1.10 Est Cr Clr Drug Dosing 85.6 Est GFR ( Amer) 75.7 Est GFR (Non-Af Amer) 65.3 BUN/Creatinine Ratio 22.7 H Glucose 101 H Calcium 9.2 Magnesium 2.0 Total Creatine Kinase 620 H TSH SARS-CoV-2, RNA, NAAT PG Care Time/CCT Total # of Minutes Spent Total Time Spent with Patient: Total time spent is greater than 50% in coordination of care (as documented) at patient's floor/unit and/or counseling patient: Coding Level of Care Code 95599 Subseq Obs Care Lvl 3 Diagnoses Fall W19.XXXA Neck injury S19.9XXA Head trauma S09.90XA Elevated CPK R74.8 Thoracic compression fracture S22.000A HTN (hypertension) I10 Atrial fibrillation I48.91 CKD (chronic kidney disease) stage 3, GFR 30-59 ml/min N18.3 Hypothyroidism E03.9 Dyslipidemia E78.5 Acid reflux disease K21.9 BPH with obstruction/lower urinary tract symptoms N40.1; N13.8 Obstructive sleep apnea treated with BiPAP G47.33 Anemia D64.9
[2021-12-18] MEDS ORDERED: ATORVASTATIN 20 MG TAB PO SCH (21:00)
[2021-12-18] MEDS ORDERED: METOPROLOL SUCC 50MG EXT REL TAB PO SCH (21:00)
[2021-12-19] MEDS: oxyCODONE/ACETAMINOPHEN 5mg/325mg TAB PO PRN ×2 (03:23→08:44)
[2021-12-19] MEDS: LEVOTHYROXINE SODIUM 25 MCG TABLET PO SCH (05:53)
[2021-12-19] MEDS: BUMETANIDE 1 MG TAB PO SCH (05:55)
[2021-12-19 07:09] LABS: Hemoglobin 10.5 g/dl (14.0-18.0); Mean Corpuscular Hemoglobin 31.4 pg (25.0-34.0); Mean Corpuscular Hgb Conc 32.8 g/dL (32.0-36.0); Mean Corpuscular Volume 95.8 fL (80.0-100.0); Mean Platelet Volume 10.7 fL (9.4-12.4); Platelet Count 159 K/uL (130-400); RDW Coefficient of Variation 13.2 % (11.5-14.5); RDW Standard Deviation 46.8 fL (36.4-46.3); Red Blood Count 3.34 M/uL (4.63-6.08); White Blood Count 5.71 K/ul (4.8-10.8)
[2021-12-19 07:36] LABS: BUN Creatinine Ratio 23.5 (10-20); Calcium 9.1 mg/dl (8.5-10.1); Creatinine Clr Calc Pharmacy 81.9 ml/min; Est GFR (African American) 71.7 ml/min; Est GFR (Non-African American) 61.9 ml/min; Potassium 4.2 mmol/L (3.5-5.1)
[2021-12-19 07:45] LABS: Ferritin 128.1 ng/ml (8-388)
[2021-12-19 07:49] LABS: Folate (Folic Acid) 15.84 ng/ml (>5.38)
[2021-12-19] MEDS: POTASSIUM CHLORIDE CRTAB 20 MEQ TABCR PO SCH (08:45)
[2021-12-19] MEDS: ACETAMINOPHEN 500 MG TAB PO SCH ×2 (08:45→14:07)
[2021-12-19] MEDS: PANTOprazole 40 MG TAB PO SCH (08:45)
[2021-12-19] MEDS: SERTRALINE HCL 50 MG TABLET PO SCH (08:45)
[2021-12-19] MEDS: SPIRONOLACTONE 25 MG TAB PO SCH (08:45)
[2021-12-19] MEDS: FLUTICASONE PROPIONATE NA SPR 16 GM BTL SCH (08:46)
--- NOTE | 2021-12-19 08:51 | Hospitalist Progress Note ---
Date of Service December 19, 2021 Assessment & Plan (1) Fall: Plan: Fall from approximately 4 to 5 foot height with associated head trauma and T1 vertebral compression fracture, C7-T1 ligamentous injury, etc. Continue to hold apixaban. PT, OT evals. Pain meds. Ortho-spine consult appreciated. (2) Neck injury: Plan: 2nd to fall. Acute T1 compression fracture. T3/T4 compression fractures likely old. Has C7-T1 acute ligamentous injury as well. Seen by Dr Baxter, ortho-spine. Cervical collar immobilization advised due to the acute ligamentous injury. [place] J collar to be worn at all times except for meals and dressing/bathing. Otherwise should wear [id number] including sleep. f/u in [facility] office in 2 weeks for recheck. (3) Head trauma: Plan: 2nd to fall -- he fell about [address] head negative Subconjunctival hemorrhage on left - no Rx, reassurance given Bruise/abrasion right scalp Bruising around left eye Symptomatic care (4) Elevated CPK: Plan: 2nd to fall. Minimal elevation (<1000). Minimal rise overnight. Reasonable to cont statin since the CPK is not that high. (5) Thoracic compression fracture: Plan: T1, T3, T4 T1 is acute; T3, T4 may be chronic Most recent 25-OH vit D level 75 in late November. Cont tylenol 1gm TID scheduled. Cont oxycodone prn. Consider lidoderm patches. Consider calcitonin nasal spray. (6) HTN (hypertension): Plan: Controlled. Continue metoprolol succinate 100 mg p.o. nightly Continue Bumex and spironolactone at home doses (7) Atrial fibrillation: Plan: Permanent. Controlled. Continue metoprolol succinate 100mg p.o. nightly. Hold Eliquis for now given his trauma and injuries. (8) CKD (chronic kidney disease) stage 3, GFR 30-59 ml/min: Plan: Patient follows with nephrology. Baseline creatinine 1.4-1.6. Cr today 1.1. Repeat BMP am. (9) Hypothyroidism: Plan: TSH 4.4 Continue Synthroid 25 mcg p.o. daily (10) Dyslipidemia: Plan: CPK is minimally elevated Reasonable to continue statin (11) Acid reflux disease: Plan: Continue Protonix 40 mg p.o. twice daily (12) BPH with obstruction/lower urinary tract symptoms: Plan: No issues at this time (13) Obstructive sleep apnea treated with BiPAP: Plan: BIPAP (14) Anemia: Plan: top-normal MCV check b12/folate check Fe studies to be complete Plan updated at bedside if he has a good night, pain is controlled, and continues to do well with walking/therapy - can likely d/c home tomorrow again f/u Dr Baxter in 2 weeks cont [place] J collar Admission and Anticipated Discharge Date Admission Date: December 18, 2021 Subjective Seen this morning with at bedside. Collar uncomfortable due to "not having chin". No increased UE weakness. Chroinc issues RUE due to rotator cuff. No numbness/tingling. Will see about different size collar for comfort but if able to obtain will plan sending home today with pain control and outpatient ortho follow up. at bedside wondering when Dr Baxter will be around. Will message but discussed Dr Baxter may not have planned on stopping by. No issues with swallowing. No CP/SOB, abd pain, nausea or vomiting at this time. Questions/concerns addressed. Review of Systems Review of Systems: All systems reviewed & are unremarkable except as noted in HPI & below Results & Data Results & Data ([place]) Vital Signs (Past 12 Hours) Vital Signs Temp Pulse Pulse Resp BP Pulse Ox O2 Del Method 12/19/21 07:39 36.2 C L 74 18 125/69 95 Room Air 12/18/21 22:38 71 19 95 FiO2 12/19/21 07:39 12/18/21 22:38 21 PG Care Time/CCT Total # of Minutes Spent Total Time Spent with Patient: Total time spent is greater than 50% in coordination of care (as documented) at patient's floor/unit and/or counseling patient: Coding Diagnoses Fall W19.XXXA Neck injury S19.9XXA Head trauma S09.90XA Elevated CPK R74.8 Thoracic compression fracture S22.000A HTN (hypertension) I10 Atrial fibrillation I48.91 CKD (chronic kidney disease) stage 3, GFR 30-59 ml/min N18.3 Hypothyroidism E03.9 Dyslipidemia E78.5 Acid reflux disease K21.9 BPH with obstruction/lower urinary tract symptoms N40.1; N13.8 Obstructive sleep apnea treated with BiPAP G47.33 Anemia D64.9
[2021-12-19] MEDS: modafiniL 100 MG TAB PO SCH (09:34)
--- NOTE | 2021-12-19 13:58 | Discharge Summary ---
Date of Service December 19, 2021 Admission HPI Per Admitting Provider Daniel Lopez is a 76yo male with history of atrial fibrillation on Apixaban anticoagulation presenting after a fall at home. Patient was doing some yard work - he recently had a tree cut down in his yard and he was walking around the area when his feet became tangled in some felisa and he fell into a ditch. The and patient report that the fall was approximately 4-5 feet height. The ditch was packed dirt. Patient struck the right side of his forehead. He denies LOC. Denies chest pain, SOB, palpitations. No focal numbness/tingling or weakness. He did have immediate discomfort in his back between his shoulder blades. He was unable to get up for a while and crawled through the ditch until he could prop himself up using a stick. His was then able to find him and help him. Patient came to the ER for persistent severe pain between his shoulders. No additional complaints at this time. In the ER patient afebrile, HD stable Received multiple rounds of pain medication ER Course: TDap vaccine, Fentanyl 50mcg, Zofran 4mg, Dilaudid 0.5mg x 3 doses Admission Exam Per Admitting Provider General: patient in moderate amount of pain, NAD, non-toxic in appearance, AA&O x 4 Skin: abrasion present right frontal bone with significant swelling HEENT: swelling of right frontal bone, swelling of left eye with subconjunctival hemorrhage, PERRL, EOMI, anicteric sclera, external ear normal to inspection and nontender, nares patent, moist mucus membranes, dentition intact, no oropharyngeal lesions, neck supple, trachea midline, no LAD, no thyromegaly, no JVD Heart: +S1/S2, regular, no m/r/g, no bruising Lungs: equal air entry bilaterally, no rales/rhonchi/wheezes Abd: +BS, soft, NT/ND, no masses/organomegaly/ascites, no bruising, swelling or deformity of anterior abdomen or flanks Ext: warm, 2+ pulses in UE/LE bilaterally, no clubbing/cyanosis or edema, joints nontender, no deformity, full ROM of wrists, elbows, shoulders, hips, knees and ankles Neuro: nonfocal, patient AA&O x 4, speech intact, no facial droop, moving all extremities on command with equal strength 5/5 Principal Diagnosis T1 vertebral compression fracture, Epidural Hematoma Discharge Exam General: WD/WN male laying flat in bed, attempting to reposition himself in bed, at bedside, NAD HEENT: head normocephalic, abraisian R frontal bone, nontender, no significant swelling, medial brusing to L eye thoracic vertebra tender to palpation, no erythema/warmth Resp: CTAB, no w/c, on room air 95%, no stridor CV: irregularly irregular (rate 70bpm), no m/r/g, no edema GI: +BS, soft, nontender : no cooper MSK/Neuro: moves all extremities, strength 5/5 throughout, slight weakness with raising RUE above head (reports chroinc, rotator cuff issues) Psych: alert, oriented x 3, pleasant and cooperative Discharge Data Allergies Allergy/AdvReac Type Severity Reaction Status Date / Time clindamycin Allergy Intermediate rash Verified 12/18/21 00:30 iodine Allergy Intermediate topical Verified 12/18/21 00:30 iodine- swelling at site trospium AdvReac Intermediate "sick"/head Verified 12/18/21 00:30 ache Latex, Natural Rubber AdvReac Swelling Verified 12/18/21 03:00 of Lip/Tongue/Throat Consultations 12/17/21 23:42 ED Decision to Admit Stat 12/18/21 01:39 Consult Orthopedic Surgery Routine Ordered Studies Cervical Spine CT 12/17/21 16:05 CT SCAN OF THE CERVICAL SPINE CLINICAL HISTORY: Fall. Neck pain. COMPARISON STUDY: MRI of the cervical spine dated 05/19/2019. TECHNIQUE: CT scan of the cervical spine is performed from the skull base to the upper thoracic spine. Images are reviewed in the axial, sagittal, and coronal planes. IV contrast was not administered for this examination. A dose lowering technique was utilized adhering to the principles of ALARA. FINDINGS: Skeletal structures: The skeletal structures are osteopenic. There is no evidence of fracture or subluxation involving the cervical spine. Vertebral body height and alignment are maintained. There is postoperative change from anterior fusion seen from C3-C7. There is straightening of the cervical lordosis. The odontoid process and lateral masses are intact. The atlantoaxial articulation is preserved noting mild productive degenerative change. The spinous processes appear intact. Intervertebral discs: There has been discectomy at C4-C5, C5-C6, and C6-C7. There is severe disc space narrowing at C3-C4. Central canal: Grossly patent. Soft tissues: The prevertebral and paraspinous soft tissues are within normal limits. Calvarium: The visualized calvarium at the skull base appears intact. Brain parenchyma: Partially visualized brain parenchyma at the skull base is within normal limits. Sinuses and mastoids: The visualized paranasal sinuses are clear. The mastoid air cells are well pneumatized. Lung apices: Clear as visualized. IMPRESSION: 1. There is no evidence of fracture or subluxation involving the cervical spine. 2. Osteopenia with postsurgical and spondylotic change as above. ACT 112: Negative or not required by law. Electronically signed by: Robles Diez M.D. 12/17/2021 4:[address] 12/17/21 16:05 CT head/brain wo con CLINICAL HISTORY: Fall, head injury, on Eliquis Technique: Contiguous axial CT images of the head were acquired from the base of the skull to the vertex without intravenous contrast administration. Images were viewed in brain, subdural and bone windows. Automated dose lowering techniques and/or adjustment according to patient size were utilized for this exam. Comparison: Comparison is made to CT head 04/01/2019 Findings: The ventricles, basal cisterns, and cerebral sulci are normal. There is no acute intracranial hemorrhage or evidence of acute territorial infarction. Neither mass effect, shift of the midline structures, nor abnormal extra-axial fluid collections are shown. Imaged portions of the paranasal sinuses and mastoid air cells are clear. The orbits appear normal. There are no acute fractures of the calvaria. Scalp swelling is seen in the right sided soft tissues with some subcutaneous emphysema and a laceration near the vertex. Impression: No acute intracranial hemorrhage or skull fractures. Scalp swelling is seen in the right-sided soft tissues. ACT 112: Negative or not required by law. Electronically signed by: Rajinder Cordero M.D. 12/17/2021 4:[address] 12/17/21 16:21 CT facial bones wo con CLINICAL HISTORY: Fall TECHNIQUE: Multidetector row helical CT of the maxillofacial bones was performed without administration of intravenous contrast, and processed with bone and soft tissue algorithms. Coronal and sagittal reformations were obtained. Automated dose lowering techniques and/or adjustment according to patient size were utilized for this exam. Comparison: None available at the time of this dictation. FINDINGS: Nasal bones are normal. The mandible is intact. The temporomandibular joints are anatomically aligned. Pterygoid plates are intact. Zygomatic arches are intact. The globes are normal and symmetric, without proptosis, obvious disruption or lens dislocation. There is no orbital radiopaque foreign body. The orbital cox are intact. The retrobulbar fat is without evidence of disruption. Extraocular muscles are normal and symmetric. Optic nerve sheath complexes are normal in course and caliber. Mucous retention cyst is seen on the right. IMPRESSION: Soft tissue swelling is seen in the right outer. No acute fracture is seen. Sinus disease is noted. ACT 112: Negative or not required by law. Electronically signed by: Rajinder Cordero M.D. 12/17/2021 4:[address] 12/17/21 16:21 CT SCAN OF THE THORACIC SPINE WITHOUT IV CONTRAST CLINICAL HISTORY: Fall. Thoracic back pain. COMPARISON STUDY: No priors. TECHNIQUE: CT scan of the thoracic spine is performed from the lower cervical spine to the upper lumbar spine. Images are reviewed in the axial, sagittal, and coronal planes. IV contrast was not administered for this examination. A dose lowering technique was utilized adhering to the principles of ALARA. CT DOSE: 3219.56 mGy.cm FINDINGS: The skeletal structures are osteopenic. There is no evidence of fracture or malalignment involving the thoracic spine. Vertebral body height and alignment are maintained. Fusion hardware is noted in the lower cervical spine. The transverse and spinous processes appear intact. Small anterior osteophytes are seen throughout. There is mild hyperkyphosis of the thoracic spine. No lytic or blastic lesion is seen. The disc spaces are preserved. The central canal is grossly clear. The paraspinous soft tissues are within normal limits. The visualized posterior ribs appear intact. Imaged lung parenchyma is clear noting foci of parenchymal scarring/atelectasis. Calcified right hilar lymph nodes are incidentally noted. IMPRESSION: There is no evidence of fracture or malalignment involving the thoracic spine. ACT 112: Negative or not required by law. Dictated: 12/17/2021 4:55 PM Transcribed: 12/17/2021 5:22 PM [facility] [id number] Electronically signed by: Robles Diez M.D. 12/17/2021 5:36 PM Shoulder X-Ray 12/17/21 16:50 LEFT SHOULDER 3 VIEWS CLINICAL HISTORY: Fall. Left shoulder pain. FINDINGS: 3 views of the left shoulder are obtained. No prior studies are available for comparison at the time of dictation. The skeletal structures are osteopenic. There is no radiographic evidence of left shoulder fracture or dislocation. Mild degenerative change is seen at the glenohumeral and acromioclavicular joints. The overlying soft tissues are within normal limits. Visualized left lung parenchyma appears clear. Surgical clips project over the lower neck. IMPRESSION: No acute bony abnormality is identified. Electronically signed by: Robles Diez M.D. 12/17/2021 5:15 PM Cervical Spine MRI 12/17/21 18:17 CLINICAL HISTORY: Fall, inferior posterior neck pain TECHNIQUE: MRI of the cervical spine is performed utilizing various T1 and T2 sequences in the axial and sagittal planes. IV contrast was not administered for this examination. Comparison: Comparison is made to CT cervical spine 12/17/2021 FINDINGS: Exam is limited by patient motion. Anterior cervical fixation hardware is seen spanning C3-C7. C2-C3: Posterior disc bulge results in moderate bilateral neural foraminal stenosis. There is mild canal stenosis. C3-C4: Posterior disc bulge results in moderate bilateral neural foraminal stenosis. No significant canal stenosis. C4-C5: Posterior disc bulge results in mild bilateral neuroforaminal stenosis. C5-C6: There is up to moderate to severe neuroforaminal stenosis bilaterally. C6-C7: Moderate bilateral neuroforaminal stenosis. C7-T1: Unremarkable. Edema is noted in the posterior ligaments and musculature of the neck and visualized thoracic spine. The spinal cord is normal in signal intensity and there is no evidence of cord edema. There is no evidence of an extradural, intradural, extramedullary or intramedullary lesion. There is edema in the superior aspect of the T1 vertebral body. Visualized brain parenchyma is normal. IMPRESSION: 1. Edema throughout the posterior ligaments and musculature of the spine concerning for acute injury. Edema in the superior aspect of T1 is concerning for subtle compression fracture. 2. Degenerative changes of the spine without evidence of acute injury. ACT 112: Negative or not required by law. Electronically signed by: Rajinder Cordero M.D. 12/18/2021 8:24 AM ADDENDUM ADDENDUM: In addition to the above findings, there is an epidural hematoma seen posteriorly at C7-T2. This effaces the posterior aspect of the thecal sac and causes mild to moderate effacement of the spinal cord at C7-T1. The minimum AP canal diameter at this level measures 6 mm. There is focal disruption of the posterior longitudinal ligament at C7-T1 as well as the ligamentum flavum at this level. This is best seen on sagittal image #9. There is evidence of interspinous ligament injury at C6-C7 and C7-T1. Findings of epidural hematoma were discussed with Dr. Baxter on 12/19/2021 at 13:30. Electronically signed by: Robles Diez M.D. 12/19/2021 1:35 PM ADDENDUM END Chest CT 12/17/21 21:40 CT chest diagnostic wo con CT DOSE: 1187.05 mGy.cm CLINICAL HISTORY: 76 years-old Male with fall, upper back pain, scapular region pain. Acute chest and upper back pain status post fall TECHNIQUE: Multiaxial CT images of the chest were performed without contrast. A dose lowering technique was utilized adhering to the principles of ALARA. COMPARISON: MRI cervical spine and CT thoracic spine studies of same day FINDINGS: Unremarkable thyroid. Mild nonspecific mediastinal lymphadenopathy includes a 1.3 cm paratracheal lymph node on image 122. Borderline enlarged hilar lymph nodes. Moderate cardiomegaly without pericardial effusion. Mild coronary artery calcifications. No thoracic aortic aneurysm. There is no pneumothorax, or pleural effusion. Intralobular septal thickening with mild dependent bibasilar groundglass opacities. Bronchial wall thickening. There are no suspicious pulmonary nodules or masses identified. Low suspicion 4 mm solid nodule of the lingula, image 167. Central airways are patent. Calcific granulomata of the spleen. Edema within the posterior paraspinal soft tissues of the lower cervical spine is partially imaged. Partially imaged fusion hardware with discectomy changes of the cervical spine. Subtle acute superior endplate compression deformity of the T1 vertebral body resulting in less than 20% vertebral body height loss and no retropulsion. Minimal superior endplate compression of the T3 and T4 vertebral bodies without retropulsion. 3 mm anterolisthesis C7 on T1. IMPRESSION: 1. Acute T1 superior endplate compression deformity without retropulsion is redemonstrated. Minimal superior endplate compression at T3 and T4 without retropulsion are compatible with age-indeterminate fractures. 2. 3 mm anterolisthesis C7 on T1 is suspicious for an associated acute ligamen tous injury. This finding was called/faxed to the floor at time of dictation. 3. No pneumothorax. 4. Cardiomegaly with mild pulmonary edema and bibasilar atelectasis. 5. Partially imaged paravertebral edema of the lower cervical spine is better appreciated on the MRI cervical spine study of same day. ACT 112: Negative or not required by law. Electronically signed by: Jasmeet Huertas M.D. 12/18/2021 7:59 AM Cervical Spine X-Ray 12/18/21 07:50 XR cervical spine 2 or 3V CLINICAL HISTORY: neck pain TECHNIQUE: 3 images of the cervical spine were obtained. COMPARISON: None available at the time of this dictation. FINDINGS: No fractures or subluxations are identified. Anterior cervical fusion hardware is seen. The alignment is anatomic. Prevertebral soft tissues are within normal limits. IMPRESSION: No evidence for acute fracture or subluxation. ACT 112: Negative or not required by law. Electronically signed by: Rajinder Cordero M.D. 12/18/2021 9:15 AM Hospital Course (1) Fall: Fall from approximately 4 to 5 foot height with associated head trauma and T1 vertebral compression fracture, C7-T1 ligamentous injury, etc. after working in his yard/tree cutting [employer] placed on hold on admission CT head negative for bleed PT, OT evals-- 24h care with Pain control Dr Baxter consulted -- conservative, [place] collar, multiple sizes provided for comfort -- comfortable in the small size after medium slightly too big still (large had been up to his nose) F/U Dr Baxter in 2 weeks for repeat imaging/treatment Discussed with ortho and to hold Eliquis for another 48 hours, then can resume Was waiting to hear back from Dr Baxter regarding therapy restrictions for Mr Lopez for his rotator cuff of his RUE and had been following with Dr Flores and doing therapy at [facility] outpatient Prior to discharge, contacted by radiology regarding addendum to prior MRI c ervical spine, which noted epidural hematoma seen posteriorly at C7-T2, effaces posterior aspect of thecal sac and causes mild-moderate effacement of spinal cord at C7-T1. These findings were discussed with Dr Baxter, who was planning to see patient prior to discharge to discuss findings/further recommendations -- Seen and ok with discharge and warning signs discussed with patient to return to ER if occur Would in light of new findings, extend holding his eliquis for a week to ensure improvement and resume after a week. 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 Agreed that only difference inpatient is monitoring for any symptoms of worsening that would require surgery but that they can also monitor at home. agreeable to patient's wishes and discharge being arranged for this evening. (2) Neck injury: 2nd to fall. Acute T1 compression fracture. T3/T4 compression fractures likely old. Has C7-T1 acute ligamentous injury as well. Seen by Dr Baxter, ortho-spine. Cervical collar immobilization advised due to the acute ligamentous injury. [place] J collar to be worn at all times except for meals and dressing/bathing --> multiple sizes tried prior to finding small which was comfortable Otherwise should wear [id number] including sleep f/u in [facility] Ortho office in 2 weeks for recheck (3) Epidural hematoma: 2nd to fall/trauma on anticoagulation eliquis placed on hold -- to continue to hold for 1 week per discussion with Dr Baxter Close f/u and monitoring for any worsening symptoms to return to ER for possible need for surgery (prior had neck surgery with Dr Baxter in past) (4) Head trauma: 2nd to fall -- he fell about [address] head negative Subconjunctival hemorrhage on left - no Rx, reassurance given Bruise/abrasion right scalp Bruising around left eye Symptomatic care (5) Elevated CPK: 2nd to fall. Minimal elevation (<1000). Minimal rise overnight, improved Reasonable to cont statin since the CPK is not that high. (6) Thoracic compression fracture: T1, T3, T4 T1 is acute; T3, T4 may be chronic Most recent 25-OH vit D level 75 in late November. Cont tylenol 1gm TID scheduled. Cont oxycodone prn. Consider lidoderm patches, however reports pain controlled. Can obtain OTC lidocaine patches if needed at d/c Considered calcitonin nasal spray. (7) HTN (hypertension): Controlled. 124/75 Continued metoprolol succinate 100 mg p.o. nightly. Continued bumex, spironolactone (8) Atrial fibrillation: Permanent. Controlled. Continued metoprolol succinate 100mg p.o. nightly. Hold Eliquis for now given his trauma and injuries --> discussed with orthopedics and to hold for 48 hours initially, however now with epidural hematoma and rec'd to hold for ONE WEEK prior to resuming HR well controlled (9) CKD (chronic kidney disease) stage 3, GFR 30-59 ml/min: Patient follows with nephrology. Baseline creatinine 1.4-1.6. Cr remained stable on repeat (10) Hypothyroidism: TSH 4.4 Continued Synthroid 25 mcg p.o. daily (11) Dyslipidemia: CPK is minimally elevated Reasonable to continue statin (12) Acid reflux disease: Continued Protonix 40 mg p.o. twice daily (13) BPH with obstruction/lower urinary tract symptoms: No issues at this time (14) Obstructive sleep apnea treated with BiPAP: BIPAP (15) Anemia: top-normal MCV B12/folate/iron studies unremarkable F/u PCP, possible rec to hematology in outpatient setting. would ensure UTD on screenings Plan updated at bedside, hopeful d/c this afternoon after attempting to find more comfortable fitting collar for discharge. Total Time Total Time Spent Total Time Spent (In Minutes): 70 Discharge Plan Discharge Items Patient Disposition: Home - Self-Care Reason For Visit: FALL, T1 FRACTURE Discharge Diagnosis: Fall, Compression Fracture Condition on Discharge: Good Activity: As commented below Lifting: No more than 5 pounds Non-emergency contact: Primary Care Provider and Surgeon Call non-emergency contact if: you have any medication questions, your symptoms worsen and your pain is concerning for you Follow-up/Referrals: Elgin Baxter DO [Surgeon] - 01/08/22 10:50 am (APPT WITH LILI MONTENEGRO PA-C) iHtesh Flores MD [Surgeon] - (2 weeks) Shunk,Ervin R., DO [Primary Care Provider] - 12/26/21 2:45 pm (APPT WITH CAPRICE CHAUDHARI) Diet: Carb Consistent or DM2 and Heart Healthy Addtl Attending Provider Instructions: You have been hospitalized for a fall and subsequent injury to the neck. Dr Baxter from orthopedic spine was consulted and they are recommending conservative treatment with a [place] J collar to be worn at all times with exception of bathing or eating. You should not lift anything greater than 5 pounds. They would like you to follow up in their office for repeat imaging to ensure healing. Per Orthopedics, they would like you to continue to hold your Eliquis for A WEEK (6 more days) given small amount of bleeding on MRI to area of your spine. Monitor for any increased weakness or pain once resumed. You will be sent home with some oxycodone for breakthrough pain but can continue Tylenol as needed for non-severe pain. As discussed, you can try over the counter pain patches for additional pain relief if needed. You should continue to hold any therapy for your rotator cuff with Dr Flores until repeat imaging with Dr Baxter is completed as an outpatient to prevent any worsening/issues with your fracture to your spine. You should follow up with your primary care provider in the next 7-10 days to monitor your progress after discharge. Please return to the ER with any repeat falls/head trauma, chest pain, shortness of breath, or for any other symptoms concerning for you. Pending Studies at Discharge: No Stand-Alone Forms: My [facility] [place], Smoking Cessation Medications and DC Order Prescriptions: Continued [place] DHA 92 mg (43 mg-22 [id number]) tablet,chewable 92 mg PO QAM fluticasone propionate 50 mcg/actuation spray,suspension 1 sprays INTNAS BID levothyroxine [Synthroid] 25 mcg tablet 25 mcg PO DAILYBB Qty: 90 3RF apixaban 5 mg tablet 5 mg PO BID Qty: 180 3RF modafinil [Provigil] 200 mg tablet 400 mg PO QAM Qty: 180 3RF pantoprazole [Protonix] 40 mg tablet,delayed release (DR/EC) 40 mg PO BID Qty: 180 3RF metoprolol succinate [Toprol XL] 100 mg tablet extended release 24 hr 100 mg PO HS Qty: 90 3RF atorvastatin 20 mg tablet 20 mg PO HS Qty: 90 3RF potassium chloride 20 mEq tablet,ER particles/crystals 20 meq PO BID Qty: 180 1RF silodosin [Rapaflo] 4 mg capsule 4 mg PO HS Qty: 90 3RF Rx Instructions: Take with food albuterol sulfate [Ventolin HFA] 90 mcg/actuation HFA aerosol inhaler 2 puff INH Q4H PRN (Reason: shortness of breath) Qty: 3 3RF coenzyme Q10 [CoQ-10] 100 mg capsule 100 mg PO QAM bumetanide 2 mg tablet 2 mg PO QAM Qty: 90 3RF fluocinonide 0.05 % cream 1 applic topical BID PRN (Reason: Rash) Rx Instructions: Apply to areas of the trunk and arms twice daily x 2 weeks as directed. multivitamin Tablet 1 tab PO QAM spironolactone 25 mg tablet 25 mg PO QAM sertraline 50 mg tablet 50 mg PO QAM carboxymethylcellulose sodium 1 % Drops, Liquid Gel 1 drp OPB DIRECTED PRN (Reason: Dry Eyes) oxycodone-acetaminophen 5-325 mg tablet 1 - 2 tab PO .Q4h-6h MDD 6 PRN (Reason: pain) Qty: 12 0RF Rx Instructions: Ongoing therapy, Dr. Mark supervising Discharge Orders: Discharge Order (Routine); Ordered 12/19/21 Ordered By: Patricia Choi Admission Data Admit Date/Time: 12/18/21 00:07 Attending Provider: Wilfrid Kahn Admit Provider: Nae Cuellar Primary Care Provider: Ervin Bobby Other Providers: Elgin Baxter ; Nae Cuellar Coding Level of Care Code D/C DAY MANAGEMENT >30 MINS Diagnoses Fall W19.XXXA Neck injury S19.9XXA Epidural hematoma S06.4XAA Head trauma S09.90XA Elevated CPK R74.8 Thoracic compression fracture S22.000A HTN (hypertension) I10 Atrial fibrillation I48.91 CKD (chronic kidney disease) stage 3, GFR 30-59 ml/min N18.3 Hypothyroidism E03.9 Dyslipidemia E78.5 Acid reflux disease K21.9 BPH with obstruction/lower urinary tract symptoms N40.1; N13.8 Obstructive sleep apnea treated with BiPAP G47.33 Anemia D64.9
== END 2021-12-19 18:53 | disposition home or self-care (01) ==
LOC: 3E 15:53 → ED 15:53 → SUATTDRO 12-18 00:07 → 3E 12-18 01:20
DX: I12.9 Hypertensive chronic kidney disease with stage 1 through stage 4 chronic kidney disease, or unspecified chronic kidney disease; Z79.890 Hormone replacement therapy; N40.1 Benign prostatic hyperplasia with lower urinary tract symptoms; Z91.041 Radiographic dye allergy status; I48.91 Unspecified atrial fibrillation; S00.01XA Abrasion of scalp, initial encounter; N18.30 Chronic kidney disease, stage 3 unspecified; E03.9 Hypothyroidism, unspecified; E78.5 Hyperlipidemia, unspecified; W17.2XXA Fall into hole, initial encounter; S06.4XAA Epidural hemorrhage with loss of consciousness status unknown, initial encounter; Z79.899 Other long term (current) drug therapy; S22.010A Wedge compression fracture of first thoracic vertebra, initial encounter for closed fracture; Z88.8 Allergy status to other drugs, medicaments and biological substances; S13.8XXA Sprain of joints and ligaments of other parts of neck, initial encounter; Z88.1 Allergy status to other antibiotic agents; K21.9 Gastro-esophageal reflux disease without esophagitis

== ENCOUNTER 2022-06-13 09:31 | Observation (INO) ==
--- NOTE | 2022-05-29 14:05 | PAT Medication Instructions ---
Medication Instructions Date of Service May 29, 2022 Home Medications Medication Instructions Recorded pantoprazole 40 mg tablet,delayed 40 mg PO BID #180 tabs 08/21/21 release (Protonix) metoprolol succinate 100 mg 100 mg PO HS #90 tabs 08/22/21 tablet,extended release 24 hr (Toprol XL) atorvastatin 20 mg tablet 20 mg PO HS #90 tabs 09/18/21 bumetanide 2 mg tablet 2 mg PO QAM #90 tabs 12/10/21 modafinil 200 mg tablet (Provigil) 400 mg PO QAM #180 tabs 12/20/21 silodosin 4 mg capsule (Rapaflo) 4 mg PO HS #90 caps 02/06/22 potassium chloride 20 mEq 20 meq PO BID #180 tabs 03/25/22 tablet,extended release(part/cryst) albuterol sulfate 90 mcg/actuation 2 puff inhalation Q4H PRN 03/26/22 aerosol inhaler (Ventolin HFA) shortness of breath #3 Inhalers fluticasone propionate 50 1 spray intranasal BID #3 Inhalers 03/26/22 mcg/actuation nasal spray,suspension sertraline 50 mg tablet 50 mg PO QAM #90 tabs 04/22/22 apixaban 5 mg tablet 5 mg PO BID #180 tabs 05/20/22 coenzyme Q10 100 mg capsule (CoQ-10) 200 mg PO QAM multivitamin 1 tab PO QAM fluocinonide 0.05 % topical cream 1 applic topical BID PRN pantoprazole 40 mg tablet,delayed release (Protonix) 40 mg PO BID metoprolol succinate 100 mg tablet,extended release 24 hr (Toprol XL) 100 mg PO HS atorvastatin 20 mg tablet 20 mg PO HS spironolactone 25 mg tablet 25 mg PO QAM bumetanide 2 mg tablet 2 mg PO QAM modafinil 200 mg tablet (Provigil) 400 mg PO QAM silodosin 4 mg capsule (Rapaflo) 4 mg PO HS potassium chloride 20 mEq tablet,extended release(part/cryst) 20 meq PO BID albuterol sulfate 90 mcg/actuation aerosol inhaler (Ventolin HFA) 2 puff inhalation Q4H PRN fluticasone propionate 50 mcg/actuation nasal spray,suspension 1 spray intranasal BID sertraline 50 mg tablet 50 mg PO QAM apixaban 5 mg tablet 5 mg PO BID Lactobacillus acidophilus-Bifidobac.animalis 2.5 billion cell capsule (Daily Probiotic) 2 cap PO QAM Prevagen 1 tab PO QAM levothyroxine 25 mcg tablet (Synthroid) 25 mcg PO QAM omega-3 fatty acids 200 mg PO QAM vibegron 75 mg tablet (Gemtesa) 75 mg PO QAM ASK your prescriber and surgeon apixaban 5 mg tablet 5 mg PO BID Prevagen 1 tab PO QAM STOP taking 2 weeks before surgery (or as soon as possible if surgery is within 2 weeks) coenzyme Q10 100 mg capsule (CoQ-10) 200 mg PO QAM omega-3 fatty acids 200 mg PO QAM STOP taking 24 hours before surgery fluocinonide 0.05 % topical cream 1 applic topical BID PRN DO NOT take the morning of surgery multivitamin 1 tab PO QAM spironolactone 25 mg tablet 25 mg PO QAM bumetanide 2 mg tablet 2 mg PO QAM modafinil 200 mg tablet (Provigil) 400 mg PO QAM potassium chloride 20 mEq tablet,extended release(part/cryst) 20 meq PO BID Lactobacillus acidophilus-Bifidobac.animalis 2.5 billion cell capsule (Daily Probiotic) 2 cap PO QAM vibegron 75 mg tablet (Gemtesa) 75 mg PO QAM Take morning of surgery With a small sip of water, OTHERWISE NOTHING TO EAT OR DRINK AFTER MIDNIGHT: pantoprazole 40 mg tablet,delayed release (Protonix) 40 mg PO BID albuterol sulfate 90 mcg/actuation aerosol inhaler (Ventolin HFA) 2 puff inhalation Q4H PRN(use if needed; please bring with you to hospital day of surgery if possible) fluticasone propionate 50 mcg/actuation nasal spray,suspension 1 spray intranasal BID sertraline 50 mg tablet 50 mg PO QAM levothyroxine 25 mcg tablet (Synthroid) 25 mcg PO QAM Take evening before surgery pantoprazole 40 mg tablet,delayed release (Protonix) 40 mg PO BID metoprolol succinate 100 mg tablet,extended release 24 hr (Toprol XL) 100 mg PO HS atorvastatin 20 mg tablet 20 mg PO HS silodosin 4 mg capsule (Rapaflo) 4 mg PO HS potassium chloride 20 mEq tablet,extended release(part/cryst) 20 meq PO BID albuterol sulfate 90 mcg/actuation aerosol inhaler (Ventolin HFA) 2 puff inhalation Q4H PRN(if needed) fluticasone propionate 50 mcg/actuation nasal spray,suspension 1 spray intranasal BID Other Notes If you have any questions please call us at [phone] or [phone] or [phone] or [phone]
--- NOTE | 2022-05-31 10:52 | Anesthesiology Consultation ---
Date of Service May 31, 2022 Assessment & Plan (1) Encounter for pre-operative examination: - COVID screening: Per assessment on 05/31: No known COVID-19 positive contacts or current COVID-19 related symptoms. Travel screen negative. Patient vaccinated. At surgeon discretion if preop Covid testing being done. - Check BSG AM DOS - S/P Right shoulder RCR with [employer], subacromial decompression (10/19/21): Grade view 1, MAC#4, ETT 8 + PNB at [facility] - Outpatient joint assessment: Pt currently scheduled for inpatient pathway. If surgeon requests review for outpatient joint pathway, patient is not recommended candidate for outpatient joint program from anesthesia standpoint. - Cardiology addendum (05/20/22): "This patient is an acceptable cardiac risk to undergo orthopedic surgery. He is on apixaban for his permanent atrial fibrillation. Would recommend stopping it in the 2 days prior to the date of surgery. No dose on day of surgery. Restart 24 hours after surgery if okay from an orthopedic and bleeding standpoint." - PCP visit (05/28/22): "Patient carries the following risks: ASA 3, ASCVD, anticoagulation, pAfib, Obesity, T2DM, HTN and advanced age. I reviewed the risks as outlined in the HPI with patient. He and his family voice understanding that he is above average risk and willing to proceed.. Patient is planned to undergo further evaluation with anesthesia for pre-operative examination. As long as there's no concerns on these diagnostics, from an Internal Medicine perspective, patient is considered ABOVE AVERAGE risk but ACCEPTABLE RISK to proceed with procedure. Case reviewed with Primary Care Physician Dr. Bobby." - Possible difficult intubation: significantly decreased cervical extension, hx ACDF Chart Review Chart Review: Acceptable Risk for Surgery (pending evaluation AM DOS) and Patient seen in Pre Admission Testing Teaching & Discussion Pre-Anesthesia Teaching/Discussion Notes: Instructed NPO after midnight before surgery,except medications with 15 cc of water. Medication instructions provided according to the PAT guidelines. History Surgery Operation Date: 06/13/22 12:10 Proposed Procedures p Right Total Shoulder Arthroplasty Reverse - Marc Mark MD Height/Weight Height: 6 ft 4 in Weight: 137.1 kg Allergies Allergy/AdvReac Type Severity Reaction Status Date / Time clindamycin Allergy Intermediate rash Verified 05/29/22 11:54 iodine Allergy Intermediate topical Verified 05/29/22 11:54 iodine- swelling at site trospium AdvReac Intermediate "sick"/head Verified 05/29/22 11:54 ache Medications Home Medications Medication Instructions Recorded Confirmed Last Taken coenzyme Q10 100 mg capsule 200 mg PO QAM 07/17/20 05/29/22 12/17/21 (CoQ-10) multivitamin 1 tab PO QAM 08/22/20 05/29/22 12/17/21 fluocinonide 0.05 % topical cream 1 applic topical BID PRN Rash 09/26/20 05/29/22 10/16/20 pantoprazole 40 mg tablet,delayed 40 mg PO BID #180 tabs 08/21/21 05/29/22 12/17/21 08:00 release (Protonix) metoprolol succinate 100 mg 100 mg PO HS #90 tabs 08/22/21 05/29/22 12/16/21 tablet,extended release 24 hr (Toprol XL) atorvastatin 20 mg tablet 20 mg PO HS #90 tabs 09/18/21 05/29/22 12/16/21 spironolactone 25 mg tablet 25 mg PO QAM 10/12/21 05/29/22 12/17/21 bumetanide 2 mg tablet 2 mg PO QAM #90 tabs 12/10/21 05/29/22 12/17/21 modafinil 200 mg tablet (Provigil) 400 mg PO QAM #180 tabs 12/20/21 05/29/22 Unknown silodosin 4 mg capsule (Rapaflo) 4 mg PO HS #90 caps 02/06/22 05/29/22 Unknown potassium chloride 20 mEq 20 meq PO BID #180 tabs 03/25/22 05/29/22 Unknown tablet,extended release(part/cryst) albuterol sulfate 90 mcg/actuation 2 puff inhalation Q4H PRN 03/26/22 05/29/22 Unknown aerosol inhaler (Ventolin HFA) shortness of breath #3 Inhalers fluticasone propionate 50 1 spray intranasal BID #3 Inhalers 03/26/22 05/29/22 Unknown mcg/actuation nasal spray,suspension sertraline 50 mg tablet 50 mg PO QAM #90 tabs 04/22/22 05/29/22 Unknown apixaban 5 mg tablet 5 mg PO BID #180 tabs 05/20/22 05/29/22 Unknown Lactobacillus 2 cap PO QAM 05/29/22 05/29/22 Unknown acidophilus-Bifidobac.animalis 2.5 billion cell capsule (Daily Probiotic) Prevagen 1 tab PO QAM 05/29/22 05/29/22 Unknown levothyroxine 25 mcg tablet 25 mcg PO QAM 05/29/22 05/29/22 Unknown (Synthroid) omega-3 fatty acids 200 mg PO QAM 05/29/22 05/29/22 Unknown vibegron 75 mg tablet (Gemtesa) 75 mg PO QAM 05/29/22 05/29/22 Unknown Past Medical History Medical History Acid reflux disease controlled Arteriosclerotic coronary artery disease Asthma Atrial fibrillation Follows with Dr. Atwood/MADONNA Cervical radiculopathy Cervical stenosis of spinal canal Chronic anemia Baseline hgb 10-11 range per chart review Chronic rhinitis CKD (chronic kidney disease) stage 3, GFR 30-59 ml/min Cognitive impairment Diabetic peripheral neuropathy associated with type 2 diabetes mellitus Diverticular disease DM type 2 (diabetes mellitus, type 2) Diet controlled ("no longer on meds") Dyslipidemia Dysphagia Hearing deficit b/l hearing aids HTN (hypertension) Hx of fall 12/2021, hit his head/T1 injury/torn ligaments > wore cervical collar x few months Hypothyroidism Narcolepsy "mild" Obesity Osteoarthritis Right ventricular systolic dysfunction Follows with Dr. Atwood/MADONNA Secondary hyperparathyroidism Sensorineural hearing loss of both ears Sleep apnea BIPAP (compliant) Venous insufficiency uses lymphadema pumps and DANY hose Exercise / Class Metabolic Activity III < 4 Walking/Shop/Light housework Past Family History Family History Mother Coronary heart disease Myocardial infarction Brother Diabetes Other No family history of adverse response to anesthesia No family history of bleeding disorder Denies family history of Ovarian cancer Prostate cancer Breast cancer Lung cancer Colorectal cancer Past Surgical History Surgical History History of carpal tunnel release History of cervical spinal surgery ACDF C3-C7 + hardware removal (06/17/17): Grade view 1, MAC#3, ETT 8.0 at [facility] History of colonoscopy 05/2019 Repeat 5 yrs History of esophagogastroduodenoscopy (EGD) History of repair of right rotator cuff Hx of cardiac catheterization 2002, no stents Hx of fusion of cervical spine x2 Hx of rotator cuff surgery R/L Right shoulder RCR with [employer], subacromial decompression (10/19/21): Grade view 1, MAC#4, ETT 8 + PNB at [facility] S/P knee surgery R/L Past Anesthesia History No Hx of Anesthesia Complications and No Family Hx of Anesthesia Complications History of PONV No Hx of PONV and No Hx of Motion Sickness Social History Smoking Status: Never smoker Do You Dip or Chew Tobacco: No Hx Alcohol Use: Yes Alcohol type: beer alcohol intake frequency: holidays/special occasions only Hx Substance Use: No substance use type: does not use Review of Systems Patient denies chest pain, shortness of breath, fever, chills, cough, wheezing, palpitations. Physical Exam Vital Signs VITALS BP 133/70 P 80 TEMP 97.8 SP02 98%RA RESP 18 PHYSICAL Decreased cervical extension range of motion. Full TMJ range of motion. TMD 3 finger breaths Mallampati Score 1 Dentition: upper/lower full dentures Lungs: clear throughout to auscultation Cardiac: regular rate,irregularly irregular rhythm, no murmurs noted Spine: normal Carotid arteries: negative bruit Extremities: no edema Lab Results Anesthesia Preop Results Results Anesthesia Widget: WBC 5.16 K/ul (4.8-10.8) 05/31/22 Hgb 11.6 g/dl (14.0-18.0) L 05/31/22 Hct 35.0 % (42.0-52.0) L 05/31/22 Plt 164 K/uL (130-400) 05/31/22 Na 139 mmol/L (136-145) 05/31/22 K 3.8 mmol/L (3.5-5.1) 05/31/22 Cl 103 mmol/L (98-107) 05/31/22 CO2 31 mmol/L (21-32) 05/31/22 BUN 29 mg/dl (6-23) H 05/31/22 Creat 1.33 mg/dl (0.6-1.4) 05/31/22 Glucose Level 102 mg/dl (70-99(Fasting)) H 05/31/22 PT 13.6 Seconds (9.0-12.0) H 05/31/22 PTT 40.7 Seconds (21.0-31.0) H 05/31/22 INR 1.3 (0.9-1.1) H 05/31/22 HA1c 5.6 % (4.5-5.6) 05/31/22 Blood Type A Positive 05/31/22 Antibody Screen NEGATIVE 05/31/22 Testing Electrocardiogram Date: 10/11/21 A. fib at 60bpm. iRBBB. Chest X-Ray Date: 05/31/22 FINDINGS: No pneumothorax. No pleural fusions. The correct silhouette remains mildly enlarged. This mild diffuse interstitial thickening, unchanged. This is likely chronic. No new focal lung consolidations identified to suggest a pneumonia. No evidence for pulmonary edema. Cervical spinal fusion hardware is noted. IMPRESSION: Stable mild cardiomegaly and mild chronic interstitial thickening. Otherwise, no acute process within the chest. Echocardiogram Date: 10/09/20 EF 55 to 60%. No regional motion abnormality. Mild concentric LVH. Mild to moderate RVD with mild to moderate right ventricular systolic dysfunction. Biatrial dilatation. Mild mitral and moderate tricuspid regurgitation. Moderately elevated RVSP. Elevated central venous pressure. Stress Test Date: 10/17/21 Type: DSE Negative dobutamine stress echo/ECG for myocardial ischemia 91% MPHR. No dobutamine induced chest pain. Rest echo: LVEF 50%. Mild concentric LVH. Borderline right ventricular dilatation with intact systolic function. Moderate left atrial and mild right atrial dilatation. Moderate TR. Mildly elevated estimated right ventricular systolic pressure. Cervical Spine C-spine CT (03/27/22) FINDINGS: Anterior cervical fixation hardware spans C3-C7. No acute fracture is seen. Chronic fracture of T1 is noted with anterior loss of height. Degenerative changes are seen in the visualized spine. The alignment is normal. Biapical scarring is seen. Surgical clips are noted in the left cervical soft tissues. IMPRESSION: No evidence of acute fracture. Old healed compression deformity of T1 is noted. COVID-19 Risk Screen Screening Information COVID-19 Screen Date: 05/31/22 Exposure 21 Days Family/Household +COVID Last 21 Days: No Exposure 10 Days Any COVID Exposure Last 10 Days: No Symptoms Last 10 Days Experienced COVID Sx Last 10 Days: No + COVID 0-90 Days COVID + in Last 0-90 Days: No
--- NOTE | 2022-06-12 11:03 | History & Physical Report ---
Date of Service June 12, 2022 Assessment & Plan (1) Rotator cuff arthropathy of right shoulder: Plan: Treatment options discussed with the patient. He has failed conservative measures. He would like to proceed with surgical intervention. Risks, benefits and alternatives to surgery including but not limited to infection, DVT, pain, stiffness, need for revision surgery, damage to blood vessels, damage to nerves, PE, , were discussed with the patient and they wish to proceed. Plan for right reverse total shoulder arthroplasty scheduled for June 13 at [facility] with Dr. Mark. All questions answered. Patient will follow-up postop. History of Present Illness Chief Complaint: Right shoulder pain Primary Care Provider: Ervin Bobby, 76yo male with PMHx significant for HTN, high cholesterol, afib, asthma, COPD, DM2, CKD, hypothyroid who presents with ongoing right shoulder pain. Patient u nderwent a previous rotator cuff repair last year. At some point postoperatively he suffered a fall suffering a cervical fracture. His shoulder pain and function significantly decreased. He has significant difficulty lifting his arm and ongoing pain. Postoperative x-rays demonstrate findings consistent with rotator cuff arthropathy. He has failed conservative measures including extensive physical therapy. Patient will require reverse shoulder replacement. Patient denies headaches, sweats, fevers, chills, double vision, blurred vision, cough, sore throat, dysphagia, chest pain, sob, wheezing, n/v/d/c, numbness, tingling, fatigue, urinary symptoms, mood disorders. ROS positive for right shoulder pain and stiffness. Allergies Allergy/AdvReac Type Severity Reaction Status Date / Time clindamycin Allergy Intermediate rash Verified 05/29/22 11:54 iodine Allergy Intermediate topical Verified 05/29/22 11:54 iodine- swelling at site trospium AdvReac Intermediate "sick"/head Verified 05/29/22 11:54 ache Home Medications Medication Instructions Recorded Confirmed Type coenzyme Q10 100 mg capsule 200 mg PO QAM 07/17/20 05/29/22 History (CoQ-10) multivitamin 1 tab PO QAM 08/22/20 05/29/22 History fluocinonide 0.05 % topical cream 1 applic topical BID PRN Rash 09/26/20 05/29/22 History pantoprazole 40 mg tablet,delayed 40 mg PO BID #180 tabs 08/21/21 05/29/22 Rx release (Protonix) metoprolol succinate 100 mg 100 mg PO HS #90 tabs 08/22/21 05/29/22 Rx tablet,extended release 24 hr (Toprol XL) atorvastatin 20 mg tablet 20 mg PO HS #90 tabs 09/18/21 05/29/22 Rx spironolactone 25 mg tablet 25 mg PO QAM 10/12/21 05/29/22 History bumetanide 2 mg tablet 2 mg PO QAM #90 tabs 12/10/21 05/29/22 Rx modafinil 200 mg tablet (Provigil) 400 mg PO QAM #180 tabs 12/20/21 05/29/22 Rx silodosin 4 mg capsule (Rapaflo) 4 mg PO HS #90 caps 02/06/22 05/29/22 Rx potassium chloride 20 mEq 20 meq PO BID #180 tabs 03/25/22 05/29/22 Rx tablet,extended release(part/cryst) albuterol sulfate 90 mcg/actuation 2 puff inhalation Q4H PRN 03/26/22 05/29/22 Rx aerosol inhaler (Ventolin HFA) shortness of breath #3 Inhalers fluticasone propionate 50 1 spray intranasal BID #3 Inhalers 03/26/22 05/29/22 Rx mcg/actuation nasal spray,suspension sertraline 50 mg tablet 50 mg PO QAM #90 tabs 04/22/22 05/29/22 Rx apixaban 5 mg tablet 5 mg PO BID #180 tabs 05/20/22 05/29/22 Rx Lactobacillus 2 cap PO QAM 05/29/22 05/29/22 History acidophilus-Bifidobac.animalis 2.5 billion cell capsule (Daily Probiotic) Prevagen 1 tab PO QAM 05/29/22 05/29/22 History levothyroxine 25 mcg tablet 25 mcg PO QAM 05/29/22 05/29/22 History (Synthroid) omega-3 fatty acids 200 mg PO QAM 05/29/22 05/29/22 History vibegron 75 mg tablet (Gemtesa) 75 mg PO QAM 05/29/22 05/29/22 History Past Med/Surg History Medical History Acid reflux disease Arteriosclerotic coronary artery disease Asthma Atrial fibrillation Cervical radiculopathy Cervical stenosis of spinal canal Chronic anemia Chronic rhinitis CKD (chronic kidney disease) stage 3, GFR 30-59 ml/min Cognitive impairment Diabetic peripheral neuropathy associated with type 2 diabetes mellitus Diverticular disease DM type 2 (diabetes mellitus, type 2) Dyslipidemia Dysphagia Hearing deficit HTN (hypertension) Hx of fall Hypothyroidism Narcolepsy Obesity Osteoarthritis Right ventricular systolic dysfunction Secondary hyperparathyroidism Sensorineural hearing loss of both ears Sleep apnea Venous insufficiency Surgical History History of carpal tunnel release History of cervical spinal surgery History of colonoscopy History of esophagogastroduodenoscopy (EGD) History of repair of right rotator cuff Hx of cardiac catheterization Hx of fusion of cervical spine Hx of rotator cuff surgery S/P knee surgery Family History Mother Coronary heart disease Myocardial infarction Brother Diabetes Other No family history of adverse response to anesthesia No family history of bleeding disorder Denies family history of Ovarian cancer Prostate cancer Breast cancer Lung cancer Colorectal cancer Social History Smoking Status: Never smoker Second Hand Exposure: No; Do You Dip or Chew Tobacco: No; Tobacco Cessation Education Requested by Patient: No Hx Alcohol Use: Yes Alcohol type: beer Alcohol Intake Frequency: Monthly or Less Hx Substance Use: No Preferred Language: Jordanian Communication Ability: Effective Communication Ability Comment: WRITES NAME Visual Impairment: Limited Hearing Ability: Use of Hearing Aid Perioperative Tech Required: No Beliefs That Will Affect Care: None marital status: Current Living Situation: Spouse current occupational status: retired How many Children do You have: 2 Other Information That Helps Us Care for You: No Feels Safe at Home: Yes Safety Concerns: Feels Safe At This Time Childhood Exposure to Second-Hand Smoke: No caffeine: Yes (drinks coffee daily 1 cup) during the past year weight has: decreased > 10 lbs Dental Care, Regularly: No Physical Activity Frequency: Does not Exercise Physical Activity Frequency Comment: does outside work however Seatbelt Use: always Sunscreen Use: No Do you think of yourself as: straight/heterosexual Gender Identity: Male Assistive Devices: BiPap, Denture - Upper, Denture - Lower, Glasses and Hearing Aid - Bilateral Review of Systems All systems reviewed & are unremarkable except as noted in HPI & below Physical Exam Constitutional: well developed and well nourished; no acute distress Eyes: PERRL, conjunctivae normal, anicteric sclerae ENMT: external ear and nose normal, oropharynx normal Neck: trachea midline, no thyromegaly Respiratory: normal respiratory effort, lungs clear to auscultation Cardiovascular: RRR, no murmur, no edema Musculoskeletal: Right shoulder: Subacromial crepitation with range of motion. Painful range of motion in all directions. Tenderness anterolateral region. Well-healed surgical incision. Abduction to 70 degrees, forward flexion is 60 degrees actively. Pain and weakness with strength testing. 2+/5 abduction and forward flexion. 4+/5 external rotation, 5/5 internal rotation Skin: no rashes, warm and dry Neurologic: patellar DTR's 2+ bilat, sensation intact Psychiatric: A+Ox3, euthymic affect Results & Data Diagnostic Findings Right shoulder radiographs demonstrate cystic changes greater tuberosity. There is proximal migration of his humerus with decreased acromiohumeral interval consistent with massive rotator cuff tear.
[~2022-06-13 09:31] MED LIST changes: +ACETAMINOPHEN 500 MG TAB PO SCH; -ADVIN25/60 INH; -ALBU18002 INH; -ATOR10TA82 PO; +BUPIVACAINE 0.5 % 5 MG/1 ML PF 10ML VIAL ONE; -COEN75CA PO; +CeleBREX 200 MG CAP PO SCH; -DABI150C PO; +FAMOTIDINE 20 MG TAB PO SCH; -FLUT0.15 NAE; -FRS/40 PO; +GABAPENTIN 300 MG CAP PO SCH; -GLIM1TAB PO; +LR 500ML BOLUS IV SCH; -METO100T44 PO; +METOCLOPRAMIDE HCL 10 MG TABLET PO SCH; +MIDAZOLAM HCL 1 MG/ML 2ML VIAL ONE; -MIRA1TAB3 PO; -MODA1TAB PO; -MULT-506 PO; -OMEG10007 PO; -PANT40TA PO; -POTA-639 PO; -RANI150T85 PO; -RXC5 PO; -SILO8CAP PO; -SPIR50TA PO; +TRANEXAMIC ACID 1,000 MG **IV Intra-op IV SCH; +TRANEXAMIC ACID 1,000 MG **IV Pre-op IV SCH; +fentaNYL citrate PF 100 MCG/2 ML VIAL ONE
[2022-06-13] MEDS ORDERED: ePHEDrine sulfate 50 MG/ML AMP IV PRN (10:45)
[2022-06-13] MEDS ORDERED: ONDANSETRON INJ 2 MG/ML 2 ML VIAL IV PRN ×2 (10:45→15:48)
[2022-06-13] MEDS ORDERED: fentaNYL citrate PF 100 MCG/2 ML VIAL IV PRN (10:45)
[2022-06-13] MEDS ORDERED: ATROPINE SULFATE 0.1 MG/ML 10ML SYR IV PRN (10:45)
--- NOTE | 2022-06-13 10:59 | History & Physical Bridge Note ---
Date of Service June 13, 2022 History & Physical Bridge Note I have examined the patient, reviewed the History & Physical and in the interval since the performance of the History & Physical I have noted the following changes of clinical significance: no changes noted
[2022-06-13] MEDS ORDERED: PROPOFOL IV EMULSION 10 MG/ML 20 ML VIAL IV ONE (12:34)
[2022-06-13] MEDS ORDERED: GLYCOPYRROLATE 0.2 MG/ML VIAL ONE (12:34)
[2022-06-13] MEDS ORDERED: ROCURONIUM BROMIDE 10 MG/ML 5 ML VIAL IV ONE (12:34)
[2022-06-13] MEDS ORDERED: NEOSTIGMINE METHYLSULFATE 1 MG/ML 10ML VIAL ONE (12:34)
[2022-06-13] MEDS ORDERED: ONDANSETRON INJ 2 MG/ML 2 ML VIAL ONE (12:34)
--- NOTE | 2022-06-13 14:26 | Operative Report ---
Post Operative Report Pre & Post Diagnosis Operation Date: 06/13/22 11:40 Pre-Op Diagnosis: Right Shoulder Rotator Cuff Arthropathy, failed rotator cuff repair posttraumatic, history of arthroscopic subacromial decompression rotator cuff repair of a large complex rotator cuff tear with rotator cuff tendinopathy including biceps tenotomy. Post-Op Diagnosis: Right Shoulder Rotator Cuff Arthropathy, new superior third subscapularis tendon tear with supraspinatus tear healed with scar tissue and tendinopathy and partial tearing of the infraspinatus with rotator cuff tendinopathy. I identified the patient and participated in the time-out.: Yes Procedure Operation Date: 06/13/22 11:40 Actual Procedures p Right Reverse Total Shoulder Arthroplasty with peek suture anchor and Suture Removal Right Shoulder(Right) - Marc Mark MD Surgeon Marc Mark MD Children Teacher Marcial CEDILLO Estimated Blood Loss 150 Findings Consistent with Post-Op Diagnosis Specimens Humeral head Drains 2 Hemovac Anesthesia Type General Regional Complications none Disposition Accompanied Patient To Recovery: No Indications 77-year-old male status post rotator cuff repair right shoulder of a large tear with rotator cuff tendinopathy. During his post operative rehabilitation he fell and injured his shoulder and never regained functional overhead use of his shoulder and cannot raise his arm much above chest level. Radiographs demonstrate proximal migration of the humerus and exam consistent with failure of rotator cuff repair. Multiple options of treatment discussed the patient and decision was made to proceed with reverse shoulder replacement Description of Procedure The patient was taken to the operating room and anesthetized under regional block and general anesthetic. The patient was positioned on the operating table in a 30 beach chair position with a towel roll under the medial border of the right scapula. The arm was draped free to be able to manipulate the shoulder as needed. The right upper extremity was prepped and draped in usual sterile fashion. Exam demonstrated 120 degrees flexion 90 degrees abduction external rotation to 80 degrees. Old healed arthroscopic scars. Patient was a very large man with a heavy arm and moderate obesity with most of his obesity being abdominal.. An anterior deltopectoral approach was performed. A longitudinal incision was made in the deltopectoral interval. The skin was incised sharply. Subcutaneous flaps were elevated off the fascia. The cephalic vein was dissected out and retracted lateral with the deltoid. The clavipectoral fascia was divided at the lateral margin of the conjoined tendon and extended up to the CA ligament. The following findings were noted: The biceps tendon was retracted below the pectoralis insertion. There was a collection of soft tissue from old tendon sheath and chronic inflammation in the bicipital groove area above the pect oralis tendon extending down to the level of the pectoralis tendon. The outer surface of the subscapularis appeared to be intact there was a high-grade upper third tear of the subscapularis tendon with chronic tendinopathy. There is supraspinatus repair appeared to be healed with thin type scar tissue and sutures held and there is no suture rupture and no suture anchor pullout. The infraspinatus has some partial tearing and had some scar tissue appearance to it with some splitting of the tendon but no gely complete rupture noted.. The upper centimeter of the pectoralis was released for inferior exposure. A self-retaining retractor was placed. The biceps sheath inflamed tissue was resect. The subscapular muscle fibers were split longitudinally at the level of the circumflex vessels. The circumflex vessels were identified and tied off with silk ties and divided laterally. A Kitner elevator was used to free up the inferior fibers of the subscapularis off of the capsule. The axillary nerve was identified with a tug test and protected with a blunt Linda retractor between the nerve and the capsule. The subscapularis tendon was then taken down off of the lesser tuberosity subperiosteally, a Vicryl traction suture was placed and a subperiosteal dissection was performed along the neck of the humerus as the arm was gradually externally rotated exposing the humeral head. The humeral head findings demonstrated grade 2 osteoarthritic changes. No osteophytes. A Godfrey elevator was used to assist in releasing the capsule of the neck of the humerus. The capsule was divided with Barber scissors down to the glenoid released off the anterior glenoid and the rotator interval was released to meet the capsular release and a 360 release of the subscapularis was accomplished. A Fukuda retractor was placed into the joint retracting the humeral head posterior. Glenoid findings demonstrated grade 2 and 3 arthritic changes.. The labrum was resected. an anterior-inferior and posterior inferior capsular release were performed with electrocautery and a Godfrey elevator on bone with the axillary nerve protected inferiorly by the retractor. Attention was then taken to the humeral preparation. The cutting guide was placed into the humeral head. It was positioned at 20 of retroversion. Oscillating saw was used to resect the humeral head giving the cut above the level of the posterior rotator cuff insertion site. The humerus was then prepared for the stem. I used the ascend flex stem from [employer]. The centering awl was used. A suture anchor was encountered and a peak Helicoil type suture anchor was removed along with the suture material that was released with a scalpel. Only 1 suture anchor appeared to be impeding the broaching. After removal, the sizing broaches were used followed by trial broaches up to a size 7B long which had the appropriate fit and fill. The appropriate sized cut protector was placed. The humerus was then retracted posterior to the glenoid. The glenoid was sized for a 29. The guide for the baseplate was positioned in a 10 inferior tilt and the central drill hole was made. The reamer for the 29 baseplate was used. The central drill was widened for the peg. The aequalis standard post 29 mm hydroxyapatite-coated baseplate was impacted into position. The base plate was transfixed with superior and inferior locking screws and anterior and posterior compression screws with stable fixation. The fan reamer was used for the 42 millimeter centered glenoid sphere. After irrigation the 42 mm centered glenoid sphere was impacted onto the baseplate and the security screw was tightened. Attention was taken back to the humerus. The cut protector was removed and the +0 high offset humeral tray trial was assembled to the trial stem rotated appropriately to get bony coverage and then screwed in position. A trial reduction was performed. A +6, 42 trial insert demonstrated good stability and no shuck. The trials were removed. 3 drill holes are made into the harder bone in the bicipital groove area and 3 #5 FiberWire sutures were placed transosseously. The canal was irrigated with pulse saline solution. The final component was assembled. The final component was [employer] 7B long PTC stem assembled to the +0 high offset tray with a 42, +6 mm reversed insert. This was then impacted into the humerus with a tight press-fit. It was reduced to the glenoid sphere. Stability was verified. Subscapularis was repaired with the #5 FiberWire sutures using Kam- Wang suture technique. Lateral row soft tissue repair was performed with #2 FiberWire [id number] sutures. The pectoralis was repaired with #2 FiberWire [id number] sutures. The arm was taken through a range of motion which demonstrated 120 degrees forward flexion 90 degrees abduction 60 degrees external rotation without tension on repair. The implant was stable through the range of motion tested. The wound was copiously irrigated. 2 Hemovac drains were placed. The deltopectoral interval was closed with [id number] #1 Vicryl sutures. The subcutaneous tissues were closed with 2-0 Vicryl sutures. The skin was closed with andrea. Sterile dressings were applied and a shoulder immobilizer. Marcial CEDILLO my physician office services assistant acted as welder first class throughout the procedure .He performed functions including patient positioning, arm positioning, prepping and draping, soft tissue retraction, instrument management, suture management and performed the subcutaneous and skin closure and will participate in the postoperative care of the patient. I attest to the content of the Intraoperative Record and any orders documented therein. Any exceptions are noted below.
--- NOTE | 2022-06-13 15:09 | Anesthesiology Progress Note ---
Date of Service June 13, 2022 Anesthesia Post Procedure Vital Signs Vital Signs: Temp Pulse Pulse Resp BP Pulse Ox O2 Del Method 06/13/22 14:55 63 21 140/62 100 Nasal Cannula 06/13/22 14:45 57 L 13 127/70 100 Nasal Cannula 06/13/22 14:35 59 L 14 141/64 H 100 Oxymask 06/13/22 14:25 59 L 14 123/70 100 Oxymask 06/13/22 14:19 97.2 F L 76 12 127/71 99 Oxymask 06/13/22 09:57 98.4 F 62 20 132/74 95 Room Air O2 Flow Rate 06/13/22 14:55 2 06/13/22 14:45 2 06/13/22 14:35 10 06/13/22 14:25 10 06/13/22 14:19 10 06/13/22 09:57 Pain Intensity Right Shoulder: Pain Intensity: 4 Transfer of Care Handoff Completed per policy Notes Mental Status: alert / awake / arousable and participated in evaluation Patient Amnestic to Procedure: Yes Nausea / Vomiting: adequately controlled Pain: adequately controlled Airway Patency, RR, SpO2: stable & adequate BP & HR: stable & adequate Hydration State: stable & adequate Anesthetic Complications: no major complications apparent and Pt Satisfied with anesthetic care
[2022-06-13] MEDS ORDERED: HYDROmorphone INJ 0.5 MG/0.5 ML SYR IV PRN (15:48)
[2022-06-13] MEDS ORDERED: NALOXONE HCL 0.4 MG/1 ML VIAL/CARP IV PRN (15:48)
[2022-06-13] MEDS ORDERED: oxyCODONE HCL IR 5 MG TAB (IMMEDIATE RELEASE) PO PRN (15:48)
[2022-06-13] MEDS ORDERED: bisacodyL 10 MG SUPP PR PRN (15:48)
[2022-06-13] MEDS ORDERED: ALBUTEROL HFA 8 GM INHALER INH PRN (15:48)
[2022-06-13] MEDS ORDERED: MAGNESIUM HYDROXIDE SUSP 30 ML UDC PO PRN (15:48)
[2022-06-13] MEDS ORDERED: METOCLOPRAMIDE HCL INJ 5 MG/ML 2 ML VIAL IV PRN (15:48)
[2022-06-13] MEDS: SODIUM CHLORIDE 0.9% 1000ML 1,000 ML IV SCH (16:29)
--- NOTE | 2022-06-13 18:04 | XRay Report ---
RIGHT SHOULDER 2 VIEWS CLINICAL HISTORY: Postoperative examination. FINDINGS: 2 portable views of the right shoulder are obtained. No prior studies are available for [facility] at the time of dictation. The skeletal structures are osteopenic. A right shoulder arthroplas ty is in near anatomic alignment. No acute fracture is seen. Mild widening is noted at the acromiocla vicular joint. Skin clips, a surgical drain, subcutaneous gas, and soft tissue swelling overlying the right shoulder are expected postoperative changes. The visualized right lung parenchyma is clear not ing dependent atelectasis. IMPRESSION: Expected postoperative findings status post right shoulder arthroplasty. No acute fractur e is seen. Electronically signed by: Robles Diez M.D. 06/13/2022 6:03 PM
[2022-06-13] MEDS: PANTOprazole 40 MG TAB PO SCH (20:52)
[2022-06-13] MEDS: DOCUSATE SODIUM 100 MG CAP PO SCH (20:53)
[2022-06-13] MEDS: FLUTICASONE PROPIONATE NA SPR 16 GM BTL SCH (20:53)
[2022-06-13] MEDS: POTASSIUM CHLORIDE CRTAB 20 MEQ TABCR PO SCH (20:53)
[2022-06-13] MEDS: ceFAZolin 2000MG 2,000 MG/15 ML SYR IV SCH (20:53)
[2022-06-13] MEDS ORDERED: ATORVASTATIN 20 MG TAB PO SCH (21:00)
[2022-06-13] MEDS ORDERED: SENNA 8.6 MG TAB PO SCH (21:00)
[2022-06-13] MEDS ORDERED: METOPROLOL SUCC 50MG EXT REL TAB PO SCH (21:00)
[2022-06-13] MEDS: ACETAMINOPHEN 500 MG TAB PO SCH (21:01)
[2022-06-14] MEDS: SODIUM CHLORIDE 0.9% 1000ML 1,000 ML IV SCH (02:16)
[2022-06-14] MEDS: ACETAMINOPHEN 500 MG TAB PO SCH ×2 (05:15→05:17)
[2022-06-14] MEDS: ceFAZolin 2000MG 2,000 MG/15 ML SYR IV SCH (05:15)
[2022-06-14] MEDS ORDERED: LEVOTHYROXINE SODIUM 25 MCG TABLET PO SCH (06:30)
[2022-06-14] MEDS: DOCUSATE SODIUM 100 MG CAP PO SCH (08:49)
[2022-06-14] MEDS: POTASSIUM CHLORIDE CRTAB 20 MEQ TABCR PO SCH (08:49)
[2022-06-14] MEDS: PANTOprazole 40 MG TAB PO SCH (08:49)
[2022-06-14] MEDS: FLUTICASONE PROPIONATE NA SPR 16 GM BTL SCH (08:50)
[2022-06-14] MEDS ORDERED: modafiniL 100 MG TAB PO SCH (09:00)
[2022-06-14] MEDS ORDERED: SERTRALINE HCL 50 MG TABLET PO SCH (09:00)
[2022-06-14] MEDS ORDERED: SPIRONOLACTONE 25 MG TAB PO SCH (09:00)
[2022-06-14] MEDS ORDERED: BUMETANIDE 1 MG TAB PO SCH (09:00)
[2022-06-14] MEDS ORDERED: MULTIVITAMIN TAB PO SCH (09:00)
[2022-06-14] MEDS ORDERED: APIXABAN 5 MG TABLET PO SCH (09:00)
--- NOTE | 2022-06-14 09:58 | Orthopedic Progress Note ---
Date of Service June 14, 2022 Assessment & Plan (1) Rotator cuff arthropathy of right shoulder: Plan: Postop day 1 status post right reverse total shoulder arthroplasty PT/OT protocols. Nonweightbearing right upper extremity. DVT prophylaxis-apixaban p.o. twice daily, SCDs Pain management as written DC planning-patient is planning for outpatient PT in the future post discharge. Plan for dc to home today. Admission and Anticipated Discharge Date Admission Date: June 13, 2022 Subjective Postop day 1 Patient sitting up in the chair at the bedside. Just finishing his breakfast. States he feels well and pain is controlled. States he has some residual numbness in his fingers from the nerve block he had prior to surgery. Denies shortness of breath, chest pain, lightheadedness. He is hoping to go home today. Physical Exam Physical Exam: Dressings are clean, dry, and intact. He has good range of motion of his right fingers at this time but has residual numbness in all of his fingers. Sling is in place. Cap refill is less than 2 seconds Results & Data Vital Signs (Past 12 Hours) Vital Signs Temp Pulse Resp BP Pulse Ox O2 Del Method 06/14/22 08:02 36.7 C 68 16 111/61 96 Room Air 06/14/22 04:10 36.6 C 68 16 119/70 Room Air 06/14/22 02:09 73 18 94 Room Air 06/14/22 00:00 36.7 C 92 H 18 121/77 92 Room Air Laboratory Results Laboratory Results WBC 5.92 K/ul (4.8-10.8) 06/14/22 10:43 RBC 3.60 M/uL (4.70-6.10) L 06/14/22 10:43 Hgb 11.4 g/dl (14.0-18.0) L 06/14/22 10:43 Hct 34.4 % (42.0-52.0) L 06/14/22 10:43 MCV 95.6 fL (80.0-100.0) 06/14/22 10:43 MCH 31.7 pg (25.0-34.0) 06/14/22 10:43 MCHC 33.1 g/dL (32.0-36.0) 06/14/22 10:43 RDW Std Deviation 45.1 fL (36.4-46.3) 06/14/22 10:43 RDW Coeff of Magan 12.9 % (11.5-14.5) 06/14/22 10:43 Plt Count 139 K/uL (130-400) 06/14/22 10:43 MPV 10.2 fL (9.4-12.4) 06/14/22 10:43 Immature Gran % (Auto) 0.7 % 06/14/22 10:43 Neut % (Auto) 75.0 % 06/14/22 10:43 Lymph % (Auto) 12.2 % 06/14/22 10:43 Whitley % (Auto) 7.9 % 06/14/22 10:43 Eos % (Auto) 3.7 % 06/14/22 10:43 Baso % (Auto) 0.5 % 06/14/22 10:43 Neut # (Auto) 4.44 K/uL (1.40-6.50) 06/14/22 10:43 Lymph # (Auto) 0.72 K/uL (1.2-3.4) L 06/14/22 10:43 Whitley # (Auto) 0.47 K/uL (0.11-0.59) 06/14/22 10:43 Eos # (Auto) 0.22 K/uL (0-0.50) 06/14/22 10:43 Baso # (Auto) 0.03 K/uL (0-0.2) 06/14/22 10:43 Immature Gran # (Auto) 0.04 K/uL (0.01-0.20) 06/14/22 10:43 Sodium 138 mmol/L (136-145) 06/14/22 10:43 Potassium 4.8 mmol/L (3.5-5.1) 06/14/22 10:43 Chloride 103 mmol/L (98-107) 06/14/22 10:43 Carbon Dioxide 29 mmol/L (21-32) 06/14/22 10:43 Anion Gap 6 (3-11) 06/14/22 10:43 BUN 25 mg/dl (6-23) H 06/14/22 10:43 Creatinine 1.23 mg/dl (0.6-1.4) 06/14/22 10:43 Est Cr Clr Drug Dosing 74.3 ml/min 06/14/22 10:43 Est GFR ( Amer) 65.7 ml/min 06/14/22 10:43 Est GFR (Non-Af Amer) 56.7 ml/min 06/14/22 10:43 BUN/Creatinine Ratio 20.3 (10-20) H 06/14/22 10:43 Glucose 114 mg/dl (70-99(Fasting)) H 06/14/22 10:43 POC Glucose 101 mg/dl (70-99) H 06/13/22 14:25 Calcium 9.0 mg/dl (8.6-10.3) 06/14/22 10:43 SARS-CoV-2, RNA, NAAT NEGATIVE (NEGATIVE) 06/13/22 09:49 Impressions Shoulder X-Ray 06/13/22 14:16 RIGHT SHOULDER 2 VIEWS CLINICAL HISTORY: Postoperative examination. FINDINGS: 2 portable views of the right shoulder are obtained. No prior studies are available for comparison at the time of dictation. The skeletal structures are osteopenic. A right shoulder arthroplasty is in near anatomic alignment. No acute fracture is seen. Mild widening is noted at the acromioclavicular joint. Skin clips, a surgical drain, subcutaneous gas, and soft tissue swelling overlying the right shoulder are expected postoperative changes. The visualized right lung parenchyma is clear noting dependent atelectasis. IMPRESSION: Expected postoperative findings status post right shoulder arthroplasty. No acute fracture is seen. Electronically signed by: Robles Diez M.D. 06/13/2022 6:03 PM
[2022-06-14 11:01] LABS: Basophils # (auto) 0.03 K/uL (0-0.2); Basophils % (auto) 0.5 %; Eosinophils # (auto) 0.22 K/uL (0-0.50); Eosinophils % (auto) 3.7 %; Hematocrit (blood only) 34.4 % (42.0-52.0); Hemoglobin 11.4 g/dl (14.0-18.0); Immature Granulocytes # (auto) 0.04 K/uL (0.01-0.20); Immature Granulocytes % (auto) 0.7 %; Lymphocytes # (auto) 0.72 K/uL (1.2-3.4); Lymphocytes % (auto) 12.2 %; Mean Corpuscular Hemoglobin 31.7 pg (25.0-34.0); Mean Corpuscular Hgb Conc 33.1 g/dL (32.0-36.0); Mean Corpuscular Volume 95.6 fL (80.0-100.0); Mean Platelet Volume 10.2 fL (9.4-12.4); Monocytes # (auto) 0.47 K/uL (0.11-0.59); Monocytes % (auto) 7.9 %; Neutrophils # (auto) 4.44 K/uL (1.40-6.50); Platelet Count 139 K/uL (130-400); RDW Coefficient of Variation 12.9 % (11.5-14.5); RDW Standard Deviation 45.1 fL (36.4-46.3); White Blood Count 5.92 K/ul (4.8-10.8)
[2022-06-14 11:21] LABS: Potassium 4.8 mmol/L (3.5-5.1)
[2022-06-14 11:26] LABS: BUN Creatinine Ratio 20.3 (10-20); Creatinine Clr Calc Pharmacy 74.3 ml/min; Est GFR (African American) 65.7 ml/min; Est GFR (Non-African American) 56.7 ml/min
--- NOTE | 2022-06-14 13:02 | Hospitalist Consultation ---
Date of Consultation June 14, 2022 Assessment & Plan (1) Rotator cuff arthropathy of right shoulder: Status post right reverse total shoulder arthroplasty 06/13/[address] Mark (2) Obstructive sleep apnea treated with BiPAP: - Bipap q hs (3) Benign localized prostatic hyperplasia with lower urinary tract symptoms (LUTS): - Gemtesa (4) Permanent atrial fibrillation: - Apixaban 5mg BID to restart today (5) HTN (hypertension): - Continue Motoprolol (6) CKD (chronic kidney disease) stage 3, GFR 30-59 ml/min: Follows with nephrology and lymphedema therapy Bumex and spironolactone and KCl (7) Hypothyroidism: - Continue Levothyroxine Plan Patient to be discharged home today with out patient physical therapy Labs reviewed Hgb stable and Cr 1.23 ok for discharge to home from a medical standpoint follow up with PCP History of Present Illness Reason for Consultation: hospital managment Requesting Physician: Dr Mrak Attending Physician: Marc Mark MD History of Present Illness Patient is a 77 year old male who was admitted for OA right shoulder for surgery. A medical management consult was placed. Patient was seen this AM prior to discharge. Patient has a past medical history of DM, diet controlled, CKD, permanaent A Fib on Apixaban 5mg BID, BPH with LUTS, GERD, dyslipidemia, HTN, sleep apnea and hypothyroidism. Patient is post op day #1 right reverse total shoulder arthroplasty. Patient was seen this AM prior to discharge. He is awake sitting up in recliner and stated he hoped to be discharged home today. DC planning-patient is planning for outpatient PT in the future post discharge. Plan for dc to home today. Allergies Allergy/AdvReac Type Severity Reaction Status Date / Time clindamycin Allergy Intermediate rash Verified 06/13/22 10:14 iodine Allergy Intermediate topical Verified 06/13/22 10:14 iodine- swelling at site trospium AdvReac Intermediate "sick"/head Verified 06/13/22 10:14 ache Home Medications Medication Instructions Recorded Confirmed Type coenzyme Q10 100 mg capsule 200 mg PO QAM 07/17/20 06/13/22 History (CoQ-10) multivitamin 1 tab PO QAM 08/22/20 06/13/22 History fluocinonide 0.05 % topical cream 1 applic topical BID PRN Rash 09/26/20 06/13/22 History pantoprazole 40 mg tablet,delayed 40 mg PO BID #180 tabs 08/21/21 06/13/22 Rx release (Protonix) metoprolol succinate 100 mg 100 mg PO HS #90 tabs 08/22/21 06/13/22 Rx tablet,extended release 24 hr (Toprol XL) atorvastatin 20 mg tablet 20 mg PO HS #90 tabs 09/18/21 06/13/22 Rx spironolactone 25 mg tablet 25 mg PO QAM 10/12/21 06/13/22 History bumetanide 2 mg tablet 2 mg PO QAM #90 tabs 12/10/21 06/13/22 Rx modafinil 200 mg tablet (Provigil) 400 mg PO QAM #180 tabs 12/20/21 06/13/22 Rx silodosin 4 mg capsule (Rapaflo) 4 mg PO HS #90 caps 02/06/22 06/13/22 Rx potassium chloride 20 mEq 20 meq PO BID #180 tabs 03/25/22 06/13/22 Rx tablet,extended release(part/cryst) albuterol sulfate 90 mcg/actuation 2 puff inhalation Q4H PRN 03/26/22 06/13/22 Rx aerosol inhaler (Ventolin HFA) shortness of breath #3 Inhalers fluticasone propionate 50 1 spray intranasal BID #3 Inhalers 03/26/22 06/13/22 Rx mcg/actuation nasal spray,suspension sertraline 50 mg tablet 50 mg PO QAM #90 tabs 04/22/22 06/13/22 Rx apixaban 5 mg tablet 5 mg PO BID #180 tabs 05/20/22 06/13/22 Rx Lactobacillus 2 cap PO QAM 05/29/22 06/13/22 History acidophilus-Bifidobac.animalis 2.5 billion cell capsule (Daily Probiotic) Prevagen 1 tab PO QAM 05/29/22 06/13/22 History levothyroxine 25 mcg tablet 25 mcg PO QAM 05/29/22 06/13/22 History (Synthroid) vibegron 75 mg tablet (Gemtesa) 75 mg PO QAM 05/29/22 06/13/22 History acetaminophen 500 mg tablet 1,000 mg PO Q8 14 days #84 tabs 06/14/22 Rx (Tylenol Extra Strength) cefadroxil 500 mg capsule 500 mg PO BID #14 caps 06/14/22 Rx oxycodone 5 mg tablet 5 mg PO Q4H PRN pain #30 tabs 06/14/22 Rx polyethylene glycol 3350 17 gram 17 g PO DAILY PRN constipation #5 06/14/22 Rx oral powder packet (Miralax) ea Patient History Medical History Acid reflux disease controlled Arteriosclerotic coronary artery disease Asthma Atrial fibrillation Follows with Dr. Atwood/[facility] Cervical radiculopathy Cervical stenosis of spinal canal Chronic anemia Baseline hgb 10-11 range per chart review Chronic rhinitis CKD (chronic kidney disease) stage 3, GFR 30-59 ml/min Cognitive impairment Diabetic peripheral neuropathy associated with type 2 diabetes mellitus Diverticular disease DM type 2 (diabetes mellitus, type 2) Diet controlled ("no longer on meds") Dyslipidemia Dysphagia Hearing deficit b/l hearing aids HTN (hypertension) Hx of fall 12/2021, hit his head/T1 injury/torn ligaments > wore cervical collar x few months Hypothyroidism Narcolepsy "mild" Obesity Osteoarthritis Right ventricular systolic dysfunction Follows with Dr. Atwood/M[facility] Secondary hyperparathyroidism Sensorineural hearing loss of both ears Sleep apnea BIPAP (compliant) Venous insufficiency uses lymphadema pumps and DANY hose Surgical History History of carpal tunnel release History of cervical spinal surgery ACDF C3-C7 + hardware removal (06/17/17): Grade view 1, MAC#3, ETT 8.0 at [facility] History of colonoscopy 05/2019 Repeat 5 yrs History of esophagogastroduodenoscopy (EGD) History of repair of right rotator cuff Hx of cardiac catheterization 2002, no stents Hx of fusion of cervical spine x2 Hx of rotator cuff surgery R/L Right shoulder RCR with [employer], subacromial decompression (10/19/21): Grade view 1, MAC#4, ETT 8 + PNB at [facility] S/P knee surgery R/L Family History Mother Coronary heart disease Myocardial infarction Brother Diabetes Other No family history of adverse response to anesthesia No family history of bleeding disorder Denies family history of Ovarian cancer Prostate cancer Breast cancer Lung cancer Colorectal cancer Social History Smoking Status: Never smoker Second Hand Exposure: No; Do You Dip or Chew Tobacco: No; Tobacco Cessation Education Requested by Patient: No Hx Alcohol Use: Yes Alcohol type: beer Alcohol Intake Frequency: Monthly or Less Hx Substance Use: No Preferred Language: Rwand[place] Communication Ability: Effective Communication Ability Comment: WRITES NAME Visual Impairment: Limited Hearing Ability: Use of Hearing Aid Location Manager Required: No Beliefs That Will Affect Care: None marital status: Current Living Situation: Spouse current occupational status: retired How many Children do You have: 2 Other Information That Helps Us Care for You: No Feels Safe at Home: Yes Safety Concerns: Feels Safe At This Time Childhood Exposure to Second-Hand Smoke: No caffeine: Yes (drinks coffee daily 1 cup) during the past year weight has: decreased > 10 lbs Dental Care, Regularly: No Physical Activity Frequency: Does not Exercise Physical Activity Frequency Comment: does outside work however Seatbelt Use: always Sunscreen Use: No Do you think of yourself as: straight/heterosexual Gender Identity: Male Assistive Devices: Cane Review of Systems Review of Systems: Patient denied any chest pain, SOB, Abdominal pain, nausea, vomiting. He admits to having a normal BM today. All other ROS negative unless stated above. Physical Exam Constitutional: WD/WN, vitals as above Neck: trachea midline, no thyromegaly Respiratory: normal respiratory effort, lungs clear to auscultation Cardiovascular: Rate/Rhythm: + irregularly irregular Heart Sounds: normal S1 and normal S2; no murmur Extremities: normal capillary refill; no calf tenderness Gastrointestinal (Abdomen): normal bowel sounds, soft, nontender, no hepatosplenomegaly Results & Data Results & Data Vital Signs (Past 12 Hours) Vital Signs Temp Pulse Resp BP Pulse Ox O2 Del Method 06/14/22 10:59 36.7 C 75 16 107/67 95 Room Air 06/14/22 08:02 36.7 C 68 16 111/61 96 Room Air 06/14/22 04:10 36.6 C 68 16 119/70 Room Air 06/14/22 02:09 73 18 94 Room Air Laboratory Results Abnormal lab results 06/13/22 06/14/22 06/14/22 Range/Units 14:25 10:43 10:43 RBC 3.60 L (4.70-6.10) M/uL Hgb 11.4 L (14.0-18.0) g/dl Hct 34.4 L (42.0-52.0) % Lymph # (Auto) 0.72 L (1.2-3.4) K/uL BUN 25 H (6-23) mg/dl BUN/Creatinine Ratio 20.3 H (10-20) Glucose 114 H (70-99(Fasting)) mg/dl POC Glucose 101 H (70-99) mg/dl PG Care Time/CCT Total # of Minutes Spent Total Time Spent with Patient: Total time spent is greater than 50% in coordination of care (as documented) at patient's floor/unit and/or counseling patient: Coding Level of Care Code 56270 IN/OBS CONSULT LVL 2,35M Diagnoses Rotator cuff arthropathy of right shoulder M12.811 Obstructive sleep apnea treated with BiPAP G47.33 Benign localized prostatic hyperplasia with lower urinary tract symptoms (LUTS) N40.1 Permanent atrial fibrillation I48.21 HTN (hypertension) I10 CKD (chronic kidney disease) stage 3, GFR 30-59 ml/min N18.3 Hypothyroidism E03.9
--- NOTE | 2022-06-16 18:05 | Discharge Summary ---
Date of Service June 16, 2022 Admission HPI Per Admitting Provider 76yo male with PMHx significant for HTN, high cholesterol, afib, asthma, COPD, DM2, CKD, hypothyroid who presents with ongoing right shoulder pain. Patient underwent a previous rotator cuff repair last year. At some point postoperatively he suffered a fall suffering a cervical fracture. His shoulder pain and function significantly decreased. He has significant difficulty lifting his arm and ongoing pain. Postoperative x-rays demonstrate findings consistent with rotator cuff arthropathy. He has failed conservative measures including extensive physical therapy. Patient will require reverse shoulder replacement. Patient denies headaches, sweats, fevers, chills, double vision, blurred vision, cough, sore throat, dysphagia, chest pain, sob, wheezing, n/v/d/c, numbness, tingling, fatigue, urinary symptoms, mood disorders. ROS positive for right shoulder pain and stiffness. Admission Exam Per Admitting Provider Constitutional: well developed and well nourished; no acute distress Eyes: PERRL, conjunctivae normal, anicteric sclerae ENMT: external ear and nose normal, oropharynx normal Neck: trachea midline, no thyromegaly Respiratory: normal respiratory effort, lungs clear to auscultation Cardiovascular: RRR, no murmur, no edema Musculoskeletal: Right shoulder: Subacromial crepitation with range of motion. Painful range of motion in all directions. Tenderness anterolateral region. Well-healed surgical incision. Abduction to 70 degrees, forward flexion is 60 degrees actively. Pain and weakness with strength testing. 2+/5 abduction and forward flexion. 4+/5 external rotation, 5/5 internal rotation Skin: no rashes, warm and dry Neurologic: patellar DTR's 2+ bilat, sensation intact Psychiatric: A+Ox3, euthymic affect Principal Diagnosis Right shoulder rotator cuff arthropathy Discharge Exam Dressings are clean, dry, and intact. He has good range of motion of his right fingers at this time but has residual numbness in all of his fingers. Sling is in place. Cap refill is less than 2 seconds Discharge Data Allergies Allergy/AdvReac Type Severity Reaction Status Date / Time clindamycin Allergy Intermediate rash Verified 06/13/22 10:14 iodine Allergy Intermediate topical Verified 06/13/22 10:14 iodine- swelling at site trospium AdvReac Intermediate "sick"/head Verified 06/13/22 10:14 ache Consultations 06/11/22 09:34 Consult Hospitalist Routine Procedures Performed Operation Date: 06/13/22 11:40 Actual Procedures p Right Reverse Total Shoulder Arthroplasty with Screw and Suture Removal Right Shoulder(Right) - Marc Mark MD Ordered Studies 06/13/22 05:00 US - OR guided needle placemen Routine Hospital Course (1) Rotator cuff arthropathy of right shoulder: Postop day 1 status post right reverse total shoulder arthroplasty PT/OT protocols. Nonweightbearing right upper extremity. DVT prophylaxis-apixaban p.o. twice daily, SCDs Pain management as written DC planning-patient is planning for outpatient PT in the future post discharge. Plan for dc to home today. Lab Results 06/13/22 06/13/22 06/13/22 Range/Units 09:49 10:51 14:25 WBC (4.8-10.8) K/ul RBC (4.70-6.10) M/uL Hgb (14.0-18.0) g/dl Hct (42.0-52.0) % MCV (80.0-100.0) fL MCH (25.0-34.0) pg MCHC (32.0-36.0) g/dL RDW Std Deviation (36.4-46.3) fL RDW Coeff of Magan (11.5-14.5) % Plt Count (130-400) K/uL MPV (9.4-12.4) fL Immature Gran % (Auto) % Neut % (Auto) % Lymph % (Auto) % Newton % (Auto) % Eos % (Auto) % Baso % (Auto) % Neut # (Auto) (1.40-6.50) K/uL Lymph # (Auto) (1.2-3.4) K/uL Newton # (Auto) (0.11-0.59) K/uL Eos # (Auto) (0-0.50) K/uL Baso # (Auto) (0-0.2) K/uL Immature Gran # (Auto) (0.01-0.20) K/uL Sodium (136-145) mmol/L Potassium (3.5-5.1) mmol/L Chloride (98-107) mmol/L Carbon Dioxide (21-32) mmol/L Anion Gap (3-11) BUN (6-23) mg/dl Creatinine (0.6-1.4) mg/dl Est Cr Clr Drug Dosing ml/min Est GFR ( Amer) ml/min Est GFR (Non-Af Amer) ml/min BUN/Creatinine Ratio (10-20) Glucose (70-99(Fasting)) mg/dl POC Glucose 100 H 101 H (70-99) mg/dl Calcium (8.6-10.3) mg/dl SARS-CoV-2, RNA, NAAT NEGATIVE (NEGATIVE) 06/14/22 06/14/22 Range/Units 10:43 10:43 WBC 5.92 (4.8-10.8) K/ul RBC 3.60 L (4.70-6.10) M/uL Hgb 11.4 L (14.0-18.0) g/dl Hct 34.4 L (42.0-52.0) % MCV 95.6 (80.0-100.0) fL MCH 31.7 (25.0-34.0) pg MCHC 33.1 (32.0-36.0) g/dL RDW Std Deviation 45.1 (36.4-46.3) fL RDW Coeff of Magan 12.9 (11.5-14.5) % Plt Count 139 (130-400) K/uL MPV 10.2 (9.4-12.4) fL Immature Gran % (Auto) 0.7 % Neut % (Auto) 75.0 % Lymph % (Auto) 12.2 % Newton % (Auto) 7.9 % Eos % (Auto) 3.7 % Baso % (Auto) 0.5 % Neut # (Auto) 4.44 (1.40-6.50) K/uL Lymph # (Auto) 0.72 L (1.2-3.4) K/uL Newton # (Auto) 0.47 (0.11-0.59) K/uL Eos # (Auto) 0.22 (0-0.50) K/uL Baso # (Auto) 0.03 (0-0.2) K/uL Immature Gran # (Auto) 0.04 (0.01-0.20) K/uL Sodium 138 (136-145) mmol/L Potassium 4.8 (3.5-5.1) mmol/L Chloride 103 (98-107) mmol/L Carbon Dioxide 29 (21-32) mmol/L Anion Gap 6 (3-11) BUN 25 H (6-23) mg/dl Creatinine 1.23 (0.6-1.4) mg/dl Est Cr Clr Drug Dosing 74.3 ml/min Est GFR ( Amer) 65.7 ml/min Est GFR (Non-Af Amer) 56.7 ml/min BUN/Creatinine Ratio 20.3 H (10-20) Glucose 114 H (70-99(Fasting)) mg/dl POC Glucose (70-99) mg/dl Calcium 9.0 (8.6-10.3) mg/dl SARS-CoV-2, RNA, NAAT (NEGATIVE) Total Time Total Time Spent Total Time Spent (In Minutes): 20 Discharge Plan Discharge Items Patient Disposition: Home - Self-Care Reason For Visit: POST OP Discharge Diagnosis: right shoulder rotator cuff arthropathy Activity: Per Instructions section Weightbearing: Right non-weightbearing Non-emergency contact: Surgeon Call non-emergency contact if: you have any medication questions, your pain is not controlled, your pain is concerning for you, you have a fever, your temper ature is above 101, your wound has increased redness and your wound has increased drainage Follow-up/Referrals: Marc Mark MD [Surgeon] - (Follow-up with Dr. Mark or his PA in 2 weeks from the day of surgery for your first postoperative visit.) Ervin Bobby, [Primary Care Provider] - Diet: Regular Addtl Attending Provider Instructions: ACTIVITY RECOMMENDATIONS: SELF CARE INSTRUCTIONS AFTER TOTAL SHOULDER ARTHROPLASTY REVERSE A. You may do daily exercises as taught in physical therapy while in hospital. No lifting with the operative arm. B. You are to wear your sling/immobilizer at all times EXCEPT when performing your daily exercises and for hygiene purposes. C. You may perform dry, daily dressing changes. Please keep your incision covered. You may shower 48 hours after surgery. Do not apply soap or any ointment/lotions directly over incision. Do not soak incision in bath tub/swimming pool. D. You may use ice as needed to operative shoulder. SPECIAL CARE INSTRUCTIONS: VERY IMPORTANT TO READ AND REVIEW A. There are a few signs you need to watch for after you are home. Call [facility] at [phone] if you experience any of the followin. Increased severe shoulder pain. Some pain is expected especially when you exercise. 2. Increased swelling in you shoulder or arm; pain or swelling in either upper extremity. 3. Any fluid drainage from the incision. 4. Shortness of breath or chest pain. B. Please call [facility] at [phone] if you have any questions or concerns about your operation or recovery. C. Call your physician if: 1. Temperature is greater than 101 degrees (F). 2. Pain is not relieved by prescribed pain medications. 3. Increase drainage or redness from incision. 4. Unanswered questions or concerns. FOLLOW UP VISIT: Please call [facility] at [phone] to schedule a follow up appointment with Dr. Mark or his PA in 12-14 days from your surgery date. Stand-Alone Forms: [facility], Pain - Opioid Pain Management, Smoking Cessation Medications and DC Order Prescriptions: New acetaminophen [Tylenol Extra Strength] 500 mg Tablet 1,000 mg PO Q8 14 Days Qty: 84 0RF polyethylene glycol 3350 [Miralax] 17 gram powder in packet 17 g PO DAILY PRN (Reason: constipation) Qty: 5 0RF cefadroxil 500 mg capsule 500 mg PO BID Qty: 14 0RF oxycodone 5 mg tablet 5 mg PO Q4H MDD 6 PRN (Reason: pain) Qty: 30 0RF Continued pantoprazole [Protonix] 40 mg tablet,delayed release (DR/EC) 40 mg PO BID Qty: 180 3RF metoprolol succinate [Toprol XL] 100 mg tablet extended release 24 hr 100 mg PO HS Qty: 90 3RF atorvastatin 20 mg tablet 20 mg PO HS Qty: 90 3RF modafinil [Provigil] 200 mg tablet 400 mg PO QAM Qty: 180 3RF potassium chloride 20 mEq tablet,ER particles/crystals 20 meq PO BID Qty: 180 1RF sertraline 50 mg tablet 50 mg PO QAM Qty: 90 3RF apixaban 5 mg tablet 5 mg PO BID Qty: 180 3RF silodosin [Rapaflo] 4 mg capsule 4 mg PO HS Qty: 90 3RF Rx Instructions: Take with food coenzyme Q10 [CoQ-10] 100 mg capsule 200 mg PO QAM bumetanide 2 mg tablet 2 mg PO QAM Qty: 90 3RF fluocinonide 0.05 % cream 1 applic topical BID PRN (Reason: Rash) Rx Instructions: Apply to areas of the trunk and arms twice daily x 2 weeks as directed. fluticasone propionate 50 mcg/actuation spray,suspension 1 spray INTNAS BID Qty: 3 3RF albuterol sulfate [Ventolin HFA] 90 mcg/actuation HFA aerosol inhaler 2 puff INH Q4H PRN (Reason: shortness of breath) Qty: 3 3RF multivitamin Tablet 1 tab PO QAM Patient Comments: GUMMIES spironolactone 25 mg tablet 25 mg PO QAM Daily Probiotic 2.5 billion cell Capsule 2 cap PO QAM Patient Comments: GUMMIES Prevagen 1 tab PO QAM levothyroxine [Synthroid] 25 mcg tablet 25 mcg PO QAM Gemtesa 75 mg tablet 75 mg PO QAM Discontinued [place] 3 Capsule 200 mg PO QAM Discharge Orders: Discharge Order (Routine); Ordered 06/14/22 Ordered By: Omer Elias/Other Patient Handouts: DVT Post Op Prevention Admission Data Admit Date/Time: 06/13/22 14:16 Attending Provider: Marc Mark Admit Provider: Marc Mark Primary Care Provider: Ervin Bobby Other Providers: Augustine Tapia Thomas E. Other Interventions: Discharge Summary Assessment (RN) Last Done: 06/14/22 11:04
== END 2022-06-14 12:24 | disposition home or self-care (01) ==
LOC: 3E 09:31 → ASU 09:31

== ENCOUNTER 2023-11-17 13:12 | Inpatient (IN) ==
--- NOTE | 2023-11-17 15:54 | Emergency Department Note ---
Impression & Plan Diabetic infection of right foot, Great toe pain ED Provider Note NAME: ESTHER MCDONNELL AGE: 78 SEX: M : 1945 ARRIVES VIA: Walk-In INFORMANT: Patient, ED PROVIDER(S): Negrito Segovia MD CHIEF COMPLAINT: Right great toe infection, outpatient referral MEDICAL DECISION MAKING: Patient presents due to concern for right great toe infection. IV was established and blood work is obtained. Patient's blood work shows a normal white count Anemia of 11.4 which is chronic and stable. Platelet count is unremarkable. The patient's kidney function with creatinine 1.5 relatively chronic and stable from priors Pro-Danis negative. Given the patient's outpatient x-ray with possibly osteomyelitis and known history of diabetes patient was ordered IV vancomycin and cefepime Zosyn. I did speak the on-call hospital service Dr. Benavidez and the patient was admitted to the medicine service. Discussion w/ other healthcare providers: Dr. Benavidez inpatient medicine service Prior /Outside records reviewed: I did review an outpatient x-ray report of the patient's right great toe which showed possible osteomyelitis Differential diagnosis: Cellulitis, abscess, MRSA infection, DVT, necrotizing fasciitis, dermatitis, drug eruption, allergic reaction, as well as other pathologies were considered. Diagnostics, as interpreted by me: ECG: None Cardiac monitoring: An order was placed for continuous cardiac monitoring. The monitor shows a rate of 62 with sinus rhythm. Patient was placed on pulse oximetry Medical decision rules: None Imaging studies: None HPI: Patient presents due to concern for right great toe infection. Patient reports that they noted this toward the end of last week. The seem to get progressively worse. The states that she would apply some peroxide as well as some bacitracin or antibiotic ointment. They did go to the [facility] urgent care today and they were referred here due to concern for possible osteomyelitis. Patient denies any fevers or chills. No chest pains or shortness of breath and no nausea vomiting or diarrhea. Patient is a known diabetic and does take insulin pills for his hyperglycemia. Patient has had prior wound care before but is not seeing them in some time. He did have a prior wound to the right powers. PAST MEDICAL HISTORY: See Below PAST SURGICAL HISTORY: See Below SOCIAL HISTORY: See Below HOME MEDICATIONS: See Below ALLERGIES: See Below VITALS: See Below PHYSICAL EXAMINATION: GENERAL: NAD, non-toxic. EYE EXAM: Normal conjunctiva. PERRL, no anisocoria and EOM's grossly intact w/o pain. OROPHARYNX: Moist mucus membranes, grossly normal dentition. NECK: Trachea midline, no stridor. LUNGS: Clear to auscultation. Normal chest wall mechanics. HEART: NSR, no MRG. ABDOMEN: Abdomen soft, non-tender, no masses, no rebound or guarding. BACK: No CVA TTP. SKIN: No rashes and no bruising. UPPER EXTREMITIES: Upper extremities are grossly normal. LOWER EXTREMITIES: Foul smelling wound to the right great toe, no obvious opening to probe to bone, no obvious purulent drainage expressed at this time, erythema noted to the distal third plantar aspect of the right foot the distal NEURO EXAM: A&O x3, cranial nerves II-XII grossly intact, normal speech, moves all 4 extremities. Past Med/Surg History Problem List (Updated 11/17/23 @ 19:50 by Negrito Segovia MD) Great toe pain (Acute) Diabetic infection of right foot (Acute) Diabetic foot infection Fatigue Abnormal gait Dysphagia Unable to read or write Anemia Cognitive impairment (Acute) MDD (major depressive disorder) Arteriosclerotic coronary artery disease (Chronic) HTN, goal below 130/80 Permanent atrial fibrillation Chronic anticoagulation Type 2 diabetes mellitus in remission Diabetic peripheral neuropathy associated with type 2 diabetes mellitus CKD (chronic kidney disease) stage 3, GFR 30-59 ml/min (Chronic) Secondary hyperparathyroidism Hypothyroidism (Acute) Hyperlipidemia LDL goal <70 Benign localized prostatic hyperplasia with lower urinary tract symptoms (LUTS) Chronic venous insufficiency (Chronic) Severe obesity (BMI 35.0-39.9) with comorbidity (Acute) Obstructive sleep apnea treated with BiPAP (Chronic) Urinary incontinence (Acute) Complex sleep apnea syndrome Narcolepsy (Acute) "mild" Cervical stenosis of spinal canal Medical History Submandibular gland swelling Encounter for monitoring diuretic therapy Chronic anemia Baseline hgb 10-11 range per chart review Hx of fall 12/2021, hit his head/T1 injury/torn ligaments > wore cervical collar x few months Atrial fibrillation Follows with Dr. Atwood/[facility] Sensorineural hearing loss of both ears Epidural hematoma Thoracic compression fracture (~12/2021) T1 Vitamin D deficiency Osteoarthritis DM type 2 (diabetes mellitus, type 2) Diet controlled ("no longer on meds") Hearing deficit b/l hearing aids Sleep apnea BIPAP (compliant) Loss of protective sensation of skin of foot Right ventricular systolic dysfunction Follows with Dr. Atwood/[facility] Diabetes mellitus with hypoglycemia Partial tear of left rotator cuff Obesity Diverticular disease Chronic rhinitis Cervical radiculopathy Acid reflux disease controlled Asthma Dyslipidemia Venous insufficiency uses lymphadema pumps and DANY hose Surgical History Hx of cardiac catheterization 2002, no stents Hx of rotator cuff surgery R/L Right shoulder RCR with [employer], subacromial decompression (10/19/21): Grade view 1, MAC#4, ETT 8 + PNB at [facility] Hx of fusion of cervical spine x2 History of repair of right rotator cuff History of colonoscopy 05/2019 Repeat 5 yrs History of carpal tunnel release History of esophagogastroduodenoscopy (EGD) History of cervical spinal surgery ACDF C3-C7 + hardware removal (06/17/17): Grade view 1, MAC#3, ETT 8.0 at [facility] S/P knee surgery R/L Family History Mother Coronary heart disease Myocardial infarction Brother Diabetes Other No family history of adverse response to anesthesia No family history of bleeding disorder Denies family history of Ovarian cancer Prostate cancer Breast cancer Lung cancer Colorectal cancer Social History Smoking Status: Never smoker Second Hand Exposure: No; Do You Dip or Chew Tobacco: No; Hx Alcohol Use: Yes Alcohol type: beer Alcohol Intake Frequency: Monthly or Less Hx Substance Use: No Preferred Language: Vietnamese Communication Ability: Effective Communication Ability Comment: unable to read Visual Impairment: Limited Hearing Ability: Use of Hearing Aid Test Developer Required: No Beliefs That Will Affect Care: None marital status: Current Living Situation: Spouse current occupational status: retired How many Children do You have: 2 Feels Safe at Home: Yes Childhood Exposure to Second-Hand Smoke: No Diet: regular caffeine: Yes (drinks coffee daily 1 cup) during the past year weight has: decreased > 10 lbs Dental Care, Regularly: No Physical Activity Frequency: Does not Exercise Physical Activity Frequency Comment: does outside work however Seatbelt Use: always Sunscreen Use: No Do you think of yourself as: straight/heterosexual Gender Identity: Male Assistive Devices: Cane, Glasses and Hearing Aid - Bilateral Allergies Allergies Allergy/AdvReac Type Severity Reaction Status Date / Time clindamycin Allergy Intermediate rash Verified 11/17/23 19:21 iodine Allergy Intermediate topical Verified 11/17/23 19:21 iodine- swelling at site trospium AdvReac Intermediate "sick"/head Verified 11/17/23 19:21 ache iodone Allergy Severe swelling Uncoded 11/17/23 19:21 Home Meds Home Medications Medication Instructions Recorded Confirmed multivitamin 1 tab PO QAM 08/22/20 11/17/23 Lactobacillus 2 cap PO QAM 05/29/22 11/17/23 acidophilus-Bifidobac.animalis 2.5 billion cell capsule (Daily Probiotic) Prevagen 1 tab PO QAM 05/29/22 11/17/23 tobramycin 0.3 %-dexamethasone 0.1 1 drp ophthalmic (eye) QID 09/11/23 11/17/23 % eye drops,suspension clobetasol 0.05 % topical ointment 1 applic topical BID PRN 11/17/23 11/17/23 itching/rash solifenacin 10 mg tablet (Vesicare) 10 mg PO QAM 11/17/23 11/17/23 Previous Rx's Medication Instructions Recorded albuterol sulfate 90 mcg/actuation 2 puff inhalation Q4H PRN 03/26/22 aerosol inhaler (Ventolin HFA) shortness of breath #3 Inhalers fluticasone propionate 50 1 spray intranasal BID #3 Inhalers 03/26/22 mcg/actuation nasal spray,suspension bumetanide 2 mg tablet 2 mg PO QAM #90 tabs 12/23/22 atorvastatin 40 mg tablet 40 mg PO HS #90 tabs 03/12/23 levothyroxine 75 mcg tablet 75 mcg PO QAM #90 tabs 03/14/23 apixaban 5 mg tablet 5 mg PO BID #180 tabs 05/13/23 metoprolol succinate 100 mg 100 mg PO HS #90 tabs 05/13/23 tablet,extended release 24 hr (Toprol XL) sertraline 50 mg tablet 50 mg PO QAM #90 tabs 05/16/23 spironolactone 25 mg tablet 25 mg PO DAILY #90 tabs 07/24/23 mupirocin 2 % topical ointment 1 applic topical BID PRN mucositis 08/05/23 #15 grams pantoprazole 40 mg tablet,delayed 40 mg PO BID #180 tabs 08/11/23 release (Protonix) potassium chloride 20 mEq 20 meq PO BID #180 tabs 09/11/23 tablet,extended release(part/cryst) clotrimazole 10 mg nilton 10 mg mucous membrane QID 14 days 09/23/23 #56 tabs modafinil 200 mg tablet (Provigil) 400 mg (2 x 200 mg) PO QAM #180 10/02/23 tabs topiramate 100 mg tablet 100 mg PO BID #180 tabs 10/14/23 Results & Data (ED) Vital Signs Vital Signs - 24 hr 11/17/23 13:34 11/17/23 16:18 11/17/23 17:28 Temperature 36.9 C Temperature Source Oral Pulse Rate 71 Pulse Rate [Right Finger] 61 52 L Pulse Rhythm Regular Pulse Rhythm [Right Finger] Regular Regular Pulse Strength Normal Pulse Strength [Right Finger] Normal Normal Respiratory Rate 17 19 17 Respiratory Effort / Characteristics Non-Labored Non-Labored Non-Labored Respiratory Depth Normal Normal Normal Respiratory Pattern Regular Regular Regular Blood Pressure 126/67 Blood Pressure [Right Arm] 125/66 129/71 Blood Pressure Mean 86 Blood Pressure Mean [Right Arm] 85 90 Blood Pressure Position Sitting Blood Pressure Position [Right Arm] Lying Lying Pulse Oximetry 94 98 97 Oxygen Delivery Method Room Air Room Air Room Air Sepsis Recent Fever Within 48 Hours No Sepsis New/Unexplained Change in Mental Status No Sepsis Action Taken by Nursing No Action Required 11/17/23 17:52 11/17/23 18:03 11/17/23 19:34 Temperature Temperature Source Pulse Rate 62 Pulse Rate [Right Finger] 60 60 Pulse Rhythm Pulse Rhythm [Right Finger] Regular Regular Pulse Strength Pulse Strength [Right Finger] Normal Normal Respiratory Rate 21 16 Respiratory Effort / Characteristics Non-Labored Non-Labored Respiratory Depth Normal Normal Respiratory Pattern Regular Regular Blood Pressure Blood Pressure [Right Arm] 111/78 137/67 Blood Pressure Mean Blood Pressure Mean [Right Arm] 89 90 Blood Pressure Position Blood Pressure Position [Right Arm] Lying Lying Pulse Oximetry 98 93 Oxygen Delivery Method Room Air Room Air Sepsis Recent Fever Within 48 Hours Sepsis New/Unexplained Change in Mental Status Sepsis Action Taken by [facility] Medications Current Medication List: was personally reviewed by me Laboratory Data Attestation: I reviewed the patient's lab results. 11/17/23 15:20 11/17/23 15:20 Lab Results 11/17/23 Range/Units 15:20 WBC 7.65 (4.8-10.8) K/ul RBC 3.66 L (4.70-6.10) M/uL Hgb 11.4 L (14.0-18.0) g/dl Hct 34.8 L (42.0-52.0) % MCV 95.1 (80.0-100.0) fL MCH 31.1 (25.0-34.0) pg MCHC 32.8 (32.0-36.0) g/dL RDW Std Deviation 42.6 (36.4-46.3) fL RDW Coeff of Magan 12.2 (11.5-14.5) % Plt Count 199 (130-400) K/uL MPV 10.2 (9.4-12.4) fL Immature Gran % (Auto) 0.1 % Neut % (Auto) 73.4 % Lymph % (Auto) 15.2 % [place] % (Auto) 8.1 % Eos % (Auto) 2.7 % Baso % (Auto) 0.5 % Neut # (Auto) 5.61 (1.40-6.50) K/uL Lymph # (Auto) 1.16 L (1.20-3.40) K/uL [place] # (Auto) 0.62 H (0.11-0.59) K/uL Eos # (Auto) 0.21 (0.00-0.50) K/uL Baso # (Auto) 0.04 (0.00-0.20) K/uL Immature Gran # (Auto) 0.01 (0.01-0.20) K/uL Sodium 139 (136-145) mmol/L Potassium 4.2 (3.5-5.1) mmol/L Chloride 106 (98-107) mmol/L Carbon Dioxide 24 (21-32) mmol/L Anion Gap 9 (3-11) BUN 32 H (6-23) mg/dl Creatinine 1.54 H (0.6-1.4) mg/dl Est Cr Clr Drug Dosing 58.8 ml/min Est GFR ( Amer) 49.7 ml/min Est GFR (Non-Af Amer) 42.9 ml/min BUN/Creatinine Ratio 20.8 H (10-20) Glucose 109 H (70-99(Fasting)) mg/dl Calcium 8.9 (8.6-10.3) mg/dl Total Bilirubin 0.7 (0.2-1.0) mg/dl AST 23 (13-39) U/L ALT 14 (7-52) U/L Alkaline Phosphatase 111 H (34-104) U/L Total Protein 7.4 (6.0-8.3) gm/dl Albumin 4.3 (3.4-5.0) gm/dl Globulin 3.1 (2.5-4.0) gm/dl Albumin/Globulin Ratio 1.4 (0.9-2) Procalcitonin 0.03 (0-0.5) ng/ml Administered Medications Discontinued Medications Vancomycin HCl 2,750 mg/ (Sodium Chloride) 555 mls @ 200 mls/hr IV NOW ONE Stop: 11/17/23 18:52 Last Admin: 11/17/23 17:08 Dose: 200 mls/hr Documented By: ESTEFANI Piperacillin Sod/Tazobactam Sod (Zosyn) 4.5 gm in 100 mls @ 200 mls/hr IV NOW ONE Stop: 11/17/23 16:35 Last Infusion: 11/17/23 17:27 Dose: Infused Documented By: Admin: 11/17/23 16:24 Dose: 200 mls/hr Documented By: KRISTIAN Discharge Plan Visit Data Chief Complaint: Infection Stated Complaint: INFECTION IN R FOOT ED Provider: Negrito Segovia Discharge Problem: Diabetic infection of right foot, Great toe pain Forms Stand Alone Forms: My QVIVO Prescriptions Prescriptions: No Action levothyroxine 75 mcg tablet 75 mcg PO QAM Qty: 90 3RF apixaban 5 mg tablet 5 mg PO BID Qty: 180 3RF metoprolol succinate [Toprol XL] 100 mg tablet extended release 24 hr 100 mg PO HS Qty: 90 3RF sertraline 50 mg tablet 50 mg PO QAM Qty: 90 3RF mupirocin 2 % ointment 1 applic topical BID PRN (Reason: mucositis) Qty: 15 0RF Rx Instructions: APPLY TO AFFECTED NOSTRIL TWICE DAILY FOR 2 WEEKS pantoprazole [Protonix] 40 mg tablet,delayed release (DR/EC) 40 mg PO BID Qty: 180 3RF potassium chloride 20 mEq tablet,ER particles/crystals 20 meq PO BID Qty: 180 3RF modafinil [Provigil] 200 mg tablet 400 mg PO QAM Qty: 180 3RF bumetanide 2 mg tablet 2 mg PO QAM Qty: 90 3RF tobramycin-dexamethasone 0.3-0.1 % drops,suspension 1 drp ophthalmic (eye) QID Rx Instructions: 1 drop in right eye qid but patient only uses tid fluticasone propionate 50 mcg/actuation spray,suspension 1 spray INTNAS BID Qty: 3 3RF albuterol sulfate [Ventolin HFA] 90 mcg/actuation HFA aerosol inhaler 2 puff INH Q4H PRN (Reason: shortness of breath) Qty: 3 3RF atorvastatin 40 mg tablet 40 mg PO HS Qty: 90 3RF topiramate 100 mg tablet 100 mg PO BID Qty: 180 3RF clotrimazole 10 mg nilton 10 mg mucous membrane QID 14 Days Qty: 56 0RF spironolactone 25 mg tablet 25 mg PO DAILY Qty: 90 3RF multivitamin Tablet 1 tab PO QAM Patient Comments: GUMMIES Daily Probiotic 2.5 billion cell Capsule 2 cap PO QAM Patient Comments: GUMMIES Prevagen 1 tab PO QAM clobetasol 0.05 % ointment 1 applic topical BID PRN (Reason: itching/rash) Rx Instructions: Apply to areas of the arms twice daily x 2 weeks as directed. solifenacin [Vesicare] 10 mg tablet 10 mg PO QAM Referrals Referrals: Ervin Bobby DO [Primary Care Provider] - Discharge Problem: Great toe pain Qualifiers: Laterality: right Qualified Code(s): M79.674 - Pain in right toe(s)
[2023-11-17 15:57] LABS: Basophils # (auto) 0.04 K/uL (0.00-0.20); Basophils % (auto) 0.5 %; Eosinophils # (auto) 0.21 K/uL (0.00-0.50); Eosinophils % (auto) 2.7 %; Hematocrit (blood only) 34.8 % (42.0-52.0); Hemoglobin 11.4 g/dl (14.0-18.0); Immature Granulocytes # (auto) 0.01 K/uL (0.01-0.20); Immature Granulocytes % (auto) 0.1 %; Lymphocytes # (auto) 1.16 K/uL (1.20-3.40); Lymphocytes % (auto) 15.2 %; Mean Corpuscular Hemoglobin 31.1 pg (25.0-34.0); Mean Corpuscular Hgb Conc 32.8 g/dL (32.0-36.0); Mean Corpuscular Volume 95.1 fL (80.0-100.0); Mean Platelet Volume 10.2 fL (9.4-12.4); Monocytes # (auto) 0.62 K/uL (0.11-0.59); Monocytes % (auto) 8.1 %; Neutrophils # (auto) 5.61 K/uL (1.40-6.50); Neutrophils % (auto) 73.4 %; Platelet Count 199 K/uL (130-400); RDW Coefficient of Variation 12.2 % (11.5-14.5); RDW Standard Deviation 42.6 fL (36.4-46.3); Red Blood Count 3.66 M/uL (4.70-6.10); White Blood Count 7.65 K/ul (4.8-10.8)
[2023-11-17] MEDS ORDERED: VANCOMYCIN CONSULT ACTIVE PRN ×2 (16:06→22:08)
[2023-11-17 16:16] LABS: Albumin Globulin Ratio 1.4 (0.9-2); Albumin Level 4.3 gm/dl (3.4-5.0); BUN Creatinine Ratio 20.8 (10-20); Bilirubin,Total 0.7 mg/dl (0.2-1.0); Calcium 8.9 mg/dl (8.6-10.3); Creatinine Clr Calc Pharmacy 58.8 ml/min; Est GFR (African American) 49.7 ml/min; Est GFR (Non-African American) 42.9 ml/min; Globulin 3.1 gm/dl (2.5-4.0); Potassium 4.2 mmol/L (3.5-5.1); Total Protein 7.4 gm/dl (6.0-8.3)
[2023-11-17] MEDS: PIPERACILLIN/TAZOBACTAM 4.5 GM/100 ML BAG IV ONE (16:24)
[2023-11-17] MEDS: VANCOMYCIN HCL 2,750 MG in SODIUM CHLORIDE 0.9% 500 ML IV ONE (17:08)
--- NOTE | 2023-11-17 19:12 | History & Physical Report ---
Date of Service November 17, 2023 Assessment & Plan (1) Diabetic foot infection: Plan: R toe xray suggests subtle erosion of distal tuft of distal phalanx, which raises the possibility of acute osteomyelitis - previous culture from R leg contained Pseudomonas and Enterococcus - pending current wound culture - starting on IV cefepime 2g q8, continuing on vancomycin 2g q8 maintenance - R foot MRI ordered - CBC, CRP qAM insulin: 10U Lantus, juan. factor 35, carb ratio 15 (2) Diabetic peripheral neuropathy associated with type 2 diabetes mellitus: Plan: 10+ years of decreased sensation in b/l feet insulin: 10U Lantus, correction factor of 35, carb ratio 15 - DM 2 regular diet (3) Permanent atrial fibrillation: Plan: holding home Eliquis, starting Heparin for prophylaxis - continue metoprolol home dose History of Present Illness Chief Complaint: "my toe hurts" Primary Care Provider: Ervin Bobby DO Daniel is a 78yo male with past medical history of diabetes type 2, peripheral neuropathy, atrial fibrillation on Eliquis, and lymphedema, JERAD on BiPAP, came to the ED today due to R great toe pain and suspected infection by appearance. He states he started noticing the discomfort 3-4 days ago and realized it didn't look right. Pt started applying antibacterial ointment yesterday 11/15, but when it hadn't improved at all today he decided to come to the ED. Pt's also endorses she started noticing a bad smell coming from the toe late last week. Pt's endorses that pt often uses a pocket knife to remove " skin" from his feet and toes, including the affected toe, and additionally notes the knife was not likely clean. Pt denies having been to the hospital previously for an infection related to his diabetes, and denies any previous toe infection. Also denies that he has been barefoot outside or in the house aside from showering, as he always wears compression socks up to the knee for his lymphedema. Denies any animal bites or insect bites or stings to the affected toe. Pt and deny that pt has had any recent fever, body aches, chills, headache, nausea, vomiting, vision changes, chest pain, abdominal pain, constipation, diarrhea. Allergies Allergy/AdvReac Type Severity Reaction Status Date / Time clindamycin Allergy Intermediate rash Verified 11/17/23 19:21 iodine Allergy Intermediate topical Verified 11/17/23 19:21 iodine- swelling at site trospium AdvReac Intermediate "sick"/head Verified 11/17/23 19:21 ache iodone Allergy Severe swelling Uncoded 11/17/23 19:21 Home Medications Medication Instructions Recorded Confirmed Type multivitamin 1 tab PO QAM 08/22/20 11/17/23 History albuterol sulfate 90 mcg/actuation 2 puff inhalation Q4H PRN 03/26/22 11/17/23 Rx aerosol inhaler (Ventolin HFA) shortness of breath #3 Inhalers fluticasone propionate 50 1 spray intranasal BID #3 Inhalers 03/26/22 11/17/23 Rx mcg/actuation nasal spray,suspension Lactobacillus 2 cap PO QAM 05/29/22 11/17/23 History acidophilus-Bifidobac.animalis 2.5 billion cell capsule (Daily Probiotic) Prevagen 1 tab PO QAM 05/29/22 11/17/23 History bumetanide 2 mg tablet 2 mg PO QAM #90 tabs 12/23/22 11/17/23 Rx atorvastatin 40 mg tablet 40 mg PO HS #90 tabs 03/12/23 11/17/23 Rx levothyroxine 75 mcg tablet 75 mcg PO QAM #90 tabs 03/14/23 11/17/23 Rx apixaban 5 mg tablet 5 mg PO BID #180 tabs 05/13/23 11/17/23 Rx metoprolol succinate 100 mg 100 mg PO HS #90 tabs 05/13/23 11/17/23 Rx tablet,extended release 24 hr (Toprol XL) sertraline 50 mg tablet 50 mg PO QAM #90 tabs 05/16/23 11/17/23 Rx spironolactone 25 mg tablet 25 mg PO DAILY #90 tabs 07/24/23 11/17/23 Rx mupirocin 2 % topical ointment 1 applic topical BID PRN mucositis 08/05/23 11/17/23 Rx #15 grams pantoprazole 40 mg tablet,delayed 40 mg PO BID #180 tabs 08/11/23 11/17/23 Rx release (Protonix) potassium chloride 20 mEq 20 meq PO BID #180 tabs 09/11/23 11/17/23 Rx tablet,extended release(part/cryst) tobramycin 0.3 %-dexamethasone 0.1 1 drp ophthalmic (eye) QID 09/11/23 11/17/23 History % eye drops,suspension clotrimazole 10 mg nilton 10 mg mucous membrane QID 14 days 09/23/23 11/17/23 Rx #56 tabs modafinil 200 mg tablet (Provigil) 400 mg (2 x 200 mg) PO QAM #180 10/02/23 11/17/23 Rx tabs topiramate 100 mg tablet 100 mg PO BID #180 tabs 10/14/23 11/17/23 Rx clobetasol 0.05 % topical ointment 1 applic topical BID PRN 11/17/23 11/17/23 History itching/rash solifenacin 10 mg tablet (Vesicare) 10 mg PO QAM 11/17/23 11/17/23 History Past Med/Surg History Problem List (Updated 11/17/23 @ 19:50 by Negrito Segovia MD) Great toe pain (Acute) Diabetic infection of right foot (Acute) Diabetic foot infection Fatigue Abnormal gait Dysphagia Unable to read or write Anemia Cognitive impairment (Acute) MDD (major depressive disorder) Arteriosclerotic coronary artery disease (Chronic) HTN, goal below 130/80 Permanent atrial fibrillation Chronic anticoagulation Type 2 diabetes mellitus in remission Diabetic peripheral neuropathy associated with type 2 diabetes mellitus CKD (chronic kidney disease) stage 3, GFR 30-59 ml/min (Chronic) Secondary hyperparathyroidism Hypothyroidism (Acute) Hyperlipidemia LDL goal <70 Benign localized prostatic hyperplasia with lower urinary tract symptoms (LUTS) Chronic venous insufficiency (Chronic) Severe obesity (BMI 35.0-39.9) with comorbidity (Acute) Obstructive sleep apnea treated with BiPAP (Chronic) Urinary incontinence (Acute) Complex sleep apnea syndrome Narcolepsy (Acute) "mild" Cervical stenosis of spinal canal Medical History Submandibular gland swelling Encounter for monitoring diuretic therapy Chronic anemia Baseline hgb 10-11 range per chart review Hx of fall 12/2021, hit his head/T1 injury/torn ligaments > wore cervical collar x few months Atrial fibrillation Follows with Dr. Atwood/[facility] Sensorineural hearing loss of both ears Epidural hematoma Thoracic compression fracture (~12/2021) T1 Vitamin D deficiency Osteoarthritis DM type 2 (diabetes mellitus, type 2) Diet controlled ("no longer on meds") Hearing deficit b/l hearing aids Sleep apnea BIPAP (compliant) Loss of protective sensation of skin of foot Right ventricular systolic dysfunction [place]s with Dr. Atwood[place] [place] Diabetes mellitus with hypoglycemia Partial tear of left rotator cuff Obesity Diverticular disease Chronic rhinitis Cervical radiculopathy Acid reflux disease controlled Asthma Dyslipidemia Venous insufficiency uses lymphadema pumps and DANY hose Surgical History Hx of cardiac catheterization 2002, no stents Hx of rotator cuff surgery R/L Right shoulder RCR with [employer], subacromial decompression (10/19/21): Grade view 1, MAC#4, ETT 8 + PNB at [facility] Hx of fusion of cervical spine x2 History of repair of right rotator cuff History of colonoscopy 05/2019 Repeat 5 yrs History of carpal tunnel release History of esophagogastroduodenoscopy (EGD) History of cervical spinal surgery ACDF C3-C7 + hardware removal (06/17/17): Grade view 1, MAC#3, ETT 8.0 at [facility] S/P knee surgery R/L Family History Mother Coronary heart disease Myocardial infarction Brother Diabetes Other No family history of adverse response to anesthesia No family history of bleeding disorder Denies family history of Ovarian cancer Prostate cancer Breast cancer Lung cancer Colorectal cancer Social History Smoking Status: Never smoker Second Hand Exposure: No; Do You Dip or Chew Tobacco: No; Hx Alcohol Use: Yes Alcohol type: beer Alcohol Intake Frequency: Monthly or Less Hx Substance Use: No Preferred Language: Congolese Communication Ability: Effective Communication Ability Comment: unable to read Visual Impairment: Limited Hearing Ability: Use of Hearing Aid Cell Biology Scientist Required: No Beliefs That Will Affect Care: None marital status: Current Living Situation: Spouse current occupational status: retired How many Children do You have: 2 Feels Safe at Home: Yes Childhood Exposure to Second-Hand Smoke: No Diet: regular caffeine: Yes (drinks coffee daily 1 cup) during the past year weight has: decreased > 10 lbs Dental Care, Regularly: No Physical Activity Frequency: Does not Exercise Physical Activity Frequency Comment: does outside work however Seatbelt Use: always Sunscreen Use: No Do you think of yourself as: straight/heterosexual Gender Identity: Male Assistive Devices: Cane, Glasses and Hearing Aid - Bilateral Review of Systems Review of Systems: per HPI Physical Exam Physical Exam: constitutional: A&Ox3, not in acute distress MSK: b/l LE nonpitting edema up to knees, R>L - b/l LE tender to palpation up to just inferior to knees - several toenails missing Skin: R great toe- erythema proximally with concentric yellow coloration and hyperpigmentation distally - tender to palpation - no ulceration noted, no active drainin g noted, no pus or bleeding Neuro: sensation to pressure intact, decreased sensation to sharp touch to toes and distal feet b/l Cardiovascular: bradycardic, irregularly irregular. Soft heart sounds, no murmurs heard on auscultation Pulmonary: clear to auscultation b/l GI: normoactive bowel sounds, soft, nontender to palpation Results & Data Results & Data Vital Signs (Past 12 Hours) Vital Signs Temp Pulse Pulse Resp BP BP Pulse Ox 11/17/23 18:03 62 11/17/23 17:52 60 21 111/78 98 11/17/23 17:28 52 L 17 129/71 97 11/17/23 16:18 61 19 125/66 98 11/17/23 13:34 36.9 C 71 17 126/67 94 O2 Del Method 11/17/23 18:03 11/17/23 17:52 Room Air 11/17/23 17:28 Room Air 11/17/23 16:18 Room Air 11/17/23 13:34 Room Air Diagnostic Findings Xray R great toe: IMPRESSION: 1. No fractures within the right first toe. 2. Right first toe soft tissue swelling with apparent wound. Subtle erosion of the distal tuft of the distal phalanx of the right first toe which raises the possibility of acute osteomyelitis. Supervising Physician Co-Signing Physician Notes Patient seen and examined, chart reviewed, case discussed with Dr. Harper and I agree with the assessment and plan as above except as otherwise noted Labs and images reviewed 78yo M with a PMHx of T2DM, eliquis on eliquis, JERAD on BiPAP HS, bilateral LE lymphedema who uses SCDs are night who has had discomfort and pain in the R hallux progressive swelling, erythema, pain and warmth. Rapidly worsening over the last 48 hours and with a worsening odor. No improvement with topical ointment, came in to the ER due to progressive worsening. No fever or chills. No leukocytosis. Did attempt to debride skin from the toe with a pocketknife. XR Toe shoes soft tissue swelling and subtle distal phalanx erosion concerning for acute osteo. Prior culture review + for Enterococcus faecalis and pseudomonas. Pseudomonas without additional resistance. At bedside right hallux is erythematous, swollen, with diffuse edema, tenderness. Edema and swelling extends through the midfoot. Patient is receiving/Zosyn in the ER. Switched to Vanc/Cefepime to continue both pesudomonal and enterococcal coverage. He is volume contracted with upper range of recent normal kidney function and no evidence of pulmonary edema/CHF. Bumex held. Continued on thigh-high SCDs for chronic lymphedema. Lungs are clear. He is not septic, there is no leukocytosis Pro-Danis is not elevated and VSS. DFI, osteo - Cefepime/Vanco - MRI pending - CRP, CBC daily Agree with above. Will likely need prolonged course of antibiotics Due to debridement with a pocket knife, updated Tdap ordered DM2 - weight based basal bolus SSI -Goal BSG [id number] - Lantus 10u BID, CF 35. Ratio 15 Benign essential tremor Topiramate continued A-fib Eliquis converted to heparin gtt. in the event surgical intervention of osteo is required Continue rate control medications as noted ? ALLYSSA/prerenal azotemia -baseline creatinine appears around 1.4, recently has been around 1.431.7. Patient is 1.54 on admission. Will hold Bumex and spironolactone temporarily, reassess renal function daily Resident Activity Tracking Resident Involvement: Resident Care Provided Care Provided: Adult Hospital Medicine
--- NOTE | 2023-11-17 19:53 | Billing Data ---
Date of Service November 17, 2023 Coding Level of Care Code 44833 INT INP/OBS CARE
[2023-11-17] MEDS ORDERED: LANTUS PER UNIT CHARGE SQ SCH (21:00)
[2023-11-17] MEDS ORDERED: LANTUS PER UNIT CHARGE SQ STA (21:21)
[2023-11-17] MEDS: MoRPHine SULFATE 2 MG/ML CARP IV PRN (21:44)
[2023-11-17] MEDS ORDERED: PHARMACY GLYCEMIC MGMT CONSULT PRN (22:08)
[2023-11-17] MEDS ORDERED: DEXTROSE 50% 50 ML SYRINGE IV PRN (22:08)
[2023-11-17] MEDS ORDERED: INSULIN ASPART PER UNIT CHARGE SC SCH (22:08)
[2023-11-17] MEDS ORDERED: Heparin IV Adult Wt-Based Low-Dose *NO* INITIAL Bolus Protocol IV STA (22:08)
[2023-11-17] MEDS ORDERED: CARBOHYDRATES FOR HYPOGLYCEMIA PO PRN (22:08)
[2023-11-17] MEDS ORDERED: ALBUTEROL HFA 8 GM INHALER INH PRN (22:08)
[2023-11-17] MEDS ORDERED: GLUCOSE 40% GEL 15 GM TUBE PO PRN (22:08)
[2023-11-17] MEDS ORDERED: GLUCAGON FOR INJ 1 MG VIAL SQ PRN (22:08)
[2023-11-17] MEDS ORDERED: GLUCOSE 10 TAB/TUBE PO PRN (22:08)
[2023-11-17] MEDS ORDERED: POLYETHYLENE (MIRALAX) 17 GM PACK PO PRN (22:08)
[2023-11-17] MEDS: CEFEPIME 20 ML IV STA (22:56)
[2023-11-17 23:31] LABS: Partial Thromboplastin Ratio 1.8; Partial Thromboplastin Time 48 Seconds (21-31)
[2023-11-17 23:33] LABS: C Reactive Protein 4.11 mg/dl (0-0.5)
[2023-11-17] MEDS: HEPARIN SODIUM/DEXTROSE 25,000 UNITS/500 ML BAG IV SCH (23:49)
[2023-11-17] MEDS: ATORVASTATIN 40 MG TAB PO SCH (23:52)
[2023-11-17] MEDS: METOPROLOL SUCC 50MG EXT REL TAB PO SCH (23:52)
[2023-11-17] MEDS: TOBRAMYCIN/DEXAMETHASONE OPH SUSP 2.5 ML BTL OP SCH (23:53)
[2023-11-17] MEDS: POTASSIUM CHLORIDE CRTAB 20 MEQ TABCR PO SCH (23:55)
[2023-11-17] MEDS: PANTOprazole 40 MG TAB PO SCH (23:55)
[2023-11-18] MEDS: FLUTICASONE PROPIONATE NA SPR 16 GM BTL SCH (00:05)
[2023-11-18] MEDS: TOPIRAMATE 100 MG TAB PO SCH (00:06)
[2023-11-18] MEDS: ACETAMINOPHEN 325 MG TAB PO PRN (01:34)
--- NOTE | 2023-11-18 04:23 | Magnetic Resonance Report ---
Exam(s): MRI RIGHT FOOT Without Contrast EXAM: MR Right Lower Extremity Without Intravenous Contrast, Foot CLINICAL HISTORY: Reason for exam: R hallux osteo. TECHNIQUE: Multiplanar magnetic resonance images of the right foot without intravenous contrast. COMPARISON: No relevant prior studies available. FINDINGS: Soft tissue infection of the great toe. Moderate edema in the great toe distal phalanx, consistent with osteomyelitis. No fluid collection or abscess. Mild first and third intermetatarsal bursitis. No fracture or subluxation. No Lisfranc malalignment. No MR evidence of osteomyelitis of the second-fifth toes. IMPRESSION: Positive for great toe osteomyelitis. No abscess or collection. Electronically signed by: Abelardo Hurd MD 11/18/23 04:22 AM
[2023-11-18] MEDS: LEVOTHYROXINE SODIUM 75 MCG TABLET PO SCH (05:59)
[2023-11-18] MEDS: VANCOMYCIN HCL 1,500 MG in SODIUM CHLORIDE 0.9% 500 ML IV SCH (05:59)
[2023-11-18 07:01] LABS: Basophils # (auto) 0.02 K/uL (0.00-0.20); Basophils % (auto) 0.3 %; Eosinophils # (auto) 0.25 K/uL (0.00-0.50); Hematocrit (blood only) 34.1 % (42.0-52.0); Hemoglobin 10.9 g/dl (14.0-18.0); Immature Granulocytes # (auto) 0.02 K/uL (0.01-0.20); Immature Granulocytes % (auto) 0.3 %; Lymphocytes # (auto) 1.34 K/uL (1.20-3.40); Lymphocytes % (auto) 21.2 %; Mean Corpuscular Hemoglobin 30.8 pg (25.0-34.0); Mean Corpuscular Volume 96.3 fL (80.0-100.0); Monocytes # (auto) 0.64 K/uL (0.11-0.59); Monocytes % (auto) 10.1 %; Neutrophils # (auto) 4.04 K/uL (1.40-6.50); Neutrophils % (auto) 64.1 %; Platelet Count 166 K/uL (130-400); RDW Coefficient of Variation 12.3 % (11.5-14.5); RDW Standard Deviation 43.4 fL (36.4-46.3); Red Blood Count 3.54 M/uL (4.70-6.10); White Blood Count 6.31 K/ul (4.8-10.8)
[2023-11-18 07:14] LABS: BUN Creatinine Ratio 24.6 (10-20); C Reactive Protein 4.25 mg/dl (0-0.5); Calcium 8.6 mg/dl (8.6-10.3); Creatinine Clr Calc Pharmacy 71.8 ml/min; Est GFR (African American) 63.3 ml/min; Est GFR (Non-African American) 54.7 ml/min
[2023-11-18 07:40] LABS: ANTI-Xa, UFH(UnfractionatedHep 1.01 IU/ml (0.3-0.7)
[2023-11-18] MEDS: modafiniL 100 MG TAB PO SCH (08:50)
[2023-11-18] MEDS: CEFEPIME 2,000 MG in SYRINGE 0 ML IV SCH (08:51)
[2023-11-18] MEDS: ADVANCED PROBIOTIC 625 MG CAPSULE PO SCH (08:52)
[2023-11-18] MEDS: SERTRALINE HCL 50 MG TABLET PO SCH (08:52)
[2023-11-18] MEDS: MULTIVITAMIN TAB PO SCH (08:52)
[2023-11-18] MEDS ORDERED: CEFEPIME 2,000 MG in SYRINGE 0 ML IV SCH (10:00)
--- NOTE | 2023-11-18 10:57 | Infectious Disease Consult ---
Date of Consultation November 18, 2023 Assessment & Plan (1) Diabetic infection of right foot: (2) Great toe pain: Plan #Great toe osteomyelitis #DM MICRO BCx NG ABX Cefepime Vancomycin 78 yo male with past medical history of diabetes type 2, peripheral neuropathy, benign tremor, Afib on Eliquis, and lymphedema, JERAD on BiPAP, presented with R great toe pain and redness. ID consulted for DFI and c/f osteomyelitis. Patient noteced over the course of a few days his toe look infected. He applied topical antibiotic ointment to it but it h 3-4 days ago and realized it didn't look right. Pt started applying antibacterial ointment yesterday 11/15, but when it hadn't improved at all today he decided to come to the ED. Per notes, he was using pcket knife to clean skin and odor from foot started as well. No noted injury, no prior ulcerations. On admission, VSS, WBC normal, Cr 1.54, CRP 4.25, No recent cultures- 2020 wound cx E. faecalis and pseudomonas MRI and Xray confirm Soft tissue infection of the great toe. Moderate edema in the great toe distal phalanx, consistent with osteomyelitis. RECOMMEND -Await podiatry plan -C/W Vancomycin, check MRSA nares -C/W Cefepime ID will follow Dora Cheung MD Infectious Diseases Consultation Information This patient recommendation is based on a telemedicine consult request which was completed asynchronously through chart review and information provided by the primary physician. The patient was not seen or examined today. The evaluation is consultative in nature and all patient care and treatment decisions can either be accepted or rejected by the patient's primary hospital-based treating physician using their own independent medical judgment for their patient. [facility] Grinder contact information: Please call [facility] . (Phone Number For Physician Use Only) Time Spent Reviewing Chart: 31+ minutes History of Present Illness Reason for Consultation: Toe osteomyelitis Requesting Physician: Dr. Brizuela Attending Physician: Claude Brizuela History of Present Illness 78 yo male with past medical history of diabetes type 2, peripheral neuropathy, benign tremor, Afib on Eliquis, and lymphedema, JERAD on BiPAP, presented with R great toe pain and redness. ID consulted for DFI and c/f osteomyelitis. Patient noteced over the course of a few days his toe look infected. He applied topical antibiotic ointment to it but it h 3-4 days ago and realized it didn't look right. Pt started applying antibacterial ointment yesterday 11/15, but when it hadn't improved at all today he decided to come to the ED. Per notes, he was using pcket knife to clean skin and odor from foot started as well. No noted injury, no prior ulcerations. On admission, VSS, WBC normal, Cr 1.54, CRP 4.25, No recent cultures- 2020 wound cx E. faecalis and pseudomonas MRI and Xray confirm Soft tissue infection of the great toe. Moderate edema in the great toe distal phalanx, consistent with osteomyelitis. Currently on Cefepime, vancomycin Allergies Allergy/AdvReac Type Severity Reaction Status Date / Time clindamycin Allergy Intermediate rash Verified 11/17/23 19:21 iodine Allergy Intermediate topical Verified 11/17/23 19:21 iodine- swelling at site trospium AdvReac Intermediate "sick"/head Verified 11/17/23 19:21 ache Home Medications Medication Instructions Recorded Confirmed Type multivitamin 1 tab PO QAM 08/22/20 11/17/23 History albuterol sulfate 90 mcg/actuation 2 puff inhalation Q4H PRN 03/26/22 11/17/23 Rx aerosol inhaler (Ventolin HFA) shortness of breath #3 Inhalers fluticasone propionate 50 1 spray intranasal BID #3 Inhalers 03/26/22 11/17/23 Rx mcg/actuation nasal spray,suspension Lactobacillus 2 cap PO QAM 05/29/22 11/17/23 History acidophilus-Bifidobac.animalis 2.5 billion cell capsule (Daily Probiotic) Prevagen 1 tab PO QAM 05/29/22 11/17/23 History bumetanide 2 mg tablet 2 mg PO QAM #90 tabs 12/23/22 11/17/23 Rx atorvastatin 40 mg tablet 40 mg PO HS #90 tabs 03/12/23 11/17/23 Rx levothyroxine 75 mcg tablet 75 mcg PO QAM #90 tabs 03/14/23 11/17/23 Rx apixaban 5 mg tablet 5 mg PO BID #180 tabs 05/13/23 11/17/23 Rx metoprolol succinate 100 mg 100 mg PO HS #90 tabs 05/13/23 11/17/23 Rx tablet,extended release 24 hr (Toprol XL) sertraline 50 mg tablet 50 mg PO QAM #90 tabs 05/16/23 11/17/23 Rx spironolactone 25 mg tablet 25 mg PO DAILY #90 tabs 07/24/23 11/17/23 Rx mupirocin 2 % topical ointment 1 applic topical BID PRN mucositis 08/05/23 11/17/23 Rx #15 grams pantoprazole 40 mg tablet,delayed 40 mg PO BID #180 tabs 08/11/23 11/17/23 Rx release (Protonix) potassium chloride 20 mEq 20 meq PO BID #180 tabs 09/11/23 11/17/23 Rx tablet,extended release(part/cryst) tobramycin 0.3 %-dexamethasone 0.1 1 drp ophthalmic (eye) QID 09/11/23 11/17/23 History % eye drops,suspension clotrimazole 10 mg nilton 10 mg mucous membrane QID 14 days 09/23/23 11/17/23 Rx #56 tabs modafinil 200 mg tablet (Provigil) 400 mg (2 x 200 mg) PO QAM #180 10/02/23 11/17/23 Rx tabs topiramate 100 mg tablet 100 mg PO BID #180 tabs 10/14/23 11/17/23 Rx clobetasol 0.05 % topical ointment 1 applic topical BID PRN 11/17/23 11/17/23 History itching/rash solifenacin 10 mg tablet (Vesicare) 10 mg PO QAM 11/17/23 11/17/23 History Patient History Medical History Submandibular gland swelling Encounter for monitoring diuretic therapy Chronic anemia Baseline hgb 10-11 range per chart review Hx of fall 12/2021, hit his head/T1 injury/torn ligaments > wore cervical collar x few months Atrial fibrillation Follows with Dr. Atwood/[facility] Sensorineural hearing loss of both ears Epidural hematoma Thoracic compression fracture (~12/2021) T1 Vitamin D deficiency Osteoarthritis DM type 2 (diabetes mellitus, type 2) Diet controlled ("no longer on meds") Hearing deficit b/l hearing aids Sleep apnea BIPAP (compliant) Loss of protective sensation of skin of foot Right ventricular systolic dysfunction [facility] Diabetes mellitus with hypoglycemia Partial tear of left rotator cuff Obesity Diverticular disease Chronic rhinitis Cervical radiculopathy Acid reflux disease controlled Asthma Dyslipidemia Venous insufficiency uses lymphadema pumps and DANY hose Surgical History Hx of cardiac catheterization 2002, no stents Hx of rotator cuff surgery R/L Right shoulder RCR with [employer], subacromial decompression (10/19/21): Grade view 1, MAC#4, ETT 8 + PNB at [facility] Hx of fusion of cervical spine x2 History of repair of right rotator cuff History of colonoscopy 05/2019 Repeat 5 yrs History of carpal tunnel release History of esophagogastroduodenoscopy (EGD) History of cervical spinal surgery ACDF C3-C7 + hardware removal (06/17/17): Grade view 1, MAC#3, ETT 8.0 at [facility] S/P knee surgery R/L Family History Mother Coronary heart disease Myocardial infarction Brother Diabetes Other No family history of adverse response to anesthesia No family history of bleeding disorder Denies family history of Ovarian cancer Prostate cancer Breast cancer Lung cancer Colorectal cancer Social History Smoking Status: Never smoker Second Hand Exposure: No; Do You Dip or Chew Tobacco: No; Hx Alcohol Use: Yes Alcohol type: beer Alcohol Intake Frequency: Monthly or Less Hx Substance Use: No Preferred Language: Upper Sorbian Communication Ability: Effective Communication Ability Comment: unable to read Visual Impairment: Limited Hearing Ability: Use of Hearing Aid [employer] Required: No Beliefs That Will Affect Care: None marital status: Current Living Situation: Spouse current occupational status: retired How many Children do You have: 2 Feels Safe at Home: Yes Childhood Exposure to Second-Hand Smoke: No Diet: regular caffeine: Yes (drinks coffee daily 1 cup) during the past year weight has: decreased > 10 lbs Dental Care, Regularly: No Physical Activity Frequency: Does not Exercise Physical Activity Frequency Comment: does outside work however Seatbelt Use: always Sunscreen Use: No Do you think of yourself as: straight/heterosexual Gender Identity: Male Assistive Devices: Cane Results & Data Vital Signs (Past 12 Hours) Vital Signs Temp Pulse Pulse Resp BP Pulse Ox Pulse Ox 11/18/23 08:11 36.3 C L 69 20 109/61 99 11/18/23 05:25 36.3 C L 59 L 18 117/70 96 11/18/23 01:30 36.7 C 62 18 121/69 98 11/18/23 01:16 60 11/18/23 00:37 61 19 99 11/17/23 23:03 98 11/17/23 23:03 58 L 20 116/61 98 O2 Del Method O2 Del Method FiO2 11/18/23 08:11 Room Air 11/18/23 05:25 Room Air 11/18/23 01:30 Room Air 11/18/23 01:16 11/18/23 00:37 21 11/17/23 23:03 Room Air 11/17/23 23:03 Room Air Laboratory Results Short CBC 11/17/23 11/18/23 Range/Units 15:20 06:41 WBC 7.65 6.31 (4.8-10.8) K/ul Hgb 11.4 L 10.9 L (14.0-18.0) g/dl Hct 34.8 L 34.1 L (42.0-52.0) % Plt Count 199 166 (130-400) K/uL BMP 11/17/23 11/18/23 15:20 06:41 Sodium 139 137 Potassium 4.2 4.0 Chloride 106 108 H Carbon Dioxide 24 23 BUN 32 H 31 H Creatinine 1.54 H 1.26 Glucose 109 H 92 Calcium 8.9 8.6 Liver Function 11/17/23 Range/Units 15:20 Total Bilirubin 0.7 (0.2-1.0) mg/dl AST 23 (13-39) U/L ALT 14 (7-52) U/L Alkaline Phosphatase 111 H (34-104) U/L Albumin 4.3 (3.4-5.0) gm/dl Medications Administered Current Inpatient Medications Acetaminophen (Acetaminophen 325 Mg Tab) 650 mg PO Q4H PRN PRN Reason: Pain or Fever Stop: 12/17/23 22:07 Last Admin: 11/18/23 01:34 Dose: 650 mg Albuterol (Albuterol Hfa 8 Gm Inhaler) 2 puffs INH Q4H PRN PRN Reason: shortness of breath Stop: 12/17/23 22:07 Atorvastatin Calcium (Atorvastatin 40 Mg Tab) 40 mg PO HS [facility] Stop: 12/17/23 22:07 Last Admin: 11/17/23 23:52 Dose: 40 mg Fluticasone Propionate (Fluticasone Propionate Na Spr 16 Gm Btl) 1 sprays NA BID [facility] Stop: 12/17/23 22:07 Last Admin: 11/18/23 08:51 Dose: 1 sprays Heparin Sodium/Dextrose (Heparin Sodium/Dextrose) 25,000 units in 500 mls @ 12 mls/hr IV .Q24H [facility]; Protocol Stop: 12/17/23 22:07 Last Titration: 11/18/23 09:40 Dose: 600 units/hr, 12 mls/hr Vancomycin HCl 1,250 mg/ (Sodium Chloride) 275 mls @ 200 mls/hr IV Q18H [facility] Stop: 12/30/23 21:59 Cefepime HCl 2,000 mg/ Syringe 20 mls @ 5 mls/min IV Q8H [facility]; Protocol Stop: 12/30/23 07:59 Last Admin: 11/18/23 08:51 Dose: 5 mls/min Lactobacillus Acidophilus (Advanced Probiotic 625 Mg Capsule) 1,250 mg PO QAM [facility] Stop: 12/18/23 08:59 Last Admin: 11/18/23 08:52 Dose: 1,250 mg Levothyroxine Sodium (Levothyroxine Sodium 75 Mcg Tablet) [facility] Stop: 12/18/23 06:29 Last Admin: 11/18/23 05:59 Dose: 75 mcg Metoprolol Succinate (Metoprolol Succ 50mg Ext Rel Tab) 100 mg PO [facility] Stop: 12/17/23 22:07 Last Admin: 11/17/23 23:52 Dose: 100 mg Miscellaneous Information (Vancomycin Consult Active) 1 each N/A UD PRN PRN Reason: Consult Stop: 12/17/23 22:07 Modafinil (Modafinil 100 Mg Tab) 400 mg PO QAM [facility] Stop: 12/18/23 08:59 Last Admin: 11/18/23 08:50 Dose: 400 mg Morphine Sulfate (Morphine Sulfate 2 Mg/Ml Carp) 2 mg IV Q4 PRN PRN Reason: Pain Stop: 12/01/23 21:03 Last Admin: 11/17/23 21:44 Dose: 2 mg Multivitamins (Multivitamin Tab) 1 tab PO QAM [facility] Stop: 12/18/23 08:59 Last Admin: 11/18/23 08:52 Dose: 1 tab Pantoprazole Sodium (Pantoprazole 40 Mg Tab) 40 mg PO BID [facility] Stop: 12/17/23 22:07 Last Admin: 11/18/23 08:52 Dose: 40 mg Polyethylene Glycol (Polyethylene (Miralax) 17 Gm Pack) 17 gm PO DAILY PRN PRN Reason: Constipation Stop: 12/17/23 22:07 Potassium Chloride (Potassium Chloride Crtab 20 Meq Tabcr) 20 meq PO BID [facility] Stop: 12/17/23 22:07 Last Admin: 11/18/23 08:50 Dose: 20 meq Sertraline HCl (Sertraline Hcl 50 Mg Tablet) 50 mg PO QAM [facility] Stop: 12/18/23 08:59 Last Admin: 11/18/23 08:52 Dose: 50 mg Tobramycin/Dexamethasone (Tobramycin/Dexamethasone Oph Susp 2.5 Ml Btl) 1 drops OP QID [facility] Stop: 12/17/23 22:07 Last Admin: 11/18/23 08:51 Dose: 1 drops Topiramate (Topiramate 100 Mg Tab) 100 mg PO BID [facility] Stop: 12/17/23 22:07 Last Admin: 11/18/23 08:52 Dose: 100 mg (2) Great toe pain Laterality: right Qualified Code(s): M79.674 - Pain in right toe(s)
--- NOTE | 2023-11-18 13:15 | Pharmacy Report ---
Pharmacy PK ABX Note - Date of Service November 18, 2023 - Assessment and Plan Assessment * 78 year old M receiving VANCOMYCIN + CEFEPIME for treatment of R diabetic foot infection / osteomyelitis great toe . * Pertinent microbiologic data includes: MRSA Nasal Swab pending, R great toe surface wound cx * Day # 1 of antimicrobial therapy. Plan Vancomycin * Loading dose: 2750 mg IV x 1 given yesterday * Maint dose # 1 1500mg x1 given at 0600 this AM * Ongoing maintenance dose: 1250mg IV every 18 hours to begin at 2200 tonight * Regimen is predicted to achieve target AUC/TIERNEY of 400-600 mg/L.hr * Random level ordered for tomorrow AM Pharmacy will continue to follow and will adjust dose/frequency as necessary. Thank you. Pharmacy has transitioned to AUC monitoring for vancomycin. AUC/TIERNEY is the preferred PK/PD target and is associated with decreased risk of nephrotoxicity compared to traditional trough targets.
[2023-11-18 16:57] LABS: ANTI-Xa, UFH(UnfractionatedHep 0.42 IU/ml (0.3-0.7)
--- NOTE | 2023-11-18 17:55 | Hospitalist Progress Note ---
Date of Service November 18, 2023 Assessment & Plan (1) Diabetic foot infection: Plan: R toe xray suggests subtle erosion of distal tuft of distal phalanx, which raises the possibility of acute osteomyelitis - previous culture from R leg contained Pseudomonas and Enterococcus - pending current wound culture - starting on cefepime 2g and vanco consulted ID. Also consulted podiatry. (2) Diabetic peripheral neuropathy associated with type 2 diabetes mellitus: Plan: diabetes formally diagnosed within the last 2 years, not currently on medication - insulin sliding scale: 10U Lantus, correction factor of 35, carb ratio 15 (3) Permanent atrial fibrillation: Plan: on Eliquis and metoprolol Admission and Anticipated Discharge Date Admission Date: November 17, 2023 Subjective Patient reports no new symptoms. Review of Systems Review of Systems: All systems reviewed & are unremarkable except as noted in HPI & below Physical Exam Physical Exam: constitutional: A&Ox3, not in acute distress MSK: b/l LE nonpitting edema up to knees, R>L - b/l LE tender to palpation up to just inferior to knees - several toenails missingSkin: R great toe- (no significant change) erythema proximally with concentric yellow coloration and hyperpigmentation distally - tender to palpation - no ulceration noted, no active drainin g noted, no pus or bleedingNeuro: sensation to pressure intact, decreased sensation to sharp touch to toes and distal feet b/l Cardiovascular: bradycardic, irregularly irregular. Soft heart sounds, no murmurs heard on auscultation Pulmonary: clear to auscultation b/l GI: normoactive bowel sounds, soft, nontender to palpation Results & Data Results & Data Vital Signs (Past 12 Hours) Vital Signs Temp Pulse Pulse Resp BP BP Pulse Ox 11/18/23 16:00 36.3 C L 55 L 19 115/54 L 95 11/18/23 13:00 118/65 11/18/23 13:00 52 L 11/18/23 11:38 36.2 C L 54 L 16 94/60 L 97 11/18/23 08:11 36.3 C L 69 20 109/61 99 11/18/23 07:00 54 L O2 Del Method 11/18/23 16:00 Room Air 11/18/23 13:00 11/18/23 13:00 11/18/23 11:38 Room Air 11/18/23 08:11 Room Air 11/18/23 07:00 PG Care Time/CCT Total # of Minutes Spent Total Time Spent with Patient: Total time spent is greater than 50% in coordination of care (as documented) at patient's floor/unit and/or counseling patient: Coding Level of Care Code 00768 SUB INP/OBS CARE 2/35MIN Diagnoses Diabetic foot infection E11.628; L08.9 Diabetic peripheral neuropathy associated with type 2 diabetes mellitus E11.42 Permanent atrial fibrillation I48.21
[2023-11-18] MEDS ORDERED: LANTUS PER UNIT CHARGE SQ SCH (21:00)
[2023-11-18] MEDS: VANCOMYCIN HCL 1,250 MG in SODIUM CHLORIDE 0.9% 250 ML IV SCH (22:07)
[2023-11-19 06:19] LABS: Hematocrit (blood only) 30.6 % (42.0-52.0); Hemoglobin 9.9 g/dl (14.0-18.0); Mean Corpuscular Hemoglobin 31.1 pg (25.0-34.0); Mean Corpuscular Hgb Conc 32.4 g/dL (32.0-36.0); Mean Corpuscular Volume 96.2 fL (80.0-100.0); Mean Platelet Volume 9.9 fL (9.4-12.4); Platelet Count 169 K/uL (130-400); RDW Coefficient of Variation 12.1 % (11.5-14.5); RDW Standard Deviation 42.2 fL (36.4-46.3); Red Blood Count 3.18 M/uL (4.70-6.10); White Blood Count 5.43 K/ul (4.8-10.8)
[2023-11-19 06:34] LABS: BUN Creatinine Ratio 22.5 (10-20); C Reactive Protein 3.98 mg/dl (0-0.5); Calcium 8.6 mg/dl (8.6-10.3); Creatinine Clr Calc Pharmacy 70.4 ml/min; Est GFR (African American) 61.6 ml/min; Est GFR (Non-African American) 53.1 ml/min; Potassium 4.2 mmol/L (3.5-5.1)
[2023-11-19 06:39] LABS: ANTI-Xa, UFH(UnfractionatedHep 0.27 IU/ml (0.3-0.7)
--- NOTE | 2023-11-19 11:42 | Pharmacy Report ---
Pharmacy PK ABX Note - Date of Service November 19, 2023 - Assessment and Plan Assessment * 78 year old M receiving VANCOMYCIN + CEFEPIME for treatment of R diabetic foot infection / osteomyelitis great toe . * Pertinent microbiologic data includes: MRSA Nasal Swab negative; R great toe surface wound cx showing high counts of probable skin deja; * ID has been consulted * Day # 3 of antimicrobial therapy * Renal fxn stable Plan Vancomycin * Random vanco level drawn this AM ~ 8 hours after last maint dose hung = 22.5mcg/mL * Ongoing maintenance dose of 1250mg IV every 18 hours is still predicted to achieve target AUC/TIERNEY of 400-600 mg/L.hr * Will repeat random level in 48 hours if therapy to continue. Pharmacy will continue to follow and will adjust dose/frequency as necessary. Thank you. Pharmacy has transitioned to AUC monitoring for vancomycin. AUC/TIERNEY is the preferred PK/PD target and is associated with decreased risk of nephrotoxicity compared to traditional trough targets.
[2023-11-19 13:43] LABS: ANTI-Xa, UFH(UnfractionatedHep 0.24 IU/ml (0.3-0.7)
--- NOTE | 2023-11-19 19:20 | Podiatry Consultation ---
Date of Consultation November 19, 2023 Assessment & Plan (1) Great toe pain: Laterality: right Qualified Code(s): M79.674 - Pain in right toe(s) (2) Diabetic infection of right foot: (3) Diabetic foot infection: (4) Acute osteomyelitis of toe of right foot: Plan Patient examined and evaluated. Discussed at length etiology and treatment for his right hallux infection. The MRI is most concerning for osteomyelitis of the distal phalanx and is quite definitive. We discussed he could benefit from either two months of IV antibiotics or amputation of the affected toe. He is amenable to a partial hallux amputation to help get over this sooner than later. We will schedule this for tomorrow and, if he stabilizes soon, can likely discharge by the weekend. All questions were answered for now. Will obtain formal consent prior to surgery. Thanks for the consult. We look forward to helping out. History of Present Illness Reason for Consultation: Right hallux osteomyelitis Attending Physician: Claude Brizuela History of Present Illness Patient seen at bedside. States that over the last few weeks, he has noticed worsening changes to the right hallux. He has longstanding diabetes and neuropathy with a history of left partial toe amputation and changes to his nails/skin over time. He has seen other providers for these changes in the past. Now, his states that he stubbed this toe around three weeks ago which may have led to this, but really the acute changes are more recent, over the last 3- 4 days. His states that he often picks at his toenails, but uses his "clean knife" to do so. He states he was feeling sicker, with more malodor and pain to the great toe, so he presented to the urgent care associated with [facility], who sent him to the main campus for further evaluation, treatment, and admission. Allergies Allergy/AdvReac Type Severity Reaction Status Date / Time clindamycin Allergy Intermediate rash Verified 11/17/23 19:21 iodine Allergy Intermediate topical Verified 11/17/23 19:21 iodine- swelling at site trospium AdvReac Intermediate "sick"/head Verified 11/17/23 19:21 ache Home Medications Medication Instructions Recorded Confirmed Type multivitamin 1 tab PO QAM 08/22/20 11/17/23 History albuterol sulfate 90 mcg/actuation 2 puff inhalation Q4H PRN 03/26/22 11/17/23 Rx aerosol inhaler (Ventolin HFA) shortness of breath #3 Inhalers fluticasone propionate 50 1 spray intranasal BID #3 Inhalers 03/26/22 11/17/23 Rx mcg/actuation nasal spray,suspension Lactobacillus 2 cap PO QAM 05/29/22 11/17/23 History acidophilus-Bifidobac.animalis 2.5 billion cell capsule (Daily Probiotic) Prevagen 1 tab PO QAM 05/29/22 11/17/23 History bumetanide 2 mg tablet 2 mg PO QAM #90 tabs 12/23/22 11/17/23 Rx atorvastatin 40 mg tablet 40 mg PO HS #90 tabs 03/12/23 11/17/23 Rx levothyroxine 75 mcg tablet 75 mcg PO QAM #90 tabs 03/14/23 11/17/23 Rx apixaban 5 mg tablet 5 mg PO BID #180 tabs 05/13/23 11/17/23 Rx metoprolol succinate 100 mg 100 mg PO HS #90 tabs 05/13/23 11/17/23 Rx tablet,extended release 24 hr (Toprol XL) sertraline 50 mg tablet 50 mg PO QAM #90 tabs 05/16/23 11/17/23 Rx spironolactone 25 mg tablet 25 mg PO DAILY #90 tabs 07/24/23 11/17/23 Rx mupirocin 2 % topical ointment 1 applic topical BID PRN mucositis 08/05/23 11/17/23 Rx #15 grams pantoprazole 40 mg tablet,delayed 40 mg PO BID #180 tabs 08/11/23 11/17/23 Rx release (Protonix) potassium chloride 20 mEq 20 meq PO BID #180 tabs 09/11/23 11/17/23 Rx tablet,extended release(part/cryst) tobramycin 0.3 %-dexamethasone 0.1 1 drp ophthalmic (eye) QID 09/11/23 11/17/23 History % eye drops,suspension clotrimazole 10 mg nilton 10 mg mucous membrane QID 14 days 09/23/23 11/17/23 Rx #56 tabs modafinil 200 mg tablet (Provigil) 400 mg (2 x 200 mg) PO QAM #180 10/02/23 11/17/23 Rx tabs topiramate 100 mg tablet 100 mg PO BID #180 tabs 10/14/23 11/17/23 Rx clobetasol 0.05 % topical ointment 1 applic topical BID PRN 11/17/23 11/17/23 History itching/rash solifenacin 10 mg tablet (Vesicare) 10 mg PO QAM 11/17/23 11/17/23 History Patient History Medical History Submandibular gland swelling Encounter for monitoring diuretic therapy Chronic anemia Baseline hgb 10-11 range per chart review Hx of fall 12/2021, hit his head/T1 injury/torn ligaments > wore cervical collar x few months Atrial fibrillation Follows with Dr. Atwood/MADONNA Sensorineural hearing loss of both ears Epidural hematoma Thoracic compression fracture (~12/2021) T1 Vitamin D deficiency Osteoarthritis DM type 2 (diabetes mellitus, type 2) Diet controlled ("no longer on meds") Hearing deficit b/l hearing aids Sleep apnea BIPAP (compliant) Loss of protective sensation of skin of foot Right ventricular systolic dysfunction Follows with Dr. Atwood/MADONNA Diabetes mellitus with hypoglycemia Partial tear of left rotator cuff Obesity Diverticular disease Chronic rhinitis Cervical radiculopathy Acid reflux disease controlled Asthma Dyslipidemia Venous insufficiency uses lymphadema pumps and DANY hose Surgical History Hx of cardiac catheterization 2002, no stents Hx of rotator cuff surgery R/L Right shoulder RCR with Regen[employer] Implant, subacromial deco mpression (10/19/21): Grade view 1, MAC#4, ETT 8 + PNB at [facility] Hx of fusion of cervical spine x2 History of repair of right rotator cuff History of colonoscopy 05/2019 Repeat 5 yrs History of carpal tunnel release History of esophagogastroduodenoscopy (EGD) History of cervical spinal surgery ACDF C3-C7 + hardware removal (06/17/17): Grade view 1, MAC#3, ETT 8.0 at [facility] S/P knee surgery R/L Family History Mother Coronary heart disease Myocardial infarction Brother Diabetes Other No family history of adverse response to anesthesia No family history of bleeding disorder Denies family history of Ovarian cancer Prostate cancer Breast cancer Lung cancer Colorectal cancer Social History Smoking Status: Never smoker Second Hand Exposure: No; Do You Dip or Chew Tobacco: No; Hx Alcohol Use: Yes Alcohol type: beer Alcohol Intake Frequency: Monthly or Less Hx Substance Use: No Preferred Language: [place]de[place] Communication Ability: Effective Communication Ability Comment: unable to read Visual Impairment: Limited Hearing Ability: Use of Hearing Aid Division Supervisor Required: No Beliefs That Will Affect Care: None marital status: Current Living Situation: Spouse current occupational status: retired How many Children do You have: 2 Feels Safe at Home: Yes Childhood Exposure to Second-Hand Smoke: No Diet: regular caffeine: Yes (drinks coffee daily 1 cup) during the past year weight has: decreased > 10 lbs Dental Care, Regularly: No Physical Activity Frequency: Does not Exercise Physical Activity Frequency Comment: does outside work however Seatbelt Use: always Sunscreen Use: No Do you think of yourself as: straight/heterosexual Gender Identity: Male Assistive Devices: Cane Review of Systems Review of Systems: All systems reviewed & are unremarkable except as noted in HPI & below Constitutional: + fever, + chills and + malaise; no fati jonathan Eyes: no problem reported Ear, Nose, Mouth, Throat: no problem reported Respiratory: no problem reported Cardiovascular: + edema; no problem reported Gastrointestinal: no nausea, no vomiting and no problem reported Musculoskeletal: no problem reported Integumentary: + skin ulcer, + wounds and + erythema Neurologic: + loss of sensation, + numbness and + pa resthesia; no generalized weakness Psychiatric: no problem reported Physical Exam Physical Exam: DP/PT pulses faintly palpable, stronger to the PT than DP. No obvious neuropathic ulcerations, though right hallux appears traumatically ulcerated distally. This was likely a subungual hematoma that was neglected. No palpable bone noted on clinical exam, no gely purulence, no active bleeding. Plain film and MR imaging do reveal obvious osteomyelitis changes to the distal phalanx in total. No extension past the IPJ is noted. This does correlate with clinical exam findings, though more advanced than expected. Malodor is minimal. CFT is brisk to the digits. Protective sensation absent. Constitutional: WD/WN, vitals as above + ill appearing and + obese Eyes: PERRL, conjunctivae normal, anicteric sclerae ENMT: external ear and nose normal, oropharynx normal Neck: trachea midline, no thyromegaly normal visual inspection Respiratory: normal respiratory effort; no respiratory distress Cardiovascular: Rate/Rhythm: regular rate and regular rhythm Extremities: + edema Chest (Breasts): Chest: normal inspection of chest Gastrointestinal (Abdomen): Inspection/Auscultation: abdomen normal to inspection Percussion/Palpation: + abdomen tender and abdomen soft Musculoskeletal: no cyanosis or clubbing, extremities motor strength 5/5 Head/Neck/Chest: normocephalic and head atraumatic Extremities: extremities normal to inspection and + limited ROM of lower extremity Skin: + ulcer, + wound, + skin atrophy and + n ails dystrophic (With right hallux subungual hematoma appreciated) Neurologic: moves all extremities and awake; + abnormal touch/pain/proprioception, + abnormal sensation to monofilament and no focal motor deficits Psychiatric: A+Ox3, euthymic affect Results & Data Vital Signs (Past 12 Hours) Vital Signs Temp Pulse Pulse Resp BP BP Pulse Ox 11/19/23 19:11 36.4 C 73 18 122/67 98 11/19/23 15:41 57 L 11/19/23 14:41 36.6 C 66 18 111/58 L 97 11/19/23 11:33 36.7 C 59 L 20 114/57 L 98 11/19/23 08:07 11/19/23 07:38 36.5 C 60 20 112/78 97 11/19/23 07:32 56 L O2 Del Method 11/19/23 19:11 Room Air 11/19/23 15:41 11/19/23 14:41 Room Air 11/19/23 11:33 Room Air 11/19/23 08:07 Room Air 11/19/23 07:38 Room Air 11/19/23 07:32
--- NOTE | 2023-11-19 22:33 | Hospitalist Progress Note ---
Date of Service November 19, 2023 Assessment & Plan (1) Diabetic foot infection: Plan: R toe xray suggests subtle erosion of distal tuft of distal phalanx, which raises the possibility of acute osteomyelitis - previous culture from R leg contained Pseudomonas and Enterococcus - pending current wound culture - starting on cefepime 2g and vanco consulted ID. Also consulted podiatry. Patient opted for a partial amputation. will be NPO after midnight. (2) Diabetic peripheral neuropathy associated with type 2 diabetes mellitus: Plan: diabetes formally diagnosed within the last 2 years, not currently on medication - insulin sliding scale: 10U Lantus, correction factor of 35, carb ratio 15 (3) Permanent atrial fibrillation: Plan: on Eliquis and metoprolol Admission and Anticipated Discharge Date Admission Date: November 17, 2023 Subjective 78 yo male reports no new symptoms. Review of Systems Review of Systems: All systems reviewed & are unremarkable except as noted in HPI & below Physical Exam Physical Exam: constitutional: A&Ox3, not in acute distress MSK: b/l LE nonpitting edema up to knees, R>L - b/l LE tender to palpation up to just inferior to knees - several toenails missingSkin: R great toe- (no significant change) erythema proximally with concentric yellow coloration and hyperpigmentation distally - tender to palpation - no ulceration noted, no active drainin g noted, no pus or bleedingNeuro: sensation to pressure intact, decreased sensation to sharp touch to toes and distal feet b/l Cardiovascular: bradycardic, irregularly irregular. Soft heart sounds, no murmurs heard on auscultation Pulmonary: clear to auscultation b/l GI: normoactive bowel sounds, soft, nontender to palpation Results & Data Results & Data Vital Signs (Past 12 Hours) Vital Signs Temp Pulse Pulse Resp BP BP Pulse Ox 11/19/23 19:43 11/19/23 19:11 36.4 C 73 18 122/67 98 11/19/23 15:41 57 L 11/19/23 14:41 36.6 C 66 18 111/58 L 97 11/19/23 11:33 36.7 C 59 L 20 114/57 L 98 O2 Del Method 11/19/23 19:43 Room Air 11/19/23 19:11 Room Air 11/19/23 15:41 11/19/23 14:41 Room Air 11/19/23 11:33 Room Air PG Care Time/CCT Total # of Minutes Spent Total Time Spent with Patient: Total time spent is greater than 50% in coordination of care (as documented) at patient's floor/unit and/or counseling patient: Coding Level of Care Code 97246 SUB INP/OBS CARE 2/35MIN Diagnoses Diabetic foot infection E11.628; L08.9 Diabetic peripheral neuropathy associated with type 2 diabetes mellitus E11.42 Permanent atrial fibrillation I48.21
[2023-11-20 06:34] LABS: Hematocrit (blood only) 31.5 % (42.0-52.0); Hemoglobin 10.1 g/dl (14.0-18.0); Mean Corpuscular Hemoglobin 30.6 pg (25.0-34.0); Mean Corpuscular Hgb Conc 32.1 g/dL (32.0-36.0); Mean Corpuscular Volume 95.5 fL (80.0-100.0); Mean Platelet Volume 9.8 fL (9.4-12.4); Platelet Count 174 K/uL (130-400); RDW Coefficient of Variation 12.2 % (11.5-14.5); RDW Standard Deviation 42.5 fL (36.4-46.3); White Blood Count 5.08 K/ul (4.8-10.8)
[2023-11-20 07:03] LABS: Calcium 8.8 mg/dl (8.6-10.3); Potassium 4.4 mmol/L (3.5-5.1)
[2023-11-20 07:08] LABS: Creatinine Clr Calc Pharmacy 74.7 ml/min; Est GFR (African American) 66.5 ml/min; Est GFR (Non-African American) 57.4 ml/min
[2023-11-20] MEDS: LACTATED RINGER'S 1,000 ML IV SCH (10:09)
[2023-11-20] MEDS ORDERED: fentaNYL citrate PF 100 MCG/2 ML VIAL ONE (10:19)
--- NOTE | 2023-11-20 10:32 | Anesthesiology Consultation ---
Date of Service November 20, 2023 Assessment & Plan (1) Encounter for pre-operative examination: Chart Review Chart Review: Acceptable Risk for Surgery and Patient NOT seen in Pre Admission Testing Consults Requested none History Surgery Operation Date: 11/20/23 10:30 Proposed Procedures p Right Great Toe Partial Amputation - Dakota Moya DPM Height/Weight Height: 6 ft 4 in Weight: 127.9 kg Allergies Allergy/AdvReac Type Severity Reaction Status Date / Time clindamycin Allergy Intermediate rash Verified 11/20/23 10:21 iodine Allergy Intermediate topical Verified 11/20/23 10:21 iodine- swelling at site trospium AdvReac Intermediate "sick"/head Verified 11/20/23 10:21 ache Medications Home Medications Medication Instructions Recorded Confirmed Last Taken multivitamin 1 tab PO QAM 08/22/20 11/17/23 11/17/23 albuterol sulfate 90 mcg/actuation 2 puff inhalation Q4H PRN 03/26/22 11/17/23 06/13/22 07:00 aerosol inhaler (Ventolin HFA) shortness of breath #3 Inhalers fluticasone propionate 50 1 spray intranasal BID #3 Inhalers 03/26/22 11/17/23 11/17/23 mcg/actuation nasal spray,suspension Lactobacillus 2 cap PO QAM 05/29/22 11/17/23 11/17/23 acidophilus-Bifidobac.animalis 2.5 billion cell capsule (Daily Probiotic) Prevagen 1 tab PO QAM 05/29/22 11/17/23 11/17/23 bumetanide 2 mg tablet 2 mg PO QAM #90 tabs 12/23/22 11/17/23 11/17/23 atorvastatin 40 mg tablet 40 mg PO HS #90 tabs 03/12/23 11/17/23 Unknown levothyroxine 75 mcg tablet 75 mcg PO QAM #90 tabs 03/14/23 11/17/23 11/17/23 apixaban 5 mg tablet 5 mg PO BID #180 tabs 05/13/23 11/17/23 11/17/23 metoprolol succinate 100 mg 100 mg PO HS #90 tabs 05/13/23 11/17/23 Unknown tablet,extended release 24 hr (Toprol XL) sertraline 50 mg tablet 50 mg PO QAM #90 tabs 05/16/23 11/17/23 11/17/23 spironolactone 25 mg tablet 25 mg PO DAILY #90 tabs 07/24/23 11/17/23 11/17/23 mupirocin 2 % topical ointment 1 applic topical BID PRN mucositis 08/05/23 11/17/23 Unknown #15 grams pantoprazole 40 mg tablet,delayed 40 mg PO BID #180 tabs 08/11/23 11/17/23 11/17/23 release (Protonix) potassium chloride 20 mEq 20 meq PO BID #180 tabs 09/11/23 11/17/23 11/17/23 tablet,extended release(part/cryst) tobramycin 0.3 %-dexamethasone 0.1 1 drp ophthalmic (eye) QID 09/11/23 11/17/23 11/17/23 % eye drops,suspension clotrimazole 10 mg nilton 10 mg mucous membrane QID 14 days 09/23/23 11/17/23 11/17/23 #56 tabs modafinil 200 mg tablet (Provigil) 400 mg (2 x 200 mg) PO QAM #180 10/02/23 11/17/23 11/17/23 tabs topiramate 100 mg tablet 100 mg PO BID #180 tabs 10/14/23 11/17/23 11/17/23 clobetasol 0.05 % topical ointment 1 applic topical BID PRN 11/17/23 11/17/23 Unknown itching/rash solifenacin 10 mg tablet (Vesicare) 10 mg PO QAM 11/17/23 11/17/23 11/17/23 Active Medications Generic Name Dose Route Start Last Admin Trade Name Freq PRN Reason Stop Dose Admin Acetaminophen 650 mg 11/17/23 22:08 11/18/23 20:21 Acetaminophen 325 Mg Tab PO 12/17/23 22:07 650 mg Q4H PRN Administration Pain or Fever Atorvastatin Calcium 40 mg 11/17/23 22:08 11/19/23 20:19 Atorvastatin 40 Mg Tab PO 12/17/23 22:07 40 mg HS JOSE A Administration Fluticasone Propionate 1 sprays 11/17/23 22:08 11/20/23 08:00 Fluticasone Propionate Na Spr 16 Gm Btl NA 12/17/23 22:07 1 sprays BID JOSE A Administration Heparin Sodium/Dextrose 25,000 units in 500 mls @ 0 mls/hr 11/17/23 22:08 11/20/23 04:58 Heparin Sodium/Dextrose IV 12/17/23 22:07 0 units/hr .Q0M JOSE A 0 mls/hr Titration Protocol 0 UNITS/HR Vancomycin HCl 1,250 mg/ 275 mls @ 200 mls/hr 11/18/23 22:00 11/20/23 09:25 Sodium Chloride IV 12/30/23 21:59 200 mls/hr Q18H JOSE A Administration Cefepime HCl 2,000 mg/ Syringe 20 mls @ 5 mls/min 11/18/23 08:00 11/20/23 08:00 IV 12/30/23 07:59 5 mls/min Q8H JOSE A Administration Protocol Lactated Ringer's 1,000 mls @ 15 mls/hr 11/20/23 10:15 11/20/23 10:09 Lr IV 12/20/23 10:14 15 mls/hr .Q24H JOSE A Administration Lactobacillus Acidophilus 1,250 mg 11/18/23 09:00 11/20/23 08:03 Advanced Probiotic 625 Mg Capsule PO 12/18/23 08:59 1,250 mg QAM JOSE A Administration Levothyroxine Sodium 75 mcg 11/18/23 06:30 11/20/23 04:58 Levothyroxine Sodium 75 Mcg Tablet PO 12/18/23 06:29 75 mcg DAILYBB JOSE A Administration Metoprolol Succinate 100 mg 11/17/23 22:08 11/19/23 20:19 Metoprolol Succ 50mg Ext Rel Tab PO 12/17/23 22:07 100 mg HS JOSE A Administration Modafinil 400 mg 11/18/23 09:00 11/20/23 08:07 Modafinil 100 Mg Tab PO 12/18/23 08:59 400 mg QAM JOSE A Administration Morphine Sulfate 2 mg 11/17/23 21:04 11/17/23 21:44 Morphine Sulfate 2 Mg/Ml Carp IV 12/01/23 21:03 2 mg Q4 PRN Administration Pain Multivitamins 1 tab 11/18/23 09:00 11/20/23 08:03 Multivitamin Tab PO 12/18/23 08:59 1 tab QAM JOSE A Administration Pantoprazole Sodium 40 mg 11/17/23 22:08 11/20/23 08:03 Pantoprazole 40 Mg Tab PO 12/17/23 22:07 40 mg BID JOSE A Administration Potassium Chloride 20 meq 11/17/23 22:08 11/20/23 08:07 Potassium Chloride Crtab 20 Meq Tabcr PO 12/17/23 22:07 20 meq BID JOSE A Administration Sertraline HCl 50 mg 11/18/23 09:00 11/20/23 08:03 Sertraline Hcl 50 Mg Tablet PO 12/18/23 08:59 50 mg QAM JOSE A Administration Tobramycin/Dexamethasone 1 drops 11/17/23 22:08 11/20/23 08:02 Tobramycin/Dexamethasone Oph Susp 2.5 Ml Btl OP 12/17/23 22:07 1 drops QID JOSE A Administration Topiramate 100 mg 11/17/23 22:08 11/20/23 08:07 Topiramate 100 Mg Tab PO 12/17/23 22:07 100 mg BID JOSE A Administration NPO Date Last Intake of Fluids: 11/19/23 Time Last Intake of Fluids: 18:00 Date Last Intake of Solids: 11/19/23 Time Last Intake of Solids: 18:00 Past Medical History Medical History (Updated 11/20/23 @ 10:32 by Matthew Jorge MD) Submandibular gland swelling Encounter for monitoring diuretic therapy Chronic anemia Baseline hgb 10-11 range per chart review Hx of fall 12/2021, hit his head/T1 injury/torn ligaments > wore cervical collar x few months Atrial fibrillation Follows with Dr. Atwood/MADONNA Sensorineural hearing loss of both ears Thoracic compression fracture (~12/2021) T1 Vitamin D deficiency Osteoarthritis DM type 2 (diabetes mellitus, type 2) Diet controlled ("no longer on meds") Hearing deficit b/l hearing aids Sleep apnea BIPAP (compliant) Loss of protective sensation of skin of foot Right ventricular systolic dysfunction Follows with Dr. Atwood/MADONNA Diabetes mellitus with hypoglycemia Partial tear of left rotator cuff Obesity Diverticular disease Chronic rhinitis Cervical radiculopathy Acid reflux disease controlled Asthma Dyslipidemia Venous insufficiency uses lymphadema pumps and DANY hose Past Family History Family History Mother Coronary heart disease Myocardial infarction Brother Diabetes Other No family history of adverse response to anesthesia No family history of bleeding disorder Denies family history of Ovarian cancer Prostate cancer Breast cancer Lung cancer Colorectal cancer Past Surgical History Surgical History Hx of cardiac catheterization 2002, no stents Hx of rotator cuff surgery R/L Right shoulder RCR with [employer] Implant, subacromial decompression (10/19/21): Grade view 1, MAC#4, ETT 8 + PNB at [facility] Hx of fusion of cervical spine x2 History of repair of right rotator cuff History of colonoscopy 05/2019 Repeat 5 yrs History of carpal tunnel release History of esophagogastroduodenoscopy (EGD) History of cervical spinal surgery ACDF C3-C7 + hardware removal (06/17/17): Grade view 1, MAC#3, ETT 8.0 at [facility] S/P knee surgery R/L Social History Smoking Status: Never smoker Do You Dip or Chew Tobacco: No Hx Alcohol Use: Yes Alcohol type: beer alcohol intake frequency: 0-2 drinks per day Hx Substance Use: No substance use type: does not use Physical Exam Vital Signs Last Vital Signs Temp 36.8 C 11/20/23 09:54 Pulse 61 11/20/23 09:54 Resp 22 11/20/23 09:54 BP 136/65 11/20/23 09:54 Pulse Ox 97 11/20/23 09:54 O2 Del Method Room Air 11/20/23 09:54 FiO2 21 11/18/23 21:00 Testing Laboratory Results 11/20/23 06:12 11/20/23 06:12 APTT 48 Seconds (21-31) H 11/17/23 15:20 11/20/23 11/20/23 09:56 06:16 POC Glucose 104 H 98 Other Testing Testing Electrocardiogram Date: 10/11/21 A. fib at 60bpm. iRBBB. Chest X-Ray Date: 05/31/22 FINDINGS: No pneumothorax. No pleural fusions. The correct silhouette remains mildly enlarged. This mild diffuse interstitial thickening, unchanged. This is likely chronic. No new focal lung consolidations identified to suggest a pneumonia. No evidence for pulmonary edema. Cervical spinal fusion hardware is noted. IMPRESSION: Stable mild cardiomegaly and mild chronic interstitial thickening. Otherwise, no acute process within the chest. Echocardiogram Date: 10/09/20 EF 55 to 60%. No regional motion abnormality. Mild concentric LVH. Mild to moderate RVD with mild to moderate right ventricular systolic dysfunction. Biatrial dilatation. Mild mitral and moderate tricuspid regurgitation. Moderately elevated RVSP. Elevated central venous pressure. Stress Test Date: 10/17/21 Type: DSE Negative dobutamine stress echo/ECG for myocardial ischemia 91% MPHR. No dobutamine induced chest pain. Rest echo: LVEF 50%. Mild concentric LVH. Borderline right ventricular dilatation with intact systolic function. Moderate left atrial and mild right atrial dilatation. Moderate TR. Mildly elevated estimated right ventricular systolic pressure. Cervical Spine C-spine CT (03/27/22) FINDINGS: Anterior cervical fixation hardware spans C3-C7. No acute fracture is seen. Chronic fracture of T1 is noted with anterior loss of height. Degenerative changes are seen in the visualized spine. The alignment is normal. Biapical scarring is seen. Surgical clips are noted in the left cervical soft tissues. IMPRESSION: No evidence of acute fracture. Old healed compression deformity of T1 is noted.
--- NOTE | 2023-11-20 10:39 | History & Physical Bridge Note ---
Date of Service November 20, 2023 History & Physical Bridge Note I have examined the patient, reviewed the History & Physical and in the interval since the performance of the History & Physical I have noted the following changes of clinical significance: no changes noted. Plan for right hallux partial amputation. Consent was obtained for this. All questions were answered. Discussed preoperative and postoperative instructions.
[2023-11-20] MEDS ORDERED: fentaNYL citrate PF 100 MCG/2 ML VIAL IV PRN (10:42)
[2023-11-20] MEDS ORDERED: ATROPINE SULFATE 0.1 MG/ML 10ML SYR IV PRN (10:42)
[2023-11-20] MEDS ORDERED: ePHEDrine sulfate 50 MG/ML AMP IV PRN (10:42)
[2023-11-20] MEDS: BUPIVACAINE 0.5 % 5 MG/1 ML MPF 30ML VIAL ONE (11:04)
[2023-11-20] MEDS ORDERED: ONDANSETRON INJ 2 MG/ML 2 ML VIAL ONE (11:06)
[2023-11-20] MEDS ORDERED: PROPOFOL IV EMULSION 10 MG/ML 20 ML VIAL IV ONE (11:06)
[2023-11-20] MEDS ORDERED: DEXAMETHASONE SOD INJ 4 MG/ML VIAL ONE (11:06)
[2023-11-20] MEDS ORDERED: LIDOCAINE 2% 2 ML VIAL/AMP(20MG/ML) INFIL ONE (11:06)
--- NOTE | 2023-11-20 11:29 | Post Operative Brief Note ---
Immediate Post Op Note Date of Surgery November 20, 2023 Pre & Post Diagnosis Operation Date: 11/20/23 10:30 Pre-Op Diagnosis: diabetic foot infection Right hallux osteomyelitis Post-Op Diagnosis: diabetic foot infection right hallux osteomyelitis I identified the patient and participated in the time-out.: Yes Procedure Operation Date: 11/20/23 10:30 Actual Procedures p Right Great Toe Partial Amputation(Right) - Dakota Moya DPM Surgeon Dakota Moya DPM Pipe Puller None Estimated Blood Loss 5 Findings Consistent with Post-Op Diagnosis Specimens Right great toe pathology Right hallux ulcer for culture Anesthesia Type MAC Complications none Disposition Accompanied Patient To Recovery: Yes Disposition: Recovery Room
[2023-11-20] MEDS: ONDANSETRON INJ 2 MG/ML 2 ML VIAL IV PRN (11:40)
--- NOTE | 2023-11-20 13:14 | Anesthesiology Progress Note ---
Date of Service November 20, 2023 Anesthesia Post Procedure Vital Signs Vital Signs: Temp Pulse Pulse Pulse Resp BP BP 11/20/23 12:00 36.5 C 59 L 12 128/63 11/20/23 11:50 55 L 14 118/62 11/20/23 11:40 56 L 20 120/62 11/20/23 11:33 36.6 C 58 L 16 113/53 L 11/20/23 09:54 36.8 C 61 22 136/65 11/20/23 08:02 36.7 C 82 19 113/56 L 11/20/23 03:22 36.8 C 59 L 18 93/54 L 11/19/23 23:11 36.7 C 61 18 123/67 11/19/23 23:00 11/19/23 21:58 62 11/19/23 19:43 11/19/23 19:11 36.4 C 73 18 122/67 11/19/23 15:41 57 L 11/19/23 14:41 36.6 C 66 18 111/58 L Pulse Ox O2 Del Method O2 Del Method O2 Flow Rate 11/20/23 12:00 92 Room Air 11/20/23 11:50 96 Room Air 11/20/23 11:40 97 Oxymask 5 11/20/23 11:33 96 Oxymask 10 11/20/23 09:54 97 Room Air 11/20/23 08:02 95 Room Air 11/20/23 03:22 96 Room Air 11/19/23 23:11 97 Room Air 11/19/23 23:00 Room Air 11/19/23 21:58 11/19/23 19:43 Room Air 11/19/23 19:11 98 Room Air 11/19/23 15:41 11/19/23 14:41 97 Room Air Pain Intensity Right Toe: Pain Intensity: 0 Transfer of Care Handoff Completed per policy Notes Mental Status: alert / awake / arousable and participated in evaluation Patient Amnestic to Procedure: Yes Nausea / Vomiting: adequately controlled Pain: adequately controlled Airway Patency, RR, SpO2: stable & adequate BP & HR: stable & adequate Hydration State: stable & adequate Anesthetic Complications: no major complications apparent and Pt Satisfied with anesthetic care
--- NOTE | 2023-11-20 14:16 | Infectious Disease Progress Nt ---
Date of Service November 20, 2023 Assessment & Plan (1) Great toe pain: Plan #Great toe osteomyelitis #DM MICRO BCx NG ABX Cefepime Vancomycin 78 yo male with past medical history of diabetes type 2, peripheral neuropathy, benign tremor, Afib on Eliquis, and lymphedema, JERAD on BiPAP, presented with R great toe pain and redness. ID consulted for DFI and c/f osteomyelitis. Patient noteced over the course of a few days his toe look infected. He applied topical antibiotic ointment to it but it h 3-4 days ago and realized it didn't look right. Pt started applying antibacterial ointment yesterday 11/15, but when it hadn't improved at all today he decided to come to the ED. Per notes, he was using pcket knife to clean skin and odor from foot started as well. No noted injury, no prior ulcerations. On admission, VSS, WBC normal, Cr 1.54, CRP 4.25, No recent cultures- 2020 wound cx E. faecalis and pseudomonas MRI and Xray confirm Soft tissue infection of the great toe. Moderate edema in the great toe distal phalanx, consistent with osteomyelitis. Went to OR on 11/19 for great toe amputation RECOMMEND -If all osteo removed we can transition to po for discharge with 5-7 therapy -C/W Vancomycin, check MRSA nares -C/W Cefepime ID will follow Dora Cheung MD Infectious Diseases Admission and Anticipated Discharge Date Admission Date: November 17, 2023 Subjective This patient recommendation is based on a telemedicine consult request which was completed asynchronously through chart review and information provided by the primary physician. The patient was not seen or examined today. The evaluation is consultative in nature and all patient care and treatment decisions can either be accepted or rejected by the patient's primary hospital-based treating physician using their own independent medical judgment for their patient. Time Spent Reviewing Chart: 31+ minutes Results & Data Vital Signs (Past 12 Hours) Vital Signs Temp Pulse Pulse Pulse Resp BP BP 11/20/23 13:30 22 11/20/23 13:12 21 11/20/23 12:51 55 L 16 11/20/23 12:33 63 17 11/20/23 12:00 36.5 C 59 L 12 128/63 11/20/23 11:50 55 L 14 118/62 11/20/23 11:40 56 L 20 120/62 11/20/23 11:33 36.6 C 58 L 16 113/53 L 11/20/23 09:54 36.8 C 61 22 136/65 11/20/23 08:02 36.7 C 82 19 113/56 L 11/20/23 08:00 11/20/23 03:22 36.8 C 59 L 18 93/54 L Pulse Ox O2 Del Method O2 Flow Rate 11/20/23 13:30 95 11/20/23 13:12 95 11/20/23 12:51 96 11/20/23 12:33 98 11/20/23 12:00 92 Room Air 11/20/23 11:50 96 Room Air 11/20/23 11:40 97 Oxymask 5 11/20/23 11:33 96 Oxymask 10 11/20/23 09:54 97 Room Air 11/20/23 08:02 95 Room Air 11/20/23 08:00 Room Air 11/20/23 03:22 96 Room Air Laboratory Results Short CBC 11/20/23 Range/Units 06:12 WBC 5.08 (4.8-10.8) K/ul Hgb 10.1 L (14.0-18.0) g/dl Hct 31.5 L (42.0-52.0) % Plt Count 174 (130-400) K/uL BMP 11/20/23 06:12 Sodium 138 Potassium 4.4 Chloride 111 H Carbon Dioxide 20 L BUN 29 H Creatinine 1.21 Glucose 92 Calcium 8.8 Medications Administered Current Inpatient Medications Acetaminophen (Acetaminophen 325 Mg Tab) 650 mg PO Q4H PRN PRN Reason: Pain or Fever Stop: 12/17/23 22:07 Last Admin: 11/18/23 20:21 Dose: 650 mg Albuterol (Albuterol Hfa 8 Gm Inhaler) 2 puffs INH Q4H PRN PRN Reason: shortness of breath Stop: 12/17/23 22:07 Atorvastatin Calcium (Atorvastatin 40 Mg Tab) 40 mg PO HS JOSE A Stop: 12/17/23 22:07 Last Admin: 11/19/23 20:19 Dose: 40 mg Atropine Sulfate (Atropine Sulfate 0.1 Mg/Ml 10ml Syr) 0.5 mg IV Q1M PRN PRN Reason: PACU Use-HR<40 &/or Bradycardi Stop: 11/20/23 18:42 Ephedrine Sulfate (Ephedrine Sulfate 50 Mg/Ml Amp) 5 mg IV Q5M PRN PRN Reason: PACU Use Only-SBP<90 mmHg Stop: 11/20/23 18:42 Fentanyl Citrate (Fentanyl Citrate Pf 100 Mcg/2 Ml Vial) 25 mcg IV Q5M PRN PRN Reason: PACU Use Only-Pain Stop: 11/20/23 18:42 Fluticasone Propionate (Fluticasone Propionate Na Spr 16 Gm Btl) 1 sprays NA BID [facility] Stop: 12/17/23 22:07 Last Admin: 11/20/23 08:00 Dose: 1 sprays Heparin Sodium/Dextrose (Heparin Sodium/Dextrose) 25,000 units in 500 mls @ 0 mls/hr IV .Q0M JOSE A; Protocol Stop: 12/17/23 22:07 Last Titration: 11/20/23 04:58 Dose: 0 units/hr, 0 mls/hr Vancomycin HCl 1,250 mg/ (Sodium Chloride) 275 mls @ 200 mls/hr IV Q18H [facility] Stop: 12/30/23 21:59 Last Infusion: 11/20/23 12:31 Dose: Infused Cefepime HCl 2,000 mg/ Syringe 20 mls @ 5 mls/min IV Q8H [facility]; Protocol Stop: 12/30/23 07:59 Last Admin: 11/20/23 08:00 Dose: 5 mls/min Lactated Ringer's (Lr) 1,000 mls @ 15 mls/hr IV .Q24H [facility] Stop: 12/20/23 10:14 Last Infusion: 11/20/23 10:53 Dose: Infused Lactobacillus Acidophilus (Advanced Probiotic 625 Mg Capsule) 1,250 mg PO QAM [facility] Stop: 12/18/23 08:59 Last Admin: 11/20/23 08:03 Dose: 1,250 mg Levothyroxine Sodium (Levothyroxine Sodium 75 Mcg Tablet) 75 mcg PO DAILYBB JOSE A Stop: 12/18/23 06:29 Last Admin: 11/20/23 04:58 Dose: 75 mcg Metoprolol Succinate (Metoprolol Succ 50mg Ext Rel Tab) 100 mg PO HS [facility] Stop: 12/17/23 22:07 Last Admin: 11/19/23 20:19 Dose: 100 mg Miscellaneous Information (Vancomycin Consult Active) 1 each N/A UD PRN PRN Reason: Consult Stop: 12/17/23 22:07 Modafinil (Modafinil 100 Mg Tab) 400 mg PO QAM [facility] Stop: 12/18/23 08:59 Last Admin: 11/20/23 08:07 Dose: 400 mg Morphine Sulfate (Morphine Sulfate 2 Mg/Ml Carp) 2 mg IV Q4 PRN PRN Reason: Pain Stop: 12/01/23 21:03 Last Admin: 11/17/23 21:44 Dose: 2 mg Multivitamins (Multivitamin Tab) 1 tab PO QAM [facility] Stop: 12/18/23 08:59 Last Admin: 11/20/23 08:03 Dose: 1 tab Ondansetron HCl (Ondansetron Inj 2 Mg/Ml 2 Ml Vial) 4 mg IV ONCE PRN PRN Reason: PACU Use Only-Nausea/Vomiting Stop: 11/20/23 18:42 Last Admin: 11/20/23 11:40 Dose: 4 mg Pantoprazole Sodium (Pantoprazole 40 Mg Tab) 40 mg PO BID [facility] Stop: 12/17/23 22:07 Last Admin: 11/20/23 08:03 Dose: 40 mg Polyethylene Glycol (Polyethylene (Miralax) 17 Gm Pack) 17 gm PO DAILY PRN PRN Reason: Constipation Stop: 12/17/23 22:07 Potassium Chloride (Potassium Chloride Crtab 20 Meq Tabcr) 20 meq PO BID [facility] Stop: 12/17/23 22:07 Last Admin: 11/20/23 08:07 Dose: 20 meq Sertraline HCl (Sertraline Hcl 50 Mg Tablet) 50 mg PO QAM [facility] Stop: 12/18/23 08:59 Last Admin: 11/20/23 08:03 Dose: 50 mg Spironolactone (Spironolactone 25 Mg Tab) 25 mg PO QAM [facility] Stop: 12/21/23 08:59 Tobramycin/Dexamethasone (Tobramycin/Dexamethasone Oph Susp 2.5 Ml Btl) 1 drops OP QID [facility] Stop: 12/17/23 22:07 Last Admin: 11/20/23 14:08 Dose: 1 drops Topiramate (Topiramate 100 Mg Tab) 100 mg PO BID [facility] Stop: 12/17/23 22:07 Last Admin: 11/20/23 08:07 Dose: 100 mg (1) Great toe pain Laterality: right Qualified Code(s): M79.674 - Pain in right toe(s)
[2023-11-20] MEDS: metroNIDAZOLE 500 MG/100 ML BAG IV SCH (16:09)
--- NOTE | 2023-11-20 23:32 | Hospitalist Progress Note ---
Date of Service November 20, 2023 Assessment & Plan (1) Diabetic foot infection: Plan: R toe xray suggests subtle erosion of distal tuft of distal phalanx, which raises the possibility of acute osteomyelitis - previous culture from R leg contained Pseudomonas and Enterococcus - pending current wound culture - starting on cefepime 2g and vanco consulted ID. Also consulted podiatry. Patient tolerated the partial amputation. (2) Diabetic peripheral neuropathy associated with type 2 diabetes mellitus: Plan: diabetes formally diagnosed within the last 2 years, not currently on medication - insulin sliding scale: 10U Lantus, correction factor of 35, carb ratio 15 (3) Permanent atrial fibrillation: Plan: on Eliquis and metoprolol Admission and Anticipated Discharge Date Admission Date: November 17, 2023 Subjective 78 yo male tolerated procedure. he states he has no new complaints. Review of Systems Review of Systems: All systems reviewed & are unremarkable except as noted in HPI & below Physical Exam Physical Exam: constitutional: A&Ox3, not in acute distress MSK: b/l LE nonpitting edema up to knees, R>L - b/l LE tender to palpation up to just inferior to knees - several toenails missingSkin: R great toe- (no significant change) erythema proximally with concentric yellow coloration and hyperpigmentation distally - tender to palpation - no ulceration noted, no active drainin g noted, no pus or bleedingNeuro: sensation to pressure intact, decreased sensation to sharp touch to toes and distal feet b/l Cardiovascular: bradycardic, irregularly irregular. Soft heart sounds, no murmurs heard on auscultation Pulmonary: clear to auscultation b/l GI: normoactive bowel sounds, soft, nontender to palpation Results & Data Results & Data Vital Signs (Past 12 Hours) Vital Signs Temp Pulse Pulse Resp BP BP Pulse Ox 11/20/23 19:21 36.6 C 57 L 18 110/46 L 96 11/20/23 15:52 36.5 C 68 20 94/55 L 97 11/20/23 13:30 22 95 11/20/23 13:12 21 95 11/20/23 12:51 55 L 16 96 11/20/23 12:33 63 17 98 11/20/23 12:00 36.5 C 59 L 12 128/63 92 11/20/23 11:50 55 L 14 118/62 96 09/19/24 11:40 56 L 20 120/62 97 11/20/23 11:33 36.6 C 58 L 16 113/53 L 96 O2 Del Method O2 Flow Rate 11/20/23 19:21 Room Air 11/20/23 15:52 Room Air 11/20/23 13:30 11/20/23 13:12 11/20/23 12:51 11/20/23 12:33 11/20/23 12:00 Room Air 11/20/23 11:50 Room Air 11/20/23 11:40 Oxymask 5 11/20/23 11:33 Oxymask 10 PG Care Time/CCT Total # of Minutes Spent Total Time Spent with Patient: Total time spent is greater than 50% in coordination of care (as documented) at patient's floor/unit and/or counseling patient: Coding Level of Care Code 59286 SUB INP/OBS CARE 2/35MIN Diagnoses Diabetic foot infection E11.628; L08.9 Diabetic peripheral neuropathy associated with type 2 diabetes mellitus E11.42 Permanent atrial fibrillation I48.21
[2023-11-21 07:26] LABS: BUN Creatinine Ratio 21.2 (10-20); Creatinine Clr Calc Pharmacy 67.1 ml/min; Est GFR (African American) 59.9 ml/min; Est GFR (Non-African American) 51.7 ml/min; Potassium 4.5 mmol/L (3.5-5.1)
[2023-11-21 07:31] LABS: Hematocrit (blood only) 31.8 % (42.0-52.0); Hemoglobin 10.2 g/dl (14.0-18.0); Mean Corpuscular Hemoglobin 30.8 pg (25.0-34.0); Mean Corpuscular Hgb Conc 32.1 g/dL (32.0-36.0); Mean Corpuscular Volume 96.1 fL (80.0-100.0); Mean Platelet Volume 10.1 fL (9.4-12.4); Platelet Count 171 K/uL (130-400); RDW Coefficient of Variation 12.2 % (11.5-14.5); RDW Standard Deviation 43.2 fL (36.4-46.3); Red Blood Count 3.31 M/uL (4.70-6.10); White Blood Count 6.22 K/ul (4.8-10.8)
[2023-11-21] MEDS: SPIRONOLACTONE 25 MG TAB PO SCH (09:48)
--- NOTE | 2023-11-21 11:06 | Infectious Disease Progress Nt ---
Date of Service November 21, 2023 Assessment & Plan (1) Great toe pain: Plan #Great toe osteomyelitis #DM MICRO BCx NG 11/16 Wound cx Finegoldia and bacteroides ABX Cefepime Vancomycin Flagyl 11/19- 78 yo male with past medical history of diabetes type 2, peripheral neuropathy, benign tremor, Afib on Eliquis, and lymphedema, JERAD on BiPAP, presented with R great toe pain and redness. ID consulted for DFI and c/f osteomyelitis. Patient noteced over the course of a few days his toe look infected. He applied topical antibiotic ointment to it but it h 3-4 days ago and realized it didn't look right. Pt started applying antibacterial ointment yesterday 11/15, but when it hadn't improved at all today he decided to come to the ED. Per notes, he was using pcket knife to clean skin and odor from foot started as well. No noted injury, no prior ulcerations. On admission, VSS, WBC normal, Cr 1.54, CRP 4.25, No recent cultures- 2020 wound cx E. faecalis and pseudomonas MRI and Xray confirm Soft tissue infection of the great toe. Moderate edema in the great toe distal phalanx, consistent with osteomyelitis. Went to OR on 11/19 for great toe amputation D/W Primary team, all infected bone has been removed RECOMMEND -He now has complete source control with all infected bone removed -Recommend he be dcd on Augmentin 875/125 1 po bid and doxycycline 100mg po bid wiht food (avoid dairy, mg/c within 2 hours of use) x 7 days ID will s/o D/W primary team Dora Cheung MD Infectious Diseases Admission and Anticipated Discharge Date Admission Date: November 17, 2023 Subjective This patient recommendation is based on a telemedicine consult request which was completed asynchronously through chart review and information provided by the primary physician. The patient was not seen or examined today. The evaluation is consultative in nature and all patient care and treatment decisions can either be accepted or rejected by the patient's primary hospital-based treating physician using their own independent medical judgment for their patient. Time Spent Reviewing Chart: 21 - 30 minutes Results & Data Vital Signs (Past 12 Hours) Vital Signs Temp Pulse Resp BP Pulse Ox O2 Del Method 11/21/23 07:17 36.3 C L 58 L 19 122/83 96 Room Air 09/20/24 04:16 36.5 C 65 19 112/64 96 Room Air 11/20/23 23:36 36.5 C 59 L 20 118/62 97 Room Air Laboratory Results Short CBC 11/21/23 Range/Units 06:50 WBC 6.22 (4.8-10.8) K/ul Hgb 10.2 L (14.0-18.0) g/dl Hct 31.8 L (42.0-52.0) % Plt Count 171 (130-400) K/uL BMP 11/21/23 06:50 Sodium 138 Potassium 4.5 Chloride 112 H Carbon Dioxide 20 L BUN 28 H Creatinine 1.32 Glucose 95 Calcium 9.0 Microbiology 11/20/23 11:13 Toe,Right Great Gram Stain - Final 11/20/23 11:13 Toe,Right Great Aerobic and Anaerobic Culture - Preliminary Moderate counts mixed probable skin microbiota. Medications Administered Current Inpatient Medications Acetaminophen (Acetaminophen 325 Mg Tab) 650 mg PO Q4H PRN PRN Reason: Pain or Fever Stop: 12/17/23 22:07 Last Admin: 11/20/23 16:50 Dose: 650 mg Albuterol (Albuterol Hfa 8 Gm Inhaler) 2 puffs INH Q4H PRN PRN Reason: shortness of breath Stop: 12/17/23 22:07 Atorvastatin Calcium (Atorvastatin 40 Mg Tab) 40 mg PO HS JOSE A Stop: 12/17/23 22:07 Last Admin: 11/20/23 20:13 Dose: 40 mg Fluticasone Propionate (Fluticasone Propionate Na Spr 16 Gm Btl) 1 sprays NA BID JOSE A Stop: 12/17/23 22:07 Last Admin: 11/21/23 08:36 Dose: 1 sprays Heparin Sodium/Dextrose (Heparin Sodium/Dextrose) 25,000 units in 500 mls @ 0 mls/hr IV .Q0M JOSE A; Protocol Stop: 12/17/23 22:07 Last Titration: 11/20/23 04:58 Dose: 0 units/hr, 0 mls/hr Vancomycin HCl 1,250 mg/ (Sodium Chloride) 275 mls @ 200 mls/hr IV Q18H [facility] Stop: 12/30/23 21:59 Last Infusion: 11/21/23 06:07 Dose: Infused Cefepime HCl 2,000 mg/ Syringe 20 mls @ 5 mls/min IV Q8H [facility]; Protocol Stop: 12/30/23 07:59 Last Admin: 11/21/23 07:22 Dose: 5 mls/min Lactated Ringer's (Lr) 1,000 mls @ 15 mls/hr IV .Q24H [facility] Stop: 12/20/23 10:14 Last Infusion: 11/20/23 10:53 Dose: Infused Metronidazole (Flagyl) 500 mg in 100 mls @ 100 mls/hr IV Q8H [facility]; Protocol Stop: 01/01/24 15:59 Last Infusion: 11/21/23 08:43 Dose: Infused Lactobacillus Acidophilus (Advanced Probiotic 625 Mg Capsule) 1,250 [facility] [place] Stop: 12/18/23 08:59 Last Admin: 11/21/23 08:36 Dose: 1,250 mg Levothyroxine Sodium (Levothyroxine Sodium 75 Mcg Tablet) [facility] Stop: 12/18/23 06:29 Last Admin: 11/21/23 06:09 Dose: Not Given Metoprolol Succinate (Metoprolol Succ 50mg Ext Rel Tab) 100 mg PO [facility] Stop: 12/17/23 22:07 Last Admin: 11/20/23 20:14 Dose: Not Given Miscellaneous Information (Vancomycin Consult Active) 1 each N/A UD PRN PRN Reason: Consult Stop: 12/17/23 22:07 Modafinil (Modafinil 100 Mg Tab) 400 mg PO [facility] Stop: 12/18/23 08:59 Last Admin: 11/21/23 08:41 Dose: 400 mg Morphine Sulfate (Morphine Sulfate 2 Mg/Ml Carp) 2 mg IV Q4 PRN PRN Reason: Pain Stop: 12/01/23 21:03 Last Admin: 11/17/23 21:44 Dose: 2 mg Multivitamins (Multivitamin Tab) 1 tab [facility] [place] Stop: 12/18/23 08:59 Last Admin: 11/21/23 08:37 Dose: 1 tab Pantoprazole Sodium (Pantoprazole 40 Mg Tab) 40 mg PO BID [facility] Stop: 12/17/23 22:07 Last Admin: 11/21/23 08:37 Dose: 40 mg Polyethylene Glycol (Polyethylene (Miralax) 17 Gm Pack) 17 gm PO DAILY PRN PRN Reason: Constipation Stop: 12/17/23 22:07 Potassium Chloride (Potassium Chloride Crtab 20 Meq Tabcr) 20 meq PO BID [facility] Stop: 12/17/23 22:07 Last Admin: 11/21/23 08:41 Dose: 20 meq Sertraline HCl (Sertraline Hcl 50 Mg Tablet) 50 mg PO QAM [facility] Stop: 12/18/23 08:59 Last Admin: 11/21/23 08:38 Dose: 50 mg Spironolactone (Spironolactone 25 Mg Tab) 25 mg PO QAM [facility] Stop: 12/21/23 08:59 Last Admin: 11/21/23 09:48 Dose: 25 mg Tobramycin/Dexamethasone (Tobramycin/Dexamethasone Oph Susp 2.5 Ml Btl) 1 drops OP QID [facility] Stop: 12/17/23 22:07 Last Admin: 11/21/23 08:38 Dose: 1 drops Topiramate (Topiramate 100 Mg Tab) 100 mg PO BID [facility] Stop: 12/17/23 22:07 Last Admin: 11/21/23 08:37 Dose: 100 mg (1) Great toe pain Laterality: right Qualified Code(s): M79.674 - Pain in right toe(s)
--- NOTE | 2023-11-21 14:52 | Pharmacy Report ---
Pharmacy PK ABX Note - Date of Service November 21, 2023 - Assessment and Plan Assessment * 78 year old M receiving VANCOMYCIN + CEFEPIME + METRONIDAZOLE for treatment of R diabetic foot infection / osteomyelitis great toe . * Pertinent microbiologic data includes: MRSA Nasal Swab negative; R great toe surface wound cx growing finegoldia magna and b fragilis * Patient is s/p amputation of affected toe 11/19 * ID has been consulted and has recommended he be d/c'd on Augmentin + Doxycyline x 7 days * Day # 5 of antimicrobial therapy * Renal fxn stable Plan Vancomycin * Random vanco level drawn this afternoon = 22.2mcg/mL * Ongoing maintenance dose of 1250mg IV every 18 hours is still predicted to achieve target AUC/TIERNEY of 400-600 mg/L.hr * Will hold off on ordering a repeat drug level for now given possible conversion to PO abx therapy in near future. If IV vanco continues more than 48 hrs more, would recommend checking another level. Pharmacy will continue to follow and will adjust dose/frequency as necessary. Thank you. Pharmacy has transitioned to AUC monitoring for vancomycin. AUC/TIERNEY is the preferred PK/PD target and is associated with decreased risk of nephrotoxicity compared to traditional trough targets.
--- NOTE | 2023-11-21 22:36 | Hospitalist Progress Note ---
Date of Service November 21, 2023 Assessment & Plan (1) Diabetic foot infection: Plan: R toe xray suggests subtle erosion of distal tuft of distal phalanx, which raises the possibility of acute osteomyelitis - previous culture from R leg contained Pseudomonas and Enterococcus - pending current wound culture - starting on cefepime 2g and vanco consulted ID. Also consulted podiatry. Patient tolerated the partial amputation. Awaiting PT/OT recommendations. Patient likely will be discharged on 11/22 (2) Diabetic peripheral neuropathy associated with type 2 diabetes mellitus: Plan: diabetes formally diagnosed within the last 2 years, not currently on medication - insulin sliding scale: 10U Lantus, correction factor of 35, carb ratio 15 (3) Permanent atrial fibrillation: Plan: on Eliquis and metoprolol Admission and Anticipated Discharge Date Admission Date: November 17, 2023 Subjective 78 yo male reports no new symptoms. Review of Systems Review of Systems: All systems reviewed & are unremarkable except as noted in HPI & below Physical Exam Physical Exam: constitutional: A&Ox3, not in acute distress Cardiovascular: bradycardic, irregularly irregular. Soft heart sounds, no murmurs heard on auscultation Pulmonary: clear to auscultation b/l GI: normoactive bowel sounds, soft, nontender to palpation Results & Data Results & Data Vital Signs (Past 12 Hours) Vital Signs Temp Pulse Resp BP Pulse Ox O2 Del Method 11/21/23 19:50 36.6 C 66 16 124/72 96 Room Air 11/21/23 16:06 36.7 C 57 L 17 116/52 L 97 Room Air 11/21/23 11:13 36.4 C L 105 H 17 123/61 96 Room Air PG Care Time/CCT Total # of Minutes Spent Total Time Spent with Patient: Total time spent is greater than 50% in coordination of care (as documented) at patient's floor/unit and/or counseling patient: Coding Level of Care Code 04861 SUB INP/OBS CARE 2/35MIN Diagnoses Diabetic foot infection E11.628; L08.9 Diabetic peripheral neuropathy associated with type 2 diabetes mellitus E11.42 Permanent atrial fibrillation I48.21
[2023-11-22 07:21] VITALS: PULSE 52; RESP 20; TEMP 98.2; O2SAT 96
[2023-11-22 07:26] LABS: Creatinine Clr Calc Pharmacy 75.7 ml/min; Est GFR (African American) 69.3 ml/min; Est GFR (Non-African American) 59.8 ml/min
--- NOTE | 2023-11-22 10:31 | Discharge Summary ---
Discharge Summary Date of Service November 22, 2023 Principal Dx & Hospital Course #1 = Principal Diagnosis (1) Diabetic foot infection: R toe xray suggests subtle erosion of distal tuft of distal phalanx, which raises the possibility of acute osteomyelitis - previous culture from R leg contained Pseudomonas and Enterococcus -Affected toe was amputated by Dr. Moya. Consulted ID. recommend to continue antibiotics post amputation as all of the infected tissue was removed. Will complete with augmentin/doxycycline. Patient will followup with Podiatry as an outpatient next week with dressing intact. Can ambulate with surgical shoe. Dressing will be changed at followup appointment with podiatry. Patient likely will be discharged on 11/22 (2) Diabetic peripheral neuropathy associated with type 2 diabetes mellitus: Remains in the prediabetic range. (3) Permanent atrial fibrillation: on Eliquis and metoprolol Admission HPI Per Admitting Provider Daniel is a 78yo male with past medical history of diabetes type 2, peripheral neuropathy, atrial fibrillation on Eliquis, and lymphedema, JERAD on BiPAP, came to the ED today due to R great toe pain and suspected infection by appearance. He states he started noticing the discomfort 3-4 days ago and realized it didn't look right. Pt started applying antibacterial ointment yesterday 11/15, but when it hadn't improved at all today he decided to come to the ED. Pt's also endorses she started noticing a bad smell coming from the toe late last week. Pt's endorses that pt often uses a pocket knife to remove " skin" from his feet and toes, including the affected toe, and additionally notes the knife was not likely clean. Pt denies having been to the hospital previously for an infection related to his diabetes, and denies any previous toe infection. Also denies that he has been barefoot outside or in the house aside from showering, as he always wears compression socks up to the knee for his lymphedema. Denies any animal bites or insect bites or stings to the affected toe. Pt and deny that pt has had any recent fever, body aches, chills, headache, nausea, vomiting, vision changes, chest pain, abdominal pain, constipation, diarrhea. Discharge Exam constitutional: A&Ox3, not in acute distress Cardiovascular: bradycardic, irregularly irregular. Soft heart sounds, no murmurs heard on auscultation Pulmonary: clear to auscultation b/l GI: normoactive bowel sounds, soft, nontender to palpation right foot with intact dressing. Discharge Plan Discharge Items Patient Disposition: Home - Self-Care Reason For Visit: DIABETIC FOOT INFECTION Discharge Diagnosis: diabetic foot infection Activity: Resume your previous activity Non-emergency contact: Primary Care Provider Call non-emergency contact if: you have any medication questions Follow-up/Referrals: Ervin Bobby, [Primary Care Provider] - Diet: Carb Consistent or DM2 Addtl Attending Provider Instructions: Start in the evening antibiotics: Augmentin 875/125 1 tablet twice a day (12 hours apart) doxycycline 100mg 1 tablets twice a day (12 hours apart) (avoid dairy, magnesium/calcium within 2 hours of use) Take until antibiotics are completed. You will followup with Dr. Dakota Moya this upcoming week. [phone] or visit us at: [address] [place] [address] Please leave the surgical dressing intact until followup next week. Keep it clean, dry, and intact Pending Studies at Discharge: No Stand-Alone Forms: My [facility], Smoking Cessation Medications and DC Order Prescriptions: New amoxicillin-pot clavulanate 875-125 mg tablet 1 tab PO BID Qty: 12 0RF doxycycline monohydrate 100 mg tablet 100 mg PO BID Qty: 12 0RF Continued levothyroxine 75 mcg tablet 75 mcg PO QAM Qty: 90 3RF apixaban 5 mg tablet 5 mg PO BID Qty: 180 3RF metoprolol succinate [Toprol XL] 100 mg tablet extended release 24 hr 100 mg PO HS Qty: 90 3RF sertraline 50 mg tablet 50 mg PO QAM Qty: 90 3RF mupirocin 2 % ointment 1 applic topical BID PRN (Reason: mucositis) Qty: 15 0RF Rx Instructions: APPLY TO AFFECTED NOSTRIL TWICE DAILY FOR 2 WEEKS pantoprazole [Protonix] 40 mg tablet,delayed release (DR/EC) 40 mg PO BID Qty: 180 3RF potassium chloride 20 mEq tablet,ER particles/crystals 20 meq PO BID Qty: 180 3RF modafinil [Provigil] 200 mg tablet 400 mg PO QAM Qty: 180 3RF bumetanide 2 mg tablet 2 mg PO QAM Qty: 90 3RF tobramycin-dexamethasone 0.3-0.1 % drops,suspension 1 drp ophthalmic (eye) QID Rx Instructions: 1 drop in right eye qid but patient only uses tid fluticasone propionate 50 mcg/actuation spray,suspension 1 spray INTNAS BID Qty: 3 3RF albuterol sulfate [Ventolin HFA] 90 mcg/actuation HFA aerosol inhaler 2 puff INH Q4H PRN (Reason: shortness of breath) Qty: 3 3RF atorvastatin 40 mg tablet 40 mg PO HS Qty: 90 3RF topiramate 100 mg tablet 100 mg PO BID Qty: 180 3RF clotrimazole 10 mg nilton 10 mg mucous membrane QID 14 Days Qty: 56 0RF spironolactone 25 mg tablet 25 mg PO DAILY Qty: 90 3RF multivitamin Tablet 1 tab PO QAM Patient Comments: GUMMIES Daily Probiotic 2.5 billion cell Capsule 2 cap PO QAM Patient Comments: GUMMIES Prevagen 1 tab PO QAM clobetasol 0.05 % ointment 1 applic topical BID PRN (Reason: itching/rash) Rx Instructions: Apply to areas of the arms twice daily x 2 weeks as directed. solifenacin [Vesicare] 10 mg tablet 10 mg PO QAM Discharge Orders: Discharge Order (Routine); Ordered 11/22/23 Ordered By: Claude Elias/Other Patient Handouts: Prediabetes, Nutrition for Wound Healing Admission Data Admit Date/Time: 11/17/23 20:23 Attending Provider: Claude Brizuela Admit Provider: Marcial Harper V. Primary Care Provider: Ervin Bobby Other Providers: Renetta Moya; Dakota Moya; Hitesh Benavidez Hospital Stay Data Consultations 11/17/23 18:01 ED Decision to Admit Stat 11/18/23 09:22 Consult Infectious Diseases Routine 11/18/23 16:12 Consult Podiatry Routine Procedures Performed Operation Date: 11/20/23 10:30 Actual Procedures p Right Great Toe Partial Amputation(Right) - Dakota Moya DPM Diagnostic Imagining Performed 11/17/23 19:57 MRI Foot [MR foot RT w/o con] Routine Pending Results Patient Have Any Pending Studies at Discharge: No Discharge Instructions Given to Patient (Per Discharging Provider) Start in the evening antibiotics: Augmentin 875/125 1 tablet twice a day (12 hours apart) doxycycline 100mg 1 tablets twice a day (12 hours apart) (avoid dairy, magnesium/calcium within 2 hours of use) Take until antibiotics are completed. You will followup with Dr. Dakota Moya this upcoming week. [phone] or visit us at: [address] [place] [id number] Please leave the surgical dressing intact until followup next week. Keep it clean, dry, and intact Total Time Total Time Spent Total Time Spent (In Minutes): 32 Coding Level of Care Code 19048 INP/OBS DISCH >30 MIN Diagnoses Diabetic foot infection E11.628; L08.9 Diabetic peripheral neuropathy associated with type 2 diabetes mellitus E11.42 Permanent atrial fibrillation I48.21
[2023-11-22 10:48] VITALS: BP 128/63
--- NOTE | 2023-12-10 09:44 | Operative Report ---
Post Operative Report Pre & Post Diagnosis Operation Date: 11/20/23 10:30 Pre-Op Diagnosis: diabetic foot infection Post-Op Diagnosis: diabetic foot infection I identified the patient and participated in the time-out.: Yes Procedure Operation Date: 11/20/23 10:30 Actual Procedures p Right Great Toe Partial Amputation(Right) - Dakota Moya DPM Surgeon Dakota Moya DPM Branch Administrator None Estimated Blood Loss 5 Findings Consistent with Post-Op Diagnosis Specimens Right hallux sent for culture/sensitivity and pathology testing Anesthesia Type MAC Complications none Disposition Accompanied Patient To Recovery: Yes Indications this patient is a recent hospital consult of our screw presented to [facility] with osteomyelitis of the right hallux. This has been confirmed on imaging and clinical exam since he has been admitted. He is currently interested in definitive treatment for this and has elected for this toe amputation. We did discuss alternatives including IV antibiotics and wound care but he is more interested in treating it aggressively. Preoperative instructions, postop instructions, relative risks and outcomes were all discussed at this visit. Consent was obtained for this right hallux partial dictation. All questions were answered. Description of Procedure the patient was brought to the operating room and placed on the operating table in the supine position. Following menstruation of IV sedation, local analgesia was obtained utilizing 20 cc of half percent Marcaine in a local block fashion. The right lower extremity was then scrubbed, prepped, and draped in the usual aseptic manner. No tourniquet was utilized in this procedure due to the patient's vascular state. Attention was directed to the distal aspect of the right great toe where 2 converging semielliptical incisions were made in a fishmouth pattern circumferentially around the IPJ of the right great toe. The incision was carried down to the level of the bone utilizing sharp and blunt dissection techniques. The toe was disarticulated at the level of the IPJ and the toe was passed off to the back table in 1 specimen. quality control representative samples were obtained from this to be sent for culture and sensitivity testing with the remainder of the toe sent for pathology to confirm the presence of obvious clinical osteomyelitis. The surgical site was flushed with copious amounts of sterile saline and closure was performed primarily with clinically clear margins obtained. This was closed utilizing 3-0 nylon in a simple interrupted fashion. The incision was dressed with Xeroform gauze, 4 x 4 gauze, Kerlix, and an Reji wrap. The patient tolerated the procedure well and was transferred to the recovery with vital signs stable and vascular status intact to the feet. Following postoperative monitoring, the patient be transferred back to the floor for further evaluation and likely discharge in the next couple of days. I attest to the content of the Intraoperative Record and any orders documented therein. Any exceptions are noted below.
== END 2023-11-22 11:25 | disposition home or self-care (01) | DRG 617 ==
LOC: ED 13:12 → SUATTDRO 20:23 → EDINP 20:23 → 2E 11-18 01:17